=== PATIENT | female | born 1990 | race Caucasian/White ===

== ENCOUNTER 2020-07-02 23:05 | Emergency (ER) | payer MEDICAID, SELFPAY ==
[2020-07-02 23:07] VITALS: BP 123/78; PULSE 78; RESP 18; TEMP 36.3; O2SAT 98; BMI 23.8
--- NOTE | 2020-07-03 00:18 | ED_ITS ---
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 Patient states that she is not on any control , denies any smoking history. Related Data Allergies Allergy/AdvReac Type Severity Reaction Status Date / Time No Known Allergies Allergy Unverified 04/19/20 19:36 [No Known Allergies*] Review of Systems Review of Systems: pertinent positives and negatives as stated in HPI 10 point review of systems is otherwise negative. PMFSH Past Medical History Source: nursing notes reviewed Social History Social History Advance Directives: No Advance Directives Information Provided: No Physical Exam Vital Signs: Vital Signs: Last Vital Signs Temp 97.3 F 07/02/20 23:07 Pulse 78 07/02/20 23:07 Resp 18 07/02/20 23:07 BP 123/78 07/02/20 23:07 Pulse Ox 98 07/02/20 23:07 Body Mass Index 23.8 VITAL SIGNS: Reviewed. GENERAL: Well developed, well nourished, in no acute distress. HEAD: Normocephalic/atraumatic, EYES: PERRLA, EOMI intact without pain, no nystagmus/pallor/icterus noted EARS: Ext canals without abnormality, TMs non-bulging and non-erythematous NOSE: Nares patent bilateral OROPHARYNX: no oral lesions noted, posterior pharynx clear and non-erythematous without noted tonsillar enlargement/erythema/exudates NECK: Supple, no adenopathy LUNGS: Normal breath sounds. No adventitious sounds or accessory muscle use. SpO2<98> CARDIOVASCULAR: Regular rate and rhythm without noted murmurs, no JVD or lower extremity edema. ABDOMEN: Soft, non-tender, non-distended with bowel sounds. No rigidity. No guarding. No palpable masses or hernias noted MUSCULOSKELETAL: No tenderness, deformities, or effusions noted on gross inspection. EXTREMITIES: No cyanosis, clubbing or edema. SKIN: Inspection of the skin reveals no rashes, ulcerations, jaundice, pallor, or petechiae. NEUROLOGIC: Alert and oriented x 4. Strength and sensation to light touch were grossly intact x 4. Course Course Course Narrative: This is a 29-year-old female with history and clinical presentation most suggestive of possible mild dehydration versus headache versus sinus pressure but will rule out cardiac or pulmonary etiologies. On review of all investigations there is no evidence of infection, anemia, or electrolyte abnormalities. In addition urinalysis is negative for evidence infection and chest x-ray is without acute abnormalities and review of EKG does not show any evidence of arrhythmias. Patient was informed of all results and findings at the bedside and states that she is feeling much better after the IV fluids and Tylenol. She understands that it is recommended that she should follow up with the primary care provider at [facility]. MDM - Headache Lab Data Result diagrams: 07/03/20 00:58 07/03/20 00:58 Labs: Lab Results 07/03/20 07/03/20 07/03/20 Range/Units 00:57 00:57 00:58 WBC 7.4 (4.8-10.8) X10*3/uL RBC 4.84 (4.20-5.50) X10*6/uL Hgb 14.1 (12.0-16.0) g/dl Hct 41.0 (37-47) % MCV 84.7 (80-98) fL MCH 29.1 (27.0-33.0) pg MCHC 34.4 (31.0-35.0) g/dl RDW 12.0 (11.0-16.0) % Plt Count 294 (160-400) X10*3/uL MPV 8.8 L (9.4-12.3) fL Immature Gran % (Auto) 0.3 (0.0-0.4) % Neut % (Auto) 40.6 L (45-73) % Lymph % (Auto) 48.2 H (20-40) % Logan % (Auto) 7.7 (2-11) % Eos % (Auto) 2.7 (0-4) % Baso % (Auto) 0.5 (0-2) % Lymph # (Auto) 3.6 (1.2-4.9) X10*3/uL Logan # (Auto) 0.6 (0.1-1.2) X10*3/uL Eos # (Auto) 0.2 (0.0-0.4) X10*3/uL Baso # (Auto) 0.0 (0.0-0.2) X10*3/uL Abs Immat Gran (auto) 0.02 (0.00-0.03) X10*3/uL Absolute Neuts (auto) 3.0 (2.0-8.3) X10*3/uL Absolute Nucleated RBC 0.000 (0.0-0.012) X10*3/uL Nucleated RBC % (auto) 0.0 (0.0-0.2) /100WBC Sodium (135-145) mmol/L Potassium (3.3-5.1) mmol/l Chloride (96-108) mmol/L Carbon Dioxide (22-29) mmol/L Anion Gap (12-20) BUN (9-16) mg/dL Creatinine (0.5-1.4) mg/dL Estim Creat Clear Calc Estimated GFR Random Glucose (60-115) mg/dL Calcium (8.4-10.2) mg/dL Total Bilirubin (0.0-1.0) mg/dL AST (5-31) U/L ALT (0-31) U/L Alkaline Phosphatase (39-117) U/L Total Protein (6.5-8.0) g/dL Albumin (3.5-5.0) g/dL Urine Color YELLOW Urine Appearance CLEAR Urine pH 6.5 (5.0-8.0) Ur Specific [place] 1.025 (1.005-1.025) Urine Protein NEG (NEG-TRACE) MG/DL Urine Glucose (UA) NEG (NEG) MG/DL Urine Ketones NEG (NEG) MG/DL Urine Blood 1+ H (NEG) Urine Nitrite NEG (NEG) Ur Leukocyte Esterase NEG (NEG) Urine RBC 0-2 (0) /HPF Urine WBC 0-2 (0-4) /HPF Ur Squamous Epith Cells TRACE /LPF Urine Bacteria TRACE /LPF Urine Test NEGATIVE (NEGATIVE) Urine Opiates Screen Not Detected (Not Detect) Ur Barbiturates Screen Not Detected (Not Detect) Ur Phencyclidine Scrn Not Detected (Not Detect) Ur Amphetamines Screen Not Detected (Not Detect) U Benzodiazepines Scrn Not Detected (Not Detect) Urine Cocaine Screen Not Detected (Not Detect) U Marijuana (THC) Screen Not Detected (Not Detect) 07/03/20 Range/Units 00:58 WBC (4.8-10.8) X10*3/uL RBC (4.20-5.50) X10*6/uL Hgb (12.0-16.0) g/dl Hct (37-47) % MCV (80-98) fL MCH (27.0-33.0) pg MCHC (31.0-35.0) g/dl RDW (11.0-16.0) % Plt Count (160-400) X10*3/uL MPV (9.4-12.3) fL Immature Gran % (Auto) (0.0-0.4) % Neut % (Auto) (45-73) % Lymph % (Auto) (20-40) % Logan % (Auto) (2-11) % Eos % (Auto) (0-4) % Baso % (Auto) (0-2) % Lymph # (Auto) (1.2-4.9) X10*3/uL Logan # (Auto) (0.1-1.2) X10*3/uL Eos # (Auto) (0.0-0.4) X10*3/uL Baso # (Auto) (0.0-0.2) X10*3/uL Abs Immat Gran (auto) (0.00-0.03) X10*3/uL Absolute Neuts (auto) (2.0-8.3) X10*3/uL Absolute Nucleated RBC (0.0-0.012) X10*3/uL Nucleated RBC % (auto) (0.0-0.2) /100WBC Sodium 136 (135-145) mmol/L Potassium 4.3 (3.3-5.1) mmol/l Chloride 103 (96-108) mmol/L Carbon Dioxide 26 (22-29) mmol/L Anion Gap 11 L (12-20) BUN 15 (9-16) mg/dL Creatinine 0.67 (0.5-1.4) mg/dL Estim Creat Clear Calc 98.9 Estimated GFR > 60 Random Glucose 84 (60-115) mg/dL Calcium 8.6 (8.4-10.2) mg/dL Total Bilirubin 0.3 (0.0-1.0) mg/dL AST 19 (5-31) U/L ALT 13 (0-31) U/L Alkaline Phosphatase 58 (39-117) U/L Total Protein 7.2 (6.5-8.0) g/dL Albumin 4.1 (3.5-5.0) g/dL Urine Color Urine Appearance Urine pH (5.0-8.0) Ur Specific [place] (1.005-1.025) Urine Protein (NEG-TRACE) MG/DL Urine Glucose (UA) (NEG) MG/DL Urine Ketones (NEG) MG/DL Urine Blood (NEG) Urine Nitrite (NEG) Ur Leukocyte Esterase (NEG) Urine RBC (0) /HPF Urine WBC (0-4) /HPF Ur Squamous Epith Cells /LPF Urine Bacteria /LPF Urine Test (NEGATIVE) Urine Opiates Screen (Not Detect) Ur Barbiturates Screen (Not Detect) Ur Phencyclidine Scrn (Not Detect) Ur Amphetamines Screen (Not Detect) U Benzodiazepines Scrn (Not Detect) Urine Cocaine Screen (Not Detect) U Marijuana (THC) Screen (Not Detect) ECG Data Attestation: I personally reviewed and interpreted this ECG as follows: Prior ECG tracings: not available for review Interpretation: normal sinus rhythm, HR - 69, no evidence of acute ischemia, IN/QRS/ QTC are within normal limits. Discharge Plan Discharge Clinical Impression: Dehydration Patient Disposition: Home, Self-Care Instructions: Dehydration (ED) Additional Instructions: 1. Tylenol 1000 mg, orally, every 6 hours as needed for pain control. Do not exceed 4000 mg within 24 hours. 2. Please increase fluid hydration especially with water. The patient and/or family acknowledge understanding of results (as applicable), diagnosis, treatment plan, need for follow up, and symptoms that should prompt a return to the emergency room. Print Language: Indian
[2020-07-03 00:37] VITALS: PULSE 86; RESP 18; TEMP 37; O2SAT 100
--- NOTE | 2020-07-03 00:38 | XR_ITS ---
EXAMINATION: XR CHEST CLINICAL INFORMATION: Chest discomfort COMPARISON: None TECHNIQUE: Frontal view of the chest was obtained. FINDINGS: The lungs are clear with no focal consolidation. No evidence of pneumothorax, pulmonary edema, or pleural effusions. The cardiomediastinal silhouette is unremarkable. No acute osseous findings. XR/XR chest 1V IMPRESSION: No acute cardiopulmonary findings.
[2020-07-03] MEDS: Acetaminophen 325 MG TABLET 975 MG PO (00:51)
[2020-07-03 01:06] LABS: MANUAL DIFF FLAG NO
[2020-07-03 01:07] LABS: Basophils Percent Auto 0.5 % (0-2); Eosinophils Absolute Auto 0.2 X10*3/uL (0.0-0.4); Eosinophils Percent Auto 2.7 % (0-4); Hemoglobin 14.1 g/dl (12.0-16.0); Imm Gran Abs Auto 0.02 X10*3/uL (0.00-0.03); Imm Gran Pct Auto 0.3 % (0.0-0.4); Lymphocytes Absolute Auto 3.6 X10*3/uL (1.2-4.9); Lymphocytes Percent Auto 48.2 % (20-40); Mean Corpuscular HGB Conc 34.4 g/dl (31.0-35.0); Mean Corpuscular Hemoglobin 29.1 pg (27.0-33.0); Mean Corpuscular Volume 84.7 fL (80-98); Mean Platelet Volume 8.8 fL (9.4-12.3); Monocytes Absolute Auto 0.6 X10*3/uL (0.1-1.2); Monocytes Percent Auto 7.7 % (2-11); Neutrophils Percent Auto 40.6 % (45-73); Platelet Count 294 X10*3/uL (160-400); Red Blood Count 4.84 X10*6/uL (4.20-5.50); White Blood Count 7.4 X10*3/uL (4.8-10.8)
[2020-07-03 01:15] LABS: Glucose Urine UA NEG (NEG); Leukocyte Esterase Urine NEG (NEG); Nitrite Urine NEG (NEG); PH 6.5 (5.0-8.0); Specific Gravity - Urine 1.025 (1.005-1.025); Urine Blood 1+ (NEG); Urine Ketones NEG (NEG); Urine Protein NEG (NEG-TRACE)
[2020-07-03 01:18] LABS: Appearance Urine CLEAR; Color Urine YELLOW
--- NOTE | 2020-07-03 01:23 | ECG_ITS ---
Test Reason : HEADACHE Blood Pressure : / mmHG Vent. Rate : 069 BPM Atrial Rate : 069 BPM P-R Int : 172 ms QRS Dur : 072 ms QT Int : 384 ms P-R-T Axes : 063 059 041 degrees QTc Int : 411 ms Normal sinus rhythm Normal ECG When compared with ECG of 20-OCT-2018 12:13, No significant change was found Referred By: Safia Saleh Electronically Signed By:RICKEY DIAZ MD
[2020-07-03 01:29] LABS: Alanine Aminotransferase 13 U/L (0-31); Albumin Level 4.1 g/dL (3.5-5.0); Alkaline Phosphatase 58 U/L (39-117); Anion Gap 11 (12-20); Aspartate Amino Transferase 19 U/L (5-31); Bilirubin Total 0.3 mg/dL (0.0-1.0); Blood Urea Nitrogen 15 mg/dL (9-16); Calcium 8.6 mg/dL (8.4-10.2); Carbon Dioxide 26 mmol/L (22-29); Chloride 103 mmol/L (96-108); Creatinine Clr Calc Pharmacy 98.9; Estimated Glomerular Filt Rate > 60; Glucose Random 84 mg/dL (60-115); Potassium 4.3 mmol/l (3.3-5.1); Sodium 136 mmol/L (135-145); Total Protein 7.2 g/dL (6.5-8.0)
[2020-07-03 01:39] LABS: Amphetamine Screen Urine Not Detected (Not Detect); Barbiturates, Urine Not Detected (Not Detect); Benzodiazepines Screen Urine Not Detected (Not Detect); Cannabinoid Screen Urine Not Detected (Not Detect); Cocaine Screen Urine Not Detected (Not Detect); Opiate Screen Urine Not Detected (Not Detect); Phencyclidine Screen Urine Not Detected (Not Detect)
--- NOTE | 2020-07-03 02:08 | PC.NURSE ---
IV fluid hung at this time.
[2020-07-03 02:26] LABS: Bacteria Urine TRACE /LPF; RBC Urine 0-2 /HPF (0); Squamous Epithelial Cell Urine TRACE /LPF; UPreg QC Valid YES; Urine Pregnancy NEGATIVE (NEGATIVE); WBC Urine 0-2 /HPF (0-4)
== END 2020-07-03 03:24 | disposition home or self-care (01) ==
PROVIDERS: Emergency Provider Student in an Organized Health Care Education/Training Program; PCP Family Medicine
DX: E86.0 Dehydration (principal)
CPT/HCPCS: 36415; 71045; 80053; 80307; 81001; 81025; 85025; 93005; 99283; 99284

== ENCOUNTER 2020-07-17 15:05 | Outpatient (REF) | payer MEDICAID, SELFPAY | END 2020-07-17 15:06 | disposition home or self-care (01) | LOC: HO.LAB 15:05 | PROVIDERS: Visit Provider Internal Medicine | DX: Z20.828 Contact with and (suspected) exposure to other viral communicable diseases (principal) | CPT/HCPCS: C9803; U0003 ==

== ENCOUNTER 2020-07-31 15:37 | Outpatient (REF) | payer MEDICAID, SELFPAY | END 2020-07-31 15:38 | disposition home or self-care (01) | LOC: HO.LAB 15:37 | PROVIDERS: PCP Family Medicine; Visit Provider Internal Medicine | DX: Z20.828 Contact with and (suspected) exposure to other viral communicable diseases (principal) | CPT/HCPCS: C9803; U0003 ==

== ENCOUNTER 2020-08-28 16:34 | Emergency (ER) | payer MEDICAID, SELFPAY ==
--- NOTE | 2020-08-28 17:05 | ECG_ITS ---
Test Reason : CHEST PAIN Blood Pressure : / mmHG Vent. Rate : 070 BPM Atrial Rate : 070 BPM P-R Int : 162 ms QRS Dur : 076 ms QT Int : 384 ms P-R-T Axes : 058 049 023 degrees QTc Int : 414 ms Normal sinus rhythm Normal ECG When compared with ECG of 03-JUL-2020 01:40, No significant change was found Referred By: Generic ED Physician Electronically Signed By:Patrice Ernst
[2020-08-28 17:14] VITALS: BP 109/78; PULSE 74; RESP 16; TEMP 36.9; O2SAT 99; BMI 23.0
--- NOTE | 2020-08-28 17:30 | XR_ITS ---
EXAMINATION: XR CHEST CLINICAL INFORMATION: Left-sided chest pain COMPARISON: 07/03/2020 TECHNIQUE: Frontal view of the chest was obtained. FINDINGS: No significant abnormality is noted involving the heart, lungs, mediastinum, bony thorax or soft tissues. XR/XR chest 1V IMPRESSION: Unremarkable examination.
--- NOTE | 2020-08-28 17:35 | ED.CHESTPAIN ---
HPI - Chest Pain General Chief Complaint: Chest Pain Stated Complaint: cp Time Seen by Provider: 08/28/20 17:25 Source: patient Mode of arrival: ambulatory Limitations: no limitations History of Present Illness HPI narrative: Patient presents to ED for left-sided chest pain which began around 04:00 o'clock while at work. Patient also some left face and left arm tingling. Patient states she has had this before in the past. Patient denies any shortness of breath, swelling of lower extremities, coughing up blood, fever, or chills. Patient denies any swelling of lower extremities, calf pain, recent long travel, recent surgery, or any control pill use. complaint: chest pain Related Data Previous Rx's Medication Instructions Recorded naproxen 500 mg PO BID PRN #20 tab 08/28/20 Allergies Allergy/AdvReac Type Severity Reaction Status Date / Time No Known Allergies Allergy Verified 08/28/20 17:20 [No Known Allergies*] Review of Systems Review of Systems: Yes all other systems are reviewed and are negative Constitutional: Constitutional: Reports as per HPI and Reports no additional constitutional complaints Eyes: Eyes: Reports as per HPI and Reports no additional eye complaints ENT: Reports system reviewed and no additional complaints, except as documented and Reports as per HPI Cardiovascular: Cardiovascular: Reports as per HPI, Reports no additional cardiovascular complaints, Reports chest pain and Denies dyspnea Respiratory: Respiratory: Reports as per HPI, Reports no additional respiratory complaints, Denies change in phlegm color, Denies chest congestion, Denies cough, Denies pain on inspiration, Denies pain with cough and Denies dyspnea Gastrointestinal: Gastrointestinal: Reports as per HPI and Reports no additional gastrointestinal complaints Genitourinary: Genitourinary: Reports no additional female genitourinary complaints and Reports as per HPI Musculoskeletal: Musculoskeletal: Reports no additional musculoskeletal complaints and Reports as per HPI Neurologic: Reports system reviewed and no additional complaints, except as documented and Reports as per HPI Psychiatric: Psychiatric: Reports no additional psychiatric complaints and Reports as per HPI [facility] Past Medical History Medical History (Updated 08/28/20 @ 22:12 by MEGHA Rosa) No known health problems Social History Social History Smoking Status: Never smoker Use of substances other than those prescribed or required for medical reasons: No Advance Directives: No Advance Directives Information Provided: No Physical Exam Vital Signs: Vital Signs: Last Vital Signs Temp 99.1 F 08/28/20 21:57 Pulse 72 08/28/20 21:57 Resp 18 08/28/20 21:57 BP 113/69 08/28/20 21:57 Pulse Ox 99 08/28/20 21:57 Body Mass Index 23.0 Const: General: cooperative, healthy appearing, comfortable, no acute distress, well developed, alert, awake and Physically active Orientation/consciousness: patient oriented x3 HENMT: Head: Yes normal to inspection, Yes No palpable skull fracture present, Yes normocephalic, Yes atraumatic and No abrasion Eyes: General: appearance normal, both eyes and all related structures Neck: Neck: Yes normal visual inspection, Yes full ROM, Yes no lymphadenopathy, Yes no meningeal signs, Yes trachea midline, Yes supple and No tender Chest: Other: positive for left sided chest wall tendereness. Breast exam negative for any erythema, swelling, mass, or nipple discharge. Negative for any left axillary lymphadenopathy. Chest palpation & inspection: normal inspection of the chest Resp: Effort & Inspection: normal respiratory effort and able to speak in complete sentences Auscultation: clear to auscultation bilaterally Cardio: Jugular venous distension: no JVD Heart sounds: S1 normal heart sound present and S2 normal heart sound present GI: Inspection: Yes normal to inspection and No abdominal wall ecchymosis Palpation (GI): Soft to palpation, not firm, nontender, no guarding and not rigid : General: No CVA tenderness and Yes no CVA tenderness Back/Spine/Pelvis: Back: no CVA tenderness, No CVA tenderness and No back tenderness Skin: General skin exam: no rashes or lesions noted and elasticity normal Neuro: General: patient oriented x3, no meningeal signs and CN's II-XI intact bilaterally Cranial nerves: Yes CN's II-XII intact bilaterally Extrem: Other: Negative for any calf tenderness, lower extremity swelling pitting edema. General: Yes normal to inspection and Yes full ROM Psych: Appearance: grossly normal, well kempt and not disheveled Course Course Course Narrative: Patient likely has muscular chest wall pain. Patient will have cardiac evaluation including D-dimer makes within the risk of PE. Patient had COVID abscess of the foot does know COVID. Patient will have x-ray. Reevaluation(s) Reevaluation #1: Patient's COVID swab came back negative. Chest x-ray normal negative for any pneumonia. Patient's troponin and D-dimer negative. EKG normal. Will do repeat troponin due to patient having chest pain starting at 16:00. Patient is not in any distress Time: 20:06 Reevaluation #2: Patient's 2nd troponin came back negative. Patient's PERC score is 0. patient chest wall pain resolved after receiving Toradol. Patient is safe for discharge Time: 22:09 MDM - Chest Pain MDM Narrative Medical decision making narrative: Chest wall pain Lab Data Result diagrams: 08/28/20 18:06 08/28/20 18:06 Labs: Lab Results 08/28/20 08/28/20 08/28/20 Range/Units 18:06 18:06 18:06 WBC 7.0 (4.8-10.8) X10*3/uL RBC 5.25 (4.20-5.50) X10*6/uL Hgb 15.1 (12.0-16.0) g/dl Hct 44.7 (37-47) % MCV 85.1 (80-98) fL MCH 28.8 (27.0-33.0) pg MCHC 33.8 (31.0-35.0) g/dl RDW 11.9 (11.0-16.0) % Plt Count 304 (160-400) X10*3/uL MPV 8.8 L (9.4-12.3) fL Immature Gran % (Auto) 0.4 (0.0-0.4) % Neut % (Auto) 55.1 (45-73) % Lymph % (Auto) 37.6 (20-40) % [place] % (Auto) 4.9 (2-11) % Eos % (Auto) 1.6 (0-4) % Baso % (Auto) 0.4 (0-2) % Lymph # (Auto) 2.6 (1.2-4.9) X10*3/uL [place] # (Auto) 0.3 (0.1-1.2) X10*3/uL Eos # (Auto) 0.1 (0.0-0.4) X10*3/uL Baso # (Auto) 0.0 (0.0-0.2) X10*3/uL Abs Immat Gran (auto) 0.03 (0.00-0.03) X10*3/uL Absolute Neuts (auto) 3.8 (2.0-8.3) X10*3/uL Absolute Nucleated RBC 0.000 (0.0-0.012) X10*3/uL Nucleated RBC % (auto) 0.0 (0.0-0.2) /100WBC PT 12.2 (10.8-13.0) SEC INR 1.0 (0.9-1.1) APTT 37.4 (24.1-38.0) SEC D-Dimer < 200 NG/ML Sodium 138 (135-145) mmol/L Potassium 4.3 (3.3-5.1) mmol/l Chloride 102 (96-108) mmol/L Carbon Dioxide 28 (22-29) mmol/L Anion Gap 12 (12-20) BUN 10 (9-16) mg/dL Creatinine 0.64 (0.5-1.4) mg/dL Estim Creat Clear Calc 108.2 Estimated GFR > 60 Random Glucose 82 (60-115) mg/dL Calcium 9.3 D (8.4-10.2) mg/dL Ferritin 21 (10-122) ng/mL Total Bilirubin 0.3 (0.0-1.0) mg/dL AST 19 (5-31) U/L ALT 14 (0-31) U/L Alkaline Phosphatase 63 (39-117) U/L Lactate Dehydrogenase 153 (122-220) U/L Troponin I High Sens (<3.5-17.0) ng/L Total Protein 7.9 (6.5-8.0) g/dL Albumin 4.4 (3.5-5.0) g/dL Procalcitonin ng/mL Beta HCG, Quant mIU/mL COVID-19 (RICARDO) (Negative) COVID-19 Clin Com 08/28/20 08/28/20 08/28/20 Range/Units 18:06 18:06 18:06 WBC (4.8-10.8) X10*3/uL RBC (4.20-5.50) X10*6/uL Hgb (12.0-16.0) g/dl Hct (37-47) % MCV (80-98) fL MCH (27.0-33.0) pg MCHC (31.0-35.0) g/dl RDW (11.0-16.0) % Plt Count (160-400) X10*3/uL MPV (9.4-12.3) fL Immature Gran % (Auto) (0.0-0.4) % Neut % (Auto) (45-73) % Lymph % (Auto) (20-40) % [place] % (Auto) (2-11) % Eos % (Auto) (0-4) % Baso % (Auto) (0-2) % Lymph # (Auto) (1.2-4.9) X10*3/uL [place] # (Auto) (0.1-1.2) X10*3/uL Eos # (Auto) (0.0-0.4) X10*3/uL Baso # (Auto) (0.0-0.2) X10*3/uL Abs Immat Gran (auto) (0.00-0.03) X10*3/uL Absolute Neuts (auto) (2.0-8.3) X10*3/uL Absolute Nucleated RBC (0.0-0.012) X10*3/uL Nucleated RBC % (auto) (0.0-0.2) /100WBC PT (10.8-13.0) SEC INR (0.9-1.1) APTT (24.1-38.0) SEC D-Dimer NG/ML Sodium (135-145) mmol/L Potassium (3.3-5.1) mmol/l Chloride (96-108) mmol/L Carbon Dioxide (22-29) mmol/L Anion Gap (12-20) BUN (9-16) mg/dL Creatinine (0.5-1.4) mg/dL Estim Creat Clear Calc Estimated GFR Random Glucose (60-115) mg/dL Calcium (8.4-10.2) mg/dL Ferritin (10-122) ng/mL Total Bilirubin (0.0-1.0) mg/dL AST (5-31) U/L ALT (0-31) U/L Alkaline Phosphatase (39-117) U/L Lactate Dehydrogenase (122-220) U/L Troponin I High Sens < 3.5 (<3.5-17.0) ng/L Total Protein (6.5-8.0) g/dL Albumin (3.5-5.0) g/dL Procalcitonin < 0.02 ng/mL Beta HCG, Quant < 2 mIU/mL COVID-19 (RICARDO) (Negative) COVID-19 Clin Com 08/28/20 08/28/20 Range/Units 18:06 21:10 WBC (4.8-10.8) X10*3/uL RBC (4.20-5.50) X10*6/uL Hgb (12.0-16.0) g/dl Hct (37-47) % MCV (80-98) fL MCH (27.0-33.0) pg MCHC (31.0-35.0) g/dl RDW (11.0-16.0) % Plt Count (160-400) X10*3/uL MPV (9.4-12.3) fL Immature Gran % (Auto) (0.0-0.4) % Neut % (Auto) (45-73) % Lymph % (Auto) (20-40) % [place] % (Auto) (2-11) % Eos % (Auto) (0-4) % Baso % (Auto) (0-2) % Lymph # (Auto) (1.2-4.9) X10*3/uL [place] # (Auto) (0.1-1.2) X10*3/uL Eos # (Auto) (0.0-0.4) X10*3/uL Baso # (Auto) (0.0-0.2) X10*3/uL Abs Immat Gran (auto) (0.00-0.03) X10*3/uL Absolute Neuts (auto) (2.0-8.3) X10*3/uL Absolute Nucleated RBC (0.0-0.012) X10*3/uL Nucleated RBC % (auto) (0.0-0.2) /100WBC PT (10.8-13.0) SEC INR (0.9-1.1) APTT (24.1-38.0) SEC D-Dimer NG/ML Sodium (135-145) mmol/L Potassium (3.3-5.1) mmol/l Chloride (96-108) mmol/L Carbon Dioxide (22-29) mmol/L Anion Gap (12-20) BUN (9-16) mg/dL Creatinine (0.5-1.4) mg/dL Estim Creat Clear Calc Estimated GFR Random Glucose (60-115) mg/dL Calcium (8.4-10.2) mg/dL Ferritin (10-122) ng/mL Total Bilirubin (0.0-1.0) mg/dL AST (5-31) U/L ALT (0-31) U/L Alkaline Phosphatase (39-117) U/L Lactate Dehydrogenase (122-220) U/L Troponin I High Sens < 3.5 (<3.5-17.0) ng/L Total Protein (6.5-8.0) g/dL Albumin (3.5-5.0) g/dL Procalcitonin ng/mL Beta HCG, Quant mIU/mL COVID-19 (RICARDO) Negative (Negative) COVID-19 Clin Com See Note ECG Data ECG #1: Interpretation: Normal sinus rhythm. Ventricular rate 70. MA interval 162. QRS duration 76. QTC 414. Negative STEMI Discharge Plan Discharge Clinical Impression: Acute chest wall pain Patient Disposition: Home, Self-Care Instructions: Chest Wall Pain (ED) Additional Instructions: Return to the ED for worsening chest pain, shortness of breath, swelling of lower extremities, calf pain, coughing up blood, fever, chills, or any other concerning symptoms. Please follow-up with PCP. A chest x-ray came back negative for pneumonia. COVID swab came back negative. EKG was normal. D-dimer was negative. New troponins were negative. Prescriptions: New naproxen 500 mg tablet 500 mg PO BID PRN (Reason: pain) Qty: 20 RF: 0 Print Language: Wolof
[2020-08-28 18:13] LABS: MANUAL DIFF FLAG NO
[2020-08-28 18:14] LABS: Basophils Percent Auto 0.4 % (0-2); Eosinophils Absolute Auto 0.1 X10*3/uL (0.0-0.4); Eosinophils Percent Auto 1.6 % (0-4); Hematocrit 44.7 % (37-47); Hemoglobin 15.1 g/dl (12.0-16.0); Imm Gran Abs Auto 0.03 X10*3/uL (0.00-0.03); Imm Gran Pct Auto 0.4 % (0.0-0.4); Lymphocytes Absolute Auto 2.6 X10*3/uL (1.2-4.9); Lymphocytes Percent Auto 37.6 % (20-40); Mean Corpuscular HGB Conc 33.8 g/dl (31.0-35.0); Mean Corpuscular Hemoglobin 28.8 pg (27.0-33.0); Mean Corpuscular Volume 85.1 fL (80-98); Mean Platelet Volume 8.8 fL (9.4-12.3); Monocytes Absolute Auto 0.3 X10*3/uL (0.1-1.2); Monocytes Percent Auto 4.9 % (2-11); Neutrophils Absolute Auto 3.8 X10*3/uL (2.0-8.3); Neutrophils Percent Auto 55.1 % (45-73); Platelet Count 304 X10*3/uL (160-400); Red Blood Count 5.25 X10*6/uL (4.20-5.50); Red Cell Distribution Width 11.9 % (11.0-16.0)
[2020-08-28 18:20] LABS: Prothrombin Time 12.2 SEC (10.8-13.0)
[2020-08-28 18:23] LABS: Partial Thromboplastin Time 37.4 SEC (24.1-38.0)
[2020-08-28 18:24] LABS: D Dimer < 200 NG/ML
[2020-08-28] MEDS: 0.9 % Sodium Chloride 1,000 ML 999 ML IV (18:27)
[2020-08-28 18:30] LABS: COVID-19 Test Negative (Negative); IDNOW Serial# 9DD0AD1C
[2020-08-28 18:44] LABS: Alanine Aminotransferase 14 U/L (0-31); Albumin Level 4.4 g/dL (3.5-5.0); Alkaline Phosphatase 63 U/L (39-117); Anion Gap 12 (12-20); Aspartate Amino Transferase 19 U/L (5-31); Bilirubin Total 0.3 mg/dL (0.0-1.0); Blood Urea Nitrogen 10 mg/dL (9-16); Calcium 9.3 mg/dL (8.4-10.2); Carbon Dioxide 28 mmol/L (22-29); Chloride 102 mmol/L (96-108); Creatinine Clr Calc Pharmacy 108.2; Estimated Glomerular Filt Rate > 60; Glucose Random 82 mg/dL (60-115); Lactate Dehydrogenase 153 U/L (122-220); Potassium 4.3 mmol/l (3.3-5.1); Sodium 138 mmol/L (135-145); Total Protein 7.9 g/dL (6.5-8.0)
[2020-08-28 18:47] LABS: HCG Quantitative < 2 mIU/mL; Troponin-I High Sensitivity < 3.5 ng/L (<3.5-17.0)
[2020-08-28 19:03] LABS: Ferritin 21 ng/mL (10-122)
[2020-08-28 19:07] LABS: Procalcitonin < 0.02 ng/mL
[2020-08-28 19:46] VITALS: BP 127/84; RESP 73; O2SAT 100
[2020-08-28] MEDS: Ketorolac Tromethamine 15 MG/ML VIAL IVPUSH (21:33)
[2020-08-28 21:43] LABS: Troponin-I High Sensitivity < 3.5 ng/L (<3.5-17.0)
[2020-08-28 21:57] VITALS: BP 113/69; PULSE 72; RESP 18; TEMP 37.3; O2SAT 99
== END 2020-08-28 22:25 | disposition home or self-care (01) ==
PROVIDERS: Physician Assistant; Emergency Provider Emergency Medicine Emergency Medical Services; PCP Family Medicine
DX: R07.89 Other chest pain (principal); Z20.822 Contact with and (suspected) exposure to COVID-19
CPT/HCPCS: 36415; 71045; 80053; 82728; 83615; 84145; 84484; 84702; 85025; 85379; 85610; 85730; 87635; 93005; 96361; 96374; 99284; J1885

== ENCOUNTER 2021-02-27 14:58 | Outpatient (REF) | payer MEDICAID, SELFPAY | END 2021-02-27 14:59 | disposition home or self-care (01) | LOC: HO.LAB 14:58 | PROVIDERS: Visit Provider Internal Medicine | DX: Z20.822 Contact with and (suspected) exposure to COVID-19 (principal) | CPT/HCPCS: C9803; U0003; U0005 ==

== ENCOUNTER 2021-03-11 10:39 | Outpatient (REF) | payer MEDICAID, SELFPAY ==
--- NOTE | ~2021-03-11 | US_ITS ---
EXAMINATION: BILATERAL LOWER EXTREMITY VENOUS ULTRASOUND (Reflux Exam) CLINICAL INDICATION: This is a 30-year-old female with venous insufficiency and varicose veins. COMPARISON: None. TECHNIQUE: Color flow triplex imaging and compression Doppler was performed to evaluate both the deep and the superficial systems bilaterally. To evaluate the superficial system, the examination was performed in the upright position. Color-flow Doppler ultrasound and compression ultrasound were utilized. In addition, maneuvers were utilized to demonstrate reflux. FINDINGS: 1. DEEP VENOUS ULTRASOUND OF THE RIGHT LOWER EXTREMITY: Common Femoral Vein: Compressible, normal respiratory variation and augmented flow. Femoral vein: Compressible, normal color flow and augmentation. Popliteal Vein: Compressible, normal augmentation. Deep Reflux: There is no evidence of reflux in the deep system in either the common femoral vein or the popliteal vein. . There is no evidence of a Juarez's cyst. 2. SUPERFICIAL ULTRASOUND WITH DOPPLER OF RIGHT LOWER EXTREMITY GREAT SAPHENOUS VEIN: Saphenofemoral junction: 0.5 cm Mid thigh: 0 point cm Above knee: 0.3 cm Below knee: 0.2 cm Mid calf: 0.2 cm Ankle: 0.2 cm GSV REFLUX: No evidence of reflux. DUPLICATED GREAT SAPHENOUS VEIN: There is a 0.2 cm medial duplicated great saphenous vein without reflux. SMALL SAPHENOUS VEIN: Upper: 0.5 cm Lower: 0.3 cm SSV REFLUX: No evidence of reflux. VEIN OF GIACOMINI: None Imaged. PERFORATORS: None Imaged VARICOSITIES: There is a 0.2 varicose vein off the duplicated great saphenous extending toward the knee with greater than 3 seconds of reflux. 3. DEEP VENOUS ULTRASOUND OF THE LEFT LOWER EXTREMITY: Common Femoral Vein: Compressible, normal respiratory variation and augmented flow. Femoral vein: Compressible, normal color flow and augmentation. Popliteal Vein: Compressible, normal augmentation. Deep Reflux: There is no evidence of reflux in the deep system in either the common femoral vein or the popliteal vein. There is no evidence of a Juarez's cyst. 4. SUPERFICIAL ULTRASOUND WITH DOPPLER OF LEFT LOWER EXTREMITY GREAT SAPHENOUS VEIN: Saphenofemoral junction: 0.4 cm Mid thigh: 0.2 cm Above knee: 0.2 cm Below knee: 0.1 cm Mid calf: 0.1 cm Ankle: 0.1 cm GSV REFLUX: No evidence of reflux. DUPLICATED GREAT SAPHENOUS VEIN: There is a 0.3 cm duplicated medial great saphenous vein without reflux. SMALL SAPHENOUS VEIN: Upper: 0.3 cm Lower: 0.3 cm SSV REFLUX: No evidence of reflux. VEIN OF GIACOMINI: None Imaged. PERFORATORS: None Imaged VARICOSITIES: None Imaged US/US venous duplex LE BI IMPRESSION: 1. There are bilateral patent great saphenous veins and small saphenous veins, respectively, without evidence of reflux. 2. There is a varicose vein measuring 0.2 cm off the duplicated right great saphenous vein measuring 0.2 cm with greater than 3 seconds of reflux.
== END 2021-03-11 10:40 | disposition home or self-care (01) ==
LOC: HO.US 10:39
PROVIDERS: Visit Provider Surgery Vascular Surgery
DX: I83.893 Varicose veins of bilateral lower extremities with other complications (principal)
CPT/HCPCS: 93970

== ENCOUNTER → 2021-03-26 13:25 | Outpatient (BNVA) | payer MEDICAID, SELFPAY | PROVIDERS: Visit Provider Surgery Vascular Surgery | DX: I83.11 Varicose veins of right lower extremity with inflammation (principal) | CPT/HCPCS: 99212 ==

== ENCOUNTER → 2021-04-19 09:29 | Outpatient (BNVA) | payer MEDICAID, SELFPAY | PROVIDERS: Visit Provider Surgery Vascular Surgery | DX: I83.11 Varicose veins of right lower extremity with inflammation (principal) | CPT/HCPCS: 37765 ==

== ENCOUNTER 2022-04-18 19:35 | Emergency (ER) | payer MEDICAID, SELFPAY ==
--- NOTE | ~2022-04-18 | CT_ITS ---
EXAMINATION: CT ANGIOGRAM OF THE CHEST WITH AND WITHOUT CONTRAST (CT PULMONARY ANGIOGRAM FOR PE) CLINICAL INFORMATION: Chest pain COMPARISON: Radiograph 04/18/2022 TECHNIQUE: Prior to contrast administration, noncontrast localization images were obtained. Subsequently, multidetector volumetric imaging was performed from the thoracic inlet to below the diaphragms following the administration of 65 mL Omnipaque 350 intravenous contrast. No contrast reaction reported Sagittal, coronal, and MIP oblique sagittal reformatted images were obtained on the CT workstation, uploaded to PACS, and reviewed. This CT examination was performed using dose optimization techniques as appropriate, variously including the following: *Automated exposure control *Adjustment of mA and/or kV according to patient size (this includes techniques or standardized protocols for targeted exams where dose is matched to indication/reason for exam; i.e. extremities or head) *Use of iterative reconstruction technique Total exam dose-length product 202 mGy-cm FINDINGS: QUALITY OF STUDY/CONTRAST BOLUS: Satisfactory. PULMONARY ARTERIES: No central or segmental pulmonary emboli. THORACIC AORTA: No aneurysm or dissection. LUNG: No focal consolidation, nodules or masses. The central airways are patent. Subpleural triangular density of the right middle lobe, consistent with a lymph node. PLEURA: No pleural effusion or pneumothorax. MEDIASTINUM: Normal heart size. No pericardial effusion. No hilar or mediastinal lymphadenopathy. No evidence of septal bowing or right heart strain. CHEST WALL/AXILLA: No axillary or internal mammary lymphadenopathy. OSSEOUS STRUCTURES: No acute or suspicious osseous abnormality. UPPER ABDOMEN: Unremarkable. No reflux of contrast into the hepatic veins to suggest elevated right heart pressures. CT/CT angio chest PE protocol IMPRESSION: No pulmonary embolism or other acute intrathoracic abnormality. VTE: negative
--- NOTE | ~2022-04-18 | XR_ITS ---
EXAMINATION: XR CHEST CLINICAL INFORMATION: Chest tightness COMPARISON: Chest x-ray on 08/28/2020 TECHNIQUE: Frontal view of the chest was obtained. FINDINGS: No significant abnormality is noted involving the heart, lungs, mediastinum, bony thorax or soft tissues. XR/XR chest 1V IMPRESSION: Unremarkable examination.
--- NOTE | 2022-04-18 20:58 | ECG_ITS ---
Test Reason : chest pain Blood Pressure : / mmHG Vent. Rate : 086 BPM Atrial Rate : 086 BPM P-R Int : 158 ms QRS Dur : 066 ms QT Int : 358 ms P-R-T Axes : 064 046 024 degrees QTc Int : 428 ms Normal sinus rhythm Normal ECG When compared with ECG of 28-AUG-2020 17:19, No significant change was found Referred By: Generic ED Physician Electronically Signed By:ANAIS RUELAS
[2022-04-18 21:03] VITALS: BP 130/73; PULSE 87; RESP 20; TEMP 36.7; O2SAT 99; BMI 25.2
[2022-04-18 21:24] LABS: MANUAL DIFF FLAG NO
[2022-04-18 21:26] LABS: Basophils Absolute Auto 0.1 X10*3/uL (0.0-0.2); Basophils Percent Auto 0.6 % (0-2); Eosinophils Absolute Auto 0.2 X10*3/uL (0.0-0.4); Eosinophils Percent Auto 2.3 % (0-4); Hematocrit 42.3 % (37.0-47.0); Hemoglobin 14.6 g/dl (12.0-16.0); Imm Gran Abs Auto 0.02 X10*3/uL (0.00-0.03); Imm Gran Pct Auto 0.2 % (0.0-0.4); Lymphocytes Absolute Auto 3.5 X10*3/uL (1.2-4.9); Lymphocytes Percent Auto 36.8 % (20-40); Mean Corpuscular HGB Conc 34.5 g/dl (31.0-35.0); Mean Corpuscular Volume 84.1 fL (80.0-98.0); Mean Platelet Volume 8.8 fL (9.4-12.3); Monocytes Absolute Auto 0.6 X10*3/uL (0.1-1.2); Monocytes Percent Auto 6.6 % (2-11); Neutrophils Absolute Auto 5.1 x10*3/uL (2.0-8.3); Neutrophils Percent Auto 53.5 % (45-73); Platelet Count 310 X10*3/uL (160-400); Red Blood Count 5.03 X10*6/uL (4.20-5.50); White Blood Count 9.5 X10*3/uL (4.8-10.8)
[2022-04-18 21:40] LABS: Anion Gap 14 (12-20); Blood Urea Nitrogen 10 mg/dL (9-16); Calcium 9.5 mg/dL (8.4-10.2); Carbon Dioxide 25 mmol/L (22-29); Chloride 104 mmol/L (96-108); Creatinine Clr Calc Pharmacy 111.1; Estimated Glomerular Filt Rate > 60; Glucose Random 94 mg/dL (60-115); Sodium 139 mmol/L (135-145)
[2022-04-18 21:47] LABS: Troponin-I High Sensitivity < 3.5 ng/L (<3.5-17.0)
[2022-04-18 23:38] VITALS: BP 132/82; PULSE 71; RESP 16; O2SAT 100
--- NOTE | 2022-04-18 23:57 | ED.GENADULT ---
HPI - General Adult General Chief complaint: General Medical Stated complaint: chest heavy, dizzy Time Seen by Provider: 04/18/22 23:45 Source: patient Limitations: no limitations History of Present Illness HPI narrative: Patient states starting tonight she developed left-sided chest heaviness. Associated symptoms of dizziness and headache. No prior history of similar symptoms. She does not have a history of thromboembolic disease but did have vein stripping 1 year ago right leg. Family history of thromboembolic disease in her grandfather. No cardiac disease. Prior history of smoking, quit 1 year ago. No recent illnesses No other risk factors Related Data Previous Rx's Medication Instructions Recorded naproxen 500 mg tablet 500 mg PO BID PRN pain #20 tabs 08/28/20 Allergies Allergy/AdvReac Type Severity Reaction Status Date / Time No Known Allergies Allergy Verified 04/18/22 21:08 [No Known Allergies*] Review of Systems Constitutional: Comments: No fevers or chills Cardiovascular: Comments: Chest pain. No palpitations Respiratory: Comments: No shortness of breath Gastrointestinal: Comments: No nausea vomiting Musculoskeletal: Comments: No pedal edema Integumentary/Breasts: Comments: No rash Neurologic: Comments: No focal weakness PMFSH Past Medical History Medical History Dyspnea No known health problems Varicose veins of bilateral lower extremities with pain Social History Social History Patient Tobacco Use Status: Current everyday Tobacco user Tobacco use type: Cigarette Advance Directives: No Advance Directives Information Provided: No Physical Exam ED Vital Signs: Vital Signs - 24 hr 04/18/22 21:03 04/18/22 23:38 Temperature 98.0 F Pulse Rate 87 71 Respiratory Rate 20 16 Blood Pressure 130/73 132/82 Pulse Oximetry 99 100 Oxygen Delivery Method Room Air Room Air BMI result Body Mass Index 25.2 Const Other: Awake and alert in no acute distress Neck Other: No JVD Chest Other: Clear and equal bilaterally without wheezes rales or rhonchi Resp Other: Clear and equal bilaterally without wheezes rales or rhonchi Cardio Other: Regular rate and rhythm without murmurs rubs or gallops GI Other: Soft nontender nondistended Skin Other: Warm pink and dry without rash Neuro Other: Nonfocal neuro exam Psych Other: Anxious. Tearful during history Course Course Course Narrative: Chest pain Pulmonary embolism Myocardial ischemia less likely Musculoskeletal pain Given thromboembolic risk factors, will order CT angiography of the chest. Risks and benefits discussed with patient who agrees. Signed out at 02:[address] scan results CT scan reported as negative. Patient discharged home Medical Decision Making Lab Data Result diagrams: 04/18/22 21:15 04/18/22 21:15 Labs: Lab Results 04/18/22 04/18/22 04/18/22 Range/Units 21:15 21:15 21:15 WBC 9.5 (4.8-10.8) X10*3/uL RBC 5.03 (4.20-5.50) X10*6/uL Hgb 14.6 (12.0-16.0) g/dl Hct 42.3 (37.0-47.0) % MCV 84.1 (80.0-98.0) fL MCH 29.0 (27.0-33.0) pg MCHC 34.5 (31.0-35.0) g/dl RDW 12.0 (11.0-16.0) % Plt Count 310 (160-400) X10*3/uL MPV 8.8 L (9.4-12.3) fL Immature Gran % (Auto) 0.2 (0.0-0.4) % Neut % (Auto) 53.5 (45-73) % Lymph % (Auto) 36.8 (20-40) % George % (Auto) 6.6 (2-11) % Eos % (Auto) 2.3 (0-4) % Baso % (Auto) 0.6 (0-2) % Lymph # (Auto) 3.5 (1.2-4.9) X10*3/uL George # (Auto) 0.6 (0.1-1.2) X10*3/uL Eos # (Auto) 0.2 (0.0-0.4) X10*3/uL Baso # (Auto) 0.1 (0.0-0.2) X10*3/uL Abs Immat Gran (auto) 0.02 (0.00-0.03) X10*3/uL Absolute Neuts (auto) 5.1 (2.0-8.3) x10*3/uL Absolute Nucleated RBC 0.000 (0.0-0.012) X10*3/uL Nucleated RBC % (auto) 0.0 (0.0-0.2) /100WBC Sodium 139 (135-145) mmol/L Potassium 4.0 (3.3-5.1) mmol/L Chloride 104 (96-108) mmol/L Carbon Dioxide 25 (22-29) mmol/L Anion Gap 14 (12-20) BUN 10 (9-16) mg/dL Creatinine 0.67 (0.5-1.4) mg/dL Estim Creat Clear Calc 111.1 Estimated GFR > 60 Random Glucose 94 (60-115) mg/dL Calcium 9.5 (8.4-10.2) mg/dL Troponin I High Sens < 3.5 (<3.5-17.0) ng/L Urine Test (NEGATIVE) 04/19/22 Range/Units 01:25 WBC (4.8-10.8) X10*3/uL RBC (4.20-5.50) X10*6/uL Hgb (12.0-16.0) g/dl Hct (37.0-47.0) % MCV (80.0-98.0) fL MCH (27.0-33.0) pg MCHC (31.0-35.0) g/dl RDW (11.0-16.0) % Plt Count (160-400) X10*3/uL MPV (9.4-12.3) fL Immature Gran % (Auto) (0.0-0.4) % Neut % (Auto) (45-73) % Lymph % (Auto) (20-40) % George % (Auto) (2-11) % Eos % (Auto) (0-4) % Baso % (Auto) (0-2) % Lymph # (Auto) (1.2-4.9) X10*3/uL George # (Auto) (0.1-1.2) X10*3/uL Eos # (Auto) (0.0-0.4) X10*3/uL Baso # (Auto) (0.0-0.2) X10*3/uL Abs Immat Gran (auto) (0.00-0.03) X10*3/uL Absolute Neuts (auto) (2.0-8.3) x10*3/uL Absolute Nucleated RBC (0.0-0.012) X10*3/uL Nucleated RBC % (auto) (0.0-0.2) /100WBC Sodium (135-145) mmol/L Potassium (3.3-5.1) mmol/L Chloride (96-108) mmol/L Carbon Dioxide (22-29) mmol/L Anion Gap (12-20) BUN (9-16) mg/dL Creatinine (0.5-1.4) mg/dL Estim Creat Clear Calc Estimated GFR Random Glucose (60-115) mg/dL Calcium (8.4-10.2) mg/dL Troponin I High Sens (<3.5-17.0) ng/L Urine Test NEGATIVE (NEGATIVE) Discharge Plan Discharge Clinical Impression: Chest pain Patient Disposition: Home, Self-Care Instructions: Chest Pain (ED) Additional Instructions: return to ED for any worsening symptoms or concerns EXAMINATION: CT ANGIOGRAM OF THE CHEST WITH AND WITHOUT CONTRAST (CT PULMONARY ANGIOGRAM FOR PE) CLINICAL INFORMATION: Chest pain COMPARISON: Radiograph 04/18/2022? TECHNIQUE: Prior to contrast administration, noncontrast localization images were obtained. ? Subsequently, multidetector volumetric imaging was performed from the thoracic inlet to below the diaphragms following the administration of 65 mL Omnipaque 350 intravenous contrast. No contrast reaction reported Sagittal, coronal, and MIP oblique sagittal reformatted images were obtained on the CT workstation, uploaded to PACS, and reviewed. This CT examination was performed using dose optimization techniques as appropriate, variously including the following: *Automated exposure control *Adjustment of mA and/or kV according to patient size (this includes techniques or standardized protocols for targeted exams where dose is matched to indication/reason for exam; i.e. extremities or head) *Use of iterative reconstruction technique Total exam dose-length product 202 mGy-cm FINDINGS: QUALITY OF STUDY/CONTRAST BOLUS: Satisfactory. PULMONARY ARTERIES: No central or segmental pulmonary emboli.? THORACIC AORTA: No aneurysm or dissection. LUNG: No focal consolidation, nodules or masses. The central airways are patent. Subpleural triangular density of the right middle lobe, consistent with a lymph node. PLEURA: No pleural effusion or pneumothorax. MEDIASTINUM: Normal heart size.? No pericardial effusion.? No hilar or mediastinal lymphadenopathy.? No evidence of septal bowing or right heart strain. CHEST WALL/AXILLA: No axillary or internal mammary lymphadenopathy. OSSEOUS STRUCTURES: No acute or suspicious osseous abnormality.? UPPER ABDOMEN: Unremarkable.? No reflux of contrast into the hepatic veins to suggest elevated right heart pressures. CT/CT angio chest PE protocol IMPRESSION: No pulmonary embolism or other acute intrathoracic abnormality. ? VTE: negative Prescriptions: No Action naproxen 500 mg tablet 500 mg PO BID PRN (Reason: pain) Qty: 20 0RF Referrals: [place]On License Of [facility] [Primary Care Provider] - (if not better Thursday) Interventions: ED Discharge Assessment Last Done: 04/19/22 03:10 Discharge Date/Time: 04/19/22 03:11
[2022-04-19 01:36] LABS: UPreg QC Valid YES; Urine Pregnancy NEGATIVE (NEGATIVE)
--- NOTE | 2022-04-19 01:53 | PC.NURSE ---
pt a&ox3, vss, reports reduction in pain, 20G IV placed left AC, urine sample obtained. CT pending test.
[2022-04-19] MEDS: iohexoL 350 MG/ML 100 ML INFUS..BTL 65 ML IV (02:12)
== END 2022-04-19 03:11 | disposition home or self-care (01) ==
PROVIDERS: Emergency Provider Emergency Medicine
DX: R07.9 Chest pain, unspecified (principal); F17.210 Nicotine dependence, cigarettes, uncomplicated
CPT/HCPCS: 36415; 71045; 71275; 80048; 81025; 84484; 85025; 93005; 99284; Q9967

== ENCOUNTER → 2022-09-10 10:02 | Outpatient (BNVA) | payer MEDICAID, SELFPAY | PROVIDERS: PCP Nurse Practitioner Primary Care; Referring Provider Nurse Practitioner Primary Care; Visit Provider Internal Medicine Cardiovascular Disease | DX: R07.9 Chest pain, unspecified (principal); R00.2 Palpitations | CPT/HCPCS: 93005; 99202 ==

== ENCOUNTER → 2022-09-18 09:58 | Outpatient (REF) | payer MEDICAID, SELFPAY ==
--- NOTE | 2022-09-18 10:02 | CA_ITS ---
Transthoracic Echocardiogram Patient (Last, First, Middle): Neli Esteban M Gender: Female Date of : 1990 Age: 31 Procedure Date: 09/18/2022 Procedure Type: Transthoracic Echocardiogram Location: OP Height: 157.48 cm Weight: 63.5 kg BSA: 1.64 m2 Heart Rate: bpm BP: 104 / 78 mmHg Game Moderator: YENI Munoz MD: Patrice Ernst MD Sr. Merchandise Planner: Patrice Ernst MD Symptoms: R00.2 - Palpitations Study Quality: Adequate Conclusions: - Normal left ventricular size, thickness, systolic function, and wall motion. The visually estimated ejection fraction is between 55-60%. - Normal right ventricular cavity size and systolic function. Findings Left Ventricle Normal left ventricular size, thickness, systolic function, and wall motion. The visually estimated ejection fraction is between 55-60%. Diastolic function is normal for age. Borderline reduced global longitudinal strain at -17.5 %. Right Ventricle Normal right ventricular cavity size and systolic function. Atria The left atrium is normal in size. The right atrium is normal in size. Aortic Valve Normal aortic valve structure and function. There is no aortic valve stenosis. There is no aortic valve regurgitation. Mitral Valve Normal mitral valve structure and function. There is no mitral valve regurgitation. There is no mitral valve stenosis. Pulmonic Valve Normal pulmonic valve structure and function. Tricuspid Valve Normal tricuspid valve structure and function. There is no tricuspid valve regurgitation. Normal right atrial pressure. There is no evidence of pulmonary hypertension. Great Vessels All visible segments of the aorta are normal in size. The visualized portions of the pulmonary artery and branches are normal. Venous The inferior vena cava is normal in size and collapses greater than 50% with inspiration. Pericardium/Pleural There is no evidence of pericardial effusion. Prior Study Comparison No significant change compared to prior study dated: 10/27/2018. Measurements 2D Linear Measurements IVSd: 0.82 0.6-0.9/0.6-1.0 cm LVIDd: 4.64 3.9-5.3/4.2-5.9 cm LVIDd Index: 2.83 2.4-3.2/2.2-3.1 cm/m2 LVIDs: 3.18 2.0-3.6 cm LVPWd: 0.76 0.7-1.1 cm LA Diam: 2.90 2.7-3.8/3.0-4.0 cm LAIDs Index: 1.77 1.5-2.3 cm/m2 LV Mass: 146.98 67-162/88-224 g LV Mass Index: 89.62 43-95/49-115 g/m2 LVOT Diam: 2.10 3.0+(-)1.3 cm 2D Systolic Function EF 4C: 52.10 >55% EF 2C: 59.50 >55% EF BiP: 56.10 >55% Mitral Valve MV Pk E: 0.65 MV PK A: 0.38 MV Decel Time: 279.00 E/A: 1.70 E'Lateral: 13.50 E'Medial: 10.30 E/E' Med: 6.30 E/E' Lat: 4.80 PHT: 82.00 MVA PHT: 2.68 Decel [place]: 2.32 Aortic Valve AoV Pk Erick: 1.07 AoV Mn Erick: 0.75 AoV VTI: 0.24 AoV Pk Grad: 5.00 Aov Mn Grad: 2.00 DYANA Cont.VTI: 2.34 LVOT LVOT Pk Erick: 0.84 LVOT Mn Erick: 0.57 LVOT VTI: 0.16 LVOT Pk Grad: 3.00 LVOT Mn Grad: 2.00 LVOT Diam: 2.10 LVOT Area: 3.46 Diastolic Function MV Pk E: 0.65 MV Pk A: 0.38 E/A: 1.70 E'Medial: 10.30 E/E' Med: 6.30 E' Laterial: 13.50 E/E' Lat: 4.80 Right Ventricle TAPSE (mm): 21.60 TVS' Erick: 13.10 Tricuspid Valve TR Pk Erick: 1.55 TR Pk Grad: 10.00 RA Press: 3.00 RVSP: 13.00 Great Vessels Aorta Sinus of Valsalva: 2.99 2.0-3.[address] [place]: 2.39 1.7-3.4 cm Ao Asc: 2.70 2.1-3.4 cm Ao Arch: 2.40 Updated in Other Vendor System with Status of Final Patrice Ernst MD electronically signed on 09/19/2022 4:40:55 PM with status of Final
--- NOTE | 2022-09-18 10:27 | HM_ITS ---
CARDIAC EVENT MONITOR Indication: Palpitations Technique: Patient was hooked up to cardiac event monitor on 09/18/2022 for total period of 30 days. Compliance rate was noted at 83.5%. Other appears to have some baseline artifact on some of the strips. Findings: Baseline was normal sinus rhythm with lowest heart rate of 78 beats per minute and the fastest heart rate of 187 beats per minute appears to be in sinus tachycardia. This frequent episodes of sinus tachycardia with 34.7% of time heart rate about 100 beats per minute. There were no significant pauses noted. There were very rare ectopy noted. No significant tachyarrhythmias noted Patient activated the event monitor 15 times with only reported symptom 1 time with no mention of the symptom time but correlated with sinus tachycardia. Conclusion: 1. Baseline normal sinus rhythm with no pauses with frequent sinus tachycardia, 34.7% of the time 2. No significant arrhythmias or ectopy noted 3. Patient reported 1 symptom without actual reporting type of symptoms correlating with sinus tachycardia [facility]
== END ==
LOC: HO.CARD 09:58
PROVIDERS: PCP Nurse Practitioner Primary Care; Visit Provider Internal Medicine Cardiovascular Disease
DX: R00.2 Palpitations (principal)
CPT/HCPCS: 93270; 93306; 93356

== ENCOUNTER → 2022-12-24 09:37 | Outpatient (BNVA) | payer MEDICAID, SELFPAY | PROVIDERS: PCP Nurse Practitioner Primary Care; Referring Provider Nurse Practitioner Primary Care; Visit Provider Internal Medicine Cardiovascular Disease | DX: R07.9 Chest pain, unspecified (principal); R00.2 Palpitations | CPT/HCPCS: 99212 ==

== ENCOUNTER 2023-05-07 09:32 | Outpatient (AMB) | payer MEDICAID, SELFPAY ==
[2023-05-07 09:41] VITALS: BP 114/62; PULSE 72; BMI 23.9
--- NOTE | 2023-05-07 09:41 | MHC.OFFVIS ---
Intake Vital Signs 05/07/23 09:41 Height 5 ft 3 in Weight 134 lb 14.766 oz BMI 23.9 BP 114/62 Blood Pressure Location Lt brachial Position Sitting Pulse 72 Pulse Source Pulse Oximeter Intake Visit Reasons: 4 MON FUP Intake Note: 4 month patient still felling some palpitations. Fibre Cement Moulder Required: Yes Fibre Cement Moulder Language: Fruit Receiver Name: rossana jansen [id number] Allergies No Known Allergies [No Known Allergies*] Allergy (Verified 05/07/23 09:46) Medication List - Last Reconciled 05/07/23 by Sonia Becerril NP-C No Known Home Meds HPI 4 MON FUP HPI Details Neli is a 32-year-old female who is being evaluated for chest discomfort and heart palpitations and now presents for follow-up. Today she reports that she is still noticing that her heart beats fast causing her much concern. She continues to get a pressure in her mid chest which can occur randomly for with activity. She denies presyncope, syncope, falls. No shortness of breath, PND, orthopnea or edema. She has tried to reduce her caffeine intake. She does not take any routine medications. [facility] Medical History Dyspnea Varicose veins of bilateral lower extremities with pain No known health problems Surgical History No pertinent past surgical history Family History Mother Hypertension Epilepsy Social History Alcohol intake: never Patient Tobacco Use Status: Former Tobacco user Quit Date: 2019 Years Smoked: On/off 5 +/- Review of Systems Const All systems reviewed & are unremarkable except as noted in HPI and below ENT Denies dizziness Card Reports chest pain, Denies chest pain at rest, Denies chest pain with activity, Reports rapid heart rate, Denies pedal edema, Denies edema, Denies leg edema, Denies lightheadedness, Denies palpitations, Denies dyspnea, Denies dyspnea on exertion and Denies orthopnea Resp Denies cough, Denies dyspnea and Denies dyspnea on exertion GI Denies hematochezia and Denies change in stool character Musc Denies abnormal gait, Denies limited range of motion, Denies muscle cramps, Denies muscle weakness, Denies numbness, Denies radiating pain into limb, Denies stiffness and Denies tingling Neuro Denies abnormal gait, Denies dizziness, Denies numbness and Denies tingling Endo Denies palpitations Physical Exam Vital Signs: Last Vital Signs Pulse 72 05/07/23 09:41 BP 114/62 05/07/23 09:41 BMI result Body Mass Index 23.9 Const General: cooperative, healthy appearing, comfortable and no acute distress Orientation/consciousness: patient oriented x3 Neck Neck: Yes normal visual inspection Resp Effort & Inspection: normal respiratory effort Auscultation: clear to auscultation bilaterally, no crackles, no rales, no rhonchi and no wheezes Cardio Jugular venous distension: no JVD Rate: regular rate Rhythm: regular rhythm Heart sounds: S1 normal heart sound present, S2 normal heart sound present, no murmurs and no rubs Neuro General: patient oriented x3 Extrem General: Yes normal to inspection Psych Appearance: grossly normal Mental Status: mental status grossly normal Speech and movement: Normal speech and movement present Assessment & Plan Assessment & Plan (1) Palpitations: Code(s): R00.2 - Palpitations Plan: Report of heart palpitations, fast heartbeats causing much concern. No presyncope, syncope, falls. Prior Holter monitor done 09/18/2022 for 30 days showed sinus rhythm with heart rate range 78 to 187, 34.7% of the time heart rate greater than 100. An echocardiogram done 09/18/2022 showed EF 55-60%, RV normal. With her fast heartbeats she could have inappropriate sinus tachycardia. Will check CBC, TSH, BMP. Will check exercise stress test to evaluate heart rate response to exercise, symptoms and for ischemia. Recommended she continue with caffeine reduction, good hydration, physical activity as tolerated. Will avoid the start of medication at present. If her symptoms persist after testing she may consider use of medicine to slow her heart. Cardiology office visit in 6-8 weeks, sooner if needed (2) Chest pain: Code(s): R07.9 - Chest pain, unspecified Plan: Report of chest pressure with and without physical activity. No significant cardiac risk factors. Will to be checking exercise stress test as above. Orders: Orders TSH reflex Free T4 Today R00.2 - Palpitations, R07.9 - Chest pain, unspecified Complete Blood Count Auto Diff Today R00.2 - Palpitations, R07.9 - Chest pain, unspecified Basic Metabolic Panel Today R00.2 - Palpitations, R07.9 - Chest pain, unspecified CA stress test Today R00.2 - Palpitations, R07.9 - Chest pain, unspecified Coding Level of Care Code Est Pt Level 3 (52708) Diagnoses Palpitations R00.2 Chest pain R07.9 Time Spent (min) 22
== END 2023-05-07 10:20 | disposition home or self-care (01) ==
PROVIDERS: PCP Nurse Practitioner Primary Care; Visit Provider Nurse Practitioner Family
DX: R00.2 Palpitations (principal); R07.9 Chest pain, unspecified
CPT/HCPCS: 99213

== ENCOUNTER → 2023-05-07 09:32 | Outpatient (BNVA) | payer MEDICAID, SELFPAY | PROVIDERS: PCP Nurse Practitioner Primary Care; Visit Provider Nurse Practitioner Family | DX: R00.2 Palpitations (principal); R07.9 Chest pain, unspecified | CPT/HCPCS: 99212 ==

== ENCOUNTER 2023-05-08 17:27 | Outpatient (REF) | payer MEDICAID, SELFPAY | END 2023-05-08 17:28 | disposition home or self-care (01) | LOC: HO.HHCLNP 17:27 | PROVIDERS: Visit Provider Internal Medicine | DX: R30.0 Dysuria (principal); R10.2 Pelvic and perineal pain | CPT/HCPCS: 36415; 81513; 87086 ==

== ENCOUNTER → 2023-05-18 09:22 | Outpatient (REF) | payer MEDICAID, SELFPAY ==
--- NOTE | 2023-05-18 09:25 | CA_ITS ---
Acquisition Time: 2023-05-18 09:44:37 Total Exercise Time: 00:07:22 Test Indications: CP Medications: Protocol: JEROME Max HR: 164 BPM 86% of Pred: 189 BPM Max BP: 120/080 mmHG Max Work Load: 9.0 METS Exercise stress test exercise 7 min 22 sec of Jerome protocol achieiving 85% MPHR, without anginal symptoms, with isolated PVC, with resting normal BP 110/80 and drop to 98/58 without symptoms, without EKG changes. BP returned to baseline. Test reviewed with Dr. Castrejon. Referred By: Sonia Becerril Overread By: Bridgette Carrera
== END ==
LOC: HO.CARD 09:22
PROVIDERS: PCP Nurse Practitioner Primary Care; Visit Provider Nurse Practitioner Family
DX: R07.9 Chest pain, unspecified (principal); R00.2 Palpitations
CPT/HCPCS: 93017

== ENCOUNTER → 2023-05-18 09:25 | Outpatient (BNV) | payer MEDICAID, SELFPAY | PROVIDERS: PCP Nurse Practitioner Primary Care; Visit Provider Nurse Practitioner | DX: R07.9 Chest pain, unspecified (principal) | CPT/HCPCS: 93016; 93018 ==

== ENCOUNTER 2023-05-28 12:04 | Outpatient (REF) | payer MEDICAID, SELFPAY ==
[2023-05-28 18:11] LABS: CT PCR NOT DETECTED (Not Detect.); NG PCR NOT DETECTED (Not Detect.)
[2023-05-29 03:41] LABS: Syphilis Screen Nonreactive (Nonreactive)
[2023-05-29 03:53] LABS: HBS Num1 149.12 mIU/mL (0-7.99); HBc Num1 0.14 S/CO (0.00-0.79); HBsAGNum1 0.36 S/CO (0.00-0.99); HIV AB/AG Nonreactive (Nonreactive); HIV Num 1 0.04 S/CO (0.00-0.99); Hepatitis B Core Antibody Nonreactive (Nonreactive); Hepatitis B Surface Antigen Negative (Negative); ~HepC Num1 0.07 S/CO (0.00-0.79); ~Hepatitis B Surface Antibody REACTIVE (Nonreactive); ~Hepatitis C Antibody Nonreactive (Nonreactive)
[2023-05-29 14:10] LABS: BV Int Neg Control Negative (Negative); BV Int Pos Control Positive (Positive)
== END 2023-05-28 12:05 | disposition home or self-care (01) ==
LOC: HO.HHCL 12:04
PROVIDERS: Visit Provider Advanced Practice Midwife
DX: Z11.4 Encounter for screening for human immunodeficiency virus [HIV] (principal); Z11.3 Encounter for screening for infections with a predominantly sexual mode of transmission
CPT/HCPCS: 0353U; 36415; 86704; 86706; 86780; 86803; 87340; 87389; 87480; 87510; 87660

== ENCOUNTER 2023-06-18 09:35 | Outpatient (AMB) | payer MEDICAID, SELFPAY ==
[2023-06-18 09:49] VITALS: BP 114/64; PULSE 89; BMI 23.7
--- NOTE | 2023-06-18 09:49 | A.OFFVIS_ITS ---
Intake Vital Signs 06/18/23 09:49 Height 5 ft 3 in Weight 134 lb 0.657 oz BMI 23.7 BP 114/64 Blood Pressure Location Lt brachial Position Sitting Pulse 89 Pulse Source Pulse Oximeter Intake Visit Reasons: 6 week follow up after stress test Restaurant Area Manager Required: Yes Restaurant Area Manager Language: Biologics Specialist Name: rossana Villalta [phone] Allergies No Known Allergies [No Known Allergies*] Allergy (Verified 06/18/23 09:52) HPI 6 week follow up after stress test HPI Details Neli is a 32-year-old female who is being evaluated for chest discomfort and heart palpitations and now presents for follow-up. Today she reports that she still gets heart palpitations, daily which cause her concern. She feels with any activity that her heart is pounding hard. He will also speed up for a few beats an go back to normal. She has not had any dizziness, presyncope, syncope, falls. No shortness of breath, PND, orthopnea or edema. She still feels a random pressure in her chest at times. No exertional chest discomfort. She did cut out caffeinated beverages but tells me she does drink soda at times. Not on any daily medications. Reports good activity tolerance [facility] Medical History Dyspnea Varicose veins of bilateral lower extremities with pain No known health problems Surgical History No pertinent past surgical history Family History Mother Hypertension Epilepsy Social History Alcohol intake: never Patient Tobacco Use Status: Former Tobacco user Quit Date: 2019 Years Smoked: On/off 5 +/- Review of Systems Const All systems reviewed & are unremarkable except as noted in HPI and below ENT Denies dizziness Card Denies chest pain, Denies chest pain at rest, Denies chest pain with activity, Denies rapid heart rate, Denies pedal edema, Denies edema, Denies leg edema, Denies lightheadedness, Denies palpitations, Denies dyspnea, Denies dyspnea on exertion and Denies orthopnea Resp Denies cough, Denies dyspnea and Denies dyspnea on exertion GI Denies hematochezia and Denies change in stool character Musc Denies abnormal gait, Denies limited range of motion, Denies muscle cramps, Denies muscle weakness, Denies numbness, Denies radiating pain into limb, Denies stiffness and Denies tingling Neuro Denies abnormal gait, Denies dizziness, Denies numbness and Denies tingling Endo Denies palpitations Physical Exam Vital Signs: Last Vital Signs Pulse 89 06/18/23 09:49 BP 114/64 06/18/23 09:49 BMI result Body Mass Index 23.7 Const General: cooperative, healthy appearing, comfortable and no acute distress Orientation/consciousness: patient oriented x3 Neck Neck: Yes normal visual inspection Resp Effort & Inspection: normal respiratory effort Auscultation: clear to auscultation bilaterally, no crackles, no rales, no rhonchi and no wheezes Cardio Jugular venous distension: no JVD Rate: regular rate Rhythm: regular rhythm Heart sounds: S1 normal heart sound present, S2 normal heart sound present, no murmurs and no rubs Neuro General: patient oriented x3 Extrem General: Yes normal to inspection Psych Appearance: grossly normal Mental Status: mental status grossly normal Speech and movement: Normal speech and movement present Assessment & Plan Assessment & Plan (1) Palpitations: Code(s): R00.2 - Palpitations Plan: Report of heart palpitations, fast heartbeats causing much concern. No presyncope, syncope, falls. Prior Holter monitor done 09/18/2022 for 30 days showed sinus rhythm with heart rate range 78 to 187, 34.7% of the time heart rate greater than 100. An echocardiogram done 09/18/2022 showed EF 55-60%, RV normal. With her fast heartbeats she could have inappropriate sinus tachycardia. Labs ordered last visit however not completed: CBC, TSH, BMP. Exercise stress test done on 05/18/2023 showed exercise 7 minutes 22 seconds achieving 85% mphr, no anginal symptoms or EKG changes. Today she reports ongoing symptoms of fast heartbeat causing concern. She tells me that with any physical activity she feels her heart pounding. She feels this symptom is getting worse. Will recheck a 24 hour Holter monitor to assess for average heart rates and% greater than 100. Instructed to reduce her soda intake or change to decaf sodas. Maintain good hydration and physical activity as tolerated. Will avoid the start of medication at present. If her symptoms persist after testing she may consider use of medicine to slow her heart. Cardiology office visit in 2 months, sooner if needed (2) Chest pain: Code(s): R07.9 - Chest pain, unspecified Plan: Report of chest pressure with and without physical activity. No significant cardiac risk factors. Normal exercise stress test. Orders: Orders ECG holter monitor 24 hour Today R00.2 - Palpitations Coding Level of Care Code Est Pt Level 3 (92695) Diagnoses Palpitations R00.2 Chest pain R07.9 Time Spent (min) 22
== END 2023-06-18 10:27 | disposition home or self-care (01) ==
PROVIDERS: PCP Nurse Practitioner Primary Care; Visit Provider Nurse Practitioner Family
DX: R00.2 Palpitations (principal); R07.9 Chest pain, unspecified
CPT/HCPCS: 99213

== ENCOUNTER → 2023-06-18 09:35 | Outpatient (BNVA) | payer MEDICAID, SELFPAY | PROVIDERS: PCP Nurse Practitioner Primary Care; Visit Provider Nurse Practitioner Family | DX: R00.2 Palpitations (principal); R07.9 Chest pain, unspecified | CPT/HCPCS: 99212 ==

== ENCOUNTER → 2023-06-23 10:25 | Outpatient (REF) | payer MEDICAID, SELFPAY ==
--- NOTE | 2023-06-23 10:28 | HM_ITS ---
* Total monitoring time 1 day. * Underlying rhythm is sinus with an average rate of 89/Min. Range 67 to 154/Min. * Very rare ventricular ectopy. Minimal burden. * No significant pauses or heart blocks. * Palpitations in patient diary correlates with mild sinus tachycardia. MTDD
== END ==
LOC: HO.CARD 10:25
PROVIDERS: PCP Nurse Practitioner Primary Care; Visit Provider Nurse Practitioner Family
DX: R00.2 Palpitations (principal)
CPT/HCPCS: 93225

== ENCOUNTER → 2023-06-23 10:28 | Outpatient (BNV) | payer MEDICAID, SELFPAY | PROVIDERS: PCP Nurse Practitioner Primary Care; Visit Provider Internal Medicine | DX: R00.2 Palpitations (principal) | CPT/HCPCS: 93227 ==

== ENCOUNTER 2023-08-17 13:37 | Outpatient (AMB) | payer MEDICAID, SELFPAY ==
[2023-08-17 13:54] VITALS: BP 111/72; PULSE 87; BMI 22.6
--- NOTE | 2023-08-17 13:54 | A.OFFVIS_ITS ---
Intake Vital Signs 08/17/23 13:54 Height 5 ft 3 in Weight 127 lb 13.89 oz BMI 22.6 BP 111/72 Blood Pressure Location Lt brachial Position Sitting Pulse 87 Pulse Source Pulse Oximeter Intake Visit Reasons: 2 mth fu / Holter monitor Boiler Tenders Supervisor Required: No Veneer Taping Machine Operator: Veneer Taping Machine Operator Present Allergies No Known Allergies [No Known Allergies*] Allergy (Verified 08/17/23 13:56) HPI 2 mth fu / Holter monitor HPI Details Neli is a 32-year-old female who is being evaluated for chest discomfort and heart palpitations. She recently had a Holter monitor and now presents for follow-up. Today she reports that she continues to get heart palpitations which feel like her heart is beating hard. She has not had any dizziness, presyncope, syncope, falls. She will get a random pressure in her chest at times. No exertional chest discomfort. No shortness of breath, PND, orthopnea or edema. She reports good activity tolerance. She continues to cut out caffeinated beverages. She does not take any routine medications. [facility] Medical History Dyspnea Varicose veins of bilateral lower extremities with pain No known health problems Surgical History No pertinent past surgical history Family History Mother Hypertension Epilepsy Social History Alcohol intake: never Patient Tobacco Use Status: Former Tobacco user Quit Date: 2019 Smoked: On/off 5 +/- Review of Systems Const All systems reviewed & are unremarkable except as noted in HPI and below ENT Denies dizziness Card Details: occasional brief palpitations Denies chest pain, Denies chest pain at rest, Denies chest pain with activity, Denies rapid heart rate, Denies pedal edema, Denies edema, Denies leg edema, Denies lightheadedness, Denies palpitations, Denies dyspnea, Denies dyspnea on exertion and Denies orthopnea Resp Denies cough, Denies dyspnea and Denies dyspnea on exertion GI Denies hematochezia and Denies change in stool character Musc Denies abnormal gait, Denies limited range of motion, Denies muscle cramps, Denies muscle weakness, Denies numbness, Denies radiating pain into limb, Denies stiffness and Denies tingling Neuro Denies abnormal gait, Denies dizziness, Denies numbness and Denies tingling Endo Denies palpitations Physical Exam Vital Signs: Last Vital Signs Pulse 87 08/17/23 13:54 BP 111/72 08/17/23 13:54 BMI result Body Mass Index 22.6 Const General: cooperative, healthy appearing, comfortable and no acute distress Orientation/consciousness: patient oriented x3 Neck Neck: Yes normal visual inspection Resp Effort & Inspection: normal respiratory effort Auscultation: clear to auscultation bilaterally, no rales, no rhonchi and no wheezes Cardio Jugular venous distension: no JVD Rate: regular rate Rhythm: regular rhythm Heart sounds: S1 normal heart sound present, S2 normal heart sound present, no murmurs and no rubs Peripheral pulses: Peripheral pulses 2+ throughout Skin General skin exam: no rashes or lesions noted Neuro General: patient oriented x3 Extrem General: Yes normal to inspection, No no pedal edema and No calf tenderness Psych Appearance: grossly normal Mental Status: mental status grossly normal Speech and movement: Normal speech and movement present Assessment & Plan Assessment & Plan (1) Palpitations: Code(s): R00.2 - Palpitations Plan: On last visit Report of heart palpitations, fast heartbeats causing much concern. No presyncope, syncope, falls. Prior Holter monitor done 09/18/2022 for 30 days showed sinus rhythm with heart rate range 78 to 187, 34.7% of the time heart rate greater than 100. An echocardiogram done 09/18/2022 showed EF 55-60%, RV normal. With her fast heartbeats it was thought that she may have inappropriate sinus tachycardia. Labs ordered last visit however not completed: CBC, TSH, BMP. Exercise stress test done on 05/18/2023 showed exercise 7 minutes 22 seconds achieving 85% mphr, no anginal symptoms or EKG changes. Repeat Holter monitor done on 06/23/2023 showing sinus rhythm with average heart rate 89, heart rate range 67 to 154, rare ventricular ectopy. Pulse rate is normal range today. Today she states that she has been noticing less heart palpitations recently. It is not causing her as much concern as it previously did. Will have her continue to avoid caffeinated beverages, chocolate. Reviewed need for good hydration, get adequate rest, physical activity as tolerated. No indication for medical management at this time. She is currently pleased with how she is feeling. Cardiology follow-up as needed. (2) Chest pain: Code(s): R07.9 - Chest pain, unspecified Plan: Report of random chest pressure with and without physical activity. No significant cardiac risk factors. Normal exercise stress test. Plan Time spent on chart review, documentation, interview and assessment Coding Level of Care Code Est Pt Level 3 (43811) Diagnoses Palpitations R00.2 Chest pain R07.9 Time Spent (min) 24
== END 2023-08-17 15:03 | disposition home or self-care (01) ==
PROVIDERS: PCP Nurse Practitioner Primary Care; Visit Provider Nurse Practitioner Family
DX: R00.2 Palpitations (principal); R07.9 Chest pain, unspecified
CPT/HCPCS: 99213

== ENCOUNTER → 2023-08-17 13:37 | Outpatient (BNVA) | payer MEDICAID, SELFPAY | PROVIDERS: PCP Nurse Practitioner Primary Care; Visit Provider Nurse Practitioner Family | DX: R00.2 Palpitations (principal); R07.9 Chest pain, unspecified | CPT/HCPCS: 99212 ==

== ENCOUNTER 2023-11-18 12:32 | Outpatient (REF) | payer MEDICAID, SELFPAY ==
[2023-11-18 13:15] LABS: MANUAL DIFF FLAG NO
[2023-11-18 13:36] LABS: Basophils Absolute Auto 0.1 X10*3/uL (0.0-0.2); Basophils Percent Auto 0.5 % (0-2); Eosinophils Absolute Auto 0.3 X10*3/uL (0.0-0.4); Eosinophils Percent Auto 2.5 % (0-4); Hematocrit 43.1 % (37.0-47.0); Hemoglobin 14.8 g/dl (12.0-16.0); Imm Gran Abs Auto 0.04 X10*3/uL (0.00-0.03); Imm Gran Pct Auto 0.4 % (0.0-0.4); Lymphocytes Absolute Auto 2.2 X10*3/uL (1.2-4.9); Mean Corpuscular HGB Conc 34.3 g/dl (31.0-35.0); Mean Corpuscular Hemoglobin 29.4 pg (27.0-33.0); Mean Corpuscular Volume 85.7 fL (80.0-98.0); Mean Platelet Volume 9.3 fL (9.4-12.3); Monocytes Absolute Auto 0.5 X10*3/uL (0.1-1.2); Monocytes Percent Auto 4.7 % (2-11); Neutrophils Absolute Auto 7.1 x10*3/uL (2.0-8.3); Neutrophils Percent Auto 69.9 % (45-73); Platelet Count 332 X10*3/uL (160-400); Red Blood Count 5.03 X10*6/uL (4.20-5.50); Red Cell Distribution Width 12.5 % (11.0-16.0); White Blood Count 10.2 X10*3/uL (4.8-10.8)
[2023-11-18 14:22] LABS: Iron 86 mcg/dL (30-160); Percent Iron Saturation 33 % (15-50); Total Iron Binding Capacity 262 mcg/dL (228-428); Unsaturated Iron Binding 176 ug/dL
== END 2023-11-18 12:33 | disposition home or self-care (01) ==
LOC: HO.HHCL 12:32
PROVIDERS: Visit Provider Nurse Practitioner Family
DX: R53.83 Other fatigue (principal)
CPT/HCPCS: 36415; 83540; 85025

== ENCOUNTER 2023-12-23 16:14 | Outpatient (REF) | payer MEDICAID, SELFPAY ==
[2023-12-23 17:55] LABS: Bacterial Vaginosis PCR POSITIVE (Negative); Candida Group PCR NOT DETECTED (Not Detect); Candida glab krusei PCR NOT DETECTED (Not Detect); Trichomonas vaginalis PCR NOT DETECTED (Not Detect)
[2023-12-24 06:56] LABS: CT PCR NOT DETECTED (Not Detect.); NG PCR NOT DETECTED (Not Detect.)
== END 2023-12-23 16:15 | disposition home or self-care (01) ==
LOC: HO.LNP 16:14
PROVIDERS: Visit Provider Advanced Practice Midwife
DX: N76.0 Acute vaginitis (principal)
CPT/HCPCS: 0352U; 0353U

== ENCOUNTER 2024-02-22 18:19 | Outpatient (REF) | payer MEDICAID, SELFPAY ==
[2024-02-23 02:06] LABS: CT PCR NOT DETECTED (Not Detect.); NG PCR NOT DETECTED (Not Detect.)
== END 2024-02-22 18:20 | disposition home or self-care (01) ==
LOC: HO.HHCLNP 18:19
PROVIDERS: Visit Provider Advanced Practice Midwife
DX: N93.9 Abnormal uterine and vaginal bleeding, unspecified (principal)
CPT/HCPCS: 87491; 87591

== ENCOUNTER 2024-03-10 13:13 | Outpatient (REF) | payer MEDICAID, SELFPAY ==
[2024-03-11 09:33] LABS: Varicella IgG Antibody <135.00 index
[2024-03-11 12:33] LABS: Mumps Virus IgG Antibody >300.00 AU/mL; Rubella IgG Antibody 6.47 Index
[2024-03-12 22:04] LABS: TS Negative Control Passed; TS Panel A 0; TS Panel B 0; TS Positive Control Passed; TSpotTB Negative (Negative)
== END 2024-03-10 13:14 | disposition home or self-care (01) ==
LOC: HO.HHCL 13:13
PROVIDERS: Visit Provider Nurse Practitioner Primary Care
DX: Z01.84 Encounter for antibody response examination (principal); Z11.1 Encounter for screening for respiratory tuberculosis
CPT/HCPCS: 36415; 86481; 86735; 86762; 86765; 86787

== ENCOUNTER 2024-03-14 12:00 | Outpatient (REF) | payer MEDICAID, SELFPAY | END 2024-03-14 12:01 | disposition home or self-care (01) | LOC: HO.HHCL 12:00 | PROVIDERS: Visit Provider Nurse Practitioner Family | DX: Z13.89 Encounter for screening for other disorder (principal) ==

== ENCOUNTER 2024-03-30 11:04 | Outpatient (REF) | payer MEDICAID, SELFPAY ==
[2024-03-31 16:43] LABS: Bacterial Vaginosis PCR NEGATIVE (Negative); Candida Group PCR DETECTED (Not Detect); Candida glab krusei PCR NOT DETECTED (Not Detect); Trichomonas vaginalis PCR NOT DETECTED (Not Detect)
[2024-03-31 17:11] LABS: CT PCR NOT DETECTED (Not Detect.); NG PCR NOT DETECTED (Not Detect.)
== END 2024-03-30 11:05 | disposition home or self-care (01) ==
LOC: HO.HHCLNP 11:04
PROVIDERS: Visit Provider Emergency Medicine
DX: N89.8 Other specified noninflammatory disorders of vagina (principal)
CPT/HCPCS: 0352U; 87491; 87591

== ENCOUNTER 2024-07-19 14:23 | Outpatient (REF) | payer MEDICAID, SELFPAY ==
[2024-07-19 16:09] LABS: MANUAL DIFF FLAG NO
[2024-07-19 16:10] LABS: Appearance Urine Clear; Color Urine Yellow; Glucose Urine UA Negative (Negative); Leukocyte Esterase Urine Negative (Negative); Nitrite Urine Negative (Negative); PH 5.5 (5.0-9.0); Specific Gravity - Urine 1.025 (1.005-1.025); UMIC TRIGGER UACC YES; Urine Blood Trace (Negative); Urine Ketones Negative (Negative); Urine Protein Negative (Neg-Trace)
[2024-07-19 16:14] LABS: Bacteria Urine None Seen (None Seen); Hyaline Casts Urine 0-2 /LPF (0-2); RBC Urine 0-2 /HPF (0-2); WBC Urine 0-5 /HPF (0-5)
[2024-07-19 16:18] LABS: Basophils Absolute Auto 0.1 X10*3/uL (0.0-0.2); Basophils Percent Auto 0.7 % (0-2); Eosinophils Absolute Auto 0.2 X10*3/uL (0.0-0.4); Hematocrit 41.7 % (37.0-47.0); Hemoglobin 14.1 g/dl (12.0-16.0); Imm Gran Abs Auto 0.02 X10*3/uL (0.00-0.03); Imm Gran Pct Auto 0.3 % (0.0-0.4); Lymphocytes Absolute Auto 2.6 X10*3/uL (1.2-4.9); Lymphocytes Percent Auto 35.9 % (20-40); Mean Corpuscular HGB Conc 33.8 g/dl (31.0-35.0); Mean Corpuscular Hemoglobin 29.6 pg (27.0-33.0); Mean Corpuscular Volume 87.4 fL (80.0-98.0); Mean Platelet Volume 9.4 fL (9.4-12.3); Monocytes Absolute Auto 0.4 X10*3/uL (0.1-1.2); Monocytes Percent Auto 5.8 % (2-11); Neutrophils Percent Auto 54.3 % (45-73); Platelet Count 323 X10*3/uL (160-400); Red Blood Count 4.77 X10*6/uL (4.20-5.50); Red Cell Distribution Width 11.9 % (11.0-16.0); White Blood Count 7.3 X10*3/uL (4.8-10.8)
[2024-07-19 16:37] LABS: Alanine Aminotransferase 19 U/L (0-31); Albumin Level 3.9 g/dL (3.5-5.0); Alkaline Phosphatase 48 U/L (39-117); Anion Gap 10 (12-20); Aspartate Amino Transferase 33 U/L (5-31); Bilirubin Total 0.2 mg/dL (0.0-1.0); Blood Urea Nitrogen 14 mg/dL (9-16); C Reactive Protein 0.22 mg/dL (< or = 0.50); Calcium 8.8 mg/dL (8.4-10.2); Carbon Dioxide 28 mmol/L (22-29); Chloride 105 mmol/L (96-108); Estimated Glomerular Filt Rate > 60; Glucose Random 94 mg/dL (60-115); Sodium 139 mmol/L (135-145); Total Protein 7.4 g/dL (6.5-8.0)
[2024-07-19 17:15] LABS: Erythrocyte Sedimentation Rate 5 MM/HR (0-20)
== END 2024-07-19 14:24 | disposition home or self-care (01) ==
LOC: HO.HHCL 14:23
PROVIDERS: Visit Provider Family Medicine
DX: R51.9 Headache, unspecified (principal); G89.29 Other chronic pain; R10.2 Pelvic and perineal pain
CPT/HCPCS: 36415; 80053; 81001; 85025; 85652; 86140

== ENCOUNTER 2024-08-29 11:55 | Outpatient (REF) | payer MEDICAID, SELFPAY ==
[2024-08-29 13:20] LABS: Appearance Urine Clear; Color Urine Yellow; Glucose Urine UA Negative (Negative); Leukocyte Esterase Urine Negative (Negative); Nitrite Urine Negative (Negative); PH 7.5 (5.0-9.0); UMIC TRIGGER UACC YES; Urine Blood Small (1+) (Negative); Urine Ketones Negative (Negative); Urine Protein Negative (Neg-Trace)
[2024-08-29 13:27] LABS: MANUAL DIFF FLAG NO
[2024-08-29 13:35] LABS: Basophils Percent Auto 0.3 % (0-2); Eosinophils Absolute Auto 0.1 X10*3/uL (0.0-0.4); Eosinophils Percent Auto 1.1 % (0-4); Hematocrit 38.5 % (37.0-47.0); Hemoglobin 12.8 g/dl (12.0-16.0); Imm Gran Abs Auto 0.06 X10*3/uL (0.00-0.03); Imm Gran Pct Auto 0.5 % (0.0-0.4); Lymphocytes Absolute Auto 2.2 X10*3/uL (1.2-4.9); Lymphocytes Percent Auto 17.6 % (20-40); Mean Corpuscular HGB Conc 33.2 g/dl (31.0-35.0); Mean Corpuscular Hemoglobin 29.2 pg (27.0-33.0); Mean Corpuscular Volume 87.9 fL (80.0-98.0); Mean Platelet Volume 9.4 fL (9.4-12.3); Monocytes Absolute Auto 0.5 X10*3/uL (0.1-1.2); Monocytes Percent Auto 4.4 % (2-11); Neutrophils Absolute Auto 9.3 x10*3/uL (2.0-8.3); Neutrophils Percent Auto 76.1 % (45-73); Platelet Count 451 X10*3/uL (160-400); Red Blood Count 4.38 X10*6/uL (4.20-5.50); Red Cell Distribution Width 12.3 % (11.0-16.0); White Blood Count 12.3 X10*3/uL (4.8-10.8)
[2024-08-29 13:53] LABS: Anion Gap 11 (12-20); Bacteria Urine None Seen (None Seen); Blood Urea Nitrogen 10 mg/dL (9-16); Carbon Dioxide 24 mmol/L (22-29); Chloride 108 mmol/L (96-108); Estimated Glomerular Filt Rate > 60; Glucose Random 96 mg/dL (60-115); Hyaline Casts Urine 0-2 /LPF (0-2); Potassium 4.3 mmol/L (3.3-5.1); RBC Urine 0-2 /HPF (0-2); Sodium 139 mmol/L (135-145); Squamous Epithelial Cell Urine 0-2 /HPF (0-2); WBC Urine 0-5 /HPF (0-5)
--- OUTSIDE RECORDS SUMMARY | 2024-08-29 16:43 | XMS_ITS | Referral Summary ---
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 Social History Tobacco Use Types Packs/Day Years Used Date Smoking Tobacco: Former Cigarettes Smokeless Tobacco: Former Tobacco Cessation:Counseling Given: Not Answered Comments Unknown Sex and Gender Information Value Date Recorded Sex Assigned at Not on file Legal Sex Female 11:48 AM EST Gender Identity Not on file Sexual Orientation Not on file Last Filed Vital Signs Vital Sign Reading Time Taken Comments Blood Pressure 110/76 2022 10:07 AM EDT Pulse 80 2022 10:07 AM EDT Temperature - - Respiratory Rate 16 2022 10:07 AM EDT Oxygen Saturation 99% 2022 10:07 AM EDT Inhaled Oxygen Concentration - - Weight 63.5 kg (140 lb) 2022 10:07 AM EDT Height 157.5 cm (5' 2 ) 2022 10:07 AM EDT Body Mass Index 25.61 2022 10:07 AM EDT Plan of Treatment Not on file Insurance [employer] Care Teams Principal Product Manager Relationship Specialty Start Date End Date Rachelle Olson [address] [place] [address] [phone] PCP - General 06/10/22
--- OUTSIDE RECORDS SUMMARY | 2024-08-29 16:43 | XMS_ITS | Encounter Summary ---
Author Organization [employer] Address [address] [place] [address] Care Team Providers Care Horse Racing Analyst Name Role Phone Rachelle Olson JACK Primary Care Provider [phone] Encounter Details Date Type Department Care Team (Late st Contact Info) Description 07/23/2024 Orders Only [facility] [address] [place], [place] [phone] Haritha Selby MD [address] [place], [place] [phone] Hematuria, unspecified type (Primary Dx) Social History Tobacco Use Types Packs/Day Years Used Date Smoking Tobacco: Some Days Cigarettes Passive Smoke Exposure: Current Smokeless Tobacco: Never Alcohol Use Standard Drinks/Week Comments Never 0 (1 standard drink = 0.6 oz pur e alcohol) PHQ-2 Answer Date Recorded Patient Health Questionnaire-2 Score 0 07/04/2022 Housing Stability Answer Date Recorded What is your housing situation today? I have julisa patino 05/20/[address] you li ve. Do you have problems with any of the following? None of the above 05/20/2023 Food Insecurity Answer Date Recorded Within the past 12 months, y ou worried that your food would run out before you got money to buy more: Never True 05/20/2023 Within the past 12 months,th e food you bought just didn't last and you didn't have enough money to get more: Never True Transportation Answer Date Recorded In the past 12 months, has l ack of transportation kept you from medical appts, meetings, work or from getting things needed for daily living? No 05/20/2023 Utilities Answer Date Recorded In the past 12 months, has t he electric, gas, oil or water company threatened to shut off services in your home? No 05/20/2023 Depression Answer Date Recorded Patient Health Questionnaire-2 Score 0 07/04/2022 Comments No Sex and Gender Information Value Date Recorded Sex Assigned at Female 06/02/2022 10:37 AM EDT Legal Sex Female 10:37 AM EDT Gender Identity Female 06/02/2022 10:37 AM EDT Sexual Orientation Straight 06/02/2022 10 :37 AM EDT documented as of this encounter Plan of Treatment Upcoming Encounters Date Type Department Care Team (Late st Contact Info) Description 09/01/2024 2:00 PM EST Office Visit [facility] [address] [place], [place] [phone] Rachelle Olson, ANP [address] [place], [place] [phone] documented as of this encounter Procedures Procedure Name Priority Date/Time Associated Diagnosis Comments URINALYSIS, COMPLETE, WITH REFLEX TO CULTURE Routine 08/29/2024 11:58 AM EST Hematuria, unspecified type documented in this encounter Results * (ABNORMAL) Urinalysis, Complete, with Reflex to Culture (08/29/2024 11:58 AM EST) Color Urine Yellow [facility] Appearance Urine Clear [facility] PH 7.5 5.0 - 9.0 [facility] Glucose Urine UA Negative Negative mg/dL [facility] Urine Blood Small (1+)(A) Negative [facility] Specific [place] - Urine 1.020 1.005 - 1.025 [facility] Urine Protein Negative Neg-Trace mg/dL [facility] Urine Ketones Negative Negative mg/dL [facility] Nitrite Urine Negative Negative [facility] Leukocyte Esterase Urine Negative Negative [facility] RBC Urine 0-2 0 - 2 /HPF [facility] Urine WBC 0-5 0 - 5 /HPF [facility] Urine Squamous Epithelial Cell 0-2 0 - 2 /HPF [facility] Urine Bacteria None Seen None Seen [facility] Hyaline Casts, Urine 0-2 0 - 2 /LPF [facility] Urine 08/29/2024 11:5 8 AM EST 08/29/2024 1:11 PM EST Narrative [facility] - 08/29/2024 1:57 PM EST Urine, Clean Catch us Haritha Selby MD LAB URINE ORDERABLES Final Resul t Performing Organization Address City/State/[facility] Co de Phone Number [facility] [address] [place] [address] [phone] documented in this encounter Visit Diagnoses Diagnosis Hematuria, unspecified type- Primary documented in this encounter Care Teams Horse Racing Analyst Relationship Specialty Start Date End Date Rachelle Olson ANP [address] [place] [phone] PCP - General Family Medicine 07/17/20 documented as of this encounter
--- OUTSIDE RECORDS SUMMARY | 2024-08-29 16:43 | XMS_ITS | Clinical Summary ---
Author Organization [facility] Address [address] [place] [address] Care Team Providers Care Seed Potato Cutter Name Role Phone Rachelle Olson Primary Care Provider Medications No known medications Active Problems Problem [...] 2022 10:07 AM EDT Plan of Treatment Health Maintenance Due Date Last Done Comments Cervical Cancer Screening 1991 HIV Screening 1991 HPV and Pap Smear 1991 Pap Smear 1991 Varicella Vaccines (1 of 2 - 13+ 2-dose series) 12/21/2004 Hepatitis B Vaccines (1 of 3 - 19+ 3-dose series) 12/21/2010 COVID-19 Vaccine (3 - 2023-2 5 season) 2024 04/02/2021, 03/12/2021 Influenza Vaccine (#1) 2024 , 07/24/2020 Alcohol/Substance Use Screening 08/03/2024 DTaP,Tdap,and Td Vaccines (2 - Td or Tdap) 07/24/2030 07/24/2020 RSV Vaccine (60+ years old and patients) (1 - 1-dose 75+ series) 12/21/2066 Pneumococcal Vaccine: Pediatric (0-5 Years) and At-Risk Patients (6-64 Years) Aged Out No longer eligible based on patient's age to complete this topic Insurance [facility] Care Teams Seed Potato Cutter Relationship Specialty Start Date End Date Rachelle Olson [address] [place] [phone] PCP - General 06/10/22
--- OUTSIDE RECORDS SUMMARY | 2024-08-29 16:43 | XMS_ITS | Encounter Summary ---
Author Organization [employer] Address [address] [place] [address] Care Team Providers Care Vehicle Body Sander Name Role Phone Rachelle Olson JACK Primary Care Provider [phone] Reason for Visit * Reason Comments Headache Nasal Congestion Sore Throat Encounter Details Date Type Department Care Team (Late st Contact Info) Description 08/16/2024 2:00 PM EST Office Visit [facility] [address] [place] [address] Briana Shin MD [address] [place] [address] Pharyngitis, unspecified etiology (Primary Dx); Influenza A Social History Tobacco Use Types Packs/Day Years Used Date Smoking Tobacco: Some Days Cigarettes Passive Smoke Exposure: Current Smokeless Tobacco: Never Alcohol Use Standard Drinks/Week Comments Never 0 (1 standard drink = 0.6 oz pur e alcohol) PHQ-2 Answer Date Recorded Patient Health Questionnaire-2 Score 0 07/04/2022 Housing Stability Answer Date Recorded What is your housing situation today? I have ujlisa patino 05/20/[address] you [...] AM EDT documented as of this encounter Last Filed Vital Signs Vital Sign Reading Time Taken Comments Blood Pressure 108/75 08/16/2024 1:16 PM EST Pulse 125 08/16/2024 1:16 PM EST Temperature 36.9 ??C (98.4 ??F) 08/16/2024 1:16 PM ES T Respiratory Rate 17 08/16/2024 1:16 PM EST Oxygen Saturation 97% 08/16/2024 1:16 PM EST Inhaled Oxygen Concentration - - Weight 57.4 kg (126 lb 9.6 oz) 08/16/2024 1:16 P M EST Height - - Body Mass Index 22.43 07/19/2024 1:57 PM EST documented in this encounter Progress Notes * Briana Shin MD - 08/16/2024 2:00 PM EST Subjective Patient ID: Neli Galaviz is a 33 y.o. female who presents for Headache, Nasal Congestion, andSore Throat. Sore Throat This is a new problem. The current episode started yesterday. The problem has been gradually worsening. The maximum temperature recorded prior to her arrival was 100.4 - 100.9 F. The pain is at a severity of 6/10. The pain is moderate. Associated symptoms include congestion, coughing, headaches, a hoarse voice, swollen glands and trouble swallowing. She has tried nothing for the symptoms. Review of Systems HENT: Positive for congestion, hoarse voice, sore throat and trouble swallowing. Respiratory: Positive for cough. Neurological: Positive for headaches. Objective Physical Exam Constitutional: Appearance: She is ill-appearing. HENT: Mouth/Throat: Pharynx: Oropharyngeal exudate and postnasal drip present. Lymphadenopathy: Cervical: Cervical adenopathy present. Assessment/Plan Diagnoses and all orders for this visit: Pharyngitis, unspecified etiology Comments: Started on Amox BID for 5 days Advised warm water gargles Tylenol /Ibuprofen as needed Influenza A Comments: Advised steam inhaltion and warm water gargles.Supportive trt with Mucinex and warm tea Orders: - POCT Rapid COVID Ag - POCT rapid strep A manually resulted - Influenza A (ID NOW Rapid Molecular) - Influenza B (ID NOW Rapid Molecular) Other orders - amoxicillin (Amoxil) 500 MG capsule; Take 1 capsule (500 mg) by mouth 2 times daily for 5 days. documented in this encounter Plan of Treatment Upcoming Encounters Date Type Department Care Team (Late st Contact Info) Description 09/01/2024 2:00 PM EST Office Visit [facility] [address] [place], [place] [phone] Rachelle Olson ANP [address] [place] [address] documented as of this encounter Procedures Procedure Name Priority Date/Time Associated Diagnosis Comments POCT RAPID COVID ANTIGEN Routine 08/16/2024 1:23 PM EST Influenza A POCT INFLUENZA B (ID NOW RAPID MOLECULAR) Routine 08/16/2024 1:22 PM EST Influenza A POCT INFLUENZA A (ID NOW RAPID MOLECULAR) Routine 08/16/2024 1:22 PM EST Influenza A POCT RAPID STREP A Routine 08/16/2024 1: 22 PM EST Influenza A documented in this encounter Results * POCT Rapid COVID Ag (08/16/2024 1:23 PM EST) Rapid COVID Ag Negative Swab 08/16/2024 1:23 PM EST us Briana Shin MD POINT OF CARE TEST ENTER/EDIT OR DERABLES Final Result * Influenza B (ID NOW Rapid Molecular) (08/16/2024 1:22 PM EST) [facility] Influenza B Negative Negative, Indeterminate [facility] Swab 08/16/2024 1:22 PM EST Briana Shin MD POINT OF CARE TEST ENTER/EDIT OR DERABLES Final Result Performing Organization Address [facility] de Phone Number [facility] [address] [place] [phone] * (ABNORMAL) Influenza A (ID NOW Rapid Molecular) (08/16/2024 1:22 PM EST) [facility] Influenza A Positive( A) Negative, Indeterminate [facility] Swab 08/16/2024 1:22 PM EST Briana Shin MD POINT OF CARE TEST ENTER/EDIT OR DERABLES Final Result Performing Organization Address [facility] de Phone Number [facility] [address] [place] [phone] * POCT rapid strep A manually resulted (08/16/2024 1:22 PM EST) [facility] Rapid Strep A Screen Negative Negative, None Detected [facility] Swab 08/16/2024 1:22 PM EST Result [facility] Briana Shin MD POINT OF CARE TEST ENTER/EDIT OR DERABLES Final Result Performing Organization Address [facility] de Phone Number [facility] [address] [place] [phone] documented in this encounter Visit Diagnoses Diagnosis Pharyngitis, unspecified etiology- Primary Influenza A Influenza with other respiratory manifestations documented in this encounter Care Teams Vehicle Body Sander Relationship Specialty Start Date End Date Rachelle Olson ANP [address] [place] [phone] PCP - General Family Medicine 07/17/20 documented as of this encounter
--- OUTSIDE RECORDS SUMMARY | 2024-08-29 16:43 | XMS_ITS | Encounter Summary ---
Author Organization [employer] Address [address] [place] [address] Care Team Providers Care Renal Dietitian Name Role Phone Rachelle Olson Primary Care Provider [phone] Reason for Visit * Reason Onset Date Comments Lab Orders 08/29/2024 Encounter Details Date Type Department Care Team ([facility] st Contact Info) Description 08/29/2024 Telephone [facility] [address] [place], [place] [phone] Rachelle Olson ANP [address] [place], [place] [phone] Lab Orders Social History Tobacco Use Types Packs/Day Years Used Date Smoking Tobacco: Some Days Cigarettes Passive Smoke Exposure: Current Smokeless Tobacco: Never Alcohol Use Standard Drinks/Week Comments Never 0 (1 standard drink = 0.6 oz pur e alcohol) PHQ-2 Answer Date Recorded Patient Health Questionnaire-2 Score 0 07/04/2022 Housing Stability Answer Date Recorded What is your housing situation today? I have julisavan patino 05/20/[address] you [...] AM EDT documented as of this encounter Miscellaneous Notes * Telephone Encounter - Agustina Lee RN - 08/29/2024 11:34 AM EST Message left for PARs to let patient know to get labs done as they are ready to be done prior to appointment. PARs stating patient needed to talk to nurse Telephone call from patient. Was transferredfr call center--patient asking if labs could be done. Advised patient yes. Patient to get labs done prior to appointment. * Telephone Encounter - Agustina Lee RN - 08/29/2024 11:09 AM EST Telephone call placed to patient in regards to message below. No answer, left voicemail. Patient tocall as needed. Please advise patient, Please ask patient to have a repeat UA and follow up with PCP (scheduled in Aug). Labs are in chart. * Telephone Encounter - Dread Shah - 08/29/2024 9:33 AM EST Tc from pt calling in regards to lab work done on 08/16 during [facility] visit. Pt was advised to redo labs before appt on 09/01 but there are no lab orders for her to have them done. If any questions please contact pt at [phone]. documented in this encounter Plan of Treatment Upcoming Encounters Date Type Department Care Team (Late st Contact Info) Description 09/01/2024 2:00 PM EST Office Visit [facility] [address] [place] [address] Rachelle Olson ANP [address] [place] [address] documented as of this encounter Visit Diagnoses Not on filedocumented in this encounter Care Teams Renal Dietitian Relationship Specialty Start Date End Date Rachelle Olson ANP [address] [place] [address] PCP - General Family Medicine 07/17/20 documented as of this encounter
--- OUTSIDE RECORDS SUMMARY | 2024-08-29 16:43 | XMS_ITS | Encounter Summary ---
Author Organization [employer] [facility] Address [address] [place] [address] Care Team Providers Care Button Pusher Name Role Phone Rachelle Olson Primary Care Provider Reason for Visit * Reason Onset Date Comments Nurse Triage 04/16/2023 Encounter Details Date Type Department Care Team ([facility] st Contact Info) Description 04/16/2023 Telephone [facility] [address] [place] [address] Rachelle Olson ANP [address] [place] [address] Nurse Triage Social History Tobacco Use Types Packs/Day Years Used Date Smoking Tobacco: Former Cigarettes Q uit: 2019 Passive Smoke Exposure: Current Smokeless Tobacco: Never Alcohol Use Standard Drinks/Week Comments Never 0 (1 standard drink = 0.6 oz pur e alcohol) PHQ-2 Answer Date Recorded Patient Health Questionnaire-2 Score 0 07/04/2022 Depression Answer Date Recorded Patient Health Questionnaire-2 Score 0 07/04/2022 Comments Unknown Sex and Gender Information Value Date Recorded Sex Assigned at Female 06/02/2022 10:37 AM EDT Legal Sex Female 10:37 AM EDT Gender Identity Female 06/02/2022 10:37 AM EDT Sexual Orientation Straight 06/02/2022 10 :37 AM EDT documented as of this encounter Miscellaneous Notes * Telephone Encounter - Celsa Saravia RN - 04/16/2023 2:57 PM EDT Triage call Pt reports bilateral flank pain especially during the night. Pt reports more so on right side than left. Pt reports this has been happening for over a month now. No blood in the urine, fever or burning with urination. Pt does report frequency but, drinks adequate liquids. Pt reports feels some nausea during the day at times also. Pt doesn't know of any hx of kidney stones. Pt is offered to come to [facility] but, requests to see PCP. Apt with PCP 05/04/23 at 1100am. Pt is advised to seek evaluation at either [facility] or ED if symptoms become worse before apt date and Pt agreed. Insurance is verified as active prior to booking. Protocol Used: Flank Pain (Adult) Protocol-Based Disposition: See in Office or Video Visit within 3 Days Override (Final) Disposition: See in Office or Video Visit within 2 Weeks Override Reason: No appointments available Positive Triage Question: * Mild pain (i.e., scale 1-3; does not interfere with normal activities) and present > 3 days * All higher-acuity triage questions were negative Care Advice Discussed: * Reassurance and Education - Flank Pain * Use a Cold Pack for Pain * Use Heat After 48 Hours for Pain * Activity * Pain Medicines * Pain Medicines - Extra Notes and Warnings * Reasons To Call Back - Fever over 100.4 F (38.0 C) - Burning with urination or blood in urine - Pain lasts over 3 days - You become worse * Telephone Encounter - Tracy Guzman - 04/16/2023 2:42 PM EDT Symptom: Back Pain - lower Outcome: Schedule an appointment to be seen within 3 days Reason: Caller denied all higher acuity questions The caller accepted this outcome Patient speaks yoruba documented in this encounter Plan of Treatment Upcoming Encounters Date Type Department Care Team (Late st Contact Info) Description 09/01/2024 2:00 PM EST Office Visit [facility] [address] [place] [address] Rachelle Olson ANP [address] [place] [address] documented as of this encounter Visit Diagnoses Not on filedocumented in this encounter Care Teams Button Pusher Relationship Specialty Start Date End Date Rachelle Olson ANP [address] [place] [id number] PCP - General Family Medicine 07/17/20 documented as of this encounter
--- OUTSIDE RECORDS SUMMARY | 2024-08-29 16:43 | XMS_ITS | Encounter Summary ---
Author Organization [email or web address] Address [address] [place] [address] Care Team Providers Care Programs Director Name Role Phone Rachelle Olson JACK Primary Care Provider Reason for Visit * Reason Comments Med Refill Encounter Details Date Type Department Care Team (Late st Contact Info) Description 08/15/2024 Refill [facility] [address] [place], [place] [phone] Haritha Selby MD [address] [place], [place] [phone] Social History Tobacco Use Types Packs/Day Years [...] Description 09/01/2024 2:00 PM EST Office Visit [facility] [address] [place] [address] Rachelle Olson ANP [address] [place] [phone] documented as of this encounter Visit Diagnoses Not on filedocumented in this encounter Care Teams Programs Director Relationship Specialty Start Date End Date Rachelle Olson ANP [address] [place] [phone] PCP - General Family Medicine 07/17/20 documented as of this encounter
--- OUTSIDE RECORDS SUMMARY | 2024-08-29 16:43 | XMS_ITS | Clinical Summary ---
Author Organization [employer] [facility] it Address [address] [place] [address] Care Team Providers Care Filer Repairer Name Role Phone Unavailable Primary Care Provider Unavailabl e Social History Tobacco Use Types Packs/Day Years Used Date Smoking Tobacco: Never Assessed Sex and Gender Information Value Date Recorded Sex Assigned at Not on file Gender Identity Not on file Sexual Orientation Not on file Plan of Treatment Health Maintenance Due Date Last Done Comments DTaP,Tdap,and Td Vaccines (1 - Tdap) 12/21/2010 Hepatitis B Vaccines (1 of 3 - 19+ 3-dose series) 12/21/2010 Cervical Cancer Screening: P ap Smear 12/21/2012 COVID-19 Vaccine ( - 2023-2 5 season) 2024 Influenza Vaccine (#1) 2024 Depression Screening 05/12/2024 HIV Screening 05/12/2024 Hepatitis C Screening 05/12/2024 Social Influencers of Health Screening 05/12/2024 HIB Vaccines Aged Out No longer eligi ble based on patient's age to complete this topic HPV Vaccines Aged Out No longer eligi ble based on patient's age to complete this topic Hepatitis A Vaccines Aged Out No long er eligible based on patient's age to complete this topic IPV Vaccines Aged Out No longer eligi ble based on patient's age to complete this topic MMR Vaccines Aged Out No longer eligi ble based on patient's age to complete this topic Meningococcal ACWY Vaccine Aged Out N o longer eligible based on patient's age to complete this topic Pneumococcal Vaccine: Pediat rics (0 to 5 Years) and At-Risk Patients (6 to 64 Years) Aged Out No longer eligible b ased on patient's age to complete this topic RSV Immunization Patients Un marcial 20 months Aged Out No longer eligible b ased on patient's age to complete this topic Varicella Vaccines Aged Out No longer eligible based on patient's age to complete this topic
--- OUTSIDE RECORDS SUMMARY | 2024-08-29 16:43 | XMS_ITS | Clinical Summary ---
Author Organization [employer] Address [address] [facility] [address] [place] [address] Care Team Providers Care Vp Director Of Creative Strategy Name Role Phone Rachelle Olson Primary Care Provider [phone] Allergies No known active allergies Medications hydrocortisone (Anusol-HC) 2.5 % rectal cream Insert into the rectum 2 times daily. 28 g 12/23/19 24 Active Levonorgest-Et h Estrad 91-Day (LoSeasonique) 0.1-0.02 & 0.01 MG tablet Take 1 tablet by mouth Once per day. Start day after taking EC. 91 tablet 3 04/08/20 24 Active SUMAtriptan (Imitrex) 50 MG tablet TAKE 1 TABLET BY MOUTH 1 TIME IF NEEDED FOR MIGRAINE. MAY REPEAT DOSE ONCE IN 2 HOURS IF NO RELIEF, MAX 2 DOSES/24 HOURS. 9 tablet 08/15/19 25 Active pseudoephedrin e (Sudafed) 30 MG tablet Take 1 tablet (30 mg) by mouth every 4 (four) hours if needed for congestion for up to 10 days. 30 tablet 08/16/19 25 Active SUMAtriptan (Imitrex) 50 MG tablet Take 1 tablet (50 mg) by mouth 1 (one) time if needed for migraine. May repeat dose once in 2 hours if no relief. Do not exceed 2 doses in 24 hours. 9 tablet 07/19/20 24 025 Discontinued amoxicillin (Amoxil) 500 MG capsule Take 1 capsule (500 mg) by mouth 2 times daily for 5 days. 10 capsule 08/16/19 25 025 Active Problems Problem Noted Date Diagnosed Date Nonintractable episodic headache 07/19/2024 Assessment & Plan (07/23/2024 5:04 PM EST): - Left frontal and parietal headaches, will rule out temporal arteritis - I will prescribe SUMAtriptan (Imitrex) 50 MG tablet prn for acute migrainous headache attack - continue judicious use of APAP and/or NSAIDs prn for mild-moderate headache - ER precautions given - Follow-up with PCP Psoriasis 11/16/2023 Assessment & Plan (11/16/2023 11:33 AM EDT): Patch with silver scale, suspect psoriasis, topical steroid rx, update for response, will likely benefit from referral to derm and rheum Other fatigue 11/16/2023 Assessment & Plan (11/16/2023 11:33 AM EDT): Check labs for anemia with history of metallic taste Pelvic pain 05/08/2023 Assessment & Plan (07/19/2024 2:35 PM EST): Left lower abdominal pain that is likely constipation. 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 Encounters Date Type Department Care Team Description 08/29/2024 Telephone [facility] [address] [place] [phone] Rachelle Olson ANP Lab Orders 08/16/2024 2:00 PM EST Office Visit [facility] [address] [place] [phone] Briana Shin MD Pharyngitis, unspecified etiology (Primary Dx); Influenza A 08/15/2024 Refill [facility] [address] [place] [phone] Haritha Selby MD 07/25/2024 Telephone [facility] [address] [place] [phone] Yin Anguiano, RN Results 07/23/2024 Orders Only [facility] [address] [place] [phone] Haritha Selby MD Hematuria, unspecified type (Primary Dx) 07/19/2024 1:45 PM EST Office Visit [facility] [address] [place] [phone] Haritha Selby MD Chronic nonintractable headache, unspecified headache type (Primary Dx); Left temporal headache; Nonintractable episodic headache, unspecified headache type; Lower abdominal pain; Pelvic pain 07/19/2024 Travel from Last 3 Months Immunizations Name Administration Dates Next Due Influenza injectable quadrivalent preservative f ree 07/16/2021,07/24/2020 Pfizer Covid-19 Vaccine 12+ 04/02/2021, 1 Tdap 07/24/2020 Varicella 03/14/2024 Social History Tobacco Use Types Packs/Day Years Used Date Smoking Tobacco: Some Days Cigarettes Passive Smoke Exposure: Current Smokeless Tobacco: Never Tobacco Cessation:Ready to Q uit: Not Asked; Counseling Given: Not Answered Alcohol Use Standard Drinks/Week Comments Never 0 [...] Orientation Straight 06/02/2022 10 :37 AM EDT Last Filed Vital Signs Vital Sign Reading [...] oz) 08/16/2024 1:16 P M EST Height 160 cm (5' 3 ) 07/19/2024 1:57 PM EST Body Mass Index 22.43 07/19/2024 1:57 PM EST Plan of Treatment Upcoming Encounters Date Type Department Care Team (Late st Contact Info) Description 09/01/2024 2:00 PM EST Office Visit [facility] [address], [place] [phone] Rachelle Olson ANP [address] [place], [place] [phone] Health Maintenance Due Date Last Done Comments Lipid Panel 1991 Pneumococcal Vaccine: Pediatrics (0 to 5 Years) and At-Risk Patients (6 to 64 Years) (1 of 2 - PCV) 12/21/1997 Alcohol/Substance Use Screening 2003 Hepatitis B Vaccines (1 of 3 - 19+ 3-dose series) 12/21/2010 HPV/Cotest 12/21/2021 Depression Screening 07/04/2023 07/04/2022, 07/04/2022 SDOH Screening 07/04/2023 07/04/2022 COVID-19 Vaccine (3 - 2023-2 5 season) 2024 04/02/2021, 03/12/2021 Influenza Vaccine (#1) 2024 , 07/24/2020 Cervical Cancer Screening 06/26/2024 Pap Smear 06/26/2024 06/26/2021, 06/26/2021 Family Planning (PISQ) 02/21/2025 02/22/2024 Tobacco Screening 07/19/2025 07/19/2024 DTaP/Tdap/Td Vaccines (2 - T d or Tdap) 07/24/2030 07/24/2020 Zoster Vaccines (1 of 2) 12/21/2041 RSV Patients and Patients Aged 60 years or older (1 - 1-dose 75+ series) 12/21/2066 HIV Screening Completed 05/28/2023 Hepatitis C Screening Completed 05/28/2023 HIB Vaccines Aged Out No longer eligi [...] patient's age to complete this topic Meningococcal Vaccine Aged Out No jonathan artem eligible based on patient's age to complete this topic RSV under 20 months Aged Out No longe r eligible based on patient's age to complete this topic Rotavirus Vaccines Aged Out No longer eligible based on patient's age to complete this topic Procedures Procedure Name Priority Date/Time Associated Diagnosis Comments URINALYSIS, COMPLETE, WITH REFLEX TO CULTURE Routine 08/29/2024 11:58 AM EST Hematuria, unspecified type POCT RAPID COVID ANTIGEN Routine 08/16/2024 1:23 PM EST Influenza A POCT INFLUENZA B (ID NOW RAPID MOLECULAR) Routine 08/16/2024 1:22 PM EST Influenza A POCT INFLUENZA A (ID NOW RAPID MOLECULAR) Routine 08/16/2024 1:22 PM EST Influenza A POCT RAPID STREP A Routine 08/16/2024 1: 22 PM EST Influenza A URINALYSIS, COMPLETE, WITH REFLEX TO CULTURE Routine 07/19/2024 2:25 PM EST Pelvic pain SED RATE BY MODIFIED WESTERGREN Routine 07/19/2024 2:25 PM EST Chronic nonintractable headache, unspecified headache type Left temporal headache C-REACTIVE PROTEIN Routine 07/19/2024 2: 25 PM EST Chronic nonintractable headache, unspecified headache type Left temporal headache COMPREHENSIVE METABOLIC PANEL Routine 07/19/2024 2:25 PM EST Chronic nonintractable headache, unspecified headache type Left temporal headache CBC WITH AUTO DIFFERENTIAL Routine 07/19/2024 2:25 PM EST Chronic nonintractable headache, unspecified headache type Left temporal headache HEPATITIS C AB W/REFL TO HCV RNA, QN, PCR Routine 05/28/2023 12:09 PM EDT Encntr screen for infections w sexl mode of transmiss HIV ANTIBODY/ANTIGEN ([place] DPH) Routine 05/28/2023 12:09 PM EDT PAP SMEAR Routine 06/26/2021 12:00 AM EST from Last 3 Months or Most Recently Relevant to Health Maintenance Results * (ABNORMAL) Urinalysis, Complete, with Reflex to Culture (08/29/2024 11:58 AM EST) Only the most recent of2 resultswithin the time period is included. Color Urine Yellow [facility] Appearance Urine Clear [facility] PH 7.5 5.0 - 9.0 [facility] Glucose Urine UA Negative Negative mg/dL [facility] Urine Blood Small (1+)(A) Negative [facility] Specific [place] - Urine 1.020 1.005 - 1.025 [facility] Urine Protein Negative Neg-Trace mg/dL [facility] Urine Ketones Negative Negative mg/dL [facility] Nitrite Urine Negative Negative [facility] Leukocyte Esterase Urine Negative Negative [facility] RBC Urine 0-2 0 - 2 /HPF [facility] Urine WBC 0-5 0 - 5 /HPF [facility] Urine Squamous Epithelial Cell 0-2 0 - 2 /HPF [facility] Urine Bacteria None Seen None Seen [facility] Hyaline Casts, Urine 0-2 0 - 2 /LPF [facility] Urine 08/29/2024 11:5 8 AM EST 08/29/2024 1:11 PM EST Narrative [facility] - 08/29/2024 1:57 PM EST Urine, Clean Catch Haritha Selby MD LAB URINE ORDERABLES Final Resul t Performing Organization Address [facility] Co de Phone Number [facility] [address] [place] [phone] * POCT Rapid COVID Ag (08/16/2024 1:23 PM EST) Rapid COVID Ag Negative Swab 08/16/2024 1:23 PM EST Briana Shin MD POINT OF CARE TEST ENTER/EDIT OR DERABLES Final Result * Influenza B (ID NOW Rapid Molecular) (08/16/2024 1:22 PM EST) Influenza B Negative Negative, Indeterminate [facility] Swab 08/16/2024 1:22 PM EST Briana Shin MD POINT OF CARE TEST ENTER/EDIT OR DERABLES Final Result Performing Organization Address [facility] Co de Phone Number [facility] [address] [place] [address] [phone] * (ABNORMAL) Influenza A (ID NOW Rapid Molecular) (08/16/2024 1:22 PM EST) Influenza A Positive( A) Negative, Indeterminate [facility] Swab 08/16/2024 1:22 PM EST Briana Shin MD POINT OF CARE TEST ENTER/EDIT OR DERABLES Final Result Performing Organization Address [facility] Co de Phone Number [facility] [address] [place] [address] [phone] * POCT rapid strep A manually resulted (08/16/2024 1:22 PM EST) Rapid Strep A Screen Negative Negative, None Detected [facility] Swab 08/16/2024 1:22 PM EST Briana Shin MD POINT OF CARE TEST ENTER/EDIT OR DERABLES Final Result Performing Organization Address City/State/[facility] Co de Phone Number [facility] [address] [place] [address] [phone] * CBC auto differential (07/19/2024 2:25 PM EST) Pathologist [facility] White Blood Count 7.3 4.8 - 10.8 X10*3/uL [facility] Red Blood Count 4.77 4.20 - 5.50 X10*6/uL [facility] Hemoglobin 14.1 12.0 - 16.0 g/dl [facility] Hematocrit 41.7 37.0 - 47.0 % [facility] Mean Corpuscular Volume 87.4 80.0 - 98.0 fL [facility] Mean Corpuscular Hemoglobin 29.6 27.0 - 33.0 pg [facility] Mean Corpuscular HGB Conc 33.8 31.0 - 35.0 g/dl [facility] Red Cell Distribution Width 11.9 11.0 - 16.0 % [facility] Platelet Count 323 160 - 400 X10*3/uL [facility] Mean Platelet Volume 9.4 9.4 - 12.3 fL [facility] Neutrophils Percent Auto 54.3 45 - 73 % [facility] Imm Gran Pct Auto 0.3 0.0 - 0.4 % [facility] Lymphocytes Percent Auto 35.9 20 - 40 % [facility] Monocytes Percent Auto 5.8 2 - 11 % [facility] Eosinophils Percent Auto 3.0 0 - 4 % [facility] Basophils Percent Auto 0.7 0 - 2 % [facility] NRBC Pct Auto 0.0 0.0 - 0.2 /100WBC [facility] Neutrophils Absolute Auto 4.0 2.0 - 8.3 x10*3/uL [facility] Imm Gran Abs Auto 0.02 0.00 - 0.03 X10*3/uL [facility] Lymphocytes Absolute Auto 2.6 1.2 - 4.9 X10*3/uL [facility] Monocytes Absolute Auto 0.4 0.1 - 1.2 X10*3/uL [facility] Eosinophils Absolute Auto 0.2 0.0 - 0.4 X10*3/uL [facility] Basophils Absolute Auto 0.1 0.0 - 0.2 X10*3/uL [facility] NRBC Abs Auto 0.000 0.0 - 0.012 X10*3/uL [facility] Blood Venous blood specimen / Unknown 07/19/2024 2:25 PM EST 07/19/2024 4:05 PM EST Haritha Selby MD LAB BLOOD ORDERABLES Final Resul t Performing Organization Address [facility] Co de Phone Number [facility] [address] [place] [address] [phone] * Sed Rate by Modified Tavonren (07/19/2024 2:25 PM EST) Erythrocyte Sedimentation Rate 5 0 - 20 MM/HR [facility] Comment:Patients with polycy themia and many hemoglobin abnormalitiesmay have depressed sed rates whereas patients with anemiamay have elevated sed rates. Blood Venous blood specimen / Unknown 07/19/2024 2:25 PM EST 07/19/2024 4:05 PM EST Haritha Selby MD LAB BLOOD ORDERABLES Final Resul t Performing Organization Address City/[facility]/ZIP Co de Phone Number [facility] [address] [place] [address] [phone] * C-reactive Protein (07/19/2024 2:25 PM EST) C Reactive Protein 0.22 < or = 0.50 mg/dL [facility] Blood Venous blood specimen / Unknown 07/19/2024 2:25 PM EST 07/19/2024 4:05 PM EST us Haritha Selby MD LAB BLOOD ORDERABLES Final Resul t [facility] [address] [place] [phone] * (ABNORMAL) Comprehensive Metabolic Panel (07/19/2024 2:25 PM EST) Pathologist [facility] Sodium 139 135 - 145 mmol/L [facility] Potassium 4.0 3.3 - 5.1 mmol/L [facility] Chloride 105 96 - 108 mmol/L [facility] Carbon Dioxide 28 22 - 29 mmol/L [facility] Anion Gap 10(L) 12 - 20 [facility] Urea Nitrogen (BUN) 14 9 - 16 mg/dL [facility] Creatinine, Serum 0.71 0.5 - 1.4 mg/dL [facility] Estimated Glomerular Filt Rate >60 [facility] Comment:Chronic Kidney Disea se: Estimated GFR < 60 mL/min/1.79q1Vpoyec Kidney Disease: Estimated GFR < 15 mL/min/1.73m2 Glucose 94 60 - 115 mg/dL [facility] Calcium 8.8 8.4 - 10.2 mg/dL [facility] Bilirubin, Total 0.2 0.0 - 1.0 mg/dL [facility] Aspartate Amino Transferase 33(H) 5 - 31 U/L [facility] Alanine Aminotransferase 19 0 - 31 U/L [facility] Total Protein 7.4 6.5 - 8.0 g/dL [facility] Albumin Level 3.9 3.5 - 5.0 g/dL [facility] Alkaline Phosphatase 48 39 - 117 U/L [facility] Blood Venous blood specimen / Unknown 07/19/2024 2:25 PM EST 07/19/2024 4:05 PM EST us Haritha Selby MD LAB BLOOD ORDERABLES Final Resul t Performing Organization Address [facility]/ZIP Co de Phone Number [facility] [address] [place] [phone] * HIV Ab/Ag ([place] LILA) (05/28/2023 12:09 PM EDT) HIV AB/AG Nonreactive Nonreactive [facility] Comment:HIV-1 p24 Ag and/or HIV-1/HIV-2 Ab not detected.A test result that is nonreactive does not exclude thepossibility of exposure to or infection with HIV-1 and/orHIV-2. Nonreactive results in this assay for individualswith prior exposure to HIV-1 and/or HIV-2 may be due toantigen and antibody levels that are below the limit ofdetection of this assay.The [employer] HIV Ag/Ab Combo assay result andsupplemental assay results should be interpreted inconjunction with the patient's clinical presentation,history and other laboratory results. If the results areinconsistent with clinical evidence, additional testing issuggested to confirm the result. 05/28/2023 12:0 9 PM EDT 05/28/2023 12:57 PM EDT us Franny ROCHA LAB BLOOD ORDERABLES Jen l Result Performing Organization Address City/[facility]/ZIP Co de Phone Number [facility] [address] [place] [phone] * Hepatitis C Antibody with Reflex to HCV, RNA, Quantitative, Real-Time PCR (05/28/2023 12:09 PM EDT) Hepatitis C Antibody Nonreactive Nonreactive [facility] Comment:Antibodies to HCV no t detected; does not exclude early acuteHCV infection. Blood Venous blood specimen / Unknown 05/28/2023 12:09 PM EDT 05/28/2023 12:57 PM EDT Franny Galloway [facility] LAB BLOOD ORDERABLES Jen l Result [facility] [address] [place] [phone] * Pap Smear (06/26/2021 12:00 AM EST) Swab Franny Galloway [facility] LAB CYTOLOGY ORDERABLES F inal Result Performing Organization Address City/[facility]/ZIP Co de Phone Number [facility] [address] [place] [address], [place] [phone] from Last 3 Months or Most Recently Relevant to Health Maintenance Insurance [facility] C3 Care Teams Vp Director Of Creative Strategy Relationship Specialty Start Date End Date Rachelle Olson ANP [address] [facility] [place] [phone] PCP - General Family Medicine 07/17/20
== END 2024-08-29 11:56 | disposition home or self-care (01) ==
LOC: HO.HHCL 11:55
PROVIDERS: Family Medicine; Visit Provider Nurse Practitioner Family
DX: R07.9 Chest pain, unspecified (principal); R00.2 Palpitations; R31.9 Hematuria, unspecified
CPT/HCPCS: 36415; 80048; 81001; 84443; 85025

== ENCOUNTER 2025-01-25 10:18 | Outpatient (REF) | payer MEDICAID, SELFPAY ==
[2025-01-25 11:10] LABS: MANUAL DIFF FLAG NO
[2025-01-25 11:15] LABS: Appearance Urine Clear; Color Urine Dark Yellow; Glucose Urine UA Negative (Negative); Leukocyte Esterase Urine Moderate (2+) (Negative); Nitrite Urine Negative (Negative); Specific Gravity - Urine >= 1.030 (1.005-1.025); UMIC TRIGGER UACC YES; Urine Blood Negative (Negative); Urine Ketones Trace mg/dL (Negative); Urine Protein Trace mg/dL (Neg-Trace)
[2025-01-25 11:17] LABS: Basophils Absolute Auto 0.1 X10*3/uL (0.0-0.2); Basophils Percent Auto 0.7 % (0-2); Eosinophils Absolute Auto 0.2 X10*3/uL (0.0-0.4); Eosinophils Percent Auto 2.7 % (0-4); Hematocrit 43.3 % (37.0-47.0); Hemoglobin 14.5 g/dl (12.0-16.0); Imm Gran Abs Auto 0.03 X10*3/uL (0.00-0.03); Imm Gran Pct Auto 0.4 % (0.0-0.4); Lymphocytes Absolute Auto 2.4 X10*3/uL (1.2-4.9); Mean Corpuscular HGB Conc 33.5 g/dl (31.0-35.0); Mean Corpuscular Hemoglobin 28.9 pg (27.0-33.0); Mean Corpuscular Volume 86.3 fL (80.0-98.0); Monocytes Absolute Auto 0.4 X10*3/uL (0.1-1.2); Monocytes Percent Auto 6.3 % (2-11); Neutrophils Absolute Auto 3.9 x10*3/uL (2.0-8.3); Neutrophils Percent Auto 55.9 % (45-73); Platelet Count 342 X10*3/uL (160-400); Red Blood Count 5.02 X10*6/uL (4.20-5.50); Red Cell Distribution Width 12.2 % (11.0-16.0)
[2025-01-25 11:26] LABS: Bacteria Urine 2+ (None Seen); Hyaline Casts Urine 0-2 /LPF (0-2); RBC Urine 0-2 /HPF (0-2); UACC Culture Trigger YES; WBC Urine 0-5 /HPF (0-5)
[2025-01-25 11:27] LABS: Estimated Average Glucose 91 mg/dL; Hemoglobin A1c % 4.8 % (<6.0)
[2025-01-25 11:44] LABS: Alanine Aminotransferase 17 U/L (0-31); Alkaline Phosphatase 44 U/L (39-117); Anion Gap 11 (12-20); Aspartate Amino Transferase 28 U/L (5-31); Bilirubin Total 0.5 mg/dL (0.0-1.0); Blood Urea Nitrogen 10 mg/dL (9-16); Calcium 9.2 mg/dL (8.4-10.2); Carbon Dioxide 26 mmol/L (22-29); Chloride 106 mmol/L (96-108); Cholesterol 133 mg/dL (<200); Estimated Glomerular Filt Rate > 60; Glucose Random 83 mg/dL (60-115); HDL Cholesterol 47 mg/dL (>40); LDL Cholesterol Calculated 62 mg/dL (<100); Lipase 18 U/L (8-78); Potassium 4.5 mmol/L (3.3-5.1); Sodium 138 mmol/L (135-145); Total Protein 7.1 g/dL (6.5-8.0); Triglycerides 120 mg/dL (<150)
--- OUTSIDE RECORDS SUMMARY | 2025-01-25 12:03 | XMS_ITS | Clinical Summary ---
Author Organization [facility] [employer] [facility] it Address [address] [place] [address] Care Team Providers Care Form Maker Name Role Phone Unavailable Primary Care Provider Unavailabl e Social History Tobacco Use Types Packs/Day Years Used Date Smoking Tobacco: Never Assessed Comments Unknown Sex and Gender Information Value Date Recorded Sex Assigned at Not on file Legal Sex Female 3:44 PM EDT Gender Identity Not on file Sexual Orientation Not on file Plan of Treatment Health Maintenance Due Date Last Done Comments DTaP,Tdap,and Td Vaccines (1 - Tdap) 12/21/2010 Hepatitis B Vaccines (1 of 3 - 19+ 3-dose series) 12/21/2010 Cervical Cancer Screening: P ap Smear 12/21/2012 COVID-19 Vaccine ( - 2023-2 5 season) 2024 Depression Screening 05/12/2024 HIV Screening 05/12/2024 Hepatitis C Screening 05/12/2024 Social Influencers of Health Screening 05/12/2024 Influenza Vaccine (Season Ended) 2025 HIB Vaccines Aged Out No longer eligi [...] patient's age to complete this topic Meningococcal B Vaccine Aged Out No l onger eligible based on patient's age to complete [...]
[2025-01-25 12:49] LABS: Amylase 98 U/L (28-100)
[2025-01-26 08:05] LABS: HBS Num1 130.79 mIU/mL (0-7.99); HBc Num1 0.08 S/CO (0.00-0.79); HBsAGNum1 0.36 S/CO (0.00-0.99); Hepatitis B Core Antibody Nonreactive (Nonreactive); Hepatitis B Surface Antigen Negative (Negative); ~Hepatitis B Surface Antibody REACTIVE (Nonreactive)
== END 2025-01-25 10:19 | disposition home or self-care (01) ==
LOC: HO.HHCL 10:18
PROVIDERS: PCP Nurse Practitioner Primary Care; Visit Provider Nurse Practitioner Primary Care
DX: R31.9 Hematuria, unspecified (principal); R79.89 Other specified abnormal findings of blood chemistry; R35.0 Frequency of micturition; R10.32 Left lower quadrant pain; Z11.59 Encounter for screening for other viral diseases; Z00.00 Encounter for general adult medical examination without abnormal findings
CPT/HCPCS: 36415; 80053; 80061; 81001; 82150; 83036; 83690; 85025; 86704; 86706; 87086; 87340

== ENCOUNTER 2025-01-31 12:54 | Outpatient (REF) | payer MEDICAID, SELFPAY ==
--- OUTSIDE RECORDS SUMMARY | 2025-01-31 13:48 | XMS_ITS | Clinical Summary ---
Author Organization [facility] [employer] [facility] it Address [address] [place] [address] Care Team Providers Care Mobile Application Architect Name Role Phone Unavailable Primary Care Provider [...]
--- OUTSIDE RECORDS SUMMARY | 2025-01-31 13:48 | XMS_ITS | Clinical Summary ---
Author Organization [facility] Address [address] [place] [address] Care Team Providers Care Administrative Accountant Name Role Phone Rachelle Olson Primary Care Provider [phone] Medications No known medications Active Problems Problem [...] - 2023-2 5 season) 2024 04/02/2021, 03/12/2021 Alcohol/Substance Use Screening 08/03/2024 Influenza Vaccine (#1) 2025 , 07/24/2020 DTaP,Tdap,and Td Vaccines (2 - Td or Tdap) 07/24/2030 07/24/2020 RSV Vaccine (60+ years old and patients) (1 - 1-dose 75+ series) 12/21/2066 Pneumococcal Vaccine: Pediatric (0-5 Years) and At-Risk Patients (6-50 Years) Aged Out No longer eligible based on patient's age to complete this topic Insurance [facility] Care Teams Administrative Accountant Relationship Specialty Start Date End Date Rachelle Olson [address] [place] [phone] PCP - General 06/10/22
== END 2025-01-31 12:55 | disposition home or self-care (01) ==
LOC: HO.HHCLNP 12:54
PROVIDERS: Visit Provider Nurse Practitioner Primary Care
DX: K21.9 Gastro-esophageal reflux disease without esophagitis (principal)
CPT/HCPCS: 87338

== ENCOUNTER 2025-02-19 17:21 | Emergency (ER) | payer MEDICAID, SELFPAY ==
--- NOTE | ~2025-02-19 | XR_ITS ---
CLINICAL HISTORY: CP Two views of the chest. COMPARISON: XR chest dated 04/18/22 at 21:22 EDT FINDINGS: Normal heart and mediastinal contours. No consolidation. No pleural effusion or pneumothorax. No acute fracture. IMPRESSION: 1. No acute cardiopulmonary abnormality. This document has been electronically signed by: Lito Calloway MD on 02/19/2025 18:34:00
--- NOTE | 2025-02-19 17:23 | ECG_ITS ---
Test Reason : cp Blood Pressure : */* mmHG Vent. Rate : 79 BPM Atrial Rate : 79 BPM P-R Int : 136 ms QRS Dur : 72 ms QT Int : 364 ms P-R-T Axes : 68 51 36 degrees QTcB Int : 417 ms Normal sinus rhythm with sinus arrhythmia Normal ECG When compared with ECG of 18-Apr-2022 21:03, No significant change was found Referred By: Sulma Hickey Electronically Signed By: Patrice Ernst
[2025-02-19 17:44] VITALS: BP 125/91; PULSE 80; RESP 16; TEMP 36; O2SAT 99; BMI 24.7
--- NOTE | 2025-02-19 17:59 | ED_ITS ---
HPI - Chest Pain General Chief Complaint: Chest Pain Stated Complaint: chest pain + head hurts Time Seen by Provider: 02/19/25 19:14 Source: patient Mode of arrival: ambulatory Limitations: no limitations History of Present Illness ED Provider: Barbara Olmstead PA-C HPI narrative: Patient is a 34 year old female with past medical history of palpitations and varicose veins presenting to ER on 02/19 with chief complaint of left sided chest pain/tightness for 3 days. The chest pain is constant and she cannot name alleviating or exacerbating factors. It does not radiate. She has had associated chills and nausea for 3 days. She denies recent illness, change in activity, or injury. She denies having a similar occurrence before. She also complains of dizziness, headache, shortness of breath, and palpitations for about 5 minutes while taking a shower at 5 PM today, but these symptoms have since resolved. She has a known history of palpitations with outpatient cardiology workup and was told she has benign episodes of tachycardia that could be treated with propranolol, but she did not want to take medication for it. She is on oral contraceptive pills that she takes daily consistently. She denies sick contacts or recent travel. She denies associated fevers, vomiting, diarrhea, abdominal pain, or any other symptoms. Related Data Home Medications ?Medication ?Instructions ?Recorded ?Confirmed No Known Home Meds 09/10/22 05/07/23 Allergies Allergy/AdvReac Type Severity Reaction Status Date / Time No Known Allergies (No Known Allergy Verified 02/19/25 17:46 Allergies*) Review of Systems 2 Constitutional: Constitutional: Reports no additional constitutional complaints, Denies fever(s), Reports headache(s) and Denies night sweats Eyes: Eyes: Reports no additional eye complaints, Denies blurry vision, Denies change in vision, Denies diplopia, Denies eye discharge, Denies loss of vision and Denies eye pain ENT: Reports dizziness (now resolved) and Reports headache(s) Cardiovascular: Cardiovascular: Reports no additional cardiovascular complaints, Reports chest pain, Reports lightheadedness (now resolved), Denies Loss of Consciousness, Reports palpitations and Reports dyspnea Respiratory: Respiratory: Reports no additional respiratory complaints and Reports dyspnea Gastrointestinal: Gastrointestinal: Reports no additional gastrointestinal complaints, Denies abdominal pain, Denies melena, Denies hematochezia, Denies change in bowel habits, Denies change in stool character and Reports nausea Genitourinary: Genitourinary: Denies hematuria, Denies urinary frequency, Denies dysuria, Denies urinary incontinence, Denies urinary hesitancy and Denies urinary urgency Musculoskeletal: Musculoskeletal: Reports no additional musculoskeletal complaints, Denies numbness and Denies tingling Neurologic: Reports dizziness (now resolved), Reports headache(s), Denies loss of vision, Denies numbness and Denies tingling Psychiatric: Psychiatric: Reports no additional psychiatric complaints Endocrine: Endocrine: Reports no additional endocrine complaints and Reports palpitations Hematologic/Lymphatic: Hematologic/Lymphatic: Reports no additional hematologic/lymphatic complaints Allergic/Immunologic: Allergic/Immunologic: Reports no additional allergic/immunologic complaints PMFSH Past Medical History Attestation statement: The following information was validated with the patient. Source: old records reviewed and nursing notes reviewed Medical History Dyspnea Varicose veins of bilateral lower extremities with pain No known health problems Surgical History No pertinent past surgical history Family History Family History Mother Hypertension Epilepsy Social History Social History Alcohol intake: never Patient Tobacco Use Status: Former Tobacco user Years Smoked: On/off 5 +/- Smoked in Last 30 Days: No Use of substances other than those prescribed or required for medical reasons: No Advance Directives: No Advance Directives Information Provided: No Physical Exam 2 Vital Signs: Vital Signs: Last Vital Signs Temp 96.8 F 02/19/25 17:44 Pulse 81 02/19/25 18:11 Resp 14 02/19/25 18:11 BP 120/81 02/19/25 18:11 Pulse Ox 98 02/19/25 18:11 O2 Del Method Room Air 02/19/25 18:11 BMI result Body Mass Index 24.7 Const: General: cooperative, no acute distress, alert and awake Nutritional Appearance: well nourished Orientation/consciousness: patient oriented x3 HEENT: Head: Yes normal to inspection and Yes atraumatic Ears: hearing grossly normal bilaterally and external ears normal General nose exam: Normal external nose present, no nasal discharge noted and no epistaxis Face and sinus: Yes normal facial exam, No abrasion and No laceration Mouth: Normal oral and palatal mucosa present, no drooling and no muffled voice Eyes: General: appearance normal, both eyes and all related structures P eriorbital: periorbital findings normal Eyelids: Yes eyelids normal C onjunctivae: conjunctivae normal Pupils: Equal, round and reactive pupils present EOM: EOMs intact bilaterally Neck: Neck: Yes normal visual inspection, Yes full ROM and Yes no lymphadenopathy Resp: Effort & Inspection: normal respiratory effort and able to speak in complete sentences Neuro: General: patient oriented x3, moves all extremities and CN's II-XI intact bilaterally Cranial nerves: Yes Equal, round and reactive pupils present Cognition (Neuro): normal cognition Extrem: General: Yes normal to inspection, Yes full ROM and Yes capillary refill normal Psych: Appearance: grossly normal Mental Status: mental status grossly normal Affect: normal affect Attitude: cooperative Thought process: N ormal thought process present Thought content: Normal thought content present Insight: Good insight present (Psych) Course Course Course Narrative: Sulma Hickey RECEPTION CLERK 02/19 1800 This is a rapid medical exam. Defer additional HPI, ROS, PE to primary provider. 34-year-old female here with complaints of chest pain for 3 days, headache and dizziness today while taking a shower. Will obtain labs, EKG, chest x-ray Vitals stable Medical Decision Making Medical Decision Making MDM Narrative: Patient is a 34 year old assigned female at with a history of palpitations and varicose veins presenting to the emergency department today with chest pain, shortness of breath, headache, and dizziness. Patient's physical exam was unremarkable. Patient's blood work was unremarkable. Patient's EKG was unremarkable. Patient's chest x-ray showed no acute process. I explained my physical exam findings as well as all test results to the patient. I answered all questions asked by the patient. Patient's clinical presentation is most consistent with a viral illness vs. atypical chest pain. I stressed the importance of the patient taking her medication as directed (either prescribed or as the over the counter packaging recommends). I stressed the importance of the patient following up with her primary care provider. I stressed the importance of the patient returning to the emergency department immediately if her symptoms were to worsen or if she were to develop any dizziness, shortness of breath, difficulty breathing, chest pain, blurry vision, loss of vision, nausea, vomiting, abdominal pain, fever, chills, back pain, or any other complaints. Patient verbalized agreement and understanding with this treatment plan and discharge. Differential Diagnosis Differential Diagnoses: The differential diagnosis associated with the presentation includes Chest pain Shortness of breath Headache Anxiety Viral illness Admission/Observation Consideration of admission/observation: Escalation of care including admission/observation considered Patient would have been admitted to the hospital had her work up had any findings where hospital admission was appropriate and her clinical presentation warranted hospital admission. Lab Data [facility] Lab Attestation statement: I reviewed the patient's lab results. My interpretation of these results are in the [facility] Rationale portion of this note. 02/19/25 18:20 02/19/25 18:19 Labs: Lab Results 02/19/25 02/19/25 02/19/25 Range/Units 18:19 18:20 18:56 WBC 6.8 (4.8-10.8) X10*3/uL RBC 4.98 (4.20-5.50) X10*6/uL Hgb 14.8 (12.0-16.0) g/dl Hct 42.2 (37.0-47.0) % MCV 84.7 (80.0-98.0) fL MCH 29.7 (27.0-33.0) pg MCHC 35.1 H (31.0-35.0) g/dl RDW 12.1 (11.0-16.0) % Plt Count 307 (160-400) X10*3/uL MPV 8.6 L (9.4-12.3) fL Immature Gran % (Auto) 0.1 (0.0-0.4) % Neut % (Auto) 47.1 (45-73) % Lymph % (Auto) 43.2 H (20-40) % Archuleta % (Auto) 6.1 (2-11) % Eos % (Auto) 2.8 (0-4) % Baso % (Auto) 0.7 (0-2) % Lymph # (Auto) 2.9 (1.2-4.9) X10*3/uL Archuleta # (Auto) 0.4 (0.1-1.2) X10*3/uL Eos # (Auto) 0.2 (0.0-0.4) X10*3/uL Baso # (Auto) 0.1 (0.0-0.2) X10*3/uL Abs Immat Gran (auto) 0.01 (0.00-0.03) X10*3/uL Absolute Neuts (auto) 3.2 (2.0-8.3) x10*3/uL Absolute Nucleated RBC 0.000 (0.0-0.012) X10*3/uL Nucleated RBC % (auto) 0.0 (0.0-0.2) /100WBC D-Dimer High Sensitivty NG/ML Sodium 139 (135-145) mmol/L Potassium 4.3 (3.3-5.1) mmol/L Chloride 107 (96-108) mmol/L Carbon Dioxide 24 (22-29) mmol/L Anion Gap 12 (12-20) BUN 15 (9-16) mg/dL Creatinine 0.64 (0.5-1.4) mg/dL Estim Creat Clear Calc 107.6 Estimated GFR > 60 Random Glucose 86 (60-115) mg/dL Calcium 8.9 (8.4-10.2) mg/dL Total Bilirubin 0.1 (0.0-1.0) mg/dL Direct Bilirubin < 0.2 (0.0-0.5) mg/dL AST 27 (5-31) U/L ALT 22 (0-31) U/L Alkaline Phosphatase 44 (39-117) U/L Troponin I High Sens < 2.7 (<3.5-17.0) ng/L Total Protein 7.2 (6.5-8.0) g/dL Albumin 4.1 (3.5-5.0) g/dL Influenza Type A (PCR) NEGATIVE (Negative) Influenza Type B (PCR) NEGATIVE (Negative) RSV RNA Qual (PCR) NEGATIVE (Negative) SARS-CoV-2 RNA (RT-PCR) NEGATIVE (Negative) 02/19/25 Range/Units 19:53 WBC (4.8-10.8) X10*3/uL RBC (4.20-5.50) X10*6/uL Hgb (12.0-16.0) g/dl Hct (37.0-47.0) % MCV (80.0-98.0) fL MCH (27.0-33.0) pg MCHC (31.0-35.0) g/dl RDW (11.0-16.0) % Plt Count (160-400) X10*3/uL MPV (9.4-12.3) fL Immature Gran % (Auto) (0.0-0.4) % Neut % (Auto) (45-73) % Lymph % (Auto) (20-40) % Archuleta % (Auto) (2-11) % Eos % (Auto) (0-4) % Baso % (Auto) (0-2) % Lymph # (Auto) (1.2-4.9) X10*3/uL Archuleta # (Auto) (0.1-1.2) X10*3/uL Eos # (Auto) (0.0-0.4) X10*3/uL Baso # (Auto) (0.0-0.2) X10*3/uL Abs Immat Gran (auto) (0.00-0.03) X10*3/uL Absolute Neuts (auto) (2.0-8.3) x10*3/uL Absolute Nucleated RBC (0.0-0.012) X10*3/uL Nucleated RBC % (auto) (0.0-0.2) /100WBC D-Dimer High Sensitivty < 150 NG/ML Sodium (135-145) mmol/L Potassium (3.3-5.1) mmol/L Chloride (96-108) mmol/L Carbon Dioxide (22-29) mmol/L Anion Gap (12-20) BUN (9-16) mg/dL Creatinine (0.5-1.4) mg/dL Estim Creat Clear Calc Estimated GFR Random Glucose (60-115) mg/dL Calcium (8.4-10.2) mg/dL Total Bilirubin (0.0-1.0) mg/dL Direct Bilirubin (0.0-0.5) mg/dL AST (5-31) U/L ALT (0-31) U/L Alkaline Phosphatase (39-117) U/L Troponin I High Sens (<3.5-17.0) ng/L Total Protein (6.5-8.0) g/dL Albumin (3.5-5.0) g/dL Influenza Type A (PCR) (Negative) Influenza Type B (PCR) (Negative) RSV RNA Qual (PCR) (Negative) SARS-CoV-2 RNA (RT-PCR) (Negative) Independent Interpretation I performed an independent interpretation of an: EKG and Plain X-Ray Interpretation: My interpretation is in agreement with the radiologist's impression of this imaging study. L CLINICAL HISTORY: CP Two views of the chest. COMPARISON: XR chest dated 04/18/22 at 21:22 EDT FINDINGS: Normal heart and mediastinal contours. No consolidation. No pleural effusion or pneumothorax. No acute fracture. IMPRESSION: 1. No acute cardiopulmonary abnormality. This document has been electronically signed by: Lito Calloway MD on 02/19/2025 18:34:00 Dictated By: Lito Calloway MD Signed By: Electronically signed by Lito Calloway MD 02/19/25 1835 I independently interpreted this EKG and am in agreement with the below findings: Vent. Rate: 79 BPM Atrial Rate: 79 BPM P-R Int: 136 ms QRS Dur: 72 ms QT Int: 364 ms P-R-T Axes: 68 51 36 degrees QTcB Int: 417 ms Normal sinus rhythm with sinus arrhythmia Normal ECG When compared with ECG of 18-Apr-2022 21:03, No significant change was found DD/ 1727 Radiology Impression Discussion of test interpretation with radiology: I have reviewed the radiologist's reading. Discharge Plan Discharge Clinical Impression: Chest pain Qualifiers: Chest pain type: unspecified Qualified Code(s): R07.9 - Chest pain, unspecified Headache Qualifiers: Headache type: other headache syndrome Qualified Code(s): G44.89 - Other headache syndrome Patient Disposition: Home, Self-Care Instructions: Chest Pain (DC), Acute Headache (DC) Additional Instructions: Follow up with your primary care provider. Return to the emergency department immediately if your symptoms worsen or if you develop any dizziness, shortness of breath, difficulty breathing, chest pain, blurry vision, loss of vision, nausea, vomiting, abdominal pain, fever, chills, back pain, or any other complaints. Raphael?seguimiento?con nagel m?dico de atenci?n primaria. Acuda inmediatamente al servicio de urgencias si baljinder s?ntomas empeoran o si presenta falta de aliento, dificultad para respirar, dolor tor?cico, mareos, aturdimiento, dolor de espalda, dolor abdominal, fiebre, escalofr?os o cualquier otro s?ntoma. Please see the information below about our Patient Portal. If you are not yet enrolled in the [facility] Patient Portal, you will receive an enrollment email invitation following your visit to any [facility] setting. You may also self-enroll in the Patient Portal by visiting our website: [email or web address] The following information is required to access the Patient Portal: - Your [facility] Medical Record Number - Your personal home email address (must match what is in your electronic medical record, Registration staff can assist with this) - Name - Date of Capabilities of the Patient Portal: - Message some providers - View upcoming appointments - Access your health summary, medical history, and visit history - View current conditions and allergies - View procedure and lab results - View your medications, including guidelines, side effects, and precautions - Complete pre-appointment questionnaires requested by your provider - Ready summary reports of your office visits and procedures To access the Patient Portal Mobile Rashad, follow these directions: - Search Isonas in the Rashad Store or [email or web address] Store - Download the Rashad - Search for [facility] - Enter your login/password Portal del paciente Si usted no esta inscrito en el portal de pacientes de [facility], recibira miller invitacion de inscripcion despues de nagel visita al [facility] o al [facility] via correo electronico. Tambien puede inscribirse voluntariamente en el portal de pacientes visitando nuestra pagina web: [email or web address] La siguiente informacion sera requerida para acceder al portal: - Nagel royer de historia medica de [facility] - Nagel direccion de correo electronico personal - Nombre - Fecha de nacimiento Capacidades: Las siguientes capacidades estan disponibles en el portal de pacientes: - Enviar mensajes a algunos doctores - Verificar proximas citas - Acceso a nagel historial de lyn, registro medico e historial de visitas - Rosa las condiciones actuales y alergias rosa procedimientos y resultados del laboratorio - Rosa baljinder medicamentos, incluyendo las pautas - Efectos secundarios y precauciones - Completar o llenar formularios / cuestionarios de - Citas solicitadas por nagel doctor - Leer los resumenes de reportes medicos de baljinder visitas y procedimientos Costilla acceder a la aplicacion movil: - Busque [facility] en la Rashad Store o [email or web address] Store - Descargue la aplicacion - [facility] - Ingrese nagel nombre de usuario / Contrasena Prescriptions: No Action No Known Home Meds Referrals: Rachelle Olson NP [Primary Care Provider, Internal Medicine] Print Language: Gambian
[2025-02-19 18:11] VITALS: BP 120/81; PULSE 81; RESP 14; O2SAT 98
[2025-02-19 18:24] LABS: MANUAL DIFF FLAG NO
[2025-02-19 18:25] LABS: Hematocrit 42.2 % (37.0-47.0); Hemoglobin 14.8 g/dl (12.0-16.0); Imm Gran Abs Auto 0.01 X10*3/uL (0.00-0.03); Imm Gran Pct Auto 0.1 % (0.0-0.4); Lymphocytes Absolute Auto 2.9 X10*3/uL (1.2-4.9); Mean Corpuscular HGB Conc 35.1 g/dl (31.0-35.0); Mean Corpuscular Hemoglobin 29.7 pg (27.0-33.0); Mean Corpuscular Volume 84.7 fL (80.0-98.0); NRBC Abs Auto 0.000 X10*3/uL (0.0-0.012); NRBC Pct Auto 0.0 /100WBC (0.0-0.2); Platelet Count 307 X10*3/uL (160-400); Red Blood Count 4.98 X10*6/uL (4.20-5.50); White Blood Count 6.8 X10*3/uL (4.8-10.8)
[2025-02-19 18:40] LABS: Alanine Aminotransferase 22 U/L (0-31); Albumin Level 4.1 g/dL (3.5-5.0); Alkaline Phosphatase 44 U/L (39-117); Anion Gap 12 (12-20); Aspartate Amino Transferase 27 U/L (5-31); Blood Urea Nitrogen 15 mg/dL (9-16); Calcium 8.9 mg/dL (8.4-10.2); Carbon Dioxide 24 mmol/L (22-29); Chloride 107 mmol/L (96-108); Creatinine Clr Calc Pharmacy 107.6; Estimated Glomerular Filt Rate > 60; Potassium 4.3 mmol/L (3.3-5.1); Sodium 139 mmol/L (135-145); Total Protein 7.2 g/dL (6.5-8.0)
[2025-02-19 18:56] LABS: Troponin-I High Sensitivity < 2.7 ng/L (<3.5-17.0)
[2025-02-19 19:40] LABS: Resp Syncy Virus RNA Qual PCR NEGATIVE (Negative); SARS COV2 PCR INHOUSE NEGATIVE (Negative)
[2025-02-19 20:12] LABS: D Dimer High Sensitivity < 150 NG/ML
[2025-02-19 20:27] VITALS: BP 126/86; PULSE 76; RESP 16; TEMP 36.9; O2SAT 100
[2025-02-19 20:49] VITALS: BP 126/86; PULSE 76; RESP 16; TEMP 36.9; O2SAT 100
== END 2025-02-19 20:25 | disposition home or self-care (01) ==
PROVIDERS: Nurse Practitioner Family; Physician Assistant Medical; Emergency Provider Emergency Medicine; PCP Nurse Practitioner Primary Care
DX: R07.89 Other chest pain (principal); R51.9 Headache, unspecified; I49.8 Other specified cardiac arrhythmias; Z03.818 Encounter for observation for suspected exposure to other biological agents ruled out
CPT/HCPCS: 36415; 71046; 80048; 80076; 84484; 85025; 85379; 87637; 93005; 99283; 99285

== ENCOUNTER → 2025-02-19 17:23 | Outpatient (BNV) | payer MEDICAID, SELFPAY | PROVIDERS: Emergency Provider Emergency Medicine; PCP Nurse Practitioner Primary Care; Visit Provider Internal Medicine Cardiovascular Disease | DX: R07.89 Other chest pain (principal) | CPT/HCPCS: 93010 ==

== ENCOUNTER → 2025-02-19 17:59 | Outpatient (BNV) | payer MEDICAID, SELFPAY | PROVIDERS: PCP Nurse Practitioner Primary Care; Visit Provider Radiology Diagnostic Radiology | DX: R07.9 Chest pain, unspecified (principal) | CPT/HCPCS: 71046 ==

== ENCOUNTER 2025-02-28 16:40 | Outpatient (REF) | payer MEDICAID, SELFPAY ==
--- OUTSIDE RECORDS SUMMARY | 2025-02-28 16:49 | XMS_ITS | Clinical Summary ---
Author Organization [facility] Address [address] [place] [address] Care Team Providers Care Salvage Winder And Inspector Name Role Phone Rachelle Olson Primary Care Provider [phone] Medications No known medications Active Problems Problem [...] patient's age to complete this topic Insurance [facility] Care Teams Salvage Winder And Inspector Relationship Specialty Start Date End Date Rachelle Olson [address] [place] [phone] PCP - General 06/10/22
--- OUTSIDE RECORDS SUMMARY | 2025-02-28 16:49 | XMS_ITS | Clinical Summary ---
Author Organization [facility] it Address [address] [place] [address] Care Team Providers Care Care Team Coordinator Scheduler Name Role Phone Unavailable Primary Care Provider [...] Vaccine ( - 2023-2 5 season) 2024 HIV Screening 05/12/2024 Hepatitis C Screening 05/12/2024 Social Influencers of Health Screening 05/12/2024 Depression Screening 08/03/2024 Influenza Vaccine (#1) 2025 HIB Vaccines Aged Out No longer [...] 5 Years) and At-Risk Patients (6 to 49 Years) Aged Out No longer eligible b ased on patient's age to complete this topic RSV Immunization Patients Un marcial 20 months Aged Out No longer eligible b ased on patient's age to complete this topic Varicella Vaccines Aged Out No longer eligible based on patient's age to complete this topic
[2025-03-02 16:43] LABS: Trichomonas (NAAT) NOT DETECTED (NOT DETECTED)
[2025-03-02 19:34] LABS: C. trachomatis RNA TMA NOT DETECTED (NOT DETECTED); N. gonorrhoeae RNA TMA NOT DETECTED (NOT DETECTED)
== END 2025-02-28 16:41 | disposition home or self-care (01) ==
LOC: HO.LNP 16:40
PROVIDERS: Visit Provider Advanced Practice Midwife
DX: Z11.3 Encounter for screening for infections with a predominantly sexual mode of transmission (principal); Z11.51 Encounter for screening for human papillomavirus (HPV)
CPT/HCPCS: 87491; 87591; 87626; 87661; 88175

== ENCOUNTER 2025-03-02 14:28 | Outpatient (AMB) | payer MEDICAID, SELFPAY ==
--- NOTE | 2025-03-02 14:30 | MHC.OFFVIS ---
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 She had actually seen us back in 2020 where she underwent right leg microphlebectomy. Reports she did fairly well with that. Over time she has developed a new varicosity in the right anterior aspect of the thigh. It has been a source of pain and discomfort for her. It has been affecting there daily activities including walking and working out. It is noted more so in right leg. Patient underwent right leg microphlebectomy by me on 04/19/2021 Patient denies any history of DVT/ PE. Patient denies any history of phlebitis. Trial of compression includes - [id number] They now present for vascular evaluation regarding their varicose veins. [facility] Medical History Dyspnea Varicose veins of bilateral lower extremities with pain No known health problems Surgical History No pertinent past surgical history Family History Mother Hypertension Epilepsy Social History Alcohol intake: never Patient Tobacco Use Status: Former Tobacco user Years Smoked: On/off 5 +/- Review of Systems Const Reports as per HPI ENT Reports no additional complaints Card Denies chest pain, Denies chest pain at rest and Denies chest pain with activity Resp Denies chest congestion and Denies cough GI Reports no additional complaints Musc Details: pain over varicosities, aching of lower extremities, swelling, cramping, heaviness and tiredness, itching Denies abnormal gait Skin/Breast Reports pruritus and Denies wounds Neuro Reports no additional complaints and Denies abnormal gait Psych Denies no additional complaints Physical Exam Vital Signs: BMI result Body Mass Index 24.7 Const General: cooperative, healthy appearing and comfortable Orientation/consciousness: oriented to person, oriented to place and oriented to time Neck Carotids: no bruits Chest Chest palpation & inspection: normal inspection of the chest and normal palpation of entire chest wall Resp Effort & Inspection: normal respiratory effort and able to speak in complete sentences Cardio Rate: regular rate Heart sounds: S1 normal heart sound present and S2 normal heart sound present Peripheral pulses: Peripheral pulses 2+ throughout GI Inspection: Yes normal to inspection Skin Other: +2 edema, right thigh and calf CEAP Classification C4 - skin color changes Ep - Etiology Primary As - superficial veins P - reflux General skin exam: dry skin Neuro General: oriented to person, oriented to place and oriented to time Extrem Right lower extremity: full ROM, normal capillary refill and edema Left lower extremity: full ROM, normal capillary refill and edema Psych Mental Status: mental status grossly normal Assessment & Plan Assessment & Plan (1) Varicose veins of right lower extremity with inflammation: Comment: 04/19/2021 - right leg microphlebectomy Code(s): I83.11 - Varicose veins of right lower extremity with inflammation Category: Medical Plan: In short, the patient has recurrent venous disease. I have discussed the pathophysiology with the patient. In addition I have provided informational material regarding venous disease to the patient. We have discussed conservative measures including compression, elevation, and exercise. I have also provided a handout regarding appropriate use of compression stockings and where to purchase good compression stockings as well. I have taken the liberty of ordering venous insufficiency testing with the patient. They will follow up with me after testing. The patient had an opportunity to ask questions regarding the treatment plan. All questions were answered. Imaging studies, laboratory studies and physical exam results were discussed and reviewed in detail. No major barriers to understanding were identified. The patient expressed understanding and agreement with the above treatment plan. The patient is aware they should contact our office by phone for worsening of the current condition or the appearance of new symptoms. Thank you for allowing me to participate in the vascular care of this patient. If you have any questions or concerns regarding the treatment for the above condition please do not hesitate to contact me. The office telephone contact is [phone]. This note is constructed using voice recognition software. While every effort has been made to ensure accuracy, physician support coordinator errors may have been included. Thank you for allowing me to participate in the care of your patient. Yours sincerely, Jerome Douglas MD, FACS, R.P.V.I. Orders: Orders US venous duplex LE BI Today I83.11 - Varicose veins of right lower extremity with inflammation Coding Level of Care Code New Pt Level 4 (65430) Diagnoses Varicose veins of right lower extremity with inflammation I83.11
[2025-03-02 14:33] VITALS: BMI 24.7
--- OUTSIDE RECORDS SUMMARY | 2025-03-02 14:37 | XMS_ITS | Clinical Summary ---
Author Organization [employer] Address [address] [facility] [address] [place] [address] Care Team Providers Care Landscape Foreman Name Role Phone Lissett Bunn Primary Care Provider [phone] Allergies Active Allergy Reactions Criticality Noted Date Comments Avocado Vomiting 01/24/2025 Kiwi Extract Unknown 01/24/2025 Throat itching Medications hydrocortisone (Anusol-HC) 2.5 % rectal cream Insert into the rectum 2 times daily. 28 g 4 Active Levonorgest-Eth Estrad 91-Day (LoSeasonique) 0.1-0.02 & 0.01 MG tablet Take 1 tablet by mouth Once per day. Start day after taking EC. 91 tablet 3 4 Active cromolyn (NasalCrom) 5.2 MG/ACT nasal sprayIndication s:Acute URI Administer 1 spray into each nostril 3 times daily for 5 days. 26 mL 12 5 Active betamethasone valerate (Valisone) 0.1 % ointmentIndicat ions:Psoriasis Apply topically 2 times daily. 45 g 1 5 Active SUMAtriptan (Imitrex) 50 MG tablet TAKE 1 TABLET BY MOUTH 1 TIME IF NEEDED FOR MIGRAINE. MAY REPEAT DOSE ONCE IN 2 HOURS IF NO RELIEF, MAX 2 DOSES/24 HOURS. 9 tablet 5 Active lidocaine (Lidoderm) 5 % patchIndication s:Chronic midline low back pain without sciatica Apply 1 patch topically Once per day. Remove & discard patch within 12 hours or as directed by MD. 30 patch 2 5 Active omeprazole (PriLOSEC) [address] capsuleIndicati ons:Bacterial infection due to H. pylori Take 1 capsule (20 mg) by mouth before breakfast and before evening meal for 10 days. Do not crush or chew. 20 capsule 5 Active bismuth-metroNI DAZOLE-tetracyc line (Pylera) 140-125-125 MG capsuleIndicati ons:Bacterial infection due to H. pylori Take 3 capsules by mouth before breakfast, before lunch, before evening meal, and at bedtime for 10 days. Follow each dose with 8 oz of water. 120 capsule 5 Active Active Problems Problem Noted Date Diagnosed Date [...] UA and culture - Ordered additional labs Palpitations with regular cardiac rhythm 022 Glossodynia 07/03/2021 Resolved Problems Problem Noted Date Diagnosed Date Resolved Date IUD (intrauterine device) in place 07/04/2022 02/28/2025 Encounters Date Type Department Care Team Description 02/28/2025 9:30 AM EDT Procedure Visit [facility] [address] [place] [phone] Franny Galloway CNM Cervical cancer screening (Primary Dx); Screening examination for venereal disease; Abnormal uterine bleeding 02/28/2025 Travel 02/19/2025 Orders Only GENERIC EXTERNAL DATA DEPARTMENT Provider, Generic External Data 02/08/[address] [address] Lissett Bunn ANP April01/25/2025 Orders Only [address] [address] Lissett Bunn ANP 01/25/2025 Results Follow-Up [address] [address] Lissett Bunn ANP Hemoglobin A1c, Lipase, Lipid Panel, Standard, Additional followed-up results: 5 01/24/2025 1:30 PM EDT Office Visit [address] [address] Lissett Bunn ANP Diarrhea, unspecified type (Primary Dx); Gastroesophageal reflux disease, unspecified whether esophagitis present; LLQ pain; Urinary frequency; Chronic midline low back pain without sciatica; Varicose veins of right lower extremity with inflammation; Healthcare maintenance; Need for hepatitis B screening test 01/24/2025 Travel 01/23/[address] [address] Lissett Bunn ANP chartprep 01/16/2025 Patient Outreach [facility] [address] [place] [address] Lissett Bunn ANP Pre-visit Planning (SDOH negative, Tobacco screening negative. ) 12/14/[address] [address] Lissett Bunn ANP from Last 3 Months Immunizations Immunization Administration Dates Next Due Influenza injectable quadrivalent preservative f ree 07/16/2021,07/24/2020 Pfizer Covid-19 Vaccine 12+ 04/02/2021, Tdap 07/24/2020 Varicella 03/14/2024 Family History Medical History Relation Name Comments Breast cancer Neg Hx Colon cancer Neg Hx Ovarian cancer Neg Hx Social History Tobacco Use Types Packs/Day Years Used Date Smoking Tobacco: Former Cigarettes Passive Smoke Exposure: Current Smokeless Tobacco: Former Tobacco Cessation:Counseling Given: Not Answered Alcohol Use Standard Drinks/Week Comments Never 0 (1 standard drink = 0.6 oz pur e alcohol) Depression Answer Date Recorded Patient Health Questionnaire-9 Score 0 09/01/2024 Patient Health Questionnaire-9 Score 0 09/01/2024 Last PHQ-9: Questionnaire Data Not on file 0 09/01/2024 Housing Stability Answer Date Recorded What is your housing situation today? I have julisa patino 09/01/[address] you li ve. Do you have problems with any of the following? None of the above 09/01/2024 Food Insecurity Answer Date Recorded Within the past 12 months, y ou worried that your food would run out before you got money to buy more: Never True 09/01/2024 Within the past 12 months,th e food you bought just didn't last and you didn't have enough money to get more: Never True Transportation Answer Date Recorded In the past 12 months, has l ack of transportation kept you from medical appts, meetings, work or from getting things needed for daily living? No 09/01/2024 Utilities Answer Date Recorded In the past 12 months, has t he electric, gas, oil or water company threatened to shut off services in your home? No 09/01/2024 Depression Answer Date Recorded Patient Health Questionnaire-2 Score 0 09/01/2024 Internet Access Answer Date Recorded Internet Access Q1 Yes 09/01/2024 Internet Access Q2 Not on file 09/01/2024 Comments No Intention Date Recorded No desire to become (finding) 0 02/28/2025 Sex and Gender Information Value Date Recorded Sex Assigned at Female 06/02/2022 10:37 AM EDT Legal Sex Female 10:37 AM EDT Gender Identity Female 06/02/2022 10:37 AM EDT Sexual Orientation Straight 06/02/2022 10 :37 AM EDT Last Filed Vital Signs Vital Sign Reading Time Taken Comments Blood Pressure 130/70 02/28/2025 10:01 AM EDT Pulse 80 02/28/2025 10:01 AM EDT Temperature 36.5 C (97.7 F) 02/28/2025 10:01 AM EDT Respiratory Rate 14 02/28/2025 10:0 1 AM EDT Oxygen Saturation 99% 02/28/2025 10: 01 AM EDT Inhaled Oxygen Concentration - - Weight 57.5 kg (126 lb 12.8 oz) 025 10:01 AM EDT Height 160 cm (5' 3 ) 01/24/2025 1:46 PM EDT Body Mass Index 22.46 01/24/2025 1:46 PM EDT Plan of Treatment Upcoming Encounters Date Type Department Care Team (Late st Contact Info) Description 04/25/2025 9:30 AM EDT Office Visit [facility] [address] [place], [place] [phone] Lissett Bunn, ANP [address] [place] [address] Health Maintenance Due Date Last Done Comments Disability Screening 1990 HPV Vaccines (1 - 3-dose series) 12/21/2006 COVID-19 Vaccine ( - 2023-2 5 season) 2024 04/02/2021, 03/12/2021 Cervical Cancer Screening 06/26/2024 HPV/Cotest 06/26/2024 Pap Smear 06/26/2024 06/26/2021, 06/26/2021 Influenza Vaccine (#1) 2025 , 07/24/2020 Alcohol/Substance Use Screening 09/01/2025 09/01/2024 Depression Screening 09/01/2025 09/01/2024, 09/01/2024 SDOH Screening 01/16/2026 01/16/2025 Family Planning (PISQ) 02/28/2026 02/28/2025 Tobacco Screening 02/28/2026 02/28/2025 DTaP/Tdap/Td Vaccines (2 - T d or [...] patient's age to complete this topic Hepatitis B Vaccines Discontinued IPV Vaccines Aged Out No longer eligi ble based on patient's age to complete this topic Meningococcal B Vaccine Aged Out No l onger eligible based on patient's age to complete this topic Meningococcal Vaccine Aged Out No jonathan artem eligible based on patient's age to complete this topic Pneumococcal Vaccine: Pediatrics (0 to 5 Years) and At-Risk Patients (6 to 49) Years Aged Out No longer eligible based on patient's age to complete this topic RSV under 20 months Aged Out No longe r eligible based on patient's age to complete this topic Rotavirus Vaccines Aged Out No longer eligible based on patient's age to complete this topic Procedures Procedure Name Priority Date/Time Associated Diagnosis Comments D DIMER HIGH SENSITIVITY Routine 02/19/2025 7:53 PM EDT SARS COV2/INFLUENZA A/B AND RSV RNA QL NAAT Routine 02/19/2025 6:56 PM EDT XR CHEST 2 VIEWS Routine 02/19/2025 6:34 PM EDT CBC WITH AUTO DIFFERENTIAL Routine 02/19/2025 6:20 PM EDT HIGH SENSITIVITY TROPONIN I Routine 02/19/2025 6:19 PM EDT BASIC METABOLIC PANEL Routine 02/19/2025 6:19 PM EDT HEPATIC FUNCTION PANEL Routine 6:19 PM EDT HELICOBACTER PYLORI AG, EIA, STOOL Routine 01/31/2025 10:30 AM EDT Gastroesophageal reflux disease, unspecified whether esophagitis present HEPATITIS B SURFACE ANTIBODY, QUALITATIVE Routine 01/25/2025 10:25 AM EDT Need for hepatitis B screening test HEPATITIS B SURFACE ANTIGEN, EIA Routine 01/25/2025 10:25 AM EDT Need for hepatitis B screening test HEPATITIS B CORE AB TOTAL Routine 01/25/2025 10:25 AM EDT Need for hepatitis B screening test LIPID PANEL, STANDARD Routine 01/25/2025 10:25 AM EDT Healthcare maintenance AMYLASE Routine 01/25/2025 10:25 AM EDT LLQ pain LIPASE Routine 01/25/2025 10:25 AM EDT LLQ pain HEMOGLOBIN A1C Routine 01/25/2025 10:25 AM EDT Urinary frequency CBC WITH AUTO DIFFERENTIAL Routine 01/25/2025 10:25 AM EDT Elevated liver function tests COMPREHENSIVE METABOLIC PANEL Routine 01/25/2025 10:25 AM EDT Elevated liver function tests URINALYSIS, COMPLETE, WITH REFLEX TO CULTURE Routine 01/25/2025 10:25 AM EDT Hematuria, unspecified type CULTURE, URINE, ROUTINE Routine 01/25/2025 12:00 AM EDT HEPATITIS C AB W/REFL TO HCV RNA, QN, PCR Routine 05/28/2023 12:09 PM EDT Encntr screen for infections w sexl mode of transmiss HIV ANTIBODY/ANTIGEN ([place] [facility]) Routine 05/28/2023 12:09 PM EDT PAP SMEAR Routine 06/26/2021 12:00 AM EST from Last 3 Months or Most Recently Relevant to Health Maintenance Results * D Dimer High Sensitivity (02/19/2025 7:53 PM EDT) D Dimer High Sensitivity <150 NG/ML [facility] Comment:D-DIMER HS REFERENCE RANGENote: Our assay reports D-Dimer Units (D- DU).The cut-off value for venous thromboembolic (VTE) disease is230 ng/mL. This value has a very high negative predictivevalue when the patient has a low to moderate clinicalprobability of VTE.The upper limit of normal is 243 ng/mL. 02/19/2025 7:53 PM EDT 02/19/2025 7:57 PM EDT Generic External Data Provider LAB BLOOD ORDERAB LES Final Result Performing Organization Address [facility] Co de Phone Number [facility] [address] [place] [phone] * SARS-CoV-2 RNA, Influenza A/B, and RSV RNA, Ql NAAT (02/19/2025 6:56 PM EDT) Influenza A PCR NEGATIVE Negative [facility] Influenza B PCR NEGATIVE Negative [facility] Resp Syncy Virus RNA Qual PCR NEGATIVE Negative [facility] SARS COV2 PCR NEGATIVE Negative [facility] Comment:All test results mus t be correlated with clinical findings.Negative results do not preclude SARS-CoV2, influenza Avirus, influenza B virus and/or RSV infectionand should not be used as the sole basis for treatment orother patient management decisions. Negative results must becombined with clinical observations, patient history, andepidemiological information.This test has not been evaluated for monitoring treatment ofinfection.This test has been authorized by the FDA under an EmergencyUse Authorization (EUA) for use by authorized laboratories.Testing performed on the [employer] GeneXpert utilizingreal-time RT-PCR.All SARS CoV2 and positive influenza A/B results arereported to [facility]. 02/19/2025 6:56 PM EDT 02/19/2025 7:01 PM EDT Generic External Data Provider LAB MICROBIOLOGY - GENERAL ORDERABLES Final Result Performing Organization Address [facility]/ZIP Co de Phone Number [facility] [address] [place] [phone] * XR Chest 2 Views (02/19/2025 6:34 PM EDT) Anatomical Region Laterality Modality Chest Radiographic Symone ging 02/19/2025 6:34 PM EDT Narrative 02/19/2025 6:35 PM EDT [place] [address] XRay Report Signed Patient: Neli Esteban MR#: [id number] : 1990 Acct:[id number] Age/Sex: 34 / F ADM Date: 02/19/25 Loc: HO.ED Attending Dr: Ordering Physician: Sulma Hickey NP Date of Service: 02/19/25 Procedure(s): XR chest 2V Accession Number(s): [id number] cc: Sulma Hickey NP; LISSETT BUNN NP CLINICAL HISTORY: CP Two views of the chest. COMPARISON: XR chest dated 04/18/22 at 21:22 EDT FINDINGS: Normal heart and mediastinal contours. No consolidation. No pleural effusion or pneumothorax. No acute fracture. IMPRESSION: 1. No acute cardiopulmonary abnormality. This document has been electronically signed by: Lito Calloway MD on 02/19/2025 18:34:00 Dictated By: Lito Calloway MD Signed By: <Electronically signed by Lito Calloway MD in OV> 02/19/251834 DD/ 33 TD/TT: 02/19/251833 Glass Maker: Procedure Note Donotuseinterpreter, Image - 02/19/[address] [address] XRay Report Signed Patient: Neli Esteban MMR#: [id number] : 1990Acct:[id number] Age/Sex: 34 / FADM Date: 02/19/25 Loc: .ED Attending Dr: Ordering Physician: Sluma Hickey NP Date of Service: 02/19/25 Procedure(s): XR chest 2V Accession Number(s): [id number] cc: Sulma Hickey NP; LISSETT BUNN NP CLINICAL HISTORY: CP Two views of the chest. COMPARISON: XR chest dated 04/18/22 at 21:22 EDT FINDINGS: Normal heart and mediastinal contours. No consolidation. No pleural effusion or pneumothorax. No acute fracture. IMPRESSION: 1. No acute cardiopulmonary abnormality. This document has been electronically signed by: Lito Calloway MD on 02/19/2025 18:34:00 Dictated By: Lito Calloway MD Signed By: <Electronically signed by Lito Calloway MD in OV> 02/19/251834 DD/ 33 TD/TT: 02/19/251833 Glass Maker: [facility] External Provider IMG XR PROCEDURES Edited Result - Final * (ABNORMAL) CBC auto differential (02/19/2025 6:20 PM EDT) Only the most recent of2 resultswithin the time period is included. White Blood Count 6.8 4.8 - 10.8 X10*3/uL [facility] Red Blood Count 4.98 4.20 - 5.50 X10*6/uL [facility] Hemoglobin 14.8 12.0 - 16.0 g/dl [facility] Hematocrit 42.2 37.0 - 47.0 % [facility] Mean Corpuscular Volume 84.7 80.0 - 98.0 fL [facility] Mean Corpuscular Hemoglobin 29.7 27.0 - 33.0 pg [facility] Mean Corpuscular HGB Conc 35.1(H) 31.0 - 35.0 g/dl [facility] Red Cell Distribution Width 12.1 11.0 - 16.0 % [facility] Platelet Count 307 160 - 400 X10*3/uL [facility] Mean Platelet Volume 8.6(L) 9.4 - 12.3 fL [facility] Neutrophils Percent Auto 47.1 45 - 73 % [facility] Imm Gran Pct Auto 0.1 0.0 - 0.4 % [facility] Lymphocytes Percent Auto 43.2(H) 20 - 40 % [facility] Monocytes Percent Auto 6.1 2 - 11 % [facility] Eosinophils Percent Auto 2.8 0 - 4 % [facility] Basophils Percent Auto 0.7 0 - 2 % [facility] NRBC Pct Auto 0.0 0.0 - 0.2 /100WBC [facility] Neutrophils Absolute Auto 3.2 2.0 - 8.3 x10*3/uL [facility] Imm Gran Abs Auto 0.01 0.00 - 0.03 X10*3/uL [facility] Lymphocytes Absolute Auto 2.9 1.2 - 4.9 X10*3/uL [facility] Monocytes Absolute Auto 0.4 0.1 - 1.2 X10*3/uL [facility] Eosinophils Absolute Auto 0.2 0.0 - 0.4 X10*3/uL [facility] Basophils Absolute Auto 0.1 0.0 - 0.2 X10*3/uL [facility] NRBC Abs Auto 0.000 0.0 - 0.012 X10*3/uL [facility] 02/19/2025 6:20 PM EDT 02/19/2025 6:23 PM EDT Generic External Data Provider LAB BLOOD ORDERAB LES Final Result Performing Organization Address [facility]/ZIP Co de Phone Number [facility] [address] [place] [phone] * High Sensitivity Troponin I (02/19/2025 6:19 PM EDT) TROPONIN I HIGH SENSITIVITY <2.7 <3.5 - 17.0 ng/L [facility] Comment:The Kwan high sens itivity Troponin-I results should beused in conjunction with other diagnostic information suchas ECG, clinical observations and information, and patientsymptoms to aid in the diagnosis of RI. 02/19/2025 6:19 PM EDT 02/19/2025 6:23 PM EDT us Generic External Data Provider LAB BLOOD ORDERAB LES Final Result Performing Organization Address [facility]/ZIP Co de Phone Number [facility] [address] [place] [address] [phone] * Hepatic Function Panel (02/19/2025 6:19 PM EDT) Bilirubin, Total 0.1 0.0 - 1.0 mg/dL [facility] Bilirubin, Direct <0.2 0.0 - 0.5 mg/dL [facility] Aspartate Amino Transferase 27 5 - 31 U/L [facility] Alanine Aminotransferase 22 0 - 31 U/L [facility] Total Protein 7.2 6.5 - 8.0 g/dL [facility] Albumin Level 4.1 3.5 - 5.0 g/dL [facility] Alkaline Phosphatase 44 39 - 117 U/L [facility] 02/19/2025 6:19 PM EDT 02/19/2025 6:23 PM EDT us Generic External Data Provider LAB BLOOD ORDERAB LES Final Result [facility] [address] [place] [phone] * Basic Metabolic Panel (02/19/2025 6:19 PM EDT) Sodium 139 135 - 145 mmol/L [facility] Potassium 4.3 3.3 - 5.1 mmol/L [facility] Chloride 107 96 - 108 mmol/L [facility] Carbon Dioxide 24 22 - 29 mmol/L [facility] Anion Gap 12 12 - 20 [facility] Urea Nitrogen (BUN) 15 9 - 16 mg/dL [facility] Creatinine, Serum 0.64 0.5 - 1.4 mg/dL [facility] Creatinine Clr Calc Pharmacy 107.6 [facility] Comment:Provided height and weight: 157.48 cm,61.235 kg.eGFR (calculated from the MDRD study equation) and eCrCl(calculated from the Cockcroft-Gault equation) are based ondifferent parameters and may not yield comparable results.If eCrCl result is absurd, please check patient'sheight/weight. Estimated Glomerular Filt Rate >60 [facility] Comment:Chronic Kidney Disea se: Estimated GFR < 60 mL/min/1.36g1Veclhp Kidney Disease: Estimated GFR < 15 mL/min/1.73m2 Glucose 86 60 - 115 mg/dL [facility] Calcium 8.9 8.4 - 10.2 mg/dL [facility] 02/19/2025 6:19 PM EDT 02/19/2025 6:23 PM EDT Generic External Data Provider LAB BLOOD ORDERAB LES Final Result Performing Organization Address [facility] Co de Phone Number [facility] [address] [place] [phone] * (ABNORMAL) Helicobacter pylori??Antigen, EIA, Stool (01/31/2025 10:30 AM EDT) H pylori Ag Stool SEE NOTE(A) [facility] Comment:HELICOBACTER PYLORI AG, EIA, STOOL Micro Number: [id number] Test Status: Final Specimen Source: Stool Specimen Quality: Adequate H.pylori Ag: Detected Reference Range: Not DetectedTHIS TEST WAS PERFORMED AT:[employer] [place] [phone] GONZALES MD Stool Rectal contents / Unknown 01/31/2025 10:30 AM EDT 01/31/2025 12:55 PM EDT [facility] BODY FLUIDS AND STOOLS ORDER DEV Final Result Performing Organization Address [facility] Co de Phone Number [facility] [address] [place] [phone] * (ABNORMAL) Urinalysis, Complete, with Reflex to Culture (01/25/2025 10:25 AM EDT) Color Urine Dark Yellow [facility] Appearance Urine Clear [facility] PH 6.0 5.0 - 9.0 [facility] Glucose Urine UA Negative Negative mg/dL [facility] Urine Blood Negative Negative [facility] Specific [place] - Urine >=1.030(H) 1.005 - 1.025 [facility] Urine Protein Trace Neg-Trace mg/dL [facility] Urine Ketones Trace Negative mg/dL [facility] Nitrite Urine Negative Negative [facility] Leukocyte Esterase Urine Moderate (2+)(A) Negative [facility] RBC Urine 0-2 0 - 2 /HPF [facility] Urine WBC 0-5 0 - 5 /HPF [facility] Urine Squamous Epithelial Cell 6-10 0 - 2 /HPF [facility] Urine Bacteria 2+ None Seen [facility] Hyaline Casts, Urine 0-2 0 - 2 /LPF [facility] Urine 01/25/2025 10:2 5 AM EDT 01/25/2025 11:10 AM EDT Narrative [facility] - 01/25/2025 11:28 AM EDT Urine, Clean Catch Lissett Bunn ANP LAB URINE ORDERABLES Final Resul t Performing Organization Address City/[facility]/ZIP Co de Phone Number [facility] [address] [place] [phone] * Hepatitis B surface antigen, EIA (01/25/2025 10:25 AM EDT) Hepatitis B Surface Ag Negative Negative [facility] Blood Venous blood specimen / Unknown 01/25/2025 10:25 AM EDT 01/25/2025 11:01 AM EDT Lissett Bunn ANP LAB BLOOD ORDERABLES Final Resul t Performing Organization Address [facility] Co de Phone Number [facility] [address] [place] [phone] * Hepatitis B Core Antibody, Total (01/25/2025 10:25 AM EDT) Hepatitis B Core Antibody Nonreactive Nonreactive [facility] Blood Venous blood specimen / Unknown 01/25/2025 10:25 AM EDT 01/25/2025 11:01 AM EDT Lissett Bunn ANP LAB BLOOD ORDERABLES Final Resul t Performing Organization Address [facility] Co de Phone Number [facility] [address] [place] [phone] * Hepatitis B Surface Antibody, Qualitative (01/25/2025 10:25 AM EDT) ~Hepatitis B Surface Antibody REACTIVE Nonreactive [facility] Comment:REACTIVE: > 11.99 mI U/mL Blood Venous blood specimen / Unknown 01/25/2025 10:25 AM EDT 01/25/2025 11:01 AM EDT Lissett Bunn ANP LAB BLOOD ORDERABLES Final Resul t Performing Organization Address [facility] Co de Phone Number [facility] [address] [place] [phone] * Lipase (01/25/2025 10:25 AM EDT) Pathologist [facility] Lipase 18 8 - 78 U/L [facility] Blood Venous blood specimen / Unknown 01/25/2025 10:25 AM EDT 01/25/2025 11:01 AM EDT Lisestt Bunn ANP LAB BLOOD ORDERABLES Final Resul t Performing Organization Address [facility] Co de Phone Number [facility] [address] [place] [phone] * Hemoglobin A1c (01/25/2025 10:25 AM EDT) Hemoglobin A1c 4.8 <6.0 % [facility] Comment:Hemoglobin A1C Refer ence Range Adults: 4.8 - 6.0 % Non diabetic: < 6.0 % Goal: < 7.0 %Additional Action Suggested: > 8.0 %Note: Hemoglobin A1c results are invalid for patients with abnormal amounts of HbF. Blood transfusions may impact the HbA1c concentration in the patient sample. Estimated Average Glucose 91 mg/dL [facility] Comment:eAG = Estimated ave rage glucose which is %A1C expressed asaverage glucose, using the formula of the K0P-YsvpfbxFfttani Glucose study (ADAG), Diabetes Care, Vol.31,#8,Mar. 2007 Blood Venous blood specimen / Unknown 01/25/2025 10:25 AM EDT 01/25/2025 11:05 AM EDT [facility] ANP LAB BLOOD ORDERABLES Final Resul t Performing Organization Address [facility] de Phone Number [facility] [address] [place] [phone] * Amylase (01/25/2025 10:25 AM EDT) Amylase 98 28 - 100 U/L [facility] Blood Venous blood specimen / Unknown 01/25/2025 10:25 AM EDT 01/25/2025 11:01 AM EDT Lissett Bunn ANP LAB BLOOD ORDERABLES Final Resul t Performing Organization Address [facility] Phone Number [facility] [address] [place] [phone] * Lipid Panel, Standard (01/25/2025 10:25 AM EDT) Triglycerides 120 <150 mg/dL [facility] Comment:Desirable Triglyceri de: less than 150 mg/dLBorderline High Triglyceride 150-199 mg/dLHigh Triglyceride: 200-499 mg/dLVery High Triglyceride: greater than or equal to 5OO mg/dL Cholesterol 133 <200 mg/dL [facility] Comment:Desirable Cholestero l: less than 200 mg/dLBorderline High Cholesterol: 200-239 mg/dLHigh Cholesterol: greater than 239 mg/dL LDL Cholesterol Calculated 62 <100 mg/dL [facility] Comment:Desirable LDL: less than 100 mg/dLNear Optimal/Above Optimal LDL: 110- 129 mg/dLBorderline High LDL: 130-159 mg/dLHigh LDL: 160-189 mg/dLVery High LDL: greater than or equal to 190 mg/dL HDL Cholesterol 47 >40 mg/dL [facility] Comment:Desirable HDL: great er than 40 mg/dL Note: This HDL assay may give artificially low results in patients with liver disease. Blood Venous blood specimen / Unknown 01/25/2025 10:25 AM EDT 01/25/2025 11:01 AM EDT Lissett Bunn [facility] LAB BLOOD ORDERABLES Final Resul t [facility] [address], [place] [phone] * (ABNORMAL) Comprehensive Metabolic Panel (01/25/2025 10:25 AM EDT) Sodium 138 135 - 145 mmol/L [facility] Potassium 4.5 3.3 - 5.1 mmol/L [facility] Chloride 106 96 - 108 mmol/L [facility] Carbon Dioxide 26 22 - 29 mmol/L [facility] Anion Gap 11(L) 12 - 20 [facility] Urea Nitrogen (BUN) 10 9 - 16 mg/dL [facility] Creatinine, Serum 0.69 0.5 - 1.4 mg/dL [facility] Estimated Glomerular Filt Rate >60 [facility] Comment:Chronic Kidney Disea se: Estimated GFR < 60 mL/min/[id number] Kidney Disease: Estimated GFR < 15 mL/min/1.73m2 Glucose 83 60 - 115 mg/dL [facility] Calcium 9.2 8.4 - 10.2 mg/dL [facility] Bilirubin, Total 0.5 0.0 - 1.0 mg/dL [facility] Aspartate Amino Transferase 28 5 - 31 U/L [facility] Alanine Aminotransferase 17 0 - 31 U/L [facility] Total Protein 7.1 6.5 - 8.0 g/dL [facility] Albumin Level 4.0 3.5 - 5.0 g/dL [facility] Alkaline Phosphatase 44 39 - 117 U/L [facility] Blood Venous blood specimen / Unknown 01/25/2025 10:25 AM EDT 01/25/2025 11:01 AM EDT Lissett Bunn [facility] LAB BLOOD ORDERABLES Final Resul t Performing Organization Address City/[facility]/ZIP Co de Phone Number [facility] [address] [place] [phone] * Culture, Urine, Routine (01/25/2025 12:00 AM EDT) Urine Urine specimen obtained by clean catch procedure / Unknown 01/25/2025 01/25/2025 Comment:UACC Narrative [facility] - 01/26/2025 10:10 AM EDT Urine Culture No growth. Specimen Source: Urine clean catch Lissett Bunn [facility] MICROBIOLOGY - GENERAL ORDER DEV Final Result Performing Organization Address City/[facility] Co de Phone Number [facility] [address] [place] [address] [phone] * HIV Ab/Ag ([place] LILA) (05/28/2023 12:09 PM EDT) Pathologist [facility] HIV AB/AG Nonreactive Nonreactive [facility] Comment:HIV-1 p24 Ag and/or HIV-1/HIV-2 Ab not detected.A test result that is nonreactive does not exclude thepossibility of exposure to or infection with HIV-1 and/orHIV-2. Nonreactive results in this assay for individualswith prior exposure to HIV-1 and/or HIV-2 may be due toantigen and antibody levels that are below the limit ofdetection of this assay.The Equals6 HIV Ag/Ab Combo assay result andsupplemental assay results should be interpreted inconjunction with the patient's clinical presentation,history and other laboratory results. If the results areinconsistent with clinical evidence, additional testing issuggested to confirm the result. 05/28/2023 12:0 9 PM EDT 05/28/2023 12:57 PM EDT [facility] BLOOD ORDERABLES Jen l Result Performing Organization Address [facility] Co de Phone Number [facility] [address] [place] [phone] * Hepatitis C Antibody with Reflex to HCV, RNA, Quantitative, Real-Time PCR (05/28/2023 12:09 PM EDT) Hepatitis C Antibody Nonreactive Nonreactive [facility] Comment:Antibodies to HCV no t detected; does not exclude early acuteHCV infection. Blood Venous blood specimen / Unknown 05/28/2023 12:09 PM EDT 05/28/2023 12:57 PM EDT [facility] BLOOD ORDERABLES Jen l Result Performing Organization Address [facility] Co de Phone Number [facility] [address] [place] [phone] * Pap Smear (06/26/2021 12:00 AM EST) Swab [facility] CYTOLOGY ORDERABLES F inal Result Performing Organization Address City/[facility] Co de Phone Number [address], [facility] [place] [address] from Last 3 Months or Most Recently Relevant to Health Maintenance Insurance [facility] C3 Care Teams Landscape Foreman Relationship Specialty Start Date End Date Lissett Bunn ANP [address] [place] [phone] PCP - General Family Medicine 07/17/20
--- OUTSIDE RECORDS SUMMARY | 2025-03-02 14:37 | XMS_ITS | Clinical Summary ---
Author Organization [facility] it Address [address] [place] [address] Care Team Providers Care Lead Business Analyst Name Role Phone Unavailable Primary Care Provider [...]
--- OUTSIDE RECORDS SUMMARY | 2025-03-02 14:37 | XMS_ITS | Clinical Summary ---
Author Organization [facility] Address [address] [place] [address] Care Team Providers Care Sap Business Objects Developer Name Role Phone Rachelle Olson Primary Care Provider [phone] Medications No known medications Active Problems Problem [...] patient's age to complete this topic Insurance [facility] Care Teams Sap Business Objects Developer Relationship Specialty Start Date End Date Rachelle Olson [address] [place] [phone] PCP - General 06/10/22
== END 2025-03-02 15:04 | disposition home or self-care (01) ==
LOC: HO.HVS 14:29
PROVIDERS: PCP Nurse Practitioner Primary Care; Visit Provider Surgery Vascular Surgery
DX: I83.11 Varicose veins of right lower extremity with inflammation (principal)
CPT/HCPCS: 99204

== ENCOUNTER → 2025-03-02 14:28 | Outpatient (BNVA) | payer MEDICAID, SELFPAY | PROVIDERS: PCP Nurse Practitioner Primary Care; Visit Provider Surgery Vascular Surgery | DX: I83.11 Varicose veins of right lower extremity with inflammation (principal) | CPT/HCPCS: 99202 ==

== ENCOUNTER 2025-03-17 08:59 | Outpatient (REF) | payer MEDICAID, SELFPAY ==
--- NOTE | ~2025-03-17 | US_ITS ---
EXAMINATION: US PELVIS TRANSABDOMINAL AND TRANSVAGINAL HISTORY: AUB COMPARISON: There are no prior studies available for comparison. TECHNIQUE: Transabdominal and endovaginal real-time 2D gurrola-scale ultrasound was performed. FINDINGS: Uterus: The uterus is normal in size, measuring 7.4 x 3.1 x 5.1 cm. Myometrium has a normal echotexture. No fibroids are identified. Endometrium: The endometrial stripe measures 2 mm in thickness. There are nabothian cysts in the cervix. Right ovary: The right ovary measures 3.3 x 1.9 x 2.3 cm. The right ovary is normal in size and echotexture. Left ovary: The left ovary measures 2.6 x 1.5 x 2.2 cm. The left ovary is normal in size and echotexture. Pelvic fluid: none. US/US pelvic and transvaginal IMPRESSION: Unremarkable pelvic ultrasound. Electronically signed by: Jose Motta MD 03/17/2025 10:14 AM EDT
--- OUTSIDE RECORDS SUMMARY | 2025-03-17 09:17 | XMS_ITS | Clinical Summary ---
Author Organization Leila Ghostery [facility] it Address [address] [place] [address] Care Team Providers Care Proposal Writer Name Role Phone Unavailable Primary Care Provider [...]
--- OUTSIDE RECORDS SUMMARY | 2025-03-17 09:17 | XMS_ITS | Clinical Summary ---
Author Organization [facility] Address [address] [place] [address] Care Team Providers Care Personal Lines Appraiser Name Role Phone Rachelle Olson Primary Care Provider [phone] Medications No known medications Active Problems Problem [...] patient's age to complete this topic Insurance [facility] Care Teams Personal Lines Appraiser Relationship Specialty Start Date End Date Rachelle Olson [address] [place] [phone] PCP - General 06/10/22
--- OUTSIDE RECORDS SUMMARY | 2025-03-17 09:17 | XMS_ITS | Clinical Summary ---
Author Organization [email or web address] Address [address] [facility] [address] [place] [address] Care Team Providers Care Make Ready Mechanic Name Role Phone Lissett Bunn Primary Care Provider [phone] Allergies Active Allergy Reactions Criticality Noted Date [...] oz of water. 120 capsule 5 Active ibuprofen 600 MG tablet 1 tablet every 8 hours with food x 7 days 21 tablet 5 Active Active Problems Problem Noted Date [...] Encounters Date Type Department Care Team Description 03/17/2025 Telephone [facility] [address] [place] [phone] Lissett Bunn, ANP Ultrasound order 03/09/2025 Orders Only [facility] [facility] [place] [address] Priscila Reyes CNM Abnormal uterine bleeding (Primary Dx) 03/08/2025 Orders Only [facility] [place] [address] Priscila Reyes CNM 03/08/2025 Orders Only [facility] [place] [address] Priscila Reyes CNM Atypical squamous cells cannot exclude high grade squamous intraepithelial lesion on cytologic smear of cervix (ASC-H) (Primary Dx); Atypical glandular cells of undetermined significance (SULEMA) on cervical Pap smear; Cervical high risk HPV (human papillomavirus) test positive 03/08/2025 Telephone [facility] [place] [address] Lissett Bunn ANP Nurse Triage 03/06/2025 Results Follow-Up [address] [place] [address] Priscila Reyes CNM HPV DNA, Low/High Risk 02/28/2025 9:30 AM EDT Procedure Visit [facility] [place] [address] Priscila Reyes CNM Cervical cancer screening (Primary Dx); Screening examination for venereal disease; Abnormal uterine bleeding 02/28/2025 Orders Only [facility] [place] [address] Priscila Reyes CNM 02/28/2025 Travel 02/19/2025 Orders Only GENERIC EXTERNAL DATA DEPARTMENT Provider, Generic External Data 02/08/2025 Telephone [facility] [facility] [place] [address] Lissett Bunn ANP April01/25/2025 Orders Only [facility] [place] [address] Lissett Bunn ANP 01/25/2025 Results Follow-Up [address] [place] [address] Lissett Bunn, JACK Hemoglobin A1c, Lipase, Lipid Panel, Standard, Additional followed-up results: 5 01/24/2025 1:30 PM EDT Office Visit [facility] [address] [place] [address] Lissett Bunn ANP Diarrhea, unspecified type (Primary Dx); Gastroesophageal reflux disease, unspecified whether esophagitis present; LLQ pain; Urinary frequency; Chronic midline low back 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 ) from Last 3 Months Immunizations Immunization Administration [...] Description 04/25/2025 9:30 AM EDT Office Visit [facility] [address] [place] [address] Lissett Bunn ANP [address] [place] [address] Health Maintenance Due Date Last Done Comments Disability Screening 1990 HPV Vaccines (1 - 3-dose series) 12/21/2006 COVID-19 Vaccine (2023-2 5 season) 2024 04/02/2021, 03/12/2021 Colposcopy 03/01/2025 Influenza Vaccine (#1) 2025 , 07/24/2020 Alcohol/Substance Use Screening 09/01/2025 09/01/2024 Depression Screening 09/01/2025 09/01/2024, 09/01/2024 SDOH Screening 01/16/2026 01/16/2025 Family Planning (PISQ) 02/28/2026 02/28/2025 Tobacco Screening 02/28/2026 02/28/2025 Cervical Cancer Screening 02/29/2028 HPV/Cotest 02/29/2028 02/28/2025 Pap Smear 02/29/2028 02/28/2025, 06/26/2021, 06/26/2021 DTaP/Tdap/Td Vaccines (2 - T d or [...] Procedure Name Priority Date/Time Associated Diagnosis Comments CHLAMYDIA/N. GONORRHOEAE AND T. VAGINALIS RNA, QUAL,TMA Routine 02/28/2025 10:41 AM EDT Screening examination for venereal disease PAP SMEAR Routine 02/28/2025 10:41 AM EDT Screening examination for venereal disease HPV DNA, LOW/HIGH RISK Routine 10:41 AM EDT D DIMER HIGH SENSITIVITY Routine 02/19/2025 7:53 [...] ([place] DPH) Routine 05/28/2023 12:09 PM EDT from Last 3 Months or Most Recently Relevant to Health Maintenance Results * STI testing add on (NG, CT, Trich) (02/28/2025 10:41 AM EDT) Trichomonas (NAAT) NOT DETECTED NOT DETECTED [facility] Comment:The analytical perfo rmance characteristics of thisassay have been determined by [employer]. Themodifications have not been cleared or approved bythe FDA. This assay has been validated pursuant to theCLIA regulations and is used for clinical purposes.For additional information, please refer tohttp://education.[employer]/faq/Trichomonastma(This link is being provided for information/educational purposes only.)THIS TEST WAS PERFORMED AT:[facility] [place] [phone] GONZALES MD CTNG Ref Lab NOT DETECTED NOT DETECTED [facility] NG Ref Lab NOT DETECTED NOT DETECTED [facility] ThinPrep vial Cervix uteri structure / Unknown 02/28/2025 10:41 AM EDT 03/01/2025 7:35 AM EDT Narrative [facility] - 03/02/2025 7:34 PM EDT Collection Date: [id number] by: AUGUSTINA Avelar: Cervix Priscila Reyes [facility] CYTOLOGY ORDERABLES F inal Result Performing Organization Address [facility]/ZIP Co de Phone Number [facility] [address] [place] [phone] * (ABNORMAL) HPV DNA, Low/High Risk (02/28/2025 10:41 AM EDT) HPV High Risk Positive(A) Negative [facility] HPV Genotype 16 Negative Negative [facility] HPV Genotype 18 Negative Negative [facility] Comment:HPV testing performe d at [facility] (CLIA#[id number]), [address] [place] [address].Testing for HPV was performed using the Mame JAS 6800system. The presence of HPV in the female genital tract isassociated with a number of diseases, including cervicalcarcinoma. The HPV DNA high risk pool tests for HPV 31, 33,35, 39, 45, 51, 52, 56, 58, 59, 66 and 68. The testing forHPV 16 and 18 genotypes has also been performed. A positiveresult indicates detection of nucleic acid sequences fromone or more subtypes, whereas a negative result indicatessuch sequences were not detected. 02/28/2025 10:4 1 AM EDT 03/01/2025 7:35 AM EDT Priscila Reyes [facility] BLOOD ORDERABLES Jen l Result Performing Organization Address [facility]/ZIP Co de Phone Number [facility] [address] [place] [address] [phone] * Pap Smear (02/28/2025 10:41 AM EDT) Swab Cervix uteri structure / Unknown 02/28/2025 10:41 AM EDT 03/01/2025 7:35 AM EDT [facility] - 03/08/2025 1:52 PM EDT ----- ------- Name: Neli Esteban Age/Sex: 34/F : 1990 Unit#: [id number] Attend Dr: PRISCILA REYES CNM Re02/28/25 Status: DEP REF Location: [facility] Disch: ----- ------- SPEC : [id number] RECD: 03/01/25 STATUS: PATITO MASSEY NUM: [id number] AIDE: 02/28/25-10[address] [facility] DR: PRISCILA REYES CNM ENTERED: 03/01/25 SP TYPE: Pap Smr OTHR : ORDERED: Pap Smear, PAP path review Interpretation General Category: Epithelial cell abnormality. Adequacy: Endocervical component present. Interpretation: Atypical squamous cells of undetermined significance, cannot exclude high grade squamous intraepithelial lesion (ASC-H). Atypical glandular cells (AGC). Abundant blood present. HPV High Risk: Positive HPV Genotyping 16: Negative HPV Genotyping 18: Negative Clinical Information LMP: Unknown date Previous PAP test: 2020, NIL Other history: Oral contraceptive, screening examination for venereal disease Material Received ThinPrep-Cervical PAP Disclaimer As of May 25, 2024, the technical services to include automated prescreening performed by the ThinPrep Imaging System, PAP screening and HPV testing will be performed at [facility] (CLIA #[id number]), [address] [place] [address]. Testing for HPV was performed using the Mame JAS 6800 system. The presence of HPV in the female genital tract is associated with a number of diseases, including cervical carcinoma. The HPV DNA high risk pool tests for HPV 31, 33, 35, 39, 45, 51, 52, 56, 58, 59, 66 and 68. The testing for HPV 16 and 18 genotypes has also been performed. A positive result indicates detection of nucleic acid sequences from one or more subtypes, whereas a negative result indicates such sequences were not detected. All professional services are performed by [facility] ([address] [place] [address]; ; CLIA #[id number]). The PAP Test is a screening procedure with the inherent possibility of both false negative and false positive results. Results should be interpreted in the context of historic and current clinical findings. Reliability of the PAP Test is enhanced by performing the test on a regular repetitive basis. CONTINUED ON NEXT PAGE ----- ------- Name: Shital GalavizNeli Ronald Age/Sex: 34/F : 1990 Unit#: [id number] Attend Dr: PRISCILA REYES Ronald Re02/28/25 Status: DEP REF Location: [facility] Disch: ----- ------- SPEC : [id number] RECD: 03/01/25 STATUS: PATITO MASSEY NUM: [id number] AIDE: 02/28/25-[address] [facility] [address]: PRISCILA REYES CNM ENTERED: 03/01/25 SP TYPE: Pap Smr OT DR: ORDERED: Pap Smear, PAP path review ----- ------- Signed (signature on file) Desiree Josephine 03/08/25 1352 ----- ------- END OF REPORT us Priscila Reyes [facility] CYTOLOGY ORDERABLES F inal Result [facility] [address] [place] [phone] * D Dimer High Sensitivity (02/19/2025 7:53 PM EDT) D Dimer High Sensitivity <150 NG/ML [facility] Comment:D-DIMER HS REFERENCE RANGENote: Our assay [...] ORDERAB LES Final Result Performing Organization Address [facility] Co de Phone Number [facility] [address] [place] [phone] * SARS-CoV-2 RNA, Influenza A/B, and RSV RNA, Ql NAAT (02/19/2025 6:56 PM EDT) Influenza A PCR NEGATIVE Negative [facility] Influenza B PCR NEGATIVE Negative [facility] Resp Syncy Virus RNA Qual PCR NEGATIVE Negative [facility] SARS COV2 PCR NEGATIVE Negative [facility] Comment:All test results mus t [...] use by authorized laboratories.Testing performed on the [employer] GeneXpert utilizingreal-time RT-PCR.All SARS CoV2 and positive influenza A/B results arereported to [facility]. 02/19/2025 6:56 PM EDT 02/19/2025 7:01 PM EDT Generic External Data Provider LAB MICROBIOLOGY - GENERAL ORDERABLES Final Result Performing Organization Address [facility] Co de Phone Number [facility] [address] [place] [phone] * XR Chest 2 Views (02/19/2025 6:34 PM EDT) Anatomical Region Laterality Modality Chest Radiographic Symone ging 02/19/2025 6:34 PM EDT Narrative 02/19/2025 6:35 PM EDT [address] [address] XRay Report Signed Patient: Neli Esteban MR#: [id number] : 1990 Acct:[id number] Age/Sex: 34 / F ADM Date: 02/19/25 Loc: HO.ED Attending Dr: Ordering Physician: Sulma Hickey NP Date of Service: 02/19/25 Procedure(s): XR chest 2V Accession Number(s): [id number] cc: Sulma Hickey INSIGHT LEADER; LISSETT BUNN NP CLINICAL HISTORY: CP Two [...] in OV> 02/19/251834 DD/ 33 TD/TT: 02/19/251833 Preschool Head Teacher: Procedure Note Donotuseinterpreter, Image - 02/19/[address] [address] XRay Report Signed Patient: Neli Esteban MMR#: [id number] : 1990Acct:[id number] Age/Sex: 34 / FADM Date: 02/19/25 Loc: HO.ED Attending Dr: Ordering Physician: Sulma Hickey NP Date of Service: 02/19/25 Procedure(s): XR chest 2V Accession Number(s): [id number] cc: Sulma Hickey INSIGHT LEADER; LISSETT BUNN NP CLINICAL HISTORY: CP Two [...] in OV> 02/19/251834 DD/ 33 TD/TT: 02/19/251833 Preschool Head Teacher: [facility] External Provider IMG XR PROCEDURES Edited Result - Final * (ABNORMAL) CBC auto differential (02/19/2025 6:20 PM EDT) Only the most recent of2 resultswithin the time period is included. White Blood Count 6.8 4.8 - 10.8 X10*3/uL [facility] Red Blood Count 4.98 4.20 - 5.50 X10*6/uL [facility] Hemoglobin 14.8 12.0 - 16.0 g/dl [facility] Hematocrit 42.2 37.0 - 47.0 % [facility] Mean Corpuscular Volume 84.7 80.0 - 98.0 fL [facility] Mean Corpuscular Hemoglobin 29.7 27.0 - 33.0 pg [facility] Mean Corpuscular HGB Conc 35.1(H) 31.0 - 35.0 g/dl [facility] Red Cell Distribution Width 12.1 11.0 - 16.0 % [facility] Platelet Count 307 160 - 400 X10*3/uL [facility] Mean Platelet Volume 8.6(L) 9.4 - 12.3 fL [facility] Neutrophils Percent Auto 47.1 45 - 73 % [facility] Imm Gran Pct Auto 0.1 0.0 - 0.4 % [facility] Lymphocytes Percent Auto 43.2(H) 20 - 40 % [facility] Monocytes Percent Auto 6.1 2 - 11 % [facility] Eosinophils Percent Auto 2.8 0 - 4 % [facility] Basophils Percent Auto 0.7 0 - 2 % [facility] NRBC Pct Auto 0.0 0.0 - 0.2 /100WBC [facility] Neutrophils Absolute Auto 3.2 2.0 - 8.3 x10*3/uL [facility] Imm Gran Abs Auto 0.01 0.00 - 0.03 X10*3/uL [facility] Lymphocytes Absolute Auto 2.9 1.2 - 4.9 X10*3/uL [facility] Monocytes Absolute Auto 0.4 0.1 - 1.2 X10*3/uL [facility] Eosinophils Absolute Auto 0.2 0.0 - 0.4 X10*3/uL [facility] Basophils Absolute Auto 0.1 0.0 - 0.2 X10*3/uL [facility] NRBC Abs Auto 0.000 0.0 - 0.012 X10*3/uL [facility] 02/19/2025 6:20 PM EDT 02/19/2025 6:23 PM EDT us Generic External Data Provider LAB BLOOD ORDERAB LES Final Result [facility] [address] [place] [phone] * High Sensitivity Troponin I (02/19/2025 6:19 PM EDT) TROPONIN I HIGH SENSITIVITY <2.7 <3.5 - 17.0 ng/L [facility] Comment:The Kwan high sens itivity Troponin-I results should beused in conjunction with other diagnostic information suchas ECG, clinical observations and information, and patientsymptoms to aid in the diagnosis of NE. 02/19/2025 6:19 PM EDT 02/19/2025 6:23 PM EDT Generic External Data Provider LAB BLOOD ORDERAB LES Final Result Performing Organization Address [facility]/ZIP Co de Phone Number [facility] [address] [place] [phone] * Hepatic Function Panel (02/19/2025 6:19 PM EDT) Bilirubin, Total 0.1 0.0 - 1.0 mg/dL [facility] Bilirubin, Direct <0.2 0.0 - 0.5 mg/dL [facility] Aspartate Amino Transferase 27 5 - 31 U/L [facility] Alanine Aminotransferase 22 0 - 31 U/L [facility] Total Protein 7.2 6.5 - 8.0 g/dL [facility] Albumin Level 4.1 3.5 - 5.0 g/dL [facility] Alkaline Phosphatase 44 39 - 117 U/L [facility] 02/19/2025 6:19 PM EDT 02/19/2025 6:23 PM EDT [employer] External Data Provider LAB BLOOD ORDERAB LES Final Result Performing Organization Address [facility] Co de Phone Number [facility] [address] [place] [phone] * Basic Metabolic Panel (02/19/2025 6:19 PM EDT) Sodium 139 135 - 145 mmol/L [facility] Potassium 4.3 3.3 - 5.1 mmol/L [facility] Chloride 107 96 - 108 mmol/L [facility] Carbon Dioxide 24 22 - 29 mmol/L [facility] Anion Gap 12 12 - 20 [facility] Urea Nitrogen (BUN) 15 9 - 16 mg/dL [facility] Creatinine, Serum 0.64 0.5 - 1.4 mg/dL [facility] Creatinine Clr Calc Pharmacy 107.6 [facility] Comment:Provided height and weight: 157.48 cm,61.235 kg.eGFR (calculated from the MDRD study equation) and eCrCl(calculated from the Cockcroft-Gault equation) are based ondifferent parameters and may not yield comparable results.If eCrCl result is absurd, please check patient'sheight/weight. Estimated Glomerular Filt Rate >60 [facility] Comment:Chronic Kidney Disea se: Estimated GFR < 60 mL/min/1.14i2Hofjzr Kidney Disease: Estimated GFR < 15 mL/min/1.73m2 Glucose 86 60 - 115 mg/dL [facility] Calcium 8.9 8.4 - 10.2 mg/dL [facility] 02/19/2025 6:19 PM EDT 02/19/2025 6:23 PM EDT [facility] External Data Provider LAB BLOOD ORDERAB LES Final Result Performing Organization Address [facility] de Phone Number [facility] [address] [place] [phone] * (ABNORMAL) Helicobacter pylori??Antigen, EIA, Stool (01/31/2025 10:30 AM EDT) H pylori Ag Stool SEE NOTE(A) [facility] Comment:HELICOBACTER PYLORI AG, EIA, STOOL Micro Number: [id number] Test Status: Final Specimen Source: Stool Specimen Quality: Adequate H.pylori Ag: Detected Reference Range: Not DetectedTHIS TEST WAS PERFORMED AT:[facility] [address] [id number] GONZALES MD Stool Rectal contents / Unknown 01/31/2025 10:30 AM EDT 01/31/2025 12:55 PM EDT us [facility] BODY FLUIDS AND STOOLS ORDER DEV Final Result Performing Organization Address [facility] Co de Phone Number [facility] [address] [place] [phone] * (ABNORMAL) Urinalysis, Complete, with Reflex to Culture (01/25/2025 10:25 AM EDT) Color Urine Dark Yellow [facility] Appearance Urine Clear [facility] PH 6.0 5.0 - 9.0 [facility] Glucose Urine UA Negative Negative mg/dL [facility] Urine Blood Negative Negative [facility] Specific [place] - Urine >=1.030(H) 1.005 - 1.025 [facility] Urine Protein Trace Neg-Trace mg/dL [facility] Urine Ketones Trace Negative mg/dL [facility] Nitrite Urine Negative Negative [facility] Leukocyte Esterase Urine Moderate (2+)(A) Negative [facility] RBC Urine 0-2 0 - 2 /HPF [facility] Urine WBC 0-5 0 - 5 /HPF [facility] Urine Squamous Epithelial Cell 6-10 0 - 2 /HPF [facility] Urine Bacteria 2+ None Seen [facility] Hyaline Casts, Urine 0-2 0 - 2 /LPF [facility] Urine 01/25/2025 10:2 5 AM EDT 01/25/2025 11:10 AM EDT Narrative [facility] - 01/25/2025 11:28 AM EDT Urine, Clean Catch Lissett Bunn ANP LAB URINE ORDERABLES Final Resul t Performing Organization Address [facility] Co de Phone Number [facility] [address] [place] [phone] * Hepatitis B surface antigen, EIA (01/25/2025 10:25 AM EDT) Hepatitis B Surface Ag Negative Negative [facility] Blood Venous blood specimen / Unknown 01/25/2025 10:25 AM EDT 01/25/2025 11:01 AM EDT Lissett Bunn ANP LAB BLOOD ORDERABLES Final Resul t Performing Organization Address [facility] Co de Phone Number [facility] [address] [place] [phone] * Hepatitis B Core Antibody, Total (01/25/2025 10:25 AM EDT) Pathologist [facility] Hepatitis B Core Antibody Nonreactive Nonreactive [facility] Blood Venous blood specimen / Unknown 01/25/2025 10:25 AM EDT 01/25/2025 11:01 AM EDT Lissett Bunn [facility] BLOOD ORDERABLES Final Resul t Performing Organization Address [facility] Co de Phone Number [facility] [address] [place] [phone] * Hepatitis B Surface Antibody, Qualitative (01/25/2025 10:25 AM EDT) Pathologist [facility] ~Hepatitis B Surface Antibody REACTIVE Nonreactive [facility] Comment:REACTIVE: > 11.99 mI U/mL Blood Venous blood specimen / Unknown 01/25/2025 10:25 AM EDT 01/25/2025 11:01 AM EDT Lissett Bunn [facility] BLOOD ORDERABLES Final Resul t Performing Organization Address [facility] de Phone Number [facility] [address] [place] [phone] * Lipase (01/25/2025 10:25 AM EDT) Pathologist [facility] Lipase 18 8 - 78 U/L [facility] Blood Venous blood specimen / Unknown 01/25/2025 10:25 AM EDT 01/25/2025 11:01 AM EDT Lissett Bunn [facility] BLOOD ORDERABLES Final Resul t Performing Organization Address [facility] de Phone Number [facility] [address] [place] [phone] * Hemoglobin A1c (01/25/2025 10:25 AM EDT) Pathologist [facility] Hemoglobin A1c 4.8 <6.0 % [facility] Comment:Hemoglobin A1C Refer ence Range Adults: 4.8 - 6.0 % Non diabetic: < 6.0 % Goal: < 7.0 %Additional Action Suggested: > 8.0 %Note: Hemoglobin A1c results are invalid for patients with abnormal amounts of HbF. Blood transfusions may impact the HbA1c concentration in the patient sample. Estimated Average Glucose 91 mg/dL [facility] Comment:eAG = Estimated ave rage glucose which is %A1C expressed asaverage glucose, using the formula of the B0J-RvenhriYmnebju Glucose study (ADAG), Diabetes Care, Vol.31,#8,2007 Blood Venous blood specimen / Unknown 01/25/2025 10:25 AM EDT 01/25/2025 11:05 AM EDT us Lissett Bunn ANP LAB BLOOD ORDERABLES Final Resul t Performing Organization Address [facility] Co de Phone Number [facility] [address] [place] [phone] * Amylase (01/25/2025 10:25 AM EDT) Amylase 98 28 - 100 U/L [facility] Blood Venous blood specimen / Unknown 01/25/2025 10:25 AM EDT 01/25/2025 11:01 AM EDT Lissett Bunn ANP LAB BLOOD ORDERABLES Final Resul t Performing Organization Address [facility] Co de Phone Number [facility] [address] [place] [address] [phone] * Lipid Panel, Standard (01/25/2025 10:25 AM EDT) Triglycerides 120 <150 mg/dL [facility] Comment:Desirable Triglyceri de: less than 150 mg/dLBorderline High Triglyceride 150-199 mg/dLHigh Triglyceride: 200-499 mg/dLVery High Triglyceride: greater than or equal to 5OO mg/dL Cholesterol 133 <200 mg/dL [facility] Comment:Desirable Cholestero l: less than 200 mg/dLBorderline High Cholesterol: 200-239 mg/dLHigh Cholesterol: greater than 239 mg/dL LDL Cholesterol Calculated 62 <100 mg/dL [facility] Comment:Desirable LDL: less than 100 mg/dLNear Optimal/Above Optimal LDL: 110- 129 mg/dLBorderline High LDL: 130-159 mg/dLHigh LDL: 160-189 mg/dLVery High LDL: greater than or equal to 190 mg/dL HDL Cholesterol 47 >40 mg/dL [facility] Comment:Desirable HDL: great er than 40 mg/dL Note: This HDL assay may give artificially low results in patients with liver disease. Blood Venous blood specimen / Unknown 01/25/2025 10:25 AM EDT 01/25/2025 11:01 AM EDT [facility] Bunn [facility] BLOOD ORDERABLES Final Resul t [facility] [address] [place] [address] [phone] * (ABNORMAL) Comprehensive Metabolic Panel (01/25/2025 10:25 AM EDT) Sodium 138 135 - 145 mmol/L [facility] Potassium 4.5 3.3 - 5.1 mmol/L [facility] Chloride 106 96 - 108 mmol/L [facility] Carbon Dioxide 26 22 - 29 mmol/L [facility] Anion Gap 11(L) 12 - 20 [facility] Urea Nitrogen (BUN) 10 9 - 16 mg/dL [facility] Creatinine, Serum 0.69 0.5 - 1.4 mg/dL [facility] Estimated Glomerular Filt Rate >60 [facility] Comment:Chronic Kidney Disea se: Estimated GFR < 60 mL/min/1.62x8Nviuti Kidney Disease: Estimated GFR < 15 mL/min/1.73m2 Glucose 83 60 - 115 mg/dL [facility] Calcium 9.2 8.4 - 10.2 mg/dL [facility] Bilirubin, Total 0.5 0.0 - 1.0 mg/dL [facility] Aspartate Amino Transferase 28 5 - 31 U/L [facility] Alanine Aminotransferase 17 0 - 31 U/L [facility] Total Protein 7.1 6.5 - 8.0 g/dL [facility] Albumin Level 4.0 3.5 - 5.0 g/dL [facility] Alkaline Phosphatase 44 39 - 117 U/L [facility] Blood Venous blood specimen / Unknown 01/25/2025 10:25 AM EDT 01/25/2025 11:01 AM EDT [facility] BLOOD ORDERABLES Final Resul t Performing Organization Address City/[facility]/ZIP Co de Phone Number [facility] [address] [place] [address] [phone] * Culture, Urine, Routine (01/25/2025 12:00 AM EDT) Urine Urine specimen obtained by clean catch procedure / Unknown 01/25/2025 01/25/2025 Comment:UACC Narrative [facility] - 01/26/2025 10:10 AM EDT Urine Culture No growth. Specimen Source: Urine clean catch Lissett Bunn [facility] MICROBIOLOGY - GENERAL ORDER DEV Final Result Performing Organization Address City/[facility]/ZIP Co de Phone Number [facility] [address] [place] [address] [phone] * HIV Ab/Ag (ASHLEIGH WALKER) (05/28/2023 12:09 PM EDT) HIV AB/AG Nonreactive Nonreactive [facility] Comment:HIV-1 p24 Ag and/or HIV-1/HIV-2 Ab not detected.A test result that is nonreactive does not exclude thepossibility of exposure to or infection with HIV-1 and/orHIV-2. Nonreactive results in this assay for individualswith prior exposure to HIV-1 and/or HIV-2 may be due toantigen and antibody levels that are below the limit ofdetection of this assay.The Ku6 HIV Ag/Ab Combo assay result andsupplemental assay results should be interpreted inconjunction with the patient's clinical presentation,history and other laboratory results. If the results areinconsistent with clinical evidence, additional testing issuggested to confirm the result. 05/28/2023 12:0 9 PM EDT 05/28/2023 12:57 PM EDT Priscilaromina Reyes [facility] BLOOD ORDERABLES Jen l Result [facility] [address] [place] [address] [phone] * Hepatitis C Antibody with Reflex to HCV, RNA, Quantitative, Real-Time PCR (05/28/2023 12:09 PM EDT) Hepatitis C Antibody Nonreactive Nonreactive [facility] Comment:Antibodies to HCV no t detected; does not exclude early acuteHCV infection. Blood Venous blood specimen / Unknown 05/28/2023 12:09 PM EDT 05/28/2023 12:57 PM EDT Priscilaromina Reyes [facility] BLOOD ORDERABLES Jen l Result Performing Organization Address [facility]/ZIP Co de Phone Number [facility] [address] [place] [address] [phone] from Last 3 Months or Most Recently Relevant to Health Maintenance Insurance [facility] C3 Care Teams Make Ready Mechanic Relationship Specialty Start Date End Date Lissett Bunn ANP [address] [place] [address] [phone] PCP - General Family Medicine 07/17/20
== END 2025-03-17 09:00 | disposition home or self-care (01) ==
LOC: HO.US 08:59
PROVIDERS: PCP Nurse Practitioner Primary Care; Visit Provider Nurse Practitioner Primary Care
DX: N93.9 Abnormal uterine and vaginal bleeding, unspecified (principal)
CPT/HCPCS: 76830; 76856

== ENCOUNTER → 2025-03-17 09:22 | Outpatient (BNV) | payer MEDICAID, SELFPAY | PROVIDERS: PCP Nurse Practitioner Primary Care; Visit Provider Radiology Diagnostic Radiology | DX: N88.8 Other specified noninflammatory disorders of cervix uteri (principal) | CPT/HCPCS: 76830; 76856 ==

== ENCOUNTER 2025-04-20 13:21 | Outpatient (REF) | payer MEDICAID, SELFPAY ==
--- NOTE | ~2025-04-20 | US_ITS ---
EXAMINATION: US LOWER EXTREMITY VENOUS (REFLUX EXAM), BILATERAL CLINICAL INFORMATION: Varicose veins of the lower extremity with inflammation COMPARISON: None. TECHNIQUE: Color flow triplex imaging and compression Doppler was performed to evaluate both the deep and the superficial systems bilaterally. To evaluate the superficial system, the examination was performed in the upright position. Color-flow Doppler ultrasound and compression ultrasound were utilized. In addition, maneuvers were utilized to demonstrate reflux. FINDINGS: 1. DEEP VENOUS ULTRASOUND OF THE RIGHT LOWER EXTREMITY: Common Femoral Vein: Compressible, normal respiratory variation and augmented flow. Femoral Vein: Compressible, normal color flow and augmentation. Popliteal Vein: Compressible, normal augmentation. Deep Reflux: There is no evidence of reflux in the deep system in either the common femoral vein, superficial femoral or the popliteal vein. 2. SUPERFICIAL ULTRASOUND WITH DOPPLER OF RIGHT LOWER EXTREMITY: GREAT SAPHENOUS VEIN: Saphenofemoral Junction: 0.4 cm; Reflux: 0 ms Proximal Thigh: 0.3 cm; Reflux: 0 ms Mid Thigh: 0.3 cm; Reflux: 0 ms Distal Thigh: 0.3 cm; Reflux: 0 ms At Knee: 0.3 cm; Reflux: 0 ms Below Knee/Proximal Calf: 0.2 cm; Reflux: 0 ms Mid Calf: 0.1 cm; Reflux: 0 ms Ankle/Distal Calf: 0.2 cm; Reflux: 0 ms Lateral accessory GREAT SAPHENOUS VEIN: Saphenofemoral Junction: 0.4 cm; Reflux: 0 ms Mid Thigh vs varicosity off ASV: 0.3 cm; Reflux: >2700 ms SMALL SAPHENOUS VEIN: Drainage: Popliteal vein Saphenopopliteal Junction: 0.5 cm; Reflux: 0 ms Mid calf: 0.3 cm; Reflux: 0 ms Distal: 0.2 cm; Reflux: 0 ms VEIN OF GIACOMINI: Size: NA cm Reflux: NA ms PERFORATORS: None imaged Reflux: 0 ms VARICOSITIES > 3mm: Location: Proximal calf communicating with ASV Size: 0.3 cm Reflux: >3000 ms 3. DEEP VENOUS ULTRASOUND OF THE LEFT LOWER EXTREMITY: Common Femoral Vein: Compressible, normal respiratory variation and augmented flow. Femoral Vein: Compressible, normal color flow and augmentation. Popliteal Vein: Compressible, normal augmentation. Deep Reflux: There is no evidence of reflux in the deep system in either the common femoral vein, superficial femoral or the popliteal vein. 4. SUPERFICIAL ULTRASOUND WITH DOPPLER OF LEFT LOWER EXTREMITY: GREAT SAPHENOUS VEIN: Saphenofemoral Junction: 0.5 cm; Reflux: 0 ms Proximal Thigh: 0.4 cm; Reflux: 0 ms Mid Thigh: 0.4 cm; Reflux: 0 ms Distal Thigh: 0.3 cm; Reflux: 0 ms At Knee: 0.2 cm; Reflux: 0 ms Below Knee/Proximl calf: 0.08 cm; Reflux: 0 ms Mid Calf: 0.11 cm; Reflux: 0 ms Distal Calf/Ankle: 0.2 cm; Reflux: 0 ms Lateral accessory GREAT SAPHENOUS VEIN: Saphenofemoral Junction: 0.3 cm; Reflux: 0 ms Mid Thigh: 0.3 cm; Reflux: 0 ms SMALL SAPHENOUS VEIN: Drainage: Popliteal vein Saphenopopliteal Junction: 0.3 cm; Reflux: 0 ms Mid calf: 0.2 cm; Reflux: 0 ms Distal calf: 0.2 cm; Reflux: 0 ms VEIN OF GIACOMINI: Size: 0.2 Reflux: 0 PERFORATORS: None imaged VARICOSITIES > 3mm: Location: None Imaged US/US venous duplex LE BI IMPRESSION: Right: Venous incompetence is demonstrated in a varicosity communicating with ASV. Reflux was also noted in the lateral accessory saphenous vein versus varicosity off ASV. Left: No venous reflux is demonstrated. Electronically signed by: Elijah Melendrez MD 04/20/2025 05:24 PM EDT
--- OUTSIDE RECORDS SUMMARY | 2025-04-20 15:23 | XMS_ITS | Clinical Summary ---
Author Organization [facility] it Address [address] [place] [address] Care Team Providers Care Mathematical Sciences Professor Name Role Phone Unavailable Primary Care Provider [...] Cervical Cancer Screening: P ap Smear 12/21/2012 HIV Screening 05/12/2024 Hepatitis C Screening 05/12/2024 Social Influencers of Health Screening 05/12/2024 Depression Screening 08/03/2024 COVID-19 Vaccine ( - 2023-2 5 season) 2025 Influenza Vaccine (#1) 2025 HIB Vaccines Aged [...]
--- OUTSIDE RECORDS SUMMARY | 2025-04-20 15:23 | XMS_ITS | Clinical Summary ---
Author Organization [facility] Address [address] [place] [address] Care Team Providers Care Bead Worker Sewing Name Role Phone Rachelle Olson Primary Care Provider [phone] Medications No known medications Active Problems Problem [...] Health Maintenance Due Date Last Done Comments HIV Screening 1991 Varicella Vaccines (1 of 2 - 13+ 2-dose series) 12/21/2004 Hepatitis B Vaccines (1 of 3 - 19+ 3-dose series) 12/21/2010 Alcohol/Substance Use Screening 08/03/2024 COVID-19 Vaccine (3 - 2024-2 6 season) 2025 04/02/2021, 03/12/2021 Influenza Vaccine (#1) 2025 , 07/24/2020 DTaP,Tdap,and Td Vaccines (2 - Td or Tdap) 07/24/2030 07/24/2020 RSV Vaccine (60+ years old and patients) (1 - 1-dose 75+ series) 12/21/2066 Pneumococcal Vaccine: Pediatric (0-5 Years) and At-Risk Patients (6-50 Years) Aged Out No longer eligible based on patient's age to complete this topic Insurance [employer] Care Teams Bead Worker Sewing Relationship Specialty Start Date End Date Rachelle Olson [address] [place] [phone] PCP - General 06/10/22
== END 2025-04-20 13:22 | disposition home or self-care (01) ==
LOC: HO.US 13:21
PROVIDERS: PCP Nurse Practitioner Primary Care; Visit Provider Surgery Vascular Surgery
DX: I83.11 Varicose veins of right lower extremity with inflammation (principal)
CPT/HCPCS: 93970

== ENCOUNTER → 2025-04-20 13:23 | Outpatient (BNV) | payer MEDICAID, SELFPAY | PROVIDERS: PCP Nurse Practitioner Primary Care; Visit Provider Radiology Diagnostic Radiology | DX: I83.891 Varicose veins of right lower extremity with other complications (principal) | CPT/HCPCS: 93970 ==

== ENCOUNTER 2025-04-21 21:34 | Emergency (ER) | payer MEDICAID, SELFPAY ==
--- NOTE | ~2025-04-21 | XR_ITS ---
CLINICAL HISTORY: left sided flank pain, please do upright 1 view abdomen Comparison: None provided Findings: Nonobstructive bowel gas pattern. No pneumoperitoneum. Multiple air-fluid levels suggestive of ileus. No abnormal calcifications. No acute fractures. Lung bases are clear. IMPRESSION: 1. Multiple air-fluid levels may represent ileus. 2. Nonobstructive bowel gas pattern with no pneumoperitoneum. This document has been electronically signed by: Jessica Minaya MD on 04/21/2025 23:38:43
--- NOTE | 2025-04-21 21:50 | ED_ITS ---
HPI - Back Pain/Injury General Chief Complaint: Abdominal Pain Stated Complaint: abd pain on left side for 3 days Related Data Home Medications ?Medication ?Instructions ?Recorded ?Confirmed No Known Home Meds 09/10/22 05/07/23 Allergies Allergy/AdvReac Type Severity Reaction Status Date / Time No Known Allergies (No Known Allergy Verified 04/21/25 21:55 Allergies*) [facility] Past Medical History Medical History Dyspnea Varicose veins of bilateral lower extremities with pain No known health problems Surgical History No pertinent past surgical history Family History Family History Mother Hypertension Epilepsy Social History Social History Alcohol intake: never Patient Tobacco Use Status: Former Tobacco user Years Smoked: On/off 5 +/- Physical Exam 2 Vital Signs: Vital Signs: Last Vital Signs Temp 98.5 F 04/21/25 21:52 Pulse 77 04/21/25 21:52 Resp 18 04/21/25 21:52 BP 112/82 04/21/25 21:52 Pulse Ox 97 04/21/25 21:52 O2 Del Method Room Air 04/21/25 21:52 BMI result Body Mass Index 23.9 Course Course Course Narrative: This is a RME preformed in triage by Cathy Montiel PA-C. Date: 04/21/2025, time 04/21/25. Patient presents with left sided abdominal back pain with nausea. Hx of chronic constipation. Last BM today and painful, no blood. No hx of abdominal surgeries. No vomiting or diarrhea. No fevers or respiratory sxs. Denies worse with movement. 8/10 pain, took 600 mg of ibuprofen no changes. Occurs monthly left side, flank, no radiation, no pleuritic pain, was told it was gas pain in past from PCP. She reports not looking for pain med, she wants to make sure 'she is good and won't explode' Work UP: abd labs, abd xrays Will defer full ROS and PE to treating provider. Patient will continued to be monitored in the interim. Medical Decision Making Lab Data 04/21/25 22:02 04/21/25 22:02 Labs: Lab Results 04/21/25 04/21/25 Range/Units 22:02 22:08 WBC 9.4 (4.8-10.8) X10*3/uL RBC 4.62 (4.20-5.50) X10*6/uL Hgb 13.7 (12.0-16.0) g/dl Hct 37.7 (37.0-47.0) % MCV 81.6 (80.0-98.0) fL MCH 29.7 (27.0-33.0) pg MCHC 36.3 H (31.0-35.0) g/dl RDW 11.9 (11.0-16.0) % Plt Count 331 (160-400) X10*3/uL MPV 8.8 L (9.4-12.3) fL Immature Gran % (Auto) 0.5 H (0.0-0.4) % Neut % (Auto) 47.3 (45-73) % Lymph % (Auto) 44.5 H (20-40) % [place] % (Auto) 5.1 (2-11) % Eos % (Auto) 2.1 (0-4) % Baso % (Auto) 0.5 (0-2) % Lymph # (Auto) 4.2 (1.2-4.9) X10*3/uL [place] # (Auto) 0.5 (0.1-1.2) X10*3/uL Eos # (Auto) 0.2 (0.0-0.4) X10*3/uL Baso # (Auto) 0.1 (0.0-0.2) X10*3/uL Abs Immat Gran (auto) 0.05 H (0.00-0.03) X10*3/uL Absolute Neuts (auto) 4.4 (2.0-8.3) x10*3/uL Absolute Nucleated RBC 0.000 (0.0-0.012) X10*3/uL Nucleated RBC % (auto) 0.0 (0.0-0.2) /100WBC Sodium 137 (135-145) mmol/L Potassium 3.9 (3.3-5.1) mmol/L Chloride 105 (96-108) mmol/L Carbon Dioxide 27 (22-29) mmol/L Anion Gap 9 L (12-20) BUN 14 (9-16) mg/dL Creatinine 0.70 (0.5-1.4) mg/dL Estim Creat Clear Calc 90.4 Estimated GFR > 60 Random Glucose 91 (60-115) mg/dL Calcium 8.9 (8.4-10.2) mg/dL Total Bilirubin 0.2 (0.0-1.0) mg/dL AST 26 (5-31) U/L ALT 20 (0-31) U/L Alkaline Phosphatase 42 (39-117) U/L Total Protein 7.0 (6.5-8.0) g/dL Albumin 4.0 (3.5-5.0) g/dL Lipase 23 (8-78) U/L Urine Color Yellow Urine Appearance Clear Urine pH 6.5 (5.0-9.0) Ur Specific Boaz >= 1.030 H (1.005-1.025) Urine Protein Negative (Neg-Trace) mg/dL Urine Glucose (UA) Negative (Negative) mg/dL Urine Ketones Negative (Negative) mg/dL Urine Blood Negative (Negative) Urine Nitrite Negative (Negative) Ur Leukocyte Esterase Negative (Negative) Urine Test NEGATIVE (NEGATIVE) Discharge Plan Discharge Clinical Impression: Abdominal pain Patient Disposition: Left W/O Completing Treatment Prescriptions: No Action No Known Home Meds Discharge Date/Time: 04/22/25 02:52
[2025-04-21 21:52] VITALS: BP 112/82; PULSE 77; RESP 18; TEMP 36.9; O2SAT 97; BMI 23.9
[2025-04-21 22:15] LABS: MANUAL DIFF FLAG NO
[2025-04-21 22:17] LABS: Hematocrit 37.7 % (37.0-47.0); Hemoglobin 13.7 g/dl (12.0-16.0); Imm Gran Abs Auto 0.05 X10*3/uL (0.00-0.03); Imm Gran Pct Auto 0.5 % (0.0-0.4); Lymphocytes Absolute Auto 4.2 X10*3/uL (1.2-4.9); Mean Corpuscular HGB Conc 36.3 g/dl (31.0-35.0); Mean Corpuscular Hemoglobin 29.7 pg (27.0-33.0); Mean Corpuscular Volume 81.6 fL (80.0-98.0); NRBC Abs Auto 0.000 X10*3/uL (0.0-0.012); NRBC Pct Auto 0.0 /100WBC (0.0-0.2); Platelet Count 331 X10*3/uL (160-400); Red Blood Count 4.62 X10*6/uL (4.20-5.50); White Blood Count 9.4 X10*3/uL (4.8-10.8)
--- OUTSIDE RECORDS SUMMARY | 2025-04-21 22:18 | XMS_ITS | Encounter Summary ---
Author Organization [employer] Address [address] [place] [address] Care Team Providers Care Systems Engineer Name Role Phone Rachelle Olson Primary Care Provider [phone] Encounter Details Date Type Department Care Team (Late st Contact Info) Description 03/06/2025 Results Follow-Up [facility] [address] [place], [place] [phone] Franny Galloway CNM [address] [place], [place] [phone] HPV DNA, Low/High Risk Social History Tobacco Use Types Packs/Day Years Used Date Smoking Tobacco: Former Cigarettes Passive Smoke Exposure: Current Smokeless Tobacco: Former Alcohol Use Standard Drinks/Week Comments Never 0 [...] Q2 Not on file 09/01/2024 Comments No Sex and Gender Information Value [...] Description 04/25/2025 9:30 AM EDT Office Visit [facility] [address] [place] [phone] Rachelle Olson ANP [address] [place] [phone] documented as of this encounter Visit Diagnoses Not on filedocumented in this encounter Additional Health Concerns Assessment Noted Time PHQ-9 Depression Total Score: 0 09/01/19 25 2:43 PM EST documented as of this encounter Care Teams Systems Engineer Relationship Specialty Start Date End Date Rachelle Olson ANP [address] [place] [phone] PCP - General Family Medicine 07/17/20 documented as of this encounter
--- OUTSIDE RECORDS SUMMARY | 2025-04-21 22:18 | XMS_ITS | Clinical Summary ---
Author Organization [facility]ila [employer] [facility] it Address [address] [place] [address] Care Team Providers Care Flight Control Manager Name Role Phone Unavailable Primary Care Provider [...]
--- OUTSIDE RECORDS SUMMARY | 2025-04-21 22:18 | XMS_ITS | Encounter Summary ---
Author Organization [employer] Address [address] [place] [address] Care Team Providers Care Cryogenics Engineer Name Role Phone Rachelle Olson Primary Care Provider Encounter Details Date Type Department Care Team (Late st Contact Info) Description 07/23/2024 Orders Only [facility] [address] [place], [place] [phone] Haritha Selby MD [address] [place], [place] [phone] Hematuria, unspecified type (Primary Dx) Social History [...] Description 04/25/2025 9:30 AM EDT Office Visit [facility] [address] [place], [place] [phone] Rachelle Olson, ANP [address] [place], [place] [phone] documented as of this encounter Procedures Procedure Name Priority Date/Time Associated Diagnosis Comments URINALYSIS, COMPLETE, WITH REFLEX TO CULTURE Routine 08/29/2024 11:58 AM EST Hematuria, unspecified type documented in this encounter Results * (ABNORMAL) Urinalysis, Complete, with Reflex to Culture (08/29/2024 11:58 AM EST) Color Urine Yellow [facility] Appearance Urine Clear [facility] PH 7.5 5.0 - 9.0 [facility] Glucose Urine UA Negative Negative mg/dL [facility] Urine Blood Small (1+)(A) Negative [facility] Specific Leonardo - Urine 1.020 1.005 - 1.025 [facility] Urine Protein Negative Neg-Trace mg/dL [facility] Urine Ketones Negative Negative mg/dL [facility] Nitrite Urine Negative Negative [facility] Leukocyte Esterase Urine Negative Negative [facility] RBC Urine 0-2 0 - 2 /HPF [facility] Urine WBC 0-5 0 - 5 /HPF [facility] Urine Squamous Epithelial Cell 0-2 0 - 2 /HPF [facility] Urine Bacteria None Seen None Seen [facility] Hyaline Casts, Urine 0-2 0 - 2 /LPF [facility] Urine 08/29/2024 11:5 8 AM EST 08/29/2024 1:11 PM EST Narrative [facility] - 08/29/2024 1:57 PM EST Urine, Clean Catch us Haritha Selby MD LAB URINE ORDERABLES Final Resul t Performing Organization Address City/State/[facility] Co de Phone Number [facility] [address] [place] [phone] documented in this encounter Visit Diagnoses Diagnosis Hematuria, unspecified type- Primary documented in this encounter Care Teams Cryogenics Engineer Relationship Specialty Start Date End Date Rachelle Olson ANP [address] [place] [phone] PCP - General Family Medicine 07/17/20 documented as of this encounter
--- OUTSIDE RECORDS SUMMARY | 2025-04-21 22:18 | XMS_ITS | Clinical Summary ---
Author Organization [employer] Address [address] [facility] [address] [place] [address] Care Team Providers Care Senior Android Developer Name Role Phone Lissett Bunn Primary Care Provider [phone] Allergies Active Allergy Reactions Criticality Noted Date Comments Avocado Vomiting 01/24/2025 Kiwi Extract Unknown 01/24/2025 Throat itching Medications hydrocortisone (Anusol-HC) 2.5 % rectal cream Insert into the rectum 2 times daily. 28 g 12/23/19 24 Active cromolyn (NasalCrom) 5.2 MG/ACT nasal sprayIndicatio ns:Acute URI Administer 1 spray into each nostril 3 times daily for 5 days. 26 mL 12 08/30/19 25 Active betamethasone valerate (Valisone) 0.1 % ointmentIndica tions:Psoriasi s Apply topically 2 times daily. 45 g 1 09/01/19 25 Active SUMAtriptan (Imitrex) 50 MG tablet TAKE 1 TABLET BY MOUTH 1 TIME IF NEEDED FOR MIGRAINE. MAY REPEAT DOSE ONCE IN 2 HOURS IF NO RELIEF, MAX 2 DOSES/24 HOURS. 9 tablet 12/16/19 25 Active lidocaine (Lidoderm) 5 % patchIndicatio ns:Chronic midline low back pain without sciatica Apply 1 patch topically Once per day. Remove & discard patch within 12 hours or as directed by MD. 30 patch 2 01/25/20 25 Active omeprazole (PriLOSEC) [address] capsuleIndicat ions:Bacterial infection due to H. pylori Take 1 capsule (20 mg) by mouth before breakfast and before evening meal for 10 days. Do not crush or chew. 20 capsule 02/05/20 25 Active bismuth-metroN IDAZOLE-tetrac ycline (Pylera) 140-125-125 MG capsuleIndicat ions:Bacterial infection due to H. pylori Take 3 capsules by mouth before breakfast, before lunch, before evening meal, and at bedtime for 10 days. Follow each dose with 8 oz of water. 120 capsule 02/05/20 25 Active ibuprofen 600 MG tablet 1 tablet every 8 hours with food x 7 days 21 tablet 03/08/20 25 Active Levonorgest-Et h Estrad 91-Day (LoSeasonique) 0.1-0.02 & 0.01 MG tablet TAKE 1 TABLET BY MOUTH EVERY DAY. START DAY AFTER TAKING EC. 91 tablet 3 04/11/20 25 Active Levonorgest-Et h Estrad 91-Day (LoSeasonique) 0.1-0.02 & 0.01 MG tablet Take 1 tablet by mouth Once per day. Start day after taking EC. 91 tablet 3 04/08/20 24 025 Discontinued(Re order (will not trigger notification to Pharmacy)) Active Problems Problem Noted Date Diagnosed Date [...] Encounters Date Type Department Care Team Description 04/20/2025 Orders Only [facility] External Provider, [facility] 04/18/2025 Patient Outreach [facility] [address] [place] [address] Lissett Bunn ANP Pre-visit Planning (SDOH was already completed) 04/11/[address] [address] Lissett Bunn ANP 03/20/2025 Results Follow-Up [address] [address] Priscila Reyes CNM US Pelvis Transvaginal 03/17/[address] [address] Lissett Bunn ANP Ultrasound order 03/09/2025 Orders Only [address] [address] Priscila Reyes CNM Abnormal uterine bleeding (Primary Dx) 03/08/2025 Orders Only [address] [address] Priscila Reyes CNM 03/08/2025 Orders Only [address] [address] Priscila Reyes CNM Atypical squamous cells cannot exclude high grade squamous intraepithelial lesion on cytologic smear of cervix (ASC-H) (Primary Dx); Atypical glandular cells of undetermined significance (SULEMA) on cervical Pap smear; Cervical high risk HPV (human papillomavirus) test positive 03/08/[address] [address] Lissett Bunn ANP Nurse Triage 03/06/2025 Results Follow-Up [address] [address] Priscila Reyes CNM HPV DNA, Low/High Risk 02/28/2025 9:30 AM EDT Procedure Visit [address] [address] Priscila Reyes CNM Cervical cancer screening (Primary Dx); Screening examination for venereal disease; Abnormal uterine bleeding 02/28/2025 Orders Only [facility] [place] [address] Priscila Reyes CNM 02/28/2025 Travel 02/19/2025 Orders Only GENERIC EXTERNAL DATA DEPARTMENT Provider, Generic External Data 02/08/2025 Telephone [facility] [place] [address] Lissett Bunn ANP April01/25/2025 Orders Only [facility] [place] [place] [address] Lissett Bunn ANP 01/25/2025 Results [address]-Up [address] [place] [address] Lissett Bunn ANP Hemoglobin A1c, Lipase, Lipid Panel, Standard, Additional followed-up results: 5 01/24/2025 1:30 PM EDT [address] [place] [address] Lissett Bunn ANP Diarrhea, unspecified type (Primary Dx); Gastroesophageal reflux disease, unspecified whether esophagitis present; LLQ pain; Urinary frequency; Chronic midline low back pain without sciatica; Varicose veins of right lower extremity with inflammation; Healthcare maintenance; Need for hepatitis B screening test 01/24/2025 Travel 01/23/2025 Telephone [facility] [place] [place] [address] Lissett Bunn ANP chartprep from Last 3 Months Immunizations Immunization Administration [...] Description 04/25/2025 9:30 AM EDT Office Visit [facility] [address], [place] [phone] Lissett Bunn ANP [address] [place], [place] [phone] Health Maintenance Due Date Last Done Comments Disability Screening 1990 HPV Vaccines (1 - 3-dose series) 12/21/2006 Colposcopy 03/01/2025 COVID-19 Vaccine (3 - 2024-2 6 season) 2025 04/02/2021, 03/12/2021 Influenza Vaccine (#1) 2025 , 07/24/2020 Alcohol/Substance [...] Procedure Name Priority Date/Time Associated Diagnosis Comments VASC US LOWER EXTREMITY VENOUS DUPLEX BILATERAL Routine 04/20/2025 1:34 PM EDT US PELVIS TRANSVAGINAL Urgent 9:30 AM EDT Abnormal uterine bleeding CHLAMYDIA/N. GONORRHOEAE AND T. VAGINALIS RNA, QUAL,TMA [...] Recently Relevant to Health Maintenance Results * [facility] US Lower Extremity Venous Duplex Bilateral (04/20/2025 1:34 PM EDT) 04/20/2025 1:34 PM EDT Narrative [facility] - 04/20/2025 5:27 PM EDT [address] [address] Ultrasound Report Signed Patient: Neli Esteban MR#: [id number] : 1990 Acct:[id number] Age/Sex: 34 / F ADM Date: 04/20/25 Loc: HO.US Attending Dr: Jerome Douglas MD Ordering Physician: Jerome Douglas MD Date of Service: 04/20/25 Procedure(s): US venous duplex [facility] Accession Number(s): [id number] cc: Jerome Douglas MD; LISSETT BUNN NP Reason for Exam: I83.11 - Varicose veins of right lower extremity with inflammation EXAMINATION: US LOWER EXTREMITY VENOUS (REFLUX EXAM), BILATERAL CLINICAL INFORMATION: Varicose veins of the lower extremity with inflammation COMPARISON: None. TECHNIQUE: Color flow triplex imaging and compression Doppler was performed to evaluate both the deep and the superficial systems bilaterally. To evaluate the superficial system, the examination was performed in the upright position. Color-flow Doppler ultrasound and compression ultrasound were utilized. In addition, maneuvers were utilized to demonstrate reflux. FINDINGS: 1. DEEP VENOUS ULTRASOUND OF THE RIGHT LOWER EXTREMITY: Common Femoral Vein: Compressible, normal respiratory variation and augmented flow. Femoral Vein: Compressible, normal color flow and augmentation. Popliteal Vein: Compressible, normal augmentation. Deep Reflux: There is no evidence of reflux in the deep system in either the common femoral vein, superficial femoral or the popliteal vein. 2. SUPERFICIAL ULTRASOUND WITH DOPPLER OF RIGHT LOWER EXTREMITY: GREAT SAPHENOUS VEIN: Saphenofemoral Junction: 0.4 cm; Reflux: 0 ms Proximal Thigh: 0.3 cm; Reflux: 0 ms Mid Thigh: 0.3 cm; Reflux: 0 ms Distal Thigh: 0.3 cm; Reflux: 0 ms At Knee: 0.3 cm; Reflux: 0 ms Below Knee/Proximal Calf: 0.2 cm; Reflux: 0 ms Mid Calf: 0.1 cm; Reflux: 0 ms Ankle/Distal Calf: 0.2 cm; Reflux: 0 ms Lateral accessory GREAT SAPHENOUS VEIN: Saphenofemoral Junction: 0.4 cm; Reflux: 0 ms Mid Thigh vs varicosity off ASV: 0.3 cm; Reflux: >2700 ms SMALL SAPHENOUS VEIN: Drainage: Popliteal vein Saphenopopliteal Junction: 0.5 cm; Reflux: 0 ms Mid calf: 0.3 cm; Reflux: 0 ms Distal: 0.2 cm; Reflux: 0 ms VEIN OF GIACOMINI: Size: NA cm Reflux: NA ms PERFORATORS: None imaged Reflux: 0 ms VARICOSITIES > 3mm: Location: Proximal calf communicating with ASV Size: 0.3 cm Reflux: >3000 ms 3. DEEP VENOUS ULTRASOUND OF THE LEFT LOWER EXTREMITY: Common Femoral Vein: Compressible, normal respiratory variation and augmented flow. Femoral Vein: Compressible, normal color flow and augmentation. Popliteal Vein: Compressible, normal augmentation. Deep Reflux: There is no evidence of reflux in the deep system in either the common femoral vein, superficial femoral or the popliteal vein. 4. SUPERFICIAL ULTRASOUND WITH DOPPLER OF LEFT LOWER EXTREMITY: GREAT SAPHENOUS VEIN: Saphenofemoral Junction: 0.5 cm; Reflux: 0 ms Proximal Thigh: 0.4 cm; Reflux: 0 ms Mid Thigh: 0.4 cm; Reflux: 0 ms Distal Thigh: 0.3 cm; Reflux: 0 ms At Knee: 0.2 cm; Reflux: 0 ms Below Knee/Proximl calf: 0.08 cm; Reflux: 0 ms Mid Calf: 0.11 cm; Reflux: 0 ms Distal Calf/Ankle: 0.2 cm; Reflux: 0 ms Lateral accessory GREAT SAPHENOUS VEIN: Saphenofemoral Junction: 0.3 cm; Reflux: 0 ms Mid Thigh: 0.3 cm; Reflux: 0 ms SMALL SAPHENOUS VEIN: Drainage: Popliteal vein Saphenopopliteal Junction: 0.3 cm; Reflux: 0 ms Mid calf: 0.2 cm; Reflux: 0 ms Distal calf: 0.2 cm; Reflux: 0 ms VEIN OF GIACOMINI: Size: 0.2 Reflux: 0 PERFORATORS: None imaged VARICOSITIES > 3mm: Location: None Imaged US/US venous duplex LE BI IMPRESSION: Right: Venous incompetence is demonstrated in a varicosity communicating with ASV. Reflux was also noted in the lateral accessory saphenous vein versus varicosity off ASV. Left: No venous reflux is demonstrated. Electronically signed by: Elijah Melendrez MD 04/20/2025 05:24 PM EDT RP Dictated By: Elijah Melendrez MD Signed By: <Electronically signed by Elijah Melendrez MD in OV> 04/20/25 1724 DD/ 1334 TD/TT: 04/20/25 1409 Electronic Gluer: Procedure Note Donotuseinterpreter, Image - 04/20/2025 [place] [address] Ultrasound Report Signed Patient: Neli Esteban [facility]#: [id number] : 1990Acct:[id number] Age/Sex: 34 / FADM Date: 04/20/25 Loc: .US Attending Dr: Jerome Douglas MD Ordering Physician: Jerome Douglas MD Date of Service: 04/20/25 Procedure(s): US venous duplex LE BI Accession Number(s): [id number] cc: Jerome Douglas MD; LISSETT BUNN NP Reason for Exam: I83.11 - Varicose veins of right lower extremity withinflammation EXAMINATION: US LOWER EXTREMITY VENOUS (REFLUX EXAM), BILATERAL CLINICAL INFORMATION: Varicose veins of the lower extremity with inflammation COMPARISON: None. TECHNIQUE: Color flow triplex imaging and compression Doppler was performed to evaluate both the deep and the superficial systems bilaterally. To evaluate the superficial system, the examination was performed in the upright position. Color-flow Doppler ultrasound and compression ultrasound were utilized. In addition, maneuvers were utilized to demonstrate reflux. FINDINGS: 1. DEEP VENOUS ULTRASOUND OF THE RIGHT LOWER EXTREMITY: Common Femoral Vein: Compressible, normal respiratory variation and augmented flow. Femoral Vein: Compressible, normal color flow and augmentation. Popliteal Vein: Compressible, normal augmentation. Deep Reflux: There is no evidence of reflux in the deep system in either the common femoral vein, superficial femoral or the popliteal vein. 2. SUPERFICIAL ULTRASOUND WITH DOPPLER OF RIGHT LOWER EXTREMITY: GREAT SAPHENOUS VEIN: Saphenofemoral Junction: 0.4 cm; Reflux: 0 ms Proximal Thigh: 0.3 cm; Reflux: 0 ms Mid Thigh: 0.3 cm; Reflux: 0 ms Distal Thigh: 0.3 cm; Reflux: 0 ms At Knee: 0.3 cm; Reflux: 0 ms Below Knee/Proximal Calf: 0.2 cm; Reflux: 0 ms Mid Calf: 0.1 cm; Reflux: 0 ms Ankle/Distal Calf: 0.2 cm; Reflux: 0 ms Lateral accessory GREAT SAPHENOUS VEIN: Saphenofemoral Junction: 0.4 cm; Reflux: 0 ms Mid Thigh vs varicosity off ASV: 0.3 cm; Reflux: >2700 ms SMALL SAPHENOUS VEIN: Drainage: Popliteal vein Saphenopopliteal Junction: 0.5 cm; Reflux: 0 ms Mid calf: 0.3 cm; Reflux: 0 ms Distal: 0.2 cm; Reflux: 0 ms VEIN OF GIACOMINI: Size: NA cm Reflux: NA ms PERFORATORS: None imaged Reflux: 0 ms VARICOSITIES > 3mm: Location: Proximal calf communicating with ASV Size: 0.3 cm Reflux: >3000 ms 3. DEEP VENOUS ULTRASOUND OF THE LEFT LOWER EXTREMITY: Common Femoral Vein: Compressible, normal respiratory variation and augmented flow. Femoral Vein: Compressible, normal color flow and augmentation. Popliteal Vein: Compressible, normal augmentation. Deep Reflux: There is no evidence of reflux in the deep system in either the common femoral vein, superficial femoral or the popliteal vein. 4. SUPERFICIAL ULTRASOUND WITH DOPPLER OF LEFT LOWER EXTREMITY: GREAT SAPHENOUS VEIN: Saphenofemoral Junction: 0.5 cm; Reflux: 0 ms Proximal Thigh: 0.4 cm; Reflux: 0 ms Mid Thigh: 0.4 cm; Reflux: 0 ms Distal Thigh: 0.3 cm; Reflux: 0 ms At Knee: 0.2 cm; Reflux: 0 ms Below Knee/Proximl calf: 0.08 cm; Reflux: 0 ms Mid Calf: 0.11 cm; Reflux: 0 ms Distal Calf/Ankle: 0.2 cm; Reflux: 0 ms Lateral accessory GREAT SAPHENOUS VEIN: Saphenofemoral Junction: 0.3 cm; Reflux: 0 ms Mid Thigh: 0.3 cm; Reflux: 0 ms SMALL SAPHENOUS VEIN: Drainage: Popliteal vein Saphenopopliteal Junction: 0.3 cm; Reflux: 0 ms Mid calf: 0.2 cm; Reflux: 0 ms Distal calf: 0.2 cm; Reflux: 0 ms VEIN OF GIACOMINI: Size: 0.2 Reflux: 0 PERFORATORS: None imaged VARICOSITIES > 3mm: Location: None Imaged US/US venous duplex LE BI IMPRESSION: Right: Venous incompetence is demonstrated in a varicosity communicating with ASV. Reflux was also noted in the lateral accessory saphenous vein versus varicosity off ASV. Left: No venous reflux is demonstrated. Electronically signed by: Elijah Melendrez MD 04/20/2025 05:24 PM EDT Dictated By: Elijah Melendrez MD Signed By: <Electronically signed by Elijah Melendrez MD in OV> 04/20/25 1724 DD/ 1334 TD/TT: 04/20/25 1409 Electronic Gluer: us [facility] External Provider CV VASC ULAR PROCEDURES Final Result [facility] [address] [place] [phone] * US Pelvis Transvaginal (03/17/2025 9:30 AM EDT) Anatomical Region Laterality Modality Pelvis Ultrasound 03/17/2025 9:30 AM EDT Narrative 03/17/2025 10:17 AM EDT [address] [address] Ultrasound Report Signed Patient: Neli Esteban MR#: [id number] : 1990 Acct:[id number] Age/Sex: 34 / F ADM Date: 03/17/25 Loc: HO.US Attending Dr: Lissett Bunn NP Ordering Physician: PRISCILA REYES CNM Date of Service: 03/17/25 Procedure(s): US pelvic and transvaginal Accession Number(s): [id number] cc: PRISCILA REYES CNM; LISSETT BUNN NP EXAMINATION: US PELVIS TRANSABDOMINAL AND TRANSVAGINAL HISTORY: AUB COMPARISON: There are no prior studies available for comparison. TECHNIQUE: Transabdominal and endovaginal real-time 2D gurrola-scale ultrasound was performed. FINDINGS: Uterus: The uterus is normal in size, measuring 7.4 x 3.1 x 5.1 cm. Myometrium has a normal echotexture. No fibroids are identified. Endometrium: The endometrial stripe measures 2 mm in thickness. There are nabothian cysts in the cervix. Right ovary: The right ovary measures 3.3 x 1.9 x 2.3 cm. The right ovary is normal in size and echotexture. Left ovary: The left ovary measures 2.6 x 1.5 x 2.2 cm. The left ovary is normal in size and echotexture. Pelvic fluid: none. US/US pelvic and transvaginal IMPRESSION: Unremarkable pelvic ultrasound. Electronically signed by: Jose Motta MD 03/17/2025 10:14 AM EDT RP Dictated By: Jose Motta MD Signed By: <Electronically signed by Jose Motta MD in OV> 03/17/25 1014 DD/ 0930 TD/TT: 03/17/25 0944 Electronic Gluer: Procedure Note Donotuseinterpreter, Image - 03/17/[address] [address] Ultrasound Report Signed Patient: Neli Esteban [facility]#: [id number] : 1990Acct:[id number] Age/Sex: 34 / FADM Date: 03/17/25 Loc: HO.US Attending Dr: Lissett Bunn NP Ordering Physician: PRISCILA REYES CNM Date of Service: 03/17/25 Procedure(s): US pelvic and transvaginal Accession Number(s): [id number] cc: PRISCILA REYES CNM; LISSETT BUNN NP EXAMINATION: US PELVIS TRANSABDOMINAL AND TRANSVAGINAL HISTORY: AUB COMPARISON: There are no prior studies available for comparison. TECHNIQUE: Transabdominal and endovaginal real-time 2D gurrola-scale ultrasound was performed. FINDINGS: Uterus: The uterus is normal in size, measuring 7.4 x 3.1 x 5.1 cm. Myometrium has a normal echotexture. No fibroids are identified. Endometrium: The endometrial stripe measures 2 mm in thickness. There are nabothian cysts in the cervix. Right ovary: The right ovary measures 3.3 x 1.9 x 2.3 cm. The right ovary is normal in size and echotexture. Left ovary: The left ovary measures 2.6 x 1.5 x 2.2 cm. The left ovary is normal in size and echotexture. Pelvic fluid: none. US/US pelvic and transvaginal IMPRESSION: Unremarkable pelvic ultrasound. Electronically signed by: Jose Motta MD 03/17/2025 10:14 AM EDT Dictated By: Jose Motta MD Signed By: <Electronically signed by Jose Motta MD in OV> 03/17/25 1014 DD/ 0930 TD/TT: 03/17/25 0944 Electronic Gluer: us Priscila Reyes CNM IM US PROCEDURES Final R esult * STI testing add on (NG, CT, Trich) (02/28/2025 10:41 AM EDT) Trichomonas (NAAT) NOT DETECTED NOT DETECTED [facility] Comment:The analytical perfo rmance characteristics of thisassay have been determined by [employer]. Themodifications have not been cleared or approved bythe FDA. This assay has been validated pursuant to theCLIA regulations and is used for clinical purposes.For additional information, please refer tohttp://education.[employer]/faq/Trichomonastma(This link is being provided for information/educational purposes only.)THIS TEST WAS PERFORMED AT:[employer] [place] [id number] GONZALES MD CTNG Ref Lab NOT DETECTED NOT DETECTED [facility] NG Ref Lab NOT DETECTED NOT DETECTED [facility] ThinPrep vial Cervix uteri structure / Unknown 02/28/2025 10:41 AM EDT 03/01/2025 7:35 AM EDT Narrative [facility] - 03/02/2025 7:34 PM EDT Collection Date: [id number] by: AUGUSTINA Avelar: Cervix Priscila Reyes [facility] CYTOLOGY ORDERABLES F inal Result [facility] [address] [place] [address] [phone] * (ABNORMAL) HPV DNA, Low/High Risk (02/28/2025 10:41 AM EDT) HPV High Risk Positive(A) Negative [facility] HPV Genotype 16 Negative Negative [facility] HPV Genotype 18 Negative Negative [facility] Comment:HPV testing performe d at [facility] (CLIA#[id number]), [address] [place] [address].Testing for HPV was performed using the Mame [...] EDT 03/01/2025 7:35 AM EDT Priscila Reyes CNM LAB BLOOD ORDERABLES Jen terry Result [facility] [address] [place] [phone] * Pap Smear (02/28/2025 10:41 AM EDT) Swab Cervix uteri structure / Unknown 02/28/2025 10:41 AM EDT 03/01/2025 7:35 AM EDT Narrative [facility] - 03/08/2025 1:52 PM EDT ----- ------- Name: Neli Esteban Age/Sex: 34/F : 1990 Unit#: [id number] Attend Dr: PRISCILA REYES CNM Re02/28/25 Status: JOHANNA REF Location: [facility] Disch: ----- ------- SPEC : [id number] RECD: 03/01/25 STATUS: PATITO MASSEY NUM: [id number] AIDE: 02/28/25-[address]: PRISCILA REYES CNM ENTERED: 03/01/25 SP TYPE: Pap Smr OTHR DR: ORDERED: Pap Smear, PAP path review Interpretation [...] and HPV testing will be performed at [facility] (CLIA #[id number]), [address] [place] [address]. Testing for HPV was performed using the [...] detected. All professional services are performed by [facility] ([address] [place] [address]; ; CLIA #[id number]). The PAP Test is a screening procedure with the inherent possibility of both false negative and false positive results. Results should be interpreted in the context of historic and current clinical findings. Reliability of the PAP Test is enhanced by performing the test on a regular repetitive basis. CONTINUED ON NEXT PAGE ----- ------- Name: Neli Esteban Age/Sex: 34/F : 1990 Unit#: [id number] Attend Dr: PRISCILA REYES CNM Re02/28/25 Status: DEP REF [facility]: [facility] Disch: ----- ------- SPEC : [id number] RECD: 03/01/25 STATUS: PATITO MASSEY NUM: [id number] AIDE: 02/28/25-[address] [facility] [address]: PRISCILA REYES CNM ENTERED: 03/01/25 SP TYPE: Pap Smr OTHR DR: ORDERED: Pap Smear, PAP path review ----- ------- Signed (signature on file) Desiree Garrison 03/08/25 1352 ----- ------- END OF REPORT Priscila Reyes CNM LAB CYTOLOGY ORDERABLES F inal Result [facility] [address] [place] [phone] * D Dimer High Sensitivity (02/19/2025 7:53 PM EDT) D Dimer High Sensitivity <150 NG/ML [facility] Comment:D-DIMER HS REFERENCE RANGENote: Our assay reports D-Dimer Units (D- DU).The cut-off value for venous thromboembolic (VTE) disease is230 ng/mL. This value has a very high negative predictivevalue when the patient has a low to moderate clinicalprobability of VTE.The upper limit of normal is 243 ng/mL. 02/19/2025 7:53 PM EDT 02/19/2025 7:57 PM EDT us Generic External Data Provider LAB BLOOD ORDERAB LES Final Result [facility] [address] [place] [phone] [phone] * SARS-CoV-2 RNA, Influenza A/B, and RSV RNA, Ql NAAT (02/19/2025 6:56 PM EDT) Pathologist [facility] Influenza A PCR NEGATIVE Negative [facility] Influenza B PCR NEGATIVE Negative [facility] Resp Syncy Virus RNA Qual PCR NEGATIVE Negative [facility] SARS COV2 PCR NEGATIVE Negative [facility] Comment:All test results mus t [...] use by authorized laboratories.Testing performed on the [employer] GeneXpert utilizingreal-time RT-PCR.All SARS CoV2 and positive influenza A/B results arereported to [facility]. 02/19/2025 6:56 PM EDT 02/19/2025 7:01 PM EDT Generic External Data Provider LAB MICROBIOLOGY - GENERAL ORDERABLES Final Result [facility] [address] [place] [phone] * XR Chest 2 Views (02/19/2025 6:34 PM EDT) Anatomical Region Laterality Modality Chest Radiographic Symone ging 02/19/2025 6:34 PM EDT Narrative 02/19/2025 6:35 PM EDT [address] [address] XRay Report Signed Patient: Neli Esteban MR#: [id number] : 1990 Acct:[id number] Age/Sex: 34 / F ADM Date: 02/19/25 Loc: HO.ED Attending Dr: Ordering Physician: Sulma Hickey NP Date of Service: 02/19/25 Procedure(s): XR chest 2V Accession Number(s): [id number] cc: Sulma Hickey [employer] RECONDITIONER; LISSETT BUNN NP CLINICAL HISTORY: CP Two [...] in OV> 02/19/251834 DD/ 33 TD/TT: 02/19/251833 Electronic Gluer: Procedure Note Donotuseinterpreter, Image - 02/19/[address] [address] XRay Report Signed Patient: Neli Esteban MMR#: [id number] : 1990Acct:[id number] Age/Sex: 34 / FADM Date: 02/19/25 Loc: HO.ED Attending Dr: Ordering Physician: Sulma Hickey NP Date of Service: 02/19/25 Procedure(s): XR chest 2V Accession Number(s): [id number] cc: Sulma Hickey NP; LISSETT BUNN NP [...] in OV> 02/19/251834 DD/ 33 TD/TT: 02/19/251833 Electronic Gluer: [facility] External Provider IMG XR PROCEDURES Edited Result - Final * (ABNORMAL) CBC auto differential (02/19/2025 6:20 PM EDT) Only the most recent of2 resultswithin the time period is included. White Blood Count 6.8 4.8 - 10.8 X10*3/uL [facility] Red Blood Count 4.98 4.20 - 5.50 X10*6/uL [facility] Hemoglobin 14.8 12.0 - 16.0 g/dl [facility] Hematocrit 42.2 37.0 - 47.0 % [facility] Mean Corpuscular Volume 84.7 80.0 - 98.0 fL [facility] Mean Corpuscular Hemoglobin 29.7 27.0 - 33.0 pg [facility] Mean Corpuscular HGB Conc 35.1(H) 31.0 - 35.0 g/dl [facility] Red Cell Distribution Width 12.1 11.0 - 16.0 % [facility] Platelet Count 307 160 - 400 X10*3/uL [facility] Mean Platelet Volume 8.6(L) 9.4 - 12.3 fL [facility] Neutrophils Percent Auto 47.1 45 - 73 % [facility] Imm Gran Pct Auto 0.1 0.0 - 0.4 % [facility] Lymphocytes Percent Auto 43.2(H) 20 - 40 % [facility] Monocytes Percent Auto 6.1 2 - 11 % [facility] Eosinophils Percent Auto 2.8 0 - 4 % [facility] Basophils Percent Auto 0.7 0 - 2 % [facility] NRBC Pct Auto 0.0 0.0 - 0.2 /100WBC [facility] Neutrophils Absolute Auto 3.2 2.0 - 8.3 x10*3/uL [facility] Imm Gran Abs Auto 0.01 0.00 - 0.03 X10*3/uL [facility] Lymphocytes Absolute Auto 2.9 1.2 - 4.9 X10*3/uL [facility] Monocytes Absolute Auto 0.4 0.1 - 1.2 X10*3/uL [facility] Eosinophils Absolute Auto 0.2 0.0 - 0.4 X10*3/uL [facility] Basophils Absolute Auto 0.1 0.0 - 0.2 X10*3/uL [facility] NRBC Abs Auto 0.000 0.0 - 0.012 X10*3/uL [facility] 02/19/2025 6:20 PM EDT 02/19/2025 6:23 PM EDT us Generic External Data Provider LAB BLOOD ORDERAB LES Final Result [facility] [address], [place] [phone] * High Sensitivity Troponin I (02/19/2025 6:19 PM EDT) TROPONIN I HIGH SENSITIVITY <2.7 <3.5 - 17.0 ng/L [facility] Comment:The Kwan high sens itivity Troponin-I results should beused in conjunction with other diagnostic information suchas ECG, clinical observations and information, and patientsymptoms to aid in the diagnosis of NH. 02/19/2025 6:19 PM EDT 02/19/2025 6:23 PM EDT Generic External Data Provider LAB BLOOD ORDERAB LES Final Result Performing Organization Address [facility] de Phone Number [facility] [address] [place] [phone] * Hepatic Function Panel (02/19/2025 6:19 PM EDT) Bilirubin, Total 0.1 0.0 - 1.0 mg/dL [facility] Bilirubin, Direct <0.2 0.0 - 0.5 mg/dL [facility] Aspartate Amino Transferase 27 5 - 31 U/L [facility] Alanine Aminotransferase 22 0 - 31 U/L [facility] Total Protein 7.2 6.5 - 8.0 g/dL [facility] Albumin Level 4.1 3.5 - 5.0 g/dL [facility] Alkaline Phosphatase 44 39 - 117 U/L [facility] 02/19/2025 6:19 PM EDT 02/19/2025 6:23 PM EDT [employer] External Data Provider LAB BLOOD ORDERAB LES Final Result Performing Organization Address [facility] Phone Number [facility] [address] [place] [phone] * Basic Metabolic Panel (02/19/2025 6:19 PM EDT) Sodium 139 135 - 145 mmol/L [facility] Potassium 4.3 3.3 - 5.1 mmol/L [facility] Chloride 107 96 - 108 mmol/L [facility] Carbon Dioxide 24 22 - 29 mmol/L [facility] Anion Gap 12 12 - 20 [facility] Urea Nitrogen (BUN) 15 9 - 16 mg/dL [facility] Creatinine, Serum 0.64 0.5 - 1.4 mg/dL [facility] Creatinine Clr Calc Pharmacy 107.6 [facility] Comment:Provided height and weight: 157.48 cm,61.235 kg.eGFR (calculated from the MDRD study equation) and eCrCl(calculated from the Cockcroft-Gault equation) are based ondifferent parameters and may not yield comparable results.If eCrCl result is absurd, please check patient'sheight/weight. Estimated Glomerular Filt Rate >60 [facility] Comment:Chronic Kidney Disea se: Estimated GFR < 60 mL/min/1.02a4Iclsuf Kidney Disease: Estimated GFR < 15 mL/min/1.73m2 Glucose 86 60 - 115 mg/dL [facility] Calcium 8.9 8.4 - 10.2 mg/dL [facility] 02/19/2025 6:19 PM EDT 02/19/2025 6:23 PM EDT [facility] External Data Provider LAB BLOOD ORDERAB LES Final Result [facility] [address] [place] [phone] * (ABNORMAL) Helicobacter pylori??Antigen, EIA, Stool (01/31/2025 10:30 AM EDT) H pylori Ag Stool SEE NOTE(A) [facility] Comment:HELICOBACTER PYLORI AG, EIA, STOOL Micro Number: [id number] Test Status: Final Specimen Source: Stool Specimen Quality: Adequate H.pylori Ag: Detected Reference Range: Not DetectedTHIS TEST WAS PERFORMED AT:[facility] [address] [id number] GONZALES MD Stool Rectal contents / Unknown 01/31/2025 10:30 AM EDT 01/31/2025 12:55 PM EDT [facility] BODY FLUIDS AND STOOLS ORDER DEV Final Result [facility] [address] [place] [phone] * (ABNORMAL) Urinalysis, Complete, with Reflex to Culture (01/25/2025 10:25 AM EDT) Color Urine Dark Yellow [facility] Appearance Urine Clear [facility] PH 6.0 5.0 - 9.0 [facility] Glucose Urine UA Negative Negative mg/dL [facility] Urine Blood Negative Negative [facility] Specific Commerce - Urine >=1.030(H) 1.005 - 1.025 [facility] Urine Protein Trace Neg-Trace mg/dL [facility] Urine Ketones Trace Negative mg/dL [facility] Nitrite Urine Negative Negative [facility] Leukocyte Esterase Urine Moderate (2+)(A) Negative [facility] RBC Urine 0-2 0 - 2 /HPF [facility] Urine WBC 0-5 0 - 5 /HPF [facility] Urine Squamous Epithelial Cell 6-10 0 - 2 /HPF [facility] Urine Bacteria 2+ None Seen [facility] Hyaline Casts, Urine 0-2 0 - 2 /LPF [facility] Urine 01/25/2025 10:2 5 AM EDT 01/25/2025 11:10 AM EDT Narrative [facility] - 01/25/2025 11:28 AM EDT Urine, Clean Catch [facility] URINE ORDERABLES Final Resul t [facility] [address] [place] [phone] * Hepatitis B surface antigen, EIA (01/25/2025 10:25 AM EDT) Hepatitis B Surface Ag Negative Negative [facility] Blood Venous blood specimen / Unknown 01/25/2025 10:25 AM EDT 01/25/2025 11:01 AM EDT us Lissett Bunn ANP LAB BLOOD ORDERABLES Final Resul t Performing Organization Address [facility] Co de Phone Number [facility] [address] [place] [phone] * Hepatitis B Core Antibody, Total (01/25/2025 10:25 AM EDT) Hepatitis B Core Antibody Nonreactive Nonreactive [facility] Blood Venous blood specimen / Unknown 01/25/2025 10:25 AM EDT 01/25/2025 11:01 AM EDT us Lissett Bunn ANP LAB BLOOD ORDERABLES Final Resul t Performing Organization Address [facility] Number [facility] [address] [place] [phone] * Hepatitis B Surface Antibody, Qualitative (01/25/2025 10:25 AM EDT) ~Hepatitis B Surface Antibody REACTIVE Nonreactive [facility] Comment:REACTIVE: > 11.99 mI U/mL Blood Venous blood specimen / Unknown 01/25/2025 10:25 AM EDT 01/25/2025 11:01 AM EDT us Lissett Bunn ANP LAB BLOOD ORDERABLES Final Resul t Performing Organization Address [facility] de Phone Number [facility] [address] [place] [phone] * Lipase (01/25/2025 10:25 AM EDT) Lipase 18 8 - 78 U/L [facility] Blood Venous blood specimen / Unknown 01/25/2025 10:25 AM EDT 01/25/2025 11:01 AM EDT us Lissett Bunn ANP LAB BLOOD ORDERABLES Final Resul t Performing Organization Address [facility] Co de Phone Number [facility] [address] [place] [phone] * Hemoglobin A1c (01/25/2025 10:25 AM EDT) Hemoglobin A1c 4.8 <6.0 % [facility] Comment:Hemoglobin A1C Refer ence Range Adults: 4.8 - 6.0 % Non diabetic: < 6.0 % Goal: < 7.0 %Additional Action Suggested: > 8.0 %Note: Hemoglobin A1c results are invalid for patients with abnormal amounts of HbF. Blood transfusions may impact the HbA1c concentration in the patient sample. Estimated Average Glucose 91 mg/dL [facility] Comment:eAG = Estimated ave rage glucose which is %A1C expressed asaverage glucose, using the formula of the K8F-QfgllwvYuzhgnc Glucose study (ADAG), Diabetes Care, Vol.31,#8,Mar. 2007 Blood Venous blood specimen / Unknown 01/25/2025 10:25 AM EDT 01/25/2025 11:05 AM EDT Lissett Bunn ANP LAB BLOOD ORDERABLES Final Resul t Performing Organization Address [facility]/ZIP Co de Phone Number [facility] [address] [place] [phone] * Amylase (01/25/2025 10:25 AM EDT) Amylase 98 28 - 100 U/L [facility] Blood Venous blood specimen / Unknown 01/25/2025 10:25 AM EDT 01/25/2025 11:01 AM EDT Lissett Bunn ANP LAB BLOOD ORDERABLES Final Resul t Performing Organization Address [facility]/ZIP Co de Phone Number [facility] [address] [place] [phone] * Lipid Panel, Standard (01/25/2025 10:25 AM EDT) Triglycerides 120 <150 mg/dL [facility] Comment:Desirable Triglyceri de: less than 150 mg/dLBorderline High Triglyceride 150-199 mg/dLHigh Triglyceride: 200-499 mg/dLVery High Triglyceride: greater than or equal to 5OO mg/dL Cholesterol 133 <200 mg/dL [facility] Comment:Desirable Cholestero l: less than 200 mg/dLBorderline High Cholesterol: 200-239 mg/dLHigh Cholesterol: greater than 239 mg/dL LDL Cholesterol Calculated 62 <100 mg/dL [facility] Comment:Desirable LDL: less than 100 mg/dLNear Optimal/Above Optimal LDL: 110- 129 mg/dLBorderline High LDL: 130-159 mg/dLHigh LDL: 160-189 mg/dLVery High LDL: greater than or equal to 190 mg/dL HDL Cholesterol 47 >40 mg/dL [facility] Comment:Desirable HDL: great er than 40 mg/dL Note: This HDL assay may give artificially low results in patients with liver disease. Blood Venous blood specimen / Unknown 01/25/2025 10:25 AM EDT 01/25/2025 11:01 AM EDT us Lissett Bunn [facility] LAB BLOOD ORDERABLES Final Resul t [facility] [address] [place] [phone] * (ABNORMAL) Comprehensive Metabolic Panel (01/25/2025 10:25 AM EDT) Sodium 138 135 - 145 mmol/L [facility] Potassium 4.5 3.3 - 5.1 mmol/L [facility] Chloride 106 96 - 108 mmol/L [facility] Carbon Dioxide 26 22 - 29 mmol/L [facility] Anion Gap 11(L) 12 - 20 [facility] Urea Nitrogen (BUN) 10 9 - 16 mg/dL [facility] Creatinine, Serum 0.69 0.5 - 1.4 mg/dL [facility] Estimated Glomerular Filt Rate >60 [facility] Comment:Chronic Kidney Disea se: Estimated GFR < 60 mL/min/1.61v5Wslpnb Kidney Disease: Estimated GFR < 15 mL/min/1.73m2 Glucose 83 60 - 115 mg/dL [facility] Calcium 9.2 8.4 - 10.2 mg/dL [facility] Bilirubin, Total 0.5 0.0 - 1.0 mg/dL [facility] Aspartate Amino Transferase 28 5 - 31 U/L [facility] Alanine Aminotransferase 17 0 - 31 U/L [facility] Total Protein 7.1 6.5 - 8.0 g/dL [facility] Albumin Level 4.0 3.5 - 5.0 g/dL [facility] Alkaline Phosphatase 44 39 - 117 U/L [facility] Blood Venous blood specimen / Unknown 01/25/2025 10:25 AM EDT 01/25/2025 11:01 AM EDT Lissett SANTIAGO LAB BLOOD ORDERABLES Final Resul t Performing Organization Address City/[facility]/ZIP Co de Phone Number [facility] [address] [place] [phone] * Culture, Urine, Routine (01/25/2025 12:00 AM EDT) Urine Urine specimen obtained by clean catch procedure / Unknown 01/25/2025 01/25/2025 Comment:UACC Narrative [facility] - 01/26/2025 10:10 AM EDT Urine Culture No growth. Specimen Source: Urine clean catch Lissett SANTIAGO LAB MICROBIOLOGY - GENERAL ORDER DEV Final Result [facility] [address] [place] [phone] * HIV Ab/Ag (ASHLEIGH WALKER) (05/28/2023 12:09 PM EDT) HIV AB/AG Nonreactive Nonreactive [facility] Comment:HIV-1 p24 Ag and/or HIV-1/HIV-2 Ab not detected.A test result that is nonreactive does not exclude thepossibility of exposure to or infection with HIV-1 and/orHIV-2. Nonreactive results in this assay for individualswith prior exposure to HIV-1 and/or HIV-2 may be due toantigen and antibody levels that are below the limit ofdetection of this assay.The Conjecturnity HIV Ag/Ab Combo assay result andsupplemental assay results should be interpreted inconjunction with the patient's clinical presentation,history and other laboratory results. If the results areinconsistent with clinical evidence, additional testing issuggested to confirm the result. 05/28/2023 12:0 9 PM EDT 05/28/2023 12:57 PM EDT Priscila Reyes [facility] BLOOD ORDERABLES Jen l Result Performing Organization Address [facility] Co de Phone Number [facility] [address] [place] [phone] * Hepatitis C Antibody with Reflex to HCV, RNA, Quantitative, Real-Time PCR (05/28/2023 12:09 PM EDT) Hepatitis C Antibody Nonreactive Nonreactive [facility] Comment:Antibodies to HCV no t detected; does not exclude early acuteHCV infection. Blood Venous blood specimen / Unknown 05/28/2023 12:09 PM EDT 05/28/2023 12:57 PM EDT [facility] BLOOD ORDERABLES Jen l Result Performing Organization Address [facility]/ZIP Co de Phone Number [facility] [address] [place] [phone] from Last 3 Months or Most Recently Relevant to Health Maintenance Insurance [facility] C3 Care Teams Senior Android Developer Relationship Specialty Start Date End Date Lissett Bunn ANP [address] [place] [phone] PCP - General Family Medicine 07/17/20
--- OUTSIDE RECORDS SUMMARY | 2025-04-21 22:18 | XMS_ITS | Encounter Summary ---
Author Organization [employer] Address [address] [place] [address] Care Team Providers Care Cost Accountant Name Role Phone Rachelle Olson Primary Care Provider [phone] Encounter Details Date Type Department Care Team (Latest Contact Info) Description 03/20/2025 Results Follow-Up [facility] [address] [place], [place] [phone] Franny Galloway CNM [address], [place] [phone] US Pelvis Transvaginal Social History Tobacco Use Types Packs/Day Years [...] Description 04/25/2025 9:30 AM EDT Office Visit [facility] [address] [place] [phone] Rachelle Olson ANP [address] [place] [address] documented as of this encounter Visit Diagnoses Not on filedocumented in this encounter Additional Health Concerns Assessment Noted Time PHQ-9 Depression Total Score: 0 09/01/19 25 2:43 PM EST documented as of this encounter Care Teams Cost Accountant Relationship Specialty Start Date End Date Rachelle Olson ANP [address] [place] [phone] PCP - General Family Medicine 07/17/20 documented as of this encounter
--- OUTSIDE RECORDS SUMMARY | 2025-04-21 22:18 | XMS_ITS | Clinical Summary ---
Author Organization [facility] Address [address] [place] [address] Care Team Providers Care Survey Crew Chief Name Role Phone Rachelle Olson Primary Care Provider [phone] Medications No known medications Active Problems Problem [...] patient's age to complete this topic Insurance brettapproved Care Teams Survey Crew Chief Relationship Specialty Start Date End Date Rachelle Olson [address] [place] [phone] PCP - General 06/10/22
--- OUTSIDE RECORDS SUMMARY | 2025-04-21 22:18 | XMS_ITS | Encounter Summary ---
Author Organization [employer] Address [address] [place] [address] Care Team Providers Care Assembler Garment Form Name Role Phone Rachelle Olson Primary Care Provider [phone] Reason for Visit * Reason Comments Pre-visit Planning SDOH was already com pleted Encounter Details Date Type Department Care Team ([facility] st Contact Info) Description 04/18/2025 Patient Outreach [facility] [address] [place], [place] [phone] Rachelle Olson ANP [address] [place] [address] Pre-visit Planning (SDOH was already completed) Social History Tobacco Use Types Packs/Day Years [...] AM EDT documented as of this encounter Progress Notes * Grace Mitchell - 04/18/2025 11:32 AM EDT CC Grace Groves placed successful outbound call to patient for pre-visit planning. Patient name and confirmed. Patient confirms appt date and time, and has transportation arrangements. Biggest concern for appointment at this time is abdominal pain on left side. Appropriate screenings completed inanticipation of appointment. documented in this encounter Plan of Treatment Upcoming Encounters Date Type Department Care Team (Late st Contact Info) Description 04/25/2025 9:30 AM EDT Office Visit [facility] [address] [place] [address] Rachelle Olson ANP [address] [place] [address] documented as of this encounter Visit Diagnoses Not on filedocumented in this encounter Additional Health Concerns Assessment Noted Time PHQ-9 Depression Total Score: 0 09/01/19 25 2:43 PM EST documented as of this encounter Care Teams Assembler Garment Form Relationship Specialty Start Date End Date Rachelle Olson ANP [address] [place] [address] PCP - General Family Medicine 07/17/20 documented as of this encounter
--- OUTSIDE RECORDS SUMMARY | 2025-04-21 22:18 | XMS_ITS | Encounter Summary ---
Author Organization [employer] Address [address] [place] [address] Care Team Providers Care Costume Rental Clerk Name Role Phone Lissett Bunn Primary Care Provider [phone] Encounter Details Date Type Department Care Team (Late st Contact Info) Description 04/20/2025 Orders Only [facility] External Provider, [facility] Social History Tobacco Use Types Packs/Day Years [...] Description 04/25/2025 9:30 AM EDT Office Visit [facility] [address] [place], [place] [phone] Lissett Bunn ANP [address] [place], [place] [phone] documented as of this encounter Procedures Procedure Name Priority Date/Time Associated Diagnosis Comments [facility] US LOWER EXTREMITY VENOUS DUPLEX BILATERAL Routine 04/20/2025 1:34 PM EDT documented in this encounter Results * [facility] US Lower Extremity Venous Duplex Bilateral (04/20/2025 1:34 PM EDT) 04/20/2025 1:34 PM EDT Narrative [facility] - 04/20/2025 5:27 PM EDT [facility] [address] [place] [phone] Ultrasound Report Signed Patient: Neli Esteban MR#: [id number] : 1990 Acct:[id number] Age/Sex: 34 / F ADM Date: 04/20/25 Loc: HO.US Attending Dr: Jerome Douglas MD Ordering Physician: Jerome Douglas MD Date of Service: 04/20/25 Procedure(s): US venous duplex LE BI Accession Number(s): [id number] cc: Jerome Douglas MD; LISSETT BUNN NP [...] 04/20/25 1724 DD/ 1334 TD/TT: 04/20/25 1409 E Commerce Marketing Analyst: Procedure Note Donotuseinterpreter, Image - 04/20/[address] [address] Ultrasound Report Signed Patient: Neli Esteban [facility]#: [id number] : 1990Acct:[id number] Age/Sex: 34 / FADM Date: 04/20/25 Loc: HO.US Attending Dr: Jerome Douglas MD Ordering Physician: Jerome Douglas MD Date of Service: 04/20/25 Procedure(s): US venous duplex LE Accession Number(s): [id number] cc: Jerome Douglas MD; LISSETT BUNN NP [...] 04/20/25 1724 DD/ 1334 TD/TT: 04/20/25 1409 E Commerce Marketing Analyst: us [facility] External Provider CV VASC ULAR PROCEDURES Final Result [facility] [address] [place] [phone] documented in this encounter Visit Diagnoses Not on filedocumented in this encounter Additional Health Concerns Assessment Noted Time PHQ-9 Depression Total Score: 0 09/01/19 25 2:43 PM EST documented as of this encounter Care Teams Costume Rental Clerk Relationship Specialty Start Date End Date Lissett Bunn ANP [address] [place] [address] PCP - General Family Medicine 07/17/20 documented as of this encounter
--- OUTSIDE RECORDS SUMMARY | 2025-04-21 22:18 | XMS_ITS | Encounter Summary ---
Author Organization [employer] Address [address] [facility] [address] [place] [address] Care Team Providers Care Mining Engineering Technologist Name Role Phone Rachelle Olson Primary Care Provider [phone] Reason for Visit * Reason Onset Date Comments Nurse Triage 04/16/2023 Encounter Details Date Type Department Care Team ([facility] st Contact Info) Description 04/16/2023 Telephone [facility] [address] [place] [address] Rachelle Olson ANP [address] [place] [address] Nurse Triage Social History Tobacco Use Types [...] stones. Pt is offered to come to [facility] but, requests to see PCP. Apt with PCP 05/04/23 at 1100am. Pt is advised to seek evaluation at either [facility] or ED if symptoms become worse [...] The caller accepted this outcome Patient speaks kittitian documented in this encounter Plan of Treatment Upcoming Encounters Date Type Department Care Team (Late st Contact Info) Description 04/25/2025 9:30 AM EDT Office Visit [facility] [address] [place] [address] Rachelle Olson ANP [address] [place] [address] documented as of this encounter Visit Diagnoses Not on filedocumented in this encounter Care Teams Mining Engineering Technologist Relationship Specialty Start Date End Date Rachelle Olson ANP [address] [place] [address] PCP - General Family Medicine 07/17/20 documented as of this encounter
[2025-04-21 22:20] LABS: Appearance Urine Clear; Glucose Urine UA Negative (Negative); PH 6.5 (5.0-9.0); Specific Gravity - Urine >= 1.030 (1.005-1.025); UPreg QC Valid YES
[2025-04-21 22:32] LABS: Alanine Aminotransferase 20 U/L (0-31); Albumin Level 4.0 g/dL (3.5-5.0); Alkaline Phosphatase 42 U/L (39-117); Anion Gap 9 (12-20); Aspartate Amino Transferase 26 U/L (5-31); Blood Urea Nitrogen 14 mg/dL (9-16); Calcium 8.9 mg/dL (8.4-10.2); Carbon Dioxide 27 mmol/L (22-29); Chloride 105 mmol/L (96-108); Creatinine Clr Calc Pharmacy 90.4; Estimated Glomerular Filt Rate > 60; Lipase 23 U/L (8-78); Potassium 3.9 mmol/L (3.3-5.1); Sodium 137 mmol/L (135-145); Total Protein 7.0 g/dL (6.5-8.0)
== END 2025-04-22 02:52 | disposition left against medical advice (07) ==
PROVIDERS: Physician Assistant Medical; Emergency Provider Emergency Medicine; PCP Nurse Practitioner Primary Care
DX: R10.9 Unspecified abdominal pain (principal); Z79.899 Other long term (current) drug therapy; Z87.891 Personal history of nicotine dependence
CPT/HCPCS: 36415; 74019; 80053; 81003; 81025; 83690; 85025; 99282; 99283

== ENCOUNTER → 2025-04-21 21:55 | Outpatient (BNV) | payer MEDICAID, SELFPAY | PROVIDERS: PCP Nurse Practitioner Primary Care; Visit Provider Specialist | DX: R14.0 Abdominal distension (gaseous) (principal) | CPT/HCPCS: 74019 ==

== ENCOUNTER 2025-05-04 12:27 | Outpatient (REF) | payer MEDICAID, SELFPAY ==
--- OUTSIDE RECORDS SUMMARY | 2025-05-04 13:58 | XMS_ITS | Encounter Summary ---
Author Organization [employer] Address [address] [place] [address] Care Team Providers Care Manager Metal Name Role Phone Rachelle Olson Primary Care Provider [phone] Encounter Details Date Type Department Care Team (Late st Contact Info) Description 07/23/2024 Orders Only [facility] [address] [place], [place] [phone] Haritha Selby MD [address] [place], [place] [phone] Hematuria, unspecified type (Primary Dx) Social History [...] as of this encounter Plan of Treatment Not on file documented as of this encounter Procedures Procedure Name Priority Date/Time Associated Diagnosis Comments URINALYSIS, COMPLETE, WITH REFLEX TO CULTURE Routine 08/29/2024 11:58 AM EST Hematuria, unspecified type documented in this encounter Results * (ABNORMAL) Urinalysis, Complete, with Reflex to Culture (08/29/2024 11:58 AM EST) Color Urine Yellow [facility] Appearance Urine Clear [facility] PH 7.5 5.0 - 9.0 [facility] Glucose Urine UA Negative Negative mg/dL [facility] Urine Blood Small (1+)(A) Negative [facility] Specific [place] - Urine 1.020 1.005 - 1.025 [facility] Urine Protein Negative Neg-Trace mg/dL [facility] Urine Ketones Negative Negative mg/dL [facility] Nitrite Urine Negative Negative [facility] Leukocyte Esterase Urine Negative Negative [facility] RBC Urine 0-2 0 - 2 /HPF [facility] Urine WBC 0-5 0 - 5 /HPF [facility] Urine Squamous Epithelial Cell 0-2 0 - 2 /HPF [facility] Urine Bacteria None Seen None Seen [facility] Hyaline Casts, Urine 0-2 0 - 2 /LPF [facility] Urine 08/29/2024 11:5 8 AM EST 08/29/2024 1:11 PM EST Narrative [facility] - 08/29/2024 1:57 PM EST Urine, Clean Catch us Haritha Selby MD LAB URINE ORDERABLES Final Resul t [facility] [address] [place] [address] [phone] documented in this encounter Visit Diagnoses Diagnosis Hematuria, unspecified type- Primary documented in this encounter Care Teams Manager Metal Relationship Specialty Start Date End Date Rachelle Olson ANP [address] [place] [id number] PCP - General Family Medicine 07/17/20 documented as of this encounter
--- OUTSIDE RECORDS SUMMARY | 2025-05-04 13:58 | XMS_ITS | Clinical Summary ---
Author Organization [employer] Address [address] [facility] [address] [place] [address] Care Team Providers Care Housing Relocation Name Role Phone Lissett Bunn Primary Care Provider [phone] Allergies Active Allergy Reactions Criticality Noted Date Comments Avocado Vomiting 01/24/2025 Kiwi Extract Unknown 01/24/2025 Throat itching Medications betamethasone valerate (Valisone) 0.1 % ointmentIndica tions:Psoriasi s Apply topically 2 times daily. 45 g 1 09/01/19 25 Active lidocaine (Lidoderm) 5 % patchIndicatio ns:Chronic midline low back pain without sciatica Apply 1 patch topically Once per day. Remove & discard patch within 12 hours or as directed by MD. 30 patch 2 01/25/20 25 Active ibuprofen 600 MG tablet 1 tablet every 8 hours with food x 7 days 21 tablet 03/08/20 25 Active Levonorgest-Et h Estrad 91-Day (LoSeasonique) 0.1-0.02 & 0.01 MG tablet TAKE 1 TABLET BY MOUTH EVERY DAY. START DAY AFTER TAKING EC. 91 tablet 3 04/11/20 25 Active hydrocortisone (Anusol-HC) 2.5 % rectal cream Insert into the rectum 2 times daily. 28 g 12/23/19 24 025 Discontinued(Th erapy completed) Levonorgest-Et h Estrad 91-Day (LoSeasonique) 0.1-0.02 & 0.01 MG tablet Take 1 tablet by mouth Once per day. Start day after taking EC. 91 tablet 3 04/08/20 24 025 Discontinued(Re order (will not trigger notification to Pharmacy)) cromolyn (NasalCrom) 5.2 MG/ACT nasal sprayIndicatio ns:Acute URI Administer 1 spray into each nostril 3 times daily for 5 days. 26 mL 12 08/30/19 025 Discontinued( erapy completed) SUMAtriptan (Imitrex) 50 MG tablet TAKE 1 TABLET BY MOUTH 1 TIME IF NEEDED FOR MIGRAINE. MAY REPEAT DOSE ONCE IN 2 HOURS IF NO RELIEF, MAX 2 DOSES/24 HOURS. 9 tablet 12/16/19 025 Discontinued( erapy completed) omeprazole (PriLOSEC) [address] capsuleIndicat ions:Bacterial infection due to H. pylori Take 1 capsule (20 mg) by mouth before breakfast and before evening meal for 10 days. Do not crush or chew. 20 capsule 02/05/20 025 Discontinued( erapy completed) bismuth-metroN IDAZOLE-tetrac ycline (Pylera) 140-125-125 MG capsuleIndicat ions:Bacterial infection due to H. pylori Take 3 capsules by mouth before breakfast, before lunch, before evening meal, and at bedtime for 10 days. Follow each dose with 8 oz of water. 120 capsule 02/05/20 025 Discontinued( erapy completed) Active Problems Problem Noted Date Diagnosed Date [...] Encounters Date Type Department Care Team Description 04/28/2025 Orders Only [address] [address] Lissett Bunn ANP 04/27/2025 Orders Only [address] [address] Lissett Bunn ANP LLQ pain (Primary Dx); Abnormal x-ray of abdomen 04/26/2025 Telephone [facility] [address] [place] [address] ABD ORDER 04/26/[address] [address] Lissett Bunn ANP 04/25/2025 9:30 AM EDT Office Visit [address] [address] Lissett Bunn ANP LLQ pain (Primary Dx); Abnormal x-ray of abdomen; Varicose veins of right lower extremity with inflammation; Healthcare maintenance; History of Helicobacter pylori infection 04/25/2025 Travel 04/24/[address] [address] Lissett Bunn ANP chart prep 04/21/2025 Orders Only GENERIC EXTERNAL DATA DEPARTMENT Provider, Generic External Data 04/20/2025 Orders Only [facility] External Provider, [facility] 04/18/2025 Patient Outreach [facility] [address] [place], [place] [phone] Lissett Bunn ANP Pre-visit Planning (SDID was already completed) 04/11/[address] [address] Lissett Bunn ANP 03/20/2025 Results Follow-Up [address] [address] Priscila Reyes CNM US Pelvis Transvaginal 03/17/[address] [address] Lissett Bunn ANP Ultrasound order 03/09/2025 Orders Only [address] [address] Priscila Reyes CNM Abnormal uterine bleeding (Primary Dx) 03/08/2025 Orders Only [address] [address] Priscila Reyes CNM 03/08/2025 Orders Only [address] [address] Priscila Reyes CNM Atypical squamous cells cannot exclude high grade squamous intraepithelial lesion on cytologic smear of cervix (ASC-H) (Primary Dx); Atypical glandular cells of undetermined significance (SULEMA) on cervical Pap smear; Cervical high risk HPV (human papillomavirus) test positive 03/08/[address] [address] Lissett Bunn ANP Nurse Triage 03/06/2025 Results Follow-Up [address] [address] Priscila Reyes CNM HPV DNA, Low/High Risk 02/28/2025 9:30 AM EDT Procedure Visit [address] [address] Priscila Reyes CNM Cervical cancer screening (Primary Dx); Screening examination for venereal disease; Abnormal uterine bleeding 02/28/2025 Orders Only [address] [address] Priscila Reyes CNM 02/28/2025 Travel 02/19/2025 Orders Only GENERIC EXTERNAL DATA DEPARTMENT Provider, Generic External Data 02/08/[address] [address] Lissett Bunn ANP April recall from Last 3 Months Immunizations Immunization Administration [...] Sign Reading Time Taken Comments Blood Pressure 104/80 04/25/2025 9:35 AM EDT Pulse 96 04/25/2025 9:35 AM EDT Temperature 36.9 C (98.4 F) 04/25/2025 9:35 AM EDT Respiratory Rate 20 04/25/2025 9:35 AM EDT Oxygen Saturation 99% 02/28/2025 10:01 AM EDT Inhaled Oxygen Concentration - - Weight 59.4 kg (131 lb) 04/25/2025 9:35 AM EDT Height 160 cm (5' 3 ) 04/25/2025 9:35 AM EDT Body Mass Index 23.21 04/25/2025 9:35 AM EDT Plan of Treatment Health Maintenance Due Date Last Done Comments HPV Vaccines (1 - 3-dose series) 12/21/2006 Colposcopy 03/01/2025 COVID-19 Vaccine (3 - 2024-2 6 season) 2025 04/02/2021, 03/12/2021 Influenza Vaccine (#1) 2025 , 07/24/2020 Alcohol/Substance Use Screening 09/01/2025 09/01/2024 Depression Screening 09/01/2025 09/01/2024, 09/01/2024 SDOH Screening 01/16/2026 01/16/2025 Family Planning (PISQ) 02/28/2026 02/28/2025 Disability Screening 04/25/2026 04/25/2025 Tobacco Screening 04/25/2026 04/25/2025 Cervical Cancer Screening 02/29/2028 HPV/Cotest 02/29/2028 02/28/2025 [...] Procedure Name Priority Date/Time Associated Diagnosis Comments XR ABDOMEN 2V+ Routine 04/21/2025 11:38 PM EDT URINALYSIS WITH REFLEX MICROSCOPIC Routine 04/21/2025 10:08 PM EDT HCG, QL, URINE Routine 04/21/2025 10:08 PM EDT LIPASE Routine 04/21/2025 10:02 PM EDT COMPREHENSIVE METABOLIC PANEL Routine 04/21/2025 10:02 PM EDT CBC WITH AUTO DIFFERENTIAL Routine 04/21/2025 10:02 PM EDT VASC US LOWER EXTREMITY VENOUS DUPLEX BILATERAL [...] HEPATIC FUNCTION PANEL Routine 6:19 PM EDT HEPATITIS C AB W/REFL TO HCV RNA, QN, PCR Routine 05/28/2023 12:09 PM EDT Encntr screen for infections w sexl mode of transmiss HIV ANTIBODY/ANTIGEN ([place] DPH) Routine 05/28/2023 12:09 PM EDT from Last 3 Months or Most Recently Relevant to Health Maintenance Results * XR Abdomen 2 View minimum (04/21/2025 11:38 PM EDT) Anatomical Region Laterality Modality Abdomen Radiographic Symone ging 04/21/2025 11:3 8 PM EDT Narrative 04/21/2025 11:41 PM EDT [address] [address] XRay Report Signed Patient: Neli Esteban MR#: [id number] : 1990 Acct:[id number] Age/Sex: 34 / F ADM Date: 04/21/25 Loc: HO.ED Attending Dr: Ordering Physician: Cathy Montiel PA-C Date of Service: 04/21/25 Procedure(s): XR abdomen min 2V Accession Number(s): [id number] cc: Cathy Montiel PA-C; LISSETT BUNN NP Reason for Exam: left sided flank pain, please do upright CLINICAL HISTORY: left sided flank pain, please do upright 1 view abdomen Comparison: None provided Findings: Nonobstructive bowel gas pattern. No pneumoperitoneum. Multiple air-fluid levels suggestive of ileus. No abnormal calcifications. No acute fractures. Lung bases are clear. IMPRESSION: 1. Multiple air-fluid levels may represent ileus. 2. Nonobstructive bowel gas pattern with no pneumoperitoneum. This document has been electronically signed by: Jessica Minaya MD on 04/21/2025 23:38:43 Dictated By: Jessica Minaya MD Signed By: <Electronically signed by Jessica Minaya MD in OV> 04/21/25 2340 DD/ 37 TD/TT: 04/21/252337 Power Plant Mechanic: Procedure Note Donotuseinterpreter, Image - 04/21/[address] [address] XRay Report Signed Patient: Neli Esteban [facility]#: [id number] : 1990Acct:[id number] Age/Sex: 34 / FADM Date: 04/21/25 Loc: .ED Attending Dr: Ordering Physician: Cathy Montiel PA-C Date of Service: 04/21/25 Procedure(s): XR abdomen min 2V Accession Number(s): [id number] cc: Cathy Montiel PA-C; LISSETT BUNN NP Reason for Exam: left sided flank pain, please do upright CLINICAL HISTORY: left sided flank pain, please do upright 1 view abdomen Comparison: None provided Findings: Nonobstructive bowel gas pattern. No pneumoperitoneum. Multiple air-fluid levels suggestive of ileus. No abnormal calcifications. No acute fractures. Lung bases are clear. IMPRESSION: 1. Multiple air-fluid levels may represent ileus. 2. Nonobstructive bowel gas pattern with no pneumoperitoneum. This document has been electronically signed by: Jessica Minaya MD on 04/21/2025 23:38:43 Dictated By: Jessica Minaya MD Signed By: <Electronically signed by Jessica Minaya MD in OV> 04/21/25 2340 DD/ 37 TD/TT: 04/21/252337 Power Plant Mechanic: [facility] External Provider IMG XR PROCEDURES Edited Result - Final * HCG, Qualitative, Urine (04/21/2025 10:08 PM EDT) Urine NEGATIVE NEGATIVE [facility] Comment:This test was develo ped to detect early . Falsenegative results may occur after the 5th - 7th week ofpregnancy when using this test method. If clinicallyindicated, consider a serum hCG. 04/21/2025 10:0 8 PM EDT 04/21/2025 10:14 PM EDT Generic External Data Provider LAB URINE ORDERAB LES Final Result [facility] [address] [place] [phone] * (ABNORMAL) Urinalysis w/reflex microscopic (04/21/2025 10:08 PM EDT) Color Urine Yellow [facility] Appearance Urine Clear [facility] PH 6.5 5.0 - 9.0 [facility] Glucose Urine UA Negative Negative mg/dL [facility] Urine Blood Negative Negative [facility] Specific [place] - Urine >=1.030(H) 1.005 - 1.025 [facility] Urine Protein Negative Neg-Trace mg/dL [facility] Urine Ketones Negative Negative mg/dL [facility] Nitrite Urine Negative Negative [facility] Leukocyte Esterase Urine Negative Negative [facility] 04/21/2025 10:0 8 PM EDT 04/21/2025 10:14 PM EDT Narrative [facility] - 04/21/2025 10:21 PM EDT [id number], Clean Catch us Generic External Data Provider LAB URINE ORDERAB LES Final Result [facility] [address] [place] [address] [phone] * (ABNORMAL) CBC auto differential (04/21/2025 10:02 PM EDT) Only the most recent of2 resultswithin the time period is included. White Blood Count 9.4 4.8 - 10.8 X10*3/uL [facility] Red Blood Count 4.62 4.20 - 5.50 X10*6/uL [facility] Hemoglobin 13.7 12.0 - 16.0 g/dl [facility] Hematocrit 37.7 37.0 - 47.0 % [facility] Mean Corpuscular Volume 81.6 80.0 - 98.0 fL [facility] Mean Corpuscular Hemoglobin 29.7 27.0 - 33.0 pg [facility] Mean Corpuscular HGB Conc 36.3(H) 31.0 - 35.0 g/dl [facility] Red Cell Distribution Width 11.9 11.0 - 16.0 % [facility] Platelet Count 331 160 - 400 X10*3/uL [facility] Mean Platelet Volume 8.8(L) 9.4 - 12.3 fL [facility] Neutrophils Percent Auto 47.3 45 - 73 % [facility] Imm Gran Pct Auto 0.5(H) 0.0 - 0.4 % [facility] Lymphocytes Percent Auto 44.5(H) 20 - 40 % [facility] Monocytes Percent Auto 5.1 2 - 11 % [facility] Eosinophils Percent Auto 2.1 0 - 4 % [facility] Basophils Percent Auto 0.5 0 - 2 % [facility] NRBC Pct Auto 0.0 0.0 - 0.2 /100WBC [facility] Neutrophils Absolute Auto 4.4 2.0 - 8.3 x10*3/uL [facility] Imm Gran Abs Auto 0.05(H) 0.00 - 0.03 X10*3/uL [facility] Lymphocytes Absolute Auto 4.2 1.2 - 4.9 X10*3/uL [facility] Monocytes Absolute Auto 0.5 0.1 - 1.2 X10*3/uL [facility] Eosinophils Absolute Auto 0.2 0.0 - 0.4 X10*3/uL [facility] Basophils Absolute Auto 0.1 0.0 - 0.2 X10*3/uL [facility] NRBC Abs Auto 0.000 0.0 - 0.012 X10*3/uL [facility] 04/21/2025 10:0 2 PM EDT 04/21/2025 10:14 PM EDT Generic External Data Provider LAB BLOOD ORDERAB LES Final Result Performing Organization Address City/[facility]/ZIP Co de Phone Number [facility] [address] [place] [address] [phone] * Lipase (04/21/2025 10:02 PM EDT) [facility] Lipase 23 8 - 78 U/L [facility] 04/21/2025 10:0 2 PM EDT 04/21/2025 10:14 PM EDT Generic External Data Provider LAB BLOOD ORDERAB LES Final Result Performing Organization Address [facility] Co de Phone Number [facility] [address] [place] [phone] [phone] * (ABNORMAL) Comprehensive Metabolic Panel (04/21/2025 10:02 PM EDT) [facility] Sodium 137 135 - 145 mmol/L [facility] Potassium 3.9 3.3 - 5.1 mmol/L [facility] Chloride 105 96 - 108 mmol/L [facility] Carbon Dioxide 27 22 - 29 mmol/L [facility] Anion Gap 9(L) 12 - 20 [facility] Urea Nitrogen (BUN) 14 9 - 16 mg/dL [facility] Creatinine, Serum 0.70 0.5 - 1.4 mg/dL [facility] Creatinine Clr Calc Pharmacy 90.4 [facility] Comment:Provided height and weight: 157.48 cm,59.4 kg.eGFR (calculated from the MDRD study equation) and eCrCl(calculated from the Cockcroft-Gault equation) are based ondifferent parameters and may not yield comparable results.If eCrCl result is absurd, please check patient'sheight/weight. Estimated Glomerular Filt Rate >60 [facility] Comment:Chronic Kidney Disea se: Estimated GFR < 60 mL/min/1.38w4Trxmow Kidney Disease: Estimated GFR < 15 mL/min/1.73m2 Glucose 91 60 - 115 mg/dL [facility] Calcium 8.9 8.4 - 10.2 mg/dL [facility] Bilirubin, Total 0.2 0.0 - 1.0 mg/dL [facility] Aspartate Amino Transferase 26 5 - 31 U/L [facility] Alanine Aminotransferase 20 0 - 31 U/L [facility] Total Protein 7.0 6.5 - 8.0 g/dL [facility] Albumin Level 4.0 3.5 - 5.0 g/dL [facility] Alkaline Phosphatase 42 39 - 117 U/L [facility] 04/21/2025 10:0 2 PM EDT 04/21/2025 10:14 PM EDT us Generic External Data Provider LAB BLOOD ORDERAB LES Final Result [facility] [address] [place] [phone] * VASC US Lower Extremity Venous Duplex Bilateral (04/20/2025 1:34 PM EDT) 04/20/2025 1:34 PM EDT Narrative [facility] - 04/20/2025 5:27 PM EDT [address] [address] Ultrasound Report Signed Patient: Neli Esteban MR#: [id number] : 1990 Acct:[id number] Age/Sex: 34 / F ADM Date: 04/20/25 Loc: HO.US Attending Dr: Jerome Douglas MD Ordering Physician: Jerome Douglas MD Date of Service: 04/20/25 Procedure(s): US venous duplex LE BI Accession Number(s): [id number] cc: Jerome Douglas MD; LISSETT BUNN NP [...] 04/20/25 1724 DD/ 1334 TD/TT: 04/20/25 1409 Power Plant Mechanic: Procedure Note Donotuseinterpreter, Image - 04/20/[address] [address] Ultrasound Report Signed Patient: Neli Esteban [facility]#: [id number] : 1990Acct:[id number] Age/Sex: 34 / FADM Date: 04/20/25 Loc: . Attending Dr: Jerome Douglas MD Ordering Physician: Jerome Douglas MD Date of Service: 04/20/25 Procedure(s): US venous duplex LE BI Accession Number(s): [id number] cc: Jerome Douglas MD; LISSETT BUNN NP [...] OV> 04/20/25 1724 DD/ 1334 TD/TT: 04/20/25 1401 Power Plant Mechanic: us [facility] External Provider CV VASC ULAR PROCEDURES Final Result Performing Organization Address City/State/[facility] Co de Phone Number [facility] [address] [place] [address] * US Pelvis Transvaginal (03/17/2025 9:30 AM EDT) Anatomical Region Laterality Modality Pelvis Ultrasound 03/17/2025 9:30 AM EDT Narrative 03/17/2025 10:17 AM EDT [address] [address] Ultrasound Report Signed Patient: Neli Esteban MR#: [id number] : 1990 Acct:[id number] Age/Sex: 34 / F ADM Date: 03/17/25 Loc: HO.US Attending Dr: Lissett Bunn NP Ordering Physician: PRISCILA REYES CNM Date of Service: 03/17/25 Procedure(s): US pelvic and transvaginal Accession Number(s): [id number] cc: PRISCILA REYES CNM; LISSETT BUNN NP [...] 03/17/25 1014 DD/ 0930 TD/TT: 03/17/25 0944 Power Plant Mechanic: Procedure Note Donotuseinterpreter, Image - 03/17/2025 [place] [address] Ultrasound Report Signed Patient: Neli Esteban [facility]#: [id number] : 1990Acct:[id number] Age/Sex: 34 / FADM Date: 03/17/25 Loc: HO.US Attending Dr: Lissett Bunn NP Ordering Physician: PRISCILA REYES CNM Date of Service: 03/17/25 Procedure(s): US pelvic and transvaginal Accession Number(s): [id number] cc: PRISCILA REYES CNM; LISSETT BUNN NP [...] 03/17/25 1014 DD/ 0930 TD/TT: 03/17/25 0944 Power Plant Mechanic: us Priscila Reyes CNM IMG US PROCEDURES Final R esult * STI testing add on (NG, CT, Trich) (02/28/2025 10:41 AM EDT) [facility] Signature Trichomonas (NAAT) NOT DETECTED NOT DETECTED [facility] Comment:The analytical perfo rmance characteristics of thisassay have been determined by [employer]. Themodifications have not been cleared or approved bythe FDA. This assay has been validated pursuant to theIA regulations and is used for clinical purposes.For additional information, please refer tohttp://education.[employer]/faq/Trichomonastma(This link is being provided for information/educational purposes only.)THIS TEST WAS PERFORMED AT:[employer] [address] [id number] GONZALES MD CTNG Ref Lab NOT DETECTED NOT DETECTED [facility] NG Ref Lab NOT DETECTED NOT DETECTED [facility] ThinPrep vial Cervix uteri structure / Unknown 02/28/2025 10:41 AM EDT 03/01/2025 7:35 AM EDT Narrative [facility] - 03/02/2025 7:34 PM EDT Collection Date: [id number] by: AUGUSTINA Avelar: Cervix Priscila Reyes [facility] CYTOLOGY ORDERABLES F inal Result Performing Organization Address City/[facility]/ZIP Co de Phone Number [facility] [address] [place] [phone] * (ABNORMAL) HPV DNA, Low/High Risk (02/28/2025 10:41 AM EDT) HPV High Risk Positive(A) Negative [facility] HPV Genotype 16 Negative Negative [facility] HPV Genotype 18 Negative Negative [facility] Comment:HPV testing performe d at [facility] (CLIA#[id number]), [address] [place] [address].Testing for HPV was performed using the Mame [...] EDT 03/01/2025 7:35 AM EDT Priscila Reyes [facility] BLOOD ORDERABLES Jen l Result Performing Organization Address [facility]/ZIP Co de Phone Number [facility] [address] [place] [phone] * Pap Smear (02/28/2025 10:41 AM EDT) Swab Cervix uteri structure / Unknown 02/28/2025 10:41 AM EDT 03/01/2025 7:35 AM EDT [facility] - 03/08/2025 1:52 PM EDT ----- ------- Name: Shital GuillaumeNeli Ronald Age/Sex: 34/F : 1990 Unit#: [id number] Attend Dr: PRISCILA REYES CNM Re02/28/25 Status: [facility] REF Location: [facility] Disch: ----- ------- SPEC : [id number] RECD: 03/01/25 STATUS: PATITO MASSEY NUM: [id number] AIDE: 02/28/25-[address] [facility] [address]: PRISCILA REYES CNM ENTERED: 03/01/25 SP [...] and HPV testing will be performed at [facility] (CLIA #[id number]), [address] [place] [address]. Testing for HPV was performed using the [...] detected. All professional services are performed by [facility] ([address] [place], [place] [id number]; ; CLIA #[id number]). The PAP Test is a screening procedure with the inherent possibility of both false negative and false positive results. Results should be interpreted in the context of historic and current clinical findings. Reliability of the PAP Test is enhanced by performing the test on a regular repetitive basis. CONTINUED ON NEXT PAGE ----- ------- Name: Shital DiazNeli Age/Sex: 34/F : 1990 Unit#: [id number] Attend Dr: PRISCILA REYES CNM Re02/28/25 Status: DEP REF Location: HO.LNP Disch: ----- ------- SPEC : [id number] RECD: 03/01/25 STATUS: PATITO MASSEY NUM: [id number] AIDE: 02/28/25-[address] [facility] [address]: PRISCILA REYES CNM ENTERED: 03/01/25 SP TYPE: Pap Smr OTHR DR: ORDERED: Pap Smear, PAP path review ----- ------- Signed (signature on file) Desiree Monument 03/08/25 1352 ----- ------- END OF REPORT Priscila Reyes [facility] CYTOLOGY ORDERABLES F inal Result [facility] [address] [place] [phone] * D Dimer High Sensitivity (02/19/2025 7:53 PM EDT) D Dimer High Sensitivity <150 NG/ML [facility] Comment:D-DIMER HS REFERENCE RANGENote: Our [...] ORDERAB LES Final Result Performing Organization Address [facility]/ZIP Co de Phone Number [facility] [address] [place] [phone] * SARS-CoV-2 RNA, Influenza A/B, and RSV RNA, Ql NAAT (02/19/2025 6:56 PM EDT) Influenza A PCR NEGATIVE Negative [facility] Influenza B PCR NEGATIVE Negative [facility] Resp Syncy Virus RNA Qual PCR NEGATIVE Negative [facility] SARS COV2 PCR NEGATIVE Negative [facility] Comment:All test results mus t [...] use by authorized laboratories.Testing performed on the [employer] GeneXpert utilizingreal-time RT-PCR.All SARS CoV2 and positive influenza A/B results arereported to [facility]. 02/19/2025 6:56 PM EDT 02/19/2025 7:01 PM EDT us Generic External Data Provider LAB MICROBIOLOGY - GENERAL ORDERABLES Final Result Performing Organization Address [facility]/ZIP Co de Phone Number [facility] [address] [place] [phone] * XR Chest 2 Views (02/19/2025 6:34 PM EDT) Anatomical Region Laterality Modality Chest Radiographic Symone ging 02/19/2025 6:34 PM EDT Narrative 02/19/2025 6:35 PM EDT [address] [address] XRay Report Signed Patient: Neli Esteban MR#: [id number] : 1990 Acct:[id number] Age/Sex: 34 / F ADM Date: 02/19/25 Loc: HO.ED Attending Dr: Ordering Physician: Sulma Hickey NP Date of Service: 02/19/25 Procedure(s): XR chest 2V Accession Number(s): [id number] cc: Sulma Hickey NP; LISSETT BUNN NP [...] in OV> 02/19/251834 DD/ 33 TD/TT: 02/19/251833 Power Plant Mechanic: Procedure Note Donotuseinterpreter, Image - 02/19/[address] [address] XRay Report Signed Patient: Neli Esteban MMR#: [id number] : 1990Acct:[id number] Age/Sex: 34 / FADM Date: 02/19/25 Loc: .ED Attending Dr: Ordering Physician: Sulma Hikcey NP Date of Service: 02/19/25 Procedure(s): XR chest 2V Accession Number(s): [id number] cc: Sulma Hickey NP; LISSETT BUNN NP [...] in OV> 02/19/251834 DD/ 33 TD/TT: 02/19/251833 Power Plant Mechanic: [facility] External Provider IMG XR PROCEDURES Edited Result - Final * High Sensitivity Troponin I (02/19/2025 6:19 PM EDT) Pathologist [facility] TROPONIN I HIGH SENSITIVITY <2.7 <3.5 - 17.0 ng/L [facility] Comment:The Kwan high sens itivity Troponin-I results should beused in conjunction with other diagnostic information suchas ECG, clinical observations and information, and patientsymptoms to aid in the diagnosis of SD. 02/19/2025 6:19 PM EDT 02/19/2025 6:23 PM EDT Generic External Data Provider LAB BLOOD ORDERAB LES Final Result [facility] [address] [place] [phone] * Hepatic Function Panel (02/19/2025 6:19 PM EDT) Bilirubin, Total 0.1 0.0 - 1.0 mg/dL [facility] Bilirubin, Direct <0.2 0.0 - 0.5 mg/dL [facility] Aspartate Amino Transferase 27 5 - 31 U/L [facility] Alanine Aminotransferase 22 0 - 31 U/L [facility] Total Protein 7.2 6.5 - 8.0 g/dL [facility] Albumin Level 4.1 3.5 - 5.0 g/dL [facility] Alkaline Phosphatase 44 39 - 117 U/L [facility] 02/19/2025 6:19 PM EDT 02/19/2025 6:23 PM EDT us Generic External Data Provider LAB BLOOD ORDERAB LES Final Result Performing Organization Address City/[facility]/ZIP Co de Phone Number [facility] [address] [place] [address] [phone] * Basic Metabolic Panel (02/19/2025 6:19 PM EDT) Sodium 139 135 - 145 mmol/L [facility] Potassium 4.3 3.3 - 5.1 mmol/L [facility] Chloride 107 96 - 108 mmol/L [facility] Carbon Dioxide 24 22 - 29 mmol/L [facility] Anion Gap 12 12 - 20 [facility] Urea Nitrogen (BUN) 15 9 - 16 mg/dL [facility] Creatinine, Serum 0.64 0.5 - 1.4 mg/dL [facility] Creatinine Clr Calc Pharmacy 107.6 [facility] Comment:Provided height and weight: 157.48 cm,61.235 kg.eGFR (calculated from the MDRD study equation) and eCrCl(calculated from the Cockcroft-Gault equation) are based ondifferent parameters and may not yield comparable results.If eCrCl result is absurd, please check patient'sheight/weight. Estimated Glomerular Filt Rate >60 [facility] Comment:Chronic Kidney Disea se: Estimated GFR < 60 mL/min/1.01f1Bpqnsy Kidney Disease: Estimated GFR < 15 mL/min/1.73m2 Glucose 86 60 - 115 mg/dL [facility] Calcium 8.9 8.4 - 10.2 mg/dL [facility] 02/19/2025 6:19 PM EDT 02/19/2025 6:23 PM EDT us Generic External Data Provider LAB BLOOD ORDERAB LES Final Result Performing Organization Address City/[facility]/ZIP Co de Phone Number [facility] [address] [place] [address] [phone] * HIV Ab/Ag (ASHLEIGH WALKER) (05/28/2023 12:09 PM EDT) HIV AB/AG Nonreactive Nonreactive [facility] Comment:HIV-1 p24 Ag and/or HIV-1/HIV-2 Ab not detected.A test result that is nonreactive does not exclude thepossibility of exposure to or infection with HIV-1 and/orHIV-2. Nonreactive results in this assay for individualswith prior exposure to HIV-1 and/or HIV-2 may be due toantigen and antibody levels that are below the limit ofdetection of this assay.The [employer] HIV Ag/Ab Combo assay result andsupplemental assay results should be interpreted inconjunction with the patient's clinical presentation,history and other laboratory results. If the results areinconsistent with clinical evidence, additional testing issuggested to confirm the result. 05/28/2023 12:0 9 PM EDT 05/28/2023 12:57 PM EDT Priscila Reyes [facility] LAB BLOOD ORDERABLES Jen l Result Performing Organization Address [facility] Co de Phone Number [facility] [address] [place] [address] [phone] * Hepatitis C Antibody with Reflex to HCV, RNA, Quantitative, Real-Time PCR (05/28/2023 12:09 PM EDT) Hepatitis C Antibody Nonreactive Nonreactive [facility] Comment:Antibodies to HCV no t detected; does not exclude early acuteHCV infection. Blood Venous blood specimen / Unknown 05/28/2023 12:09 PM EDT 05/28/2023 12:57 PM EDT Priscila Reyes [facility] LAB BLOOD ORDERABLES Jen l Result [facility] [address] [place] [address] [phone] from Last 3 Months or Most Recently Relevant to Health Maintenance [place] [address] [place] [address] C3 Care Teams Housing Relocation Relationship Specialty Start Date End Date Lissett Bunn ANP [address] [place] [phone] PCP - General Family Medicine 07/17/20
--- OUTSIDE RECORDS SUMMARY | 2025-05-04 13:58 | XMS_ITS | Encounter Summary ---
Author Organization [employer] Address [address] [place] [address] Care Team Providers Care Hospital Food Service Worker Name Role Phone Rachelle Olson Primary Care Provider [phone] Encounter Details Date Type Department Care Team (Latest Contact Info) Description 03/20/2025 Results Follow-Up [facility] [address] [place], [place] [phone] Franny Galloway CNM [address] [place], [place] [phone] [place] Pelvis Transvaginal Social History Tobacco Use [...] on file documented as of this encounter Visit Diagnoses Not on filedocumented in this encounter Additional Health Concerns Assessment Noted Time PHQ-9 Depression Total Score: 0 09/01/19 25 2:43 PM EST documented as of this encounter Care Teams Hospital Food Service Worker Relationship Specialty Start Date End Date Rachelle Olson ANP [address] [place] [phone] PCP - General Family Medicine 07/17/20 documented as of this encounter
--- OUTSIDE RECORDS SUMMARY | 2025-05-04 13:58 | XMS_ITS | Clinical Summary ---
Author Organization [facility] Address [address] [place] [address] Care Team Providers Care Sound Installation Worker Name Role Phone Rachelle Olson Primary Care Provider [phone] Medications No known medications Active Problems Problem [...] patient's age to complete this topic Insurance [employer] Care Teams Sound Installation Worker Relationship Specialty Start Date End Date Rachelle Olson [address] [place] [phone] PCP - General 06/10/22
--- OUTSIDE RECORDS SUMMARY | 2025-05-04 13:58 | XMS_ITS | Clinical Summary ---
Author Organization [employer] [facility] ity Address [address] [place] [address] Care Team Providers Care Product Safety Engineer Name Role Phone Unavailable Primary Care Provider [...] 5 season) 2025 Influenza Vaccine (#1) 2025 RSV Immunization Adult Patie nts (1 - 1-dose 75+ series) 12/21/2066 HIB Vaccines Aged Out No longer eligi [...]
--- OUTSIDE RECORDS SUMMARY | 2025-05-04 13:58 | XMS_ITS | Encounter Summary ---
Author Organization [employer] Address [address] [facility] 7t [place] [address] Care Team Providers Care Funeral Attendant Name Role Phone Rachelle Olson Primary Care Provider [phone] Reason for Visit * Reason Onset Date Comments Nurse Triage 04/16/2023 Encounter Details Date Type Department Care Team ([facility] st Contact Info) Description 04/16/2023 Telephone [facility]INE [address] [place] [address] Rachelle Olson ANP [address] [place] [address] Nurse Triage Social History Tobacco Use Types [...] stones. Pt is offered to come to [facility] but, requests to see PCP. Apt with PCP 05/04/23 at 1100am. Pt is advised to seek evaluation at either [facility] or ED if symptoms become worse [...] The caller accepted this outcome Patient speaks nepali documented in this encounter Plan of Treatment Not on file documented as of this encounter Visit Diagnoses Not on filedocumented in this encounter Care Teams Funeral Attendant Relationship Specialty Start Date End Date Rachelle Olson ANP [address] [place] [phone] PCP - General Family Medicine 07/17/20 documented as of this encounter
--- OUTSIDE RECORDS SUMMARY | 2025-05-04 13:58 | XMS_ITS | Encounter Summary ---
Author Organization [employer] Address [address] 7[address] [place] [address] Care Team Providers Care Ground Operations Crew Member Name Role Phone Rachelle Olson Primary Care Provider [phone] Encounter Details Date Type Department Care Team (Late st Contact Info) Description 03/06/2025 Results Follow-Up [facility] [address] [place], [place] [phone] Franny Galloway CNM [address] [place] [address] HPV DNA, Low/High Risk Social History Tobacco [...] documented as of this encounter Care Teams Ground Operations Crew Member Relationship Specialty Start Date End Date Rachelle Olson ANP [address] [place] [phone] PCP - General Family Medicine 07/17/20 documented as of this encounter
== END 2025-05-04 12:28 | disposition home or self-care (01) ==
LOC: HO.HHCLNP 12:27
PROVIDERS: Visit Provider Nurse Practitioner Primary Care
DX: Z11.2 Encounter for screening for other bacterial diseases (principal); Z86.19 Personal history of other infectious and parasitic diseases
CPT/HCPCS: 87338

== ENCOUNTER 2025-05-09 12:28 | Outpatient (REF) | payer MEDICAID, SELFPAY | END 2025-05-09 12:29 | disposition home or self-care (01) | LOC: HO.LNP 12:28 | PROVIDERS: PCP Nurse Practitioner Primary Care; Visit Provider Obstetrics & Gynecology | DX: R87.610 Atypical squamous cells of undetermined significance on cytologic smear of cervix (ASC-US) (principal); Z32.02 Encounter for pregnancy test, result negative; Z79.899 Other long term (current) drug therapy | CPT/HCPCS: 57454; 81025; 88305; 88341; 88342 ==

== ENCOUNTER 2025-05-09 12:28 | Outpatient (AMB) | payer MEDICAID, SELFPAY ==
--- NOTE | 2025-05-09 12:37 | A.OFFVIS_ITS ---
Vital Signs 05/09/25 12:40 Height 5 ft 2 in Weight 130 lb BMI 23.8 BP 108/68 Blood Pressure Location Lt brachial Position Sitting Intake Visit Reasons: New patient annual Intake Note: Patient here for annual. was a patient here 6 years ago . has had abnormal bleeding for 2 months. on ocp Refrigeration Insulator Required: No Information Interpreted: non-clinical & clinical Medical Records Auditor: Medical Records Auditor Present (deni) Accompanied by: Self / Same As Patient Allergies No Known Allergies (No Known Allergies*) Allergy (Verified 05/09/25 12:43) Medication List - Last Reconciled 05/09/25 by Shayla Smith LPN levonorgestrel-ethinyl estrad 0.1-20 mg-mcg (Aviane) 1 tab PO DAILY Is last menstrual period known: Yes Last menstrual period: 04/09/25 Do you need a note to return to daycare/school/sports/work: No HPI Comments Details: Presenting referred from [facility] regarding abnormal Pap smear on 03/01/2025 showing ASC_H, AGC/HPV positive, HPV 16/18 negative PFSH Medical History Dyspnea Varicose veins of bilateral lower extremities with pain No known health problems Surgical History No pertinent past surgical history Family History Mother Hypertension Epilepsy Social History Alcohol intake: never Patient Tobacco Use Status: Former Tobacco user Years Smoked: On/off 5 +/- Female Reproductive History Menstrual Age of Menarche: 12 Date of last menstrual period: 04/09/25 control method: pills Date of last pap smear: 03/01/25 (ASCUS-H , + HPV) History of abnormal pap smear: Yes Review of Systems Const All systems reviewed & are unremarkable except as noted in HPI and below Physical Exam Vital Signs: Last Vital Signs BP 108/68 05/09/25 12:40 BMI result Body Mass Index 23.8 General: Yes no CVA tenderness External Female Exam: normal external appearance and normal appearance of the urethra Speculum Exam - Vagina: normal appearance of the vagina, normal palpation, no lesions and no masses Speculum Exam - Cervix: normal appearance of the cervix, normal palpation, no lesions, no masses and nontender Bimanual exam- vagina & uterus: normal bimanual exam, normal palpation, uterine size normal, normal palpation, uterine shape normal, No Cervical tenderness present and non-tender Bimanual Exam- Adnexa, other: normal adnexae Back/Spine/Pelvis Back: no CVA tenderness Office Procedures Colposcopy Colposcopy: Pre-Procedure Counseling: Before beginning the procedure, I conducted comprehensive counseling with the patient. We thoroughly discussed the procedure itself, including its details, alternatives, and all associated risks. This included but not limited to the following complications such as bleeding, infection, and injury to the vagina, bladder, and vessels, as well as the potential need for transfusion with all its associated risks. Subsequently, the patient sign the consent. Pap smear result: Ascus-H, AGC, HPV positive, HPV 16/18 negative Urine test in office = Negative Procedure: During the procedure, the following steps were performed: A speculum was inserted, and acetic acid was applied. Colposcopy was conducted, allowing visualization of the transformation zone. Acetowhite lesions were identified at the 5+ 6+ 7+ 11+ 12+ 1 o'clock position. Cervical biopsies were obtained from the 5+ 6+ 7+ 11+ 12+ 1 o'clock position, followed by an endocervical curettage (ECC). Vaginoscopy of the upper vagina revealed no evidence of aceto-white lesions. Hemostasis was achieved using Monsel solution, and the patient tolerated the procedure well. Post-Procedure Instructions: The patient was advised to promptly contact the office or the after hours answering service or go to the emergency room if experiencing a temperature exceeding 100.4?F, abdominal pain, nausea/vomiting, or bleeding. Additionally, the patient was instructed to abstain from vaginal intercourse and bathtub use. The patient confirmed understanding of these instructions. Discharge Instructions: The patient was instructed to schedule a follow-up appointment in 2 weeks for further evaluation and management. Please note that this note was generated using a voice recognition program, and errors may have occurred during machine tank operator. [id number] of cervix including upper vagina with biopsy and ECC Procedure code (CPT) selection complete Results AMB Test Urine AMB Test Urine Negative Last Edit by Shayla Smith LPN on 12:55 Results Reviewed Results Reviewed: Laboratory Last Values Tst Clinic Negative 05/09/25 12:55 Assessment & Plan Assessment & Plan (1) Pap smear cannot exclude high grade squamous intraepithelial lesion (ASC-H): Comment: AGC Code(s): R87.610 - Atypical squamous cells of undetermined significance on cytologic smear of cervix (ASC-US) Category: Medical Plan: Discussed with the patient the result of her abnormal pap, its significance, risk of progression, persistence, and regression. the false positive/negative rate of a Pap smear as a screening test in detecting cervical cancer and the ind ication for a diagnostic test -colposcopy, biopsy, endocervical curettage with endometrial biopsy ( AGC). The patient verbalized understanding and agreed with the plan, all questions answered. Colposcopy, biopsy /ECC , EMB done, see procedure note Orders: Orders AMB HCG Urine Test Today Z32.02 - Encounter for test, result negative AMB Colposcopy Today R87.610 - Atypical squamous cells of undetermined significance on cytologic smear of cervix (ASC-US) Coding Level of Care Code Procedure Only Diagnoses Pap smear cannot exclude high grade squamous intraepithelial lesion (ASC-H) R87.610 CPT Codes Colposcopy - CPT: 73595-Ggvznheoz of cervix including upper vagina with biopsy and ECC ([id number])
[2025-05-09 12:40] VITALS: BP 108/68; BMI 23.8
--- OUTSIDE RECORDS SUMMARY | 2025-05-09 15:21 | XMS_ITS | Clinical Summary ---
Author Organization [employer] [facility] ity Address [address] [place] [address] Care Team Providers Care Choir Member Name Role Phone Unavailable Primary Care Provider [...] Cervical Cancer Screening: P ap Smear 12/21/2012 HPV Vaccines (1 - 3-dose SCD M series) 12/21/2018 HIV Screening 05/12/2024 Hepatitis C Screening 05/12/2024 Social Influencers of Health Screening 05/12/2024 Depression Screening 08/03/2024 COVID-19 Vaccine (1 - 2023-2 5 season) 2025 Influenza Vaccine [...]
--- OUTSIDE RECORDS SUMMARY | 2025-05-09 15:21 | XMS_ITS | Encounter Summary ---
Author Organization [employer] Address [address] 7t [place] [address] Care Team Providers Care Concrete Block Maker Name Role Phone Rachelle Olson Primary Care Provider Encounter Details Date Type Department Care Team (Latest Contact Info) Description 03/20/2025 Results Follow-Up [facility]INE [address] [place], [place] [phone] Franny Galloway CNM [address] [place], [place] [phone] [place] Pelvis Transvaginal Social History Tobacco Use [...] documented as of this encounter Care Teams Concrete Block Maker Relationship Specialty Start Date End Date Rachelle Olson ANP [address] [place] [address] PCP - General Family Medicine 07/17/20 documented as of this encounter
--- OUTSIDE RECORDS SUMMARY | 2025-05-09 15:21 | XMS_ITS | Encounter Summary ---
Author Organization [employer] Address [address] [place] [address] Care Team Providers Care Dean Of Admissions Name Role Phone Rachelle lOson Primary Care Provider [phone] Encounter Details Date Type Department Care Team (Late st Contact Info) Description 03/06/2025 Results Follow-Up [facility] MEDICINE [address] [place], [place] [phone] Franny Galloway CNM [address] [place], [place] [phone] HPV DNA, Low/High Risk Social History Tobacco [...] documented as of this encounter Care Teams Dean Of Admissions Relationship Specialty Start Date End Date Rachelle Olson ANP [address] [place] [phone] PCP - General Family Medicine 07/17/20 documented as of this encounter
--- OUTSIDE RECORDS SUMMARY | 2025-05-09 15:21 | XMS_ITS | Clinical Summary ---
Author Organization [facility] Address [address] [place] [address] Care Team Providers Care Grain Unloader Name Role Phone Rachelle Olson Primary Care Provider [phone] Medications No known medications Active Problems Problem [...] patient's age to complete this topic Insurance [employer] Care Teams Grain Unloader Relationship Specialty Start Date End Date Rachelle Olson [address] [place] [address] PCP - General 06/10/22
--- OUTSIDE RECORDS SUMMARY | 2025-05-09 15:21 | XMS_ITS | Encounter Summary ---
Author Organization [employer] Address [address] [place] [address] Care Team Providers Care Planetarium Sky Show Technician Name Role Phone Rachelle Olson Primary Care Provider [phone] Encounter Details Date Type Department Care Team (Latest Contact Info) Description 05/05/2025 Results Follow-Up [facility] [address] [place], [place] [phone] Rachelle Olson ANP [address] [place] [address] Helicobacter pylori Antigen, EIA, Stool Social History Tobacco Use Types Packs/Day Years [...] documented as of this encounter Care Teams Planetarium Sky Show Technician Relationship Specialty Start Date End Date Rachelle Olson ANP [address] [place] [phone] PCP - General Family Medicine 07/17/20 documented as of this encounter
--- OUTSIDE RECORDS SUMMARY | 2025-05-09 15:21 | XMS_ITS | Encounter Summary ---
Author Organization [employer] Address [address] [facility] 7t [place] [address] Care Team Providers Care Cable Weaver Name Role Phone Rachelle Olson Primary Care Provider [phone] Reason for Visit * Reason Onset Date Comments Nurse Triage 04/16/2023 Encounter Details Date Type Department Care Team ([facility] st Contact Info) Description 04/16/2023 Telephone [facility] MEDICINE [address] [place] [address] Rachelle Olson ANP [address] [place] [address] Nurse Triage Social History Tobacco Use Types [...] stones. Pt is offered to come to [facility] but, requests to see PCP. Apt with PCP 05/04/23 at 1100am. Pt is advised to seek evaluation at either [facility] or ED if symptoms become worse before [...] The caller accepted this outcome Patient speaks tamazight documented in this encounter Plan of Treatment Not on file documented as of this encounter Visit Diagnoses Not on filedocumented in this encounter Care Teams Cable Weaver Relationship Specialty Start Date End Date Rachelle Olson ANP [address] [place] [address] PCP - General Family Medicine 07/17/20 documented as of this encounter
--- OUTSIDE RECORDS SUMMARY | 2025-05-09 15:21 | XMS_ITS | Encounter Summary ---
Author Organization [employer] Address [address] [place] [address] Care Team Providers Care Operating Room Assistant Name Role Phone Rachelle Olson Primary Care Provider Encounter Details Date Type Department Care Team (Late st Contact Info) Description 07/23/2024 Orders Only [facility] MEDICINE [address] [place], [place] [phone] Haritha Selby MD [address] [place], [place] [phone] Hematuria, unspecified type (Primary Dx) Social History [...] (08/29/2024 11:58 AM EST) Color Urine Yellow [facility] Appearance Urine Clear [facility] PH 7.5 5.0 - 9.0 [facility] Glucose Urine UA Negative Negative mg/dL [facility] Urine Blood Small (1+)(A) Negative [facility] Specific [place] - Urine 1.020 1.005 - 1.025 [facility] Urine Protein Negative Neg-Trace mg/dL [facility] Urine Ketones Negative Negative mg/dL [facility] Nitrite Urine Negative Negative [facility] Leukocyte Esterase Urine Negative Negative [facility] RBC Urine 0-2 0 - 2 /HPF [facility] Urine WBC 0-5 0 - 5 /HPF [facility] Urine Squamous Epithelial Cell 0-2 0 - 2 /HPF [facility] Urine Bacteria None Seen None Seen [facility] Hyaline Casts, Urine 0-2 0 - 2 /LPF [facility] Urine 08/29/2024 11:5 8 AM EST 08/29/2024 1:11 PM EST Narrative [facility] - 08/29/2024 1:57 PM EST Urine, Clean Catch us Haritha Selby MD LAB URINE ORDERABLES Final Resul t [facility] [address] [place] [address] [phone] documented in this encounter Visit Diagnoses Diagnosis Hematuria, unspecified type- Primary documented in this encounter Care Teams Operating Room Assistant Relationship Specialty Start Date End Date Rachelle Olson ANP [address] [place] [phone] PCP - General Family Medicine 07/17/20 documented as of this encounter
--- OUTSIDE RECORDS SUMMARY | 2025-05-09 15:21 | XMS_ITS | Clinical Summary ---
Author Organization [email or web address] Address [address] [facility] 7[address] [place] [address] Care Team Providers Care Agricultural Extension Specialist Name Role Phone Lissett Bunn Primary Care Provider [phone] Allergies Active Allergy Reactions Criticality Noted Date [...] Encounters Date Type Department Care Team Description 05/05/2025 Results Follow-Up [facility] [address] [place] [address] Lissett Bunn ANP Helicobacter pylori Antigen, EIA, Stool 04/28/2025 Orders Only [address] [address] Lissett Bunn ANP 04/27/2025 Orders Only [address] [address] Lissett Bunn ANP LLQ pain (Primary Dx); Abnormal x-ray of abdomen 04/26/2025 Telephone [facility] [address] [place] [address] ABD ORDER 04/26/[address] [address] Lissett Bunn ANP 04/25/2025 9:30 AM EDT Office Visit [address] [address] Lissett Bunn ANP LLQ pain (Primary Dx); Abnormal x-ray of abdomen; Varicose veins of right lower extremity with inflammation; Healthcare maintenance; History of Helicobacter pylori infection 04/25/2025 Travel 04/24/[address] [address] Lissett Bunn ANP chart prep 04/21/2025 Orders Only GENERIC EXTERNAL DATA DEPARTMENT Provider, Generic External Data 04/20/2025 Orders Only [facility] External Provider, [facility] 04/18/2025 Patient Outreach [facility] [address] [place], [place] [phone] Lissett Bunn ANP Pre-visit Planning (SDOH was already completed) 04/11/[address] [place] [address] Lissett Bunn ANP 03/20/2025 Results Follow-Up [address] [place] [address] Priscila Reyes CNM US Pelvis Transvaginal 03/17/[address] [address] Lissett Bunn ANP Ultrasound order 03/09/2025 Orders Only [address] [place] [address] Priscila Reyes CNM Abnormal uterine bleeding (Primary Dx) 03/08/2025 Orders Only [address] [address] Priscila Reyes CNM 03/08/2025 Orders Only [address] [address] Priscila Reyes CNM Atypical squamous cells cannot exclude high grade squamous intraepithelial lesion on cytologic smear of cervix (ASC-H) (Primary Dx); Atypical glandular cells of undetermined significance (SULEMA) on cervical Pap smear; Cervical high risk HPV (human papillomavirus) test positive 03/08/[address] [address] Lissett Bunn ANP Nurse Triage 03/06/2025 Results Follow-Up [address] [address] Priscila Reyes CNM HPV DNA, Low/High Risk 02/28/2025 9:30 AM EDT Procedure Visit [address] [address] Priscila Reyes CNM Cervical cancer screening (Primary Dx); Screening examination for venereal disease; Abnormal uterine bleeding 02/28/2025 Orders Only [address] [place] [address] Priscila Reyes CNM 02/28/2025 Travel 02/19/2025 Orders Only GENERIC EXTERNAL DATA DEPARTMENT Provider, Generic External Data 02/08/[address] [address] Lissett Bunn ANP April recall from Last [...] Procedure Name Priority Date/Time Associated Diagnosis Comments HELICOBACTER PYLORI AG, EIA, STOOL Routine 05/04/2025 7:08 AM EDT History of Helicobacter pylori infection XR ABDOMEN 2V+ Routine 04/21/2025 11:38 PM [...] 1:34 PM EDT US PELVIS TRANSVAGINAL Urgent 03/17/2025 9:30 AM EDT Abnormal uterine bleeding CHLAMYDIA/N. GONORRHOEAE AND T. VAGINALIS RNA, QUAL,TMA Routine 02/28/2025 10:41 AM EDT Screening examination for venereal disease PAP SMEAR Routine 02/28/2025 10:41 AM EDT Screening examination for venereal disease HPV DNA, LOW/HIGH RISK Routine 02/28/2025 10:41 AM EDT D DIMER HIGH SENSITIVITY [...] 6:19 PM EDT HEPATIC FUNCTION PANEL Routine 02/19/2025 6:19 PM EDT HEPATITIS C AB W/REFL TO HCV RNA, QN, PCR Routine 05/28/2023 12:09 PM EDT Encntr screen for infections w sexl mode of transmiss HIV ANTIBODY/ANTIGEN ([place] DPH) Routine 05/28/2023 12:09 PM EDT from Last 3 Months or Most Recently Relevant to Health Maintenance Results * Helicobacter pylori??Antigen, EIA, Stool (05/04/2025 7:08 AM EDT) H pylori Ag Stool SEE NOTE [facility] Comment:HELICOBACTER PYLORI AG, EIA, STOOL Micro Number: [id number] Test Status: Final Specimen Source: Stool Specimen Quality: Adequate H.pylori Ag: Not Detected Antimicrobials, proton pump inhibitors, and bismuth preparations inhibit H. pylori and ingestion up to two weeks prior to testing may cause false negative results. If clinically indicated the test should be repeated on a new specimen obtained two weeks after discontinuing treatment. Reference Range: Not DetectedTHIS TEST WAS PERFORMED AT:[facility] [place] [phone] GONZALES MD Stool Rectal contents / Unknown 05/04/2025 7:08 AM EDT 05/04/2025 12:29 PM EDT us Lissett Bunn ANP LAB BODY FLUIDS AND STOOLS ORDER DEV Final Result [facility] [address] [place] [phone] * XR Abdomen 2 View minimum (04/21/2025 11:38 PM EDT) Anatomical Region Laterality Modality Abdomen Radiographic Symone ging 04/21/2025 11:3 8 PM EDT Narrative 04/21/2025 11:41 PM EDT [address] [address] XRay Report Signed Patient: Neli Esteban MR#: [id number] : 1990 Acct:[id number] Age/Sex: 34 / F ADM Date: 04/21/25 Loc: .ED Attending Dr: Ordering Physician: Cathy Montiel PA-C Date of Service: 04/21/25 Procedure(s): XR abdomen min 2V Accession Number(s): [id number] cc: Cathy Montiel PA-C; LISSETT BUNN NP [...] signed by Jessica Minaya MD in OV> 04/21/252339 DD/ 37 TD/TT: 04/21/252337 Drying Machine Back Tender: Procedure Note Donotuseinterpreter, Image - 04/21/[address] [address] XRay Report Signed Patient: Neli Esteban MMR#: [id number] : 1990Acct:[id number] Age/Sex: 34 / FADM Date: 04/21/25 Loc: .ED Attending Dr: Ordering Physician: Cathy Montiel PA-C Date of Service: 04/21/25 Procedure(s): XR abdomen min 2V Accession Number(s): [id number] cc: Cathy Montiel PA-C; LISSETT BUNN NP [...] signed by Jessica Minaya MD in OV> 04/21/252339 DD/ 37 TD/TT: 04/21/252337 Drying Machine Back Tender: [facility] External Provider IMG XR PROCEDURES Edited Result - Final * HCG, Qualitative, Urine (04/21/2025 10:08 PM EDT) Urine NEGATIVE NEGATIVE [facility] Comment:This test was develo ped to detect early . Falsenegative results may occur after the 5th - 7th week ofpregnancy when using this test method. If clinicallyindicated, consider a serum hCG. 04/21/2025 10:0 8 PM EDT 04/21/2025 10:14 PM EDT Generic External Data Provider LAB URINE ORDERAB LES Final Result Performing Organization Address [facility] Co de Phone Number [facility] [address] [place] [phone] * (ABNORMAL) Urinalysis w/reflex microscopic (04/21/2025 10:08 PM EDT) Color Urine Yellow [facility] Appearance Urine Clear [facility] PH 6.5 5.0 - 9.0 [facility] Glucose Urine UA Negative Negative mg/dL [facility] Urine Blood Negative Negative [facility] Specific [place] - Urine >=1.030(H) 1.005 - 1.025 [facility] Urine Protein Negative Neg-Trace mg/dL [facility] Urine Ketones Negative Negative mg/dL [facility] Nitrite Urine Negative Negative [facility] Leukocyte Esterase Urine Negative Negative [facility] 04/21/2025 10:0 8 PM EDT 04/21/2025 10:14 PM EDT Narrative [facility] - 04/21/2025 10:21 PM EDT [id number], Clean Catch Generic External Data Provider LAB URINE ORDERAB LES Final Result Performing Organization Address [facility] de Phone Number [facility] [address] [place] [phone] * (ABNORMAL) CBC auto differential (04/21/2025 10:02 PM EDT) Only the most recent of2 resultswithin the time period is included. White Blood Count 9.4 4.8 - 10.8 X10*3/uL [facility] Red Blood Count 4.62 4.20 - 5.50 X10*6/uL [facility] Hemoglobin 13.7 12.0 - 16.0 g/dl [facility] Hematocrit 37.7 37.0 - 47.0 % [facility] Mean Corpuscular Volume 81.6 80.0 - 98.0 fL [facility] Mean Corpuscular Hemoglobin 29.7 27.0 - 33.0 pg [facility] Mean Corpuscular HGB Conc 36.3(H) 31.0 - 35.0 g/dl [facility] Red Cell Distribution Width 11.9 11.0 - 16.0 % [facility] Platelet Count 331 160 - 400 X10*3/uL [facility] Mean Platelet Volume 8.8(L) 9.4 - 12.3 fL [facility] Neutrophils Percent Auto 47.3 45 - 73 % [facility] Imm Gran Pct Auto 0.5(H) 0.0 - 0.4 % [facility] Lymphocytes Percent Auto 44.5(H) 20 - 40 % [facility] Monocytes Percent Auto 5.1 2 - 11 % [facility] Eosinophils Percent Auto 2.1 0 - 4 % [facility] Basophils Percent Auto 0.5 0 - 2 % [facility] NRBC Pct Auto 0.0 0.0 - 0.2 /100WBC [facility] Neutrophils Absolute Auto 4.4 2.0 - 8.3 x10*3/uL [facility] Imm Gran Abs Auto 0.05(H) 0.00 - 0.03 X10*3/uL [facility] Lymphocytes Absolute Auto 4.2 1.2 - 4.9 X10*3/uL [facility] Monocytes Absolute Auto 0.5 0.1 - 1.2 X10*3/uL [facility] Eosinophils Absolute Auto 0.2 0.0 - 0.4 X10*3/uL [facility] Basophils Absolute Auto 0.1 0.0 - 0.2 X10*3/uL [facility] NRBC Abs Auto 0.000 0.0 - 0.012 X10*3/uL [facility] 04/21/2025 10:0 2 PM EDT 04/21/2025 10:14 PM EDT Generic External Data Provider LAB BLOOD ORDERAB LES Final Result Performing Organization Address [facility]/ZIP Co de Phone Number [facility] [address] [place] [phone] * Lipase (04/21/2025 10:02 PM EDT) Pathologist [facility] Lipase 23 8 - 78 U/L [facility] 04/21/2025 10:0 2 PM EDT 04/21/2025 10:14 PM EDT Generic External Data Provider LAB BLOOD ORDERAB LES Final Result Performing Organization Address [facility] Co de Phone Number [facility] [address] [place] [phone] * (ABNORMAL) Comprehensive Metabolic Panel (04/21/2025 10:02 PM EDT) Pathologist [facility] Sodium 137 135 - 145 mmol/L [facility] Potassium 3.9 3.3 - 5.1 mmol/L [facility] Chloride 105 96 - 108 mmol/L [facility] Carbon Dioxide 27 22 - 29 mmol/L [facility] Anion Gap 9(L) 12 - 20 [facility] Urea Nitrogen (BUN) 14 9 - 16 mg/dL [facility] Creatinine, Serum 0.70 0.5 - 1.4 mg/dL [facility] Creatinine Clr Calc Pharmacy 90.4 [facility] Comment:Provided height and weight: 157.48 cm,59.4 kg.eGFR (calculated from the MDRD study equation) and eCrCl(calculated from the Cockcroft-Gault equation) are based ondifferent parameters and may not yield comparable results.If eCrCl result is absurd, please check patient'sheight/weight. Estimated Glomerular Filt Rate >60 [facility] Comment:Chronic Kidney Disea se: Estimated GFR < 60 mL/min/1.85j1Uqsjyi Kidney Disease: Estimated GFR < 15 mL/min/1.73m2 Glucose 91 60 - 115 mg/dL [facility] Calcium 8.9 8.4 - 10.2 mg/dL [facility] Bilirubin, Total 0.2 0.0 - 1.0 mg/dL [facility] Aspartate Amino Transferase 26 5 - 31 U/L [facility] Alanine Aminotransferase 20 0 - 31 U/L [facility] Total Protein 7.0 6.5 - 8.0 g/dL [facility] Albumin Level 4.0 3.5 - 5.0 g/dL [facility] Alkaline Phosphatase 42 39 - 117 U/L [facility] 04/21/2025 10:0 2 PM EDT 04/21/2025 10:14 PM EDT us Generic External Data Provider LAB BLOOD ORDERAB LES Final Result Performing Organization Address City/State/[facility] Co de Phone Number [facility] [address] [place] [phone] * VASC US Lower Extremity Venous Duplex Bilateral (04/20/2025 1:34 PM EDT) 04/20/2025 1:34 PM EDT Narrative [facility] - 04/20/2025 5:27 PM EDT [address] [address] Ultrasound Report Signed Patient: Neli Esteban MR#: [id number] : 1990 Acct:[id number] Age/Sex: 34 / F ADM Date: 04/20/25 Loc: HO.US Attending Dr: Jerome Douglas MD Ordering Physician: Jerome Douglas MD Date of Service: 04/20/25 Procedure(s): US venous duplex LE BI Accession Number(s): [id number] cc: Jerome Douglas MD; LISSETT BUNN NP [...] 04/20/25 1724 DD/ 1334 TD/TT: 04/20/25 1409 Drying Machine Back Tender: Procedure Note Donotuseinterpreter, Image - 04/20/[address] [address] Ultrasound Report Signed Patient: Neli Esteban [facility]#: [id number] : 1990Acct:[id number] Age/Sex: 34 / FADM Date: 04/20/25 Loc: . Attending Dr: Jerome Douglas MD Ordering Physician: Jerome Douglas MD Date of Service: 04/20/25 Procedure(s): US venous duplex LE BI Accession Number(s): [id number] cc: Jerome Douglas MD; LISSETT BUNN NP [...] 04/20/25 1724 DD/ 1334 TD/TT: 04/20/25 1409 Drying Machine Back Tender: us [facility] External Provider CV VASC ULAR PROCEDURES Final Result [facility] [address] [place] [phone] * US Pelvis Transvaginal (03/17/2025 9:30 AM EDT) Anatomical Region Laterality Modality Pelvis Ultrasound 03/17/2025 9:30 AM EDT Narrative 03/17/2025 10:17 AM EDT [address] [address] Ultrasound Report Signed Patient: Neli Esteban MR#: [id number] : 1990 Acct:[id number] Age/Sex: 34 / F ADM Date: 03/17/25 Loc: HO.US Attending Dr: Lissett Bunn NP Ordering Physician: PRISCILA REYES CNM Date of Service: 03/17/25 Procedure(s): US pelvic and transvaginal Accession Number(s): [id number] cc: PRISCILA REYES CNM; LISSETT BUNN NP [...] 03/17/25 1014 DD/ 0930 TD/TT: 03/17/25 0944 Drying Machine Back Tender: Procedure Note Donotuseinterpreter, Image - 03/17/2025 [place] [address] Ultrasound Report Signed Patient: Neli Esteban [facility]#: [id number] : 1990Acct:[id number] Age/Sex: 34 / FADM Date: 03/17/25 Loc: HO.US Attending Dr: Lissett Bunn NP Ordering Physician: PRISCILA REYES CNM Date of Service: 03/17/25 Procedure(s): US pelvic and transvaginal Accession Number(s): [id number] cc: PRISCILA REYES CNM; LISSETT BUNN NP [...] 03/17/25 1014 DD/ 0930 TD/TT: 03/17/25 0944 Drying Machine Back Tender: Priscila Reyes CNM IMG US PROCEDURES Final R esult * STI testing add on (NG, CT, Trich) (02/28/2025 10:41 AM EDT) Trichomonas (NAAT) NOT DETECTED NOT DETECTED [facility] Comment:The analytical perfo rmance characteristics of thisassay have been determined by [employer]. Themodifications have not been cleared or approved bythe FDA. This assay has been validated pursuant to theIA regulations and is used for clinical purposes.For additional information, please refer tohttp://education.[employer]/faq/Trichomonastma(This link is being provided for information/educational purposes only.)THIS TEST WAS PERFORMED AT:[facility] [place] [phone] GONZALES MD CTNG Ref Lab NOT DETECTED NOT DETECTED [facility] NG Ref Lab NOT DETECTED NOT DETECTED [facility] ThinPrep vial Cervix uteri structure / Unknown 02/28/2025 10:41 AM EDT 03/01/2025 7:35 AM EDT Narrative [facility] - 03/02/2025 7:34 PM EDT Collection Date: [id number] by: AUGUSTINA Avelar: Cervix Priscila Reyes CNM LAB CYTOLOGY ORDERABLES F inal Result [facility] [address] [place] [phone] * (ABNORMAL) HPV DNA, Low/High Risk (02/28/2025 10:41 AM EDT) HPV High Risk Positive(A) Negative [facility] HPV Genotype 16 Negative Negative [facility] HPV Genotype 18 Negative Negative [facility] Comment:HPV testing performe d at [facility] (CLIA#[id number]), [address] [place] [address].Testing for HPV was performed using the [employer] JAS 6800system. The presence of HPV in [...] 1 AM EDT 03/01/2025 7:35 AM EDT us Priscila Reyes [facility] LAB BLOOD ORDERABLES Jen terry Result Performing Organization Address City/State/[facility] Co de Phone Number [facility] [address] [place] [phone] * Pap Smear (02/28/2025 10:41 AM EDT) Swab Cervix uteri structure / Unknown 02/28/2025 10:41 AM EDT 03/01/2025 7:35 AM EDT [facility] - 03/08/2025 1:52 PM EDT ----- ------- Name: Neli Esteban Age/Sex: 34/F : 1990 Unit#: [id number] Attend Dr: PRISCILA REYES CNM Re02/28/25 Status: DEP REF Location: [facility] Disch: ----- ------- SPEC : [id number] RECD: 03/01/25 STATUS: PATITO MASSEY NUM: [id number] AIDE: 02/28/25-[address]: PRISCILA REYES CNM [...] and HPV testing will be performed at [facility] (CLIA #[id number]), [address] [place] [address]. Testing for HPV was performed using the [employer] 6800 system. The presence of HPV in [...] detected. All professional services are performed by [facility] ([address] [place], [place] [id number]; ; CLIA #[id number]). The PAP Test is a screening procedure with the inherent possibility of both false negative and false positive results. Results should be interpreted in the context of historic and current clinical findings. Reliability of the PAP Test is enhanced by performing the test on a regular repetitive basis. CONTINUED ON NEXT PAGE ----- ------- Name: Neli Etseban Age/Sex: 34/F : 1990 Unit#: [id number] Attend Dr: PRISCILA REYES CNM Re02/28/25 Status: [facility] REF Location: [facility] Disch: ----- ------- SPEC : [id number] RECD: 03/01/25 STATUS: PATITO MASSEY NUM: [id number] AIDE: 02/28/25-[address] [facility] [address]: PRISCILA REYES CNM ENTERED: 03/01/25 SP TYPE: Pap Nicola LIMA DR: ORDERED: Pap Smear, PAP path review ----- ------- Signed (signature on file) Desiree Meli 03/08/25 1352 ----- ------- END OF REPORT Priscila Reyes [facility] LAB CYTOLOGY ORDERABLES F inal Result Performing Organization Address [facility] de Phone Number [facility] [address] [place] [address] [phone] * D Dimer High Sensitivity (02/19/2025 7:53 PM EDT) [facility] D Dimer High Sensitivity <150 NG/ML [facility] Comment:D-DIMER HS REFERENCE RANGENote: Our [...] ORDERAB LES Final Result Performing Organization Address [facility] de Phone Number [facility] [address] [place] [address] [phone] * SARS-CoV-2 RNA, Influenza A/B, and RSV RNA, Ql NAAT (02/19/2025 6:56 PM EDT) Influenza A PCR NEGATIVE Negative [facility] Influenza B PCR NEGATIVE Negative [facility] Resp Syncy Virus RNA Qual PCR NEGATIVE Negative [facility] SARS COV2 PCR NEGATIVE Negative [facility] Comment:All test results mus t [...] use by authorized laboratories.Testing performed on the [employer] GeneXpert utilizingreal-time RT-PCR.All SARS CoV2 and positive influenza A/B results arereported to [facility]. 02/19/2025 6:56 PM EDT 02/19/2025 7:01 PM EDT us Generic External Data Provider LAB MICROBIOLOGY - GENERAL ORDERABLES Final Result [facility] [address] [place] [phone] * XR Chest 2 Views (02/19/2025 6:34 PM EDT) Anatomical Region Laterality Modality Chest Radiographic Symone ging 02/19/2025 6:34 PM EDT Narrative 02/19/2025 6:35 PM EDT [address] [address] XRay Report Signed Patient: Neli Esteban MR#: [id number] : 1990 Acct:[id number] Age/Sex: 34 / F ADM Date: 02/19/25 Loc: .ED Attending Dr: Ordering Physician: Sulma Hickey NP Date of Service: 02/19/25 Procedure(s): XR chest 2V Accession Number(s): [id number] cc: Sulma Hickey NP; LISSETT BUNN NP [...] in OV> 02/19/251834 DD/ 33 TD/TT: 02/19/251833 Drying Machine Back Tender: Procedure Note Donotaniyahter, Image - 02/19/2025 [place] [address] XRay Report Signed Patient: Neli Esteban MMR#: [id number] : 1990Acct:[id number] Age/Sex: 34 / FADM Date: 02/19/25 Loc: .ED Attending Dr: Ordering Physician: Sulma Hickey NP Date of Service: 02/19/25 Procedure(s): XR chest 2V Accession Number(s): [id number] cc: Sulma Hickey NP; LISSETT BUNN NP [...] in OV> 02/19/251834 DD/ 33 TD/TT: 02/19/251833 Drying Machine Back Tender: us [facility] External Provider IMG XR PROCEDURES Edited Result - Final * High Sensitivity Troponin I (02/19/2025 6:19 PM EDT) [facility] TROPONIN I HIGH SENSITIVITY <2.7 <3.5 - 17.0 ng/L [facility] Comment:The Kwan high sens itivity Troponin-I results should beused in conjunction with other diagnostic information suchas ECG, clinical observations and information, and patientsymptoms to aid in the diagnosis of PR. 02/19/2025 6:19 PM EDT 02/19/2025 6:23 PM EDT Generic External Data Provider LAB BLOOD ORDERAB LES Final Result Performing Organization Address [facility] de Phone Number [facility] [address] [place] [phone] * Hepatic Function Panel (02/19/2025 6:19 PM EDT) [facility] Bilirubin, Total 0.1 0.0 - 1.0 mg/dL [facility] Bilirubin, Direct <0.2 0.0 - 0.5 mg/dL [facility] Aspartate Amino Transferase 27 5 - 31 U/L [facility] Alanine Aminotransferase 22 0 - 31 U/L [facility] Total Protein 7.2 6.5 - 8.0 g/dL [facility] Albumin Level 4.1 3.5 - 5.0 g/dL [facility] Alkaline Phosphatase 44 39 - 117 U/L [facility] 02/19/2025 6:19 PM EDT 02/19/2025 6:23 PM EDT Generic External Data Provider LAB BLOOD ORDERAB LES Final Result Performing Organization Address [facility] de Phone Number [facility] [address] [place] [phone] * Basic Metabolic Panel (02/19/2025 6:19 PM EDT) Sodium 139 135 - 145 mmol/L [facility] Potassium 4.3 3.3 - 5.1 mmol/L [facility] Chloride 107 96 - 108 mmol/L [facility] Carbon Dioxide 24 22 - 29 mmol/L [facility] Anion Gap 12 12 - 20 [facility] Urea Nitrogen (BUN) 15 9 - 16 mg/dL [facility] Creatinine, Serum 0.64 0.5 - 1.4 mg/dL [facility] Creatinine Clr Calc Pharmacy 107.6 [facility] Comment:Provided height and weight: 157.48 cm,61.235 kg.eGFR (calculated from the MDRD study equation) and eCrCl(calculated from the Cockcroft-Gault equation) are based ondifferent parameters and may not yield comparable results.If eCrCl result is absurd, please check patient'sheight/weight. Estimated Glomerular Filt Rate >60 [facility] Comment:Chronic Kidney Disea se: Estimated GFR < 60 mL/min/1.97v2Eqyygu Kidney Disease: Estimated GFR < 15 mL/min/1.73m2 Glucose 86 60 - 115 mg/dL [facility] Calcium 8.9 8.4 - 10.2 mg/dL [facility] [facility] 02/19/2025 6:19 PM EDT 02/19/2025 6:23 PM EDT us Generic External Data Provider LAB BLOOD ORDERAB LES Final Result [facility] [address] [place] [address] [phone] * HIV Ab/Ag ([facility]) (05/28/2023 12:09 PM EDT) HIV AB/AG Nonreactive Nonreactive [facility] Comment:HIV-1 p24 Ag and/or HIV-1/HIV-2 Ab not detected.A test result that is nonreactive does not exclude thepossibility of exposure to or infection with HIV-1 and/orHIV-2. Nonreactive results in this assay for individualswith prior exposure to HIV-1 and/or HIV-2 may be due toantigen and antibody levels that are below the limit ofdetection of this assay.The rumr: turn off the lightsniHighGround HIV Ag/Ab Combo assay result andsupplemental assay results should be interpreted inconjunction with the patient's clinical presentation,history and other laboratory results. If the results areinconsistent with clinical evidence, additional testing issuggested to confirm the result. 05/28/2023 12:0 9 PM EDT 05/28/2023 12:57 PM EDT Priscila Reyes [facility] BLOOD ORDERABLES Jen l Result Performing Organization Address [facility]/ZIP Co de Phone Number [facility] [address] [place] [address] [phone] * Hepatitis C Antibody with Reflex to HCV, RNA, Quantitative, Real-Time PCR (05/28/2023 12:09 PM EDT) Hepatitis C Antibody Nonreactive Nonreactive [facility] Comment:Antibodies to HCV no t detected; does not exclude early acuteHCV infection. Blood Venous blood specimen / Unknown 05/28/2023 12:09 PM EDT 05/28/2023 12:57 PM EDT Priscila Reyes [facility] LAB BLOOD ORDERABLES Jen l Result Performing Organization Address City/[facility] Co de Phone Number [facility] [address] [place] [address] [phone] from Last 3 Months or Most Recently Relevant to Health Maintenance Insurance C3 Care Teams Agricultural Extension Specialist Relationship Specialty Start Date End Date Lissett Bunn ANP [address] [place] [phone] PCP - General Family Medicine 07/17/20
== END 2025-05-09 13:37 | disposition home or self-care (01) ==
PROVIDERS: PCP Nurse Practitioner Primary Care; Visit Provider Obstetrics & Gynecology
DX: R87.610 Atypical squamous cells of undetermined significance on cytologic smear of cervix (ASC-US) (principal); Z32.02 Encounter for pregnancy test, result negative
CPT/HCPCS: 57454

== ENCOUNTER 2025-05-23 08:01 | Outpatient (REF) | payer MEDICAID, SELFPAY ==
--- NOTE | ~2025-05-23 | CT_ITS ---
EXAMINATION: CT ABDOMEN AND PELVIS WITH CONTRAST CLINICAL INFORMATION: Abdominal x-ray suggestive of ileus COMPARISON: Abdominal x-ray 04/21/2025. TECHNIQUE: Multidetector volumetric images were obtained from the superior aspect of the liver through the pubic symphysis following administration 85 mL of Omnipaque 350 intravenous contrast. Sagittal and coronal reformatted images were obtained on the technologist's workstation. Oral contrast: Yes This CT examination was performed using dose optimization techniques as appropriate, variously including the following: *Automated exposure control *Adjustment of mA and/or kV according to patient size (this includes techniques or standardized protocols for targeted exams where dose is matched to indication/reason for exam; i.e. extremities or head) *Use of iterative reconstruction technique FINDINGS: LUNG BASES: The visualized lung bases are unremarkable. LIVER, GALLBLADDER, AND BILIARY TREE: The liver is normal in size, shape, and attenuation. No focal hepatic lesion or biliary ductal dilatation is present. The gallbladder is unremarkable with no evidence of radiopaque gallstones, gallbladder wall thickening, or obvious pericholecystic inflammatory changes. PANCREAS: Unremarkable. SPLEEN: Unremarkable. ADRENAL GLANDS: Unremarkable. KIDNEYS AND URETERS: The kidneys are in expiratory phase. They are normal in size, shape, and attenuation. No hydronephrosis, hydroureter, or calculi seen. No perinephric stranding. BLADDER: Normal in appearance. GASTROINTESTINAL TRACT: The stomach, duodenum, and small bowel are normal in appearance. No wall thickening or inflammation evident. A normal appendix is visualized. The colon is normal in caliber, course, and appearance without wall thickening or inflammation. The majority is opacified with oral contrast. There is no rectal abnormality. ABDOMINAL WALL: No significant hernia is appreciated. LYMPH NODES: Normal. VASCULAR: Unremarkable. PELVIC VISCERA: The uterus and adnexa are unremarkable. OSSEOUS STRUCTURES: No suspicious lytic or blastic bone lesion. Normal appearance. CT/CT abdomen pelvis w IV con IMPRESSION: 1. No acute findings in the abdomen or pelvis. Normal examination. Electronically signed by: Lamont Carrera MD 05/23/2025 10:46 AM EDT
--- OUTSIDE RECORDS SUMMARY | 2025-05-23 08:04 | XMS_ITS | Encounter Summary ---
Author Organization [employer] Address [address] [facility] [address] [place] [address] Care Team Providers Care Christian Science Healer Name Role Phone Rachelle lOson Primary Care Provider Reason for Visit * Reason Onset Date Comments Nurse Triage 04/16/2023 Encounter Details Date Type Department Care Team ([facility] st Contact Info) Description 04/16/2023 Telephone [facility] [address] [place] [phone] Rachelle Olson ANP [address] [place] [address] Nurse Triage Social History Tobacco Use Types [...] stones. Pt is offered to come to [facility] but, requests to see PCP. Apt with PCP 05/04/23 at 1100am. Pt is advised to seek evaluation at either [facility] or ED if symptoms become worse before [...] The caller accepted this outcome Patient speaks hungarian documented in this encounter Plan of Treatment Not on file documented as of this encounter Visit Diagnoses Not on filedocumented in this encounter Care Teams Christian Science Healer Relationship Specialty Start Date End Date Rachelle Olson ANP [address] [place] [phone] PCP - General Family Medicine 07/17/20 documented as of this encounter
--- OUTSIDE RECORDS SUMMARY | 2025-05-23 08:04 | XMS_ITS | Encounter Summary ---
Author Organization [employer] Address [address] [place] [address] Care Team Providers Care Software Program Manager Name Role Phone Rachelle Olson Primary Care Provider [phone] Encounter Details Date Type Department Care Team (Latest Contact Info) Description 05/05/2025 Results Follow-Up [facility] [address] [place], [place] [phone] Rachelle Olson ANP [address] [place] [address] Helicobacter pylori Antigen, EIA, Stool Social History [...] documented as of this encounter Care Teams Software Program Manager Relationship Specialty Start Date End Date Rachelle Olson ANP [address] [place] [phone] PCP - General Family Medicine 07/17/20 documented as of this encounter
--- OUTSIDE RECORDS SUMMARY | 2025-05-23 08:04 | XMS_ITS | Encounter Summary ---
Author Organization [employer] Address [address] [facility] [address] [place] [address] Care Team Providers Care Pier Master Assistant Name Role Phone Rachelle Olson Primary Care Provider [phone] Encounter Details Date Type Department Care Team (Latest Contact Info) Description 03/20/2025 Results Follow-Up [facility] [address] [place], [place] [phone] Franny Galloway CNM [address] [place], [place] [phone] [place] Pelvis Transvaginal Social History Tobacco Use [...] documented as of this encounter Care Teams Pier Master Assistant Relationship Specialty Start Date End Date Rachelle Olson ANP [address] [place] [phone] PCP - General Family Medicine 07/17/20 documented as of this encounter
--- OUTSIDE RECORDS SUMMARY | 2025-05-23 08:04 | XMS_ITS | Clinical Summary ---
Author Organization [facility] Address [address] [place] [address] Care Team Providers Care Mat Inspector Name Role Phone Rachelle Olson Primary Care Provider [phone] Medications No known medications Active Problems Problem [...] patient's age to complete this topic Insurance [employer] Care Teams Mat Inspector Relationship Specialty Start Date End Date Rachelle Olson [address] [place] [phone] PCP - General 06/10/22
--- OUTSIDE RECORDS SUMMARY | 2025-05-23 08:04 | XMS_ITS | Clinical Summary ---
Author Organization [employer] Address [address] [place] [address] Care Team Providers Care Electric Blanket Wirer Name Role Phone Lissett Bunn Primary Care Provider [phone] Allergies Active Allergy Reactions Criticality Noted Date Comments Avocado Vomiting 01/24/2025 Kiwi Extract Unknown 01/24/2025 Throat itching Medications betamethasone valerate (Valisone) 0.1 % ointmentIndica tions:Psoriasi s Apply topically 2 times daily. 45 g 1 5 Active lidocaine (Lidoderm) 5 % patchIndicatio ns:Chronic midline low back pain without sciatica Apply 1 patch topically Once per day. Remove & discard patch within 12 hours or as directed by MD. 30 patch 2 5 Active ibuprofen 600 MG tablet 1 tablet every 8 hours with food x 7 days 21 tablet 5 Active Levonorgest-Et h Estrad 91-Day (LoSeasonique) 0.1-0.02 & 0.01 MG tablet TAKE 1 TABLET BY MOUTH EVERY DAY. START DAY AFTER TAKING EC. 91 tablet 3 5 Active hydrocortisone (Anusol-HC) 2.5 % rectal cream Insert into the rectum 2 times daily. 28 g 4 04/25/20 25 Discontinu ed(Therapy completed) cromolyn (NasalCrom) 5.2 MG/ACT nasal sprayIndicatio ns:Acute URI Administer 1 spray into each nostril 3 times daily for 5 days. 26 mL 12 5 04/25/20 25 Discontinu ed(Therapy completed) SUMAtriptan (Imitrex) 50 MG tablet TAKE 1 TABLET BY MOUTH 1 TIME IF NEEDED FOR MIGRAINE. MAY REPEAT DOSE ONCE IN 2 HOURS IF NO RELIEF, MAX 2 DOSES/24 HOURS. 9 tablet 5 04/25/20 25 Discontinu ed(Therapy completed) omeprazole (PriLOSEC) [address] capsuleIndicat ions:Bacterial infection due to H. pylori Take 1 capsule (20 mg) by mouth before breakfast and before evening meal for 10 days. Do not crush or chew. 20 capsule 5 04/25/20 25 Discontinu ed(Therapy completed) bismuth-metroN IDAZOLE-tetrac ycline (Pylera) 140-125-125 MG capsuleIndicat ions:Bacterial infection due to H. pylori Take 3 capsules by mouth before breakfast, before lunch, before evening meal, and at bedtime for 10 days. Follow each dose with 8 oz of water. 120 capsule 5 04/25/20 25 Discontinu ed(Therapy completed) Active Problems Problem Noted Date Diagnosed [...] Encounters Date Type Department Care Team Description 05/12/2025 Results Follow-Up [address] [address] Priscila Reyes CNM Colposcopy 05/12/2025 Orders Only [facility] [address] [place] [address] Anthony Rodriguez MD 05/09/2025 Orders Only GENERIC EXTERNAL DATA DEPARTMENT Provider, Generic External Data 05/05/2025 Results Follow-Up [facility] [address] [place] [address] Lissett Bunn ANP Helicobacter pylori Antigen, EIA, Stool 04/28/2025 Orders Only [address] [address] Lissett Bunn ANP 04/27/2025 Orders Only [address] [address] Lissett Bunn ANP LLQ pain (Primary Dx); Abnormal x-ray of abdomen 04/26/2025 Telephone [facility] [address] [place] [address] ABD ORDER 04/26/[address] [address] Lissett Bunn ANP 04/25/2025 9:30 AM EDT Office Visit [address] [address] Lissett Bunn ANP LLQ pain (Primary Dx); Abnormal x-ray of abdomen; Varicose veins of right lower extremity with inflammation; Healthcare maintenance; History of Helicobacter pylori infection 04/25/2025 Travel 04/24/[address] [address] Lissett Bunn ANP chart prep 04/21/2025 Orders Only GENERIC EXTERNAL DATA DEPARTMENT Provider, Generic External Data 04/20/2025 Orders Only [facility] External Provider, [facility] 04/18/2025 Patient Outreach [facility] [address] [place], [place] [phone] Lissett Bunn ANP Pre-visit Planning (SDOH was already completed) 04/11/[address] [place] [address] Lissett Bunn ANP 03/20/2025 Results Follow-Up [address] [place] [address] Priscila Reyes CNM US Pelvis Transvaginal 03/17/[address] [address] Lissett Bunn ANP Ultrasound order 03/09/2025 Orders Only [address] [address] Priscila Reyes CNM Abnormal uterine bleeding (Primary Dx) 03/08/2025 Orders Only [address] [address] Priscila Reyes CNM 03/08/2025 Orders Only [address] [address] Priscila Reyes CNM Atypical squamous cells cannot exclude high grade squamous intraepithelial lesion on cytologic smear of cervix (ASC-H) (Primary Dx); Atypical glandular cells of undetermined significance (SULEMA) on cervical Pap smear; Cervical high risk HPV (human papillomavirus) test positive 03/08/[address] [address] Lissett Bunn ANP Nurse Triage 03/06/2025 Results Follow-Up [address] [address] Priscila Reyes CNM HPV DNA, Low/High Risk 02/28/2025 9:30 AM EDT Procedure Visit [address] [address] Priscila Reyes CNM Cervical cancer screening (Primary Dx); Screening examination for venereal disease; Abnormal uterine bleeding 02/28/2025 Orders Only [address] [address] Priscila Reyes CNM 02/28/2025 Travel from Last 3 Months Immunizations Immunization Administration [...] (1 - 3-dose series) 12/21/2006 COVID-19 Vaccine (2024-2 6 season) 2025 04/02/2021, 03/12/2021 Influenza Vaccine [...] Completed 05/28/2023 Hepatitis C Screening Completed 05/28/2023 Colposcopy Discontinued 05/09/2025 HIB Vaccines Aged Out No longer eligi [...] Procedure Name Priority Date/Time Associated Diagnosis Comments HEMATOXYLIN AND EOSIN STAIN Routine 05/09/2025 1:30 PM EDT COLPOSCOPY Routine 05/09/2025 9:59 AM EDT HELICOBACTER PYLORI AG, EIA, STOOL Routine 05/04/2025 [...] LOW/HIGH RISK Routine 02/28/2025 10:41 AM EDT HEPATITIS C AB W/REFL TO HCV RNA, QN, PCR Routine 05/28/2023 12:09 PM EDT Encntr screen for infections w sexl mode of transmiss HIV ANTIBODY/ANTIGEN ([place] DPH) Routine 05/28/2023 12:09 PM EDT from Last 3 Months or Most Recently Relevant to Health Maintenance Results * Hematoxylin and Eosin Stain (05/09/2025 1:30 PM EDT) 05/09/2025 1:30 PM EDT 05/09/2025 3:15 PM EDT [facility] - 05/11/2025 4:53 PM EDT ----- ------- Name: Neli Esteban Age/Sex: 34/F : 1990 Unit#: [id number] Attend Dr: Juancarlos Joiner MD Re05/09/25 Status: DEP REF Location: [facility] Disch: ----- ------- SPEC : [id number] RECD: 05/09/25 STATUS: PATITO MASSEY NUM: [id number] AIDE: 05/09/25 [facility] DR: Juancarlos Joiner MD ENTERED: 05/09/256239 SP TYPE: Surgical OTHR DR: LISSETT BUNN NP ORDERED: HE Stain/, Gross Micro L4/8, IHC/3, Add. immunos/3, Ki-67/3, p16/3 Diagnosis A. Endocervix, curettage: Abundant mucus with scant benign endocervical glandular epithelium and rare endometrial epithelium; negative for dysplasia. B. Endometrium, biopsy: Benign endometrium with atrophic and weakly secretory glands and decidual stromal change with focal stromal collapse, consistent with progestin effect, and abundant mucus with scant endocervical glandular epithelium; no atypia or carcinoma. C. Cervix, 1:00, biopsy: Scant attenuated and atypical squamous metaplastic epithelium, suspicious for high grade squamous intraepithelial lesion, involving inflamed endocervical glandular epithelium. D. Cervix, 5:00, biopsy: Endocervical glandular mucosa; negative for dysplasia. E. Cervix, 6:00, biopsy: High grade squamous intraepithelial lesion (moderate dysplasia, JEREMY II), involving endocervical glands. F. Cervix, 7:00, biopsy: Squamous mucosa and detached endocervical glandular epithelium; negative for dysplasia. G. Cervix, 11:00, biopsy: Scant attenuated and atypical squamous metaplastic epithelium, suspicious for high grade squamous intraepithelial lesion, involving inflamed endocervical glandular epithelium. H. Cervix, 12:00, biopsy: Endocervical glandular mucosa with inflammation; negative for dysplasia; no squamous epithelium present. Comment: The atypical squamous cells in the patient's previous Pap test ([id number]) are similar to the high grade squamous intraepithelial lesion seen in the biopsy. The atypical glandular cells seen in the Pap likely represent high grade dysplasia involving endocervical glands. Clinical History ASC-H Microscopic Description Microscopic sections reviewed. The atypical and dysplastic epithelium in C, E and G show diffuse strong positive staining on p16 immunostain and increased Ki-67 staining. Controls stain appropriately. CONTINUED ON NEXT PAGE ----- ------- Name: Neli Esteban Age/Sex: 34/F : 1990 Unit#: [id number] Attend Dr: Juancarlos Joiner MD Re05/09/25 Status: [facility] REF Location: [facility] Disch: ----- ------- SPEC : [id number] RECD: 05/09/25 STATUS: PATITO MASSEY NUM: [id number] AIDE: 05/09/25-1330 [facility] DR: Juancarlos Joiner MD ENTERED: 05/09/251957 SP TYPE: Surgical OTHR DR: LISSETT BUNN NP ORDERED: HE Stain/22, Gross Micro L4/8, IHC/3, Add. immunos/3, Ki-67/3, p16/3 Material Received A. ECC B. EMB C. CX Bx 1 D. CX Bx 5 E. CX Bx 6 F. CX Bx 7 G. CX Bx 11 H. CX Bx 12 Gross Description Received in 8 parts. A. Received in formalin labeled ECC are fragments of pink-white soft tissue and mucus forming an aggregate measuring 1.0 x 0.9 x 0.2 cm which is wrapped in lens paper and entirely submitted for microscopic examination, multiple pieces in cassette A. B. Received in formalin labeled EMB are fragments of red-pink and pink ramírez soft tissue mixed with mucus and clotted blood forming in aggregate measuring 2.4 x 2.2 x 0.3 cm which is wrapped in lens paper and entirely submitted for microscopic examination, multiple pieces in cassette B. C. Received in formalin labeled CX Bx 1 are 2 fragments of rubbery, pink white tissue measuring 0.3 and 0.4 cm in greatest dimension which are wrapped in lens paper and entirely submitted for microscopic examination, 2 pieces in cassette C. D. Received in formalin labeled CX Bx 5 is a fragment of rubbery pink white tissue measuring 0.7 cm in greatest dimension which is wrapped in lens paper and entirely submitted for microscopic examination, 1 piece in cassette D. E. Received in formalin labeled CX Bx 6 are 2 fragments of rubbery, white tissue measuring 0.4 and 0.7 cm in greatest dimension along with a an aggregate of clear mucus measuring 0.6 cm in diameter which is wrapped in lens paper and entirely submitted for microscopic examination, multiple pieces in cassette E. F. Received in formalin labeled CX Bx 7 is a fragment of rubbery pink white tissue measuring 0.7 cm in greatest dimension along with a an aggregate of clear mucus measuring 0.4 cm in diameter which is wrapped in lens paper and entirely submitted for microscopic examination, multiple pieces in cassette F. G. Received in formalin labeled CX Bx 11 are minute fragments of pink-white tissue and mucus forming in aggregate measuring 0.6 x 0.5 x 0.1 cm which is wrapped in lens paper and entirely submitted for microscopic examination, multiple pieces in cassette G. CONTINUED ON NEXT PAGE ----- ------- Name: Shital GalavizNeli Age/Sex: 34/F : 1990 Unit#: [id number] Attend Dr: Juancarlos Joiner MD Re05/09/25 Status: DEP REF Location: [facility] Disch: ----- ------- SPEC : [id number] RECD: 05/09/25 STATUS: PATITO MASSEY NUM: [id number] AIDE: 05/09/25 [facility] DR: Juancarlos Joiner MD ENTERED: 05/09/25 SP TYPE: Surgical OTHR DR: LISSETT BUNN NP ORDERED: HE Stain/22, Gross Micro L4/8, IHC/3, Add. immunos/3, Ki-67/3, p16/3 Gross Description (Continued) H. Received in formalin labeled CX Bx 12 is a fragment of rubbery, pink white tissue measuring 0.8 cm in greatest dimension which is wrapped in lens paper and entirely submitted for microscopic examination, 1 piece in cassette H. (SMC) Special studies ordered and performed: Immunostains for p16 and Ki-67 on C1, E1 and G1. IHC S/NG Disclaimer NOTE: Unless otherwise stated, all tissue is formalin-fixed and paraffin-embedded. Some or all of the immunohistochemical tests reported herein may have been developed and their performance characteristics determined by [facility]. They have not been cleared or approved by the U.S. Food and Drug Administration (FDA). However, the FDA has determined that such clearance or approval is not necessary. This laboratory is certified under the Clinical Laboratory Improvement Amendments of 1988 (CLIA) as qualified to perform high complexity clinical laboratory testing. Copies To: LISSETT BUNN NP [address] [address] Juancarlos Joiner MD [facility] [address] [place] [address] ----- ------- Signed (signature on file) Desiree Garrison 05/11/25 1653 ----- ------- END OF REPORT Generic External Data Provider LAB BLOOD ORDERAB LES Final Result [facility] [address] [place] [phone] * Colposcopy (05/09/2025 9:59 AM EDT) [facility] Provider MD IN CLINIC/BEDSIDE ORDERAB LES Final Result * Helicobacter pylori??Antigen, EIA, Stool (05/04/2025 7:08 AM EDT) H pylori Ag Stool SEE NOTE [facility] Comment:HELICOBACTER PYLORI AG, EIA, STOOL Micro Number: [id number] Test Status: Final Specimen Source: Stool Specimen Quality: Adequate H.pylori Ag: Not Detected Antimicrobials, proton pump inhibitors, and bismuth preparations inhibit H. pylori and ingestion up to two weeks prior to testing may cause false negative results. If clinically indicated the test should be repeated on a new specimen obtained two weeks after discontinuing treatment. Reference Range: Not DetectedTHIS TEST WAS PERFORMED AT:[facility] [place] [phone] GONZALES MD Stool Rectal contents / Unknown 05/04/2025 7:08 AM EDT 05/04/2025 12:29 PM EDT us Lissett Bunn ANP LAB BODY FLUIDS AND STOOLS ORDER DEV Final Result [facility] [address] [place] [phone] * XR Abdomen 2 View minimum (04/21/2025 11:38 PM EDT) Anatomical Region Laterality Modality Abdomen Radiographic Symone ging 04/21/2025 11:3 8 PM EDT Narrative 04/21/2025 11:41 PM EDT [address] [address] XRay Report Signed Patient: Neli Esteban MR#: [id number] : 1990 Acct:[id number] Age/Sex: 34 / F ADM Date: 04/21/25 Loc: HO.ED Attending Dr: Ordering Physician: Cathy Montiel PA-C Date of Service: 04/21/25 Procedure(s): XR abdomen min 2V Accession Number(s): [id number] cc: Cathy Montiel PA-C; LISSETT BUNN NP [...] OV> 04/21/25 2340 DD/ 37 TD/TT: 04/21/252337 Key Sander: Procedure Note Donotuseinterpreter, Image - 04/21/[address] [address] XRay Report Signed Patient: Neli Esteban MMR#: [id number] : 1990Acct:[id number] Age/Sex: 34 / FADM Date: 04/21/25 Loc: HO.ED Attending Dr: Ordering Physician: Cathy Montiel PA-C Date of Service: 04/21/25 Procedure(s): XR abdomen min 2V Accession Number(s): [id number] cc: Cathy Montiel PA-C; LISSETT BUNN NP [...] Minaya MD in OV> 04/21/25 2340 DD/ 2338 TD/TT: 04/21/25 2338 Key Sander: [facility] External Provider IMG XR PROCEDURES Edited Result - Final * HCG, Qualitative, Urine (04/21/2025 10:08 PM EDT) Urine NEGATIVE NEGATIVE [facility] Comment:This test was develo ped to detect early . Falsenegative results may occur after the 5th - 7th week ofpregnancy when using this test method. If clinicallyindicated, consider a serum hCG. 04/21/2025 10:0 8 PM EDT 04/21/2025 10:14 PM EDT Generic External Data Provider LAB URINE ORDERAB LES Final Result [facility] [address] [place] [phone] * (ABNORMAL) Urinalysis w/reflex microscopic (04/21/2025 10:08 PM EDT) Color Urine Yellow [facility] Appearance Urine Clear [facility] PH 6.5 5.0 - 9.0 [facility] Glucose Urine UA Negative Negative mg/dL [facility] Urine Blood Negative Negative [facility] Specific [place] - Urine >=1.030(H) 1.005 - 1.025 [facility] Urine Protein Negative Neg-Trace mg/dL [facility] Urine Ketones Negative Negative mg/dL [facility] Nitrite Urine Negative Negative [facility] Leukocyte Esterase Urine Negative Negative [facility] 04/21/2025 10:0 8 PM EDT 04/21/2025 10:14 PM EDT Narrative [facility] - 04/21/2025 10:21 PM EDT [id number], Clean Catch us Generic External Data Provider LAB URINE ORDERAB LES Final Result [facility] [address] [place] [phone] * (ABNORMAL) CBC auto differential (04/21/2025 10:02 PM EDT) White Blood Count 9.4 4.8 - 10.8 X10*3/uL [facility] Red Blood Count 4.62 4.20 - 5.50 X10*6/uL [facility] Hemoglobin 13.7 12.0 - 16.0 g/dl [facility] Hematocrit 37.7 37.0 - 47.0 % [facility] Mean Corpuscular Volume 81.6 80.0 - 98.0 fL [facility] Mean Corpuscular Hemoglobin 29.7 27.0 - 33.0 pg [facility] Mean Corpuscular HGB Conc 36.3(H) 31.0 - 35.0 g/dl [facility] Red Cell Distribution Width 11.9 11.0 - 16.0 % [facility] Platelet Count 331 160 - 400 X10*3/uL [facility] Mean Platelet Volume 8.8(L) 9.4 - 12.3 fL [facility] Neutrophils Percent Auto 47.3 45 - 73 % [facility] Imm Gran Pct Auto 0.5(H) 0.0 - 0.4 % [facility] Lymphocytes Percent Auto 44.5(H) 20 - 40 % [facility] Monocytes Percent Auto 5.1 2 - 11 % [facility] Eosinophils Percent Auto 2.1 0 - 4 % [facility] Basophils Percent Auto 0.5 0 - 2 % [facility] NRBC Pct Auto 0.0 0.0 - 0.2 /100WBC [facility] Neutrophils Absolute Auto 4.4 2.0 - 8.3 x10*3/uL [facility] Imm Gran Abs Auto 0.05(H) 0.00 - 0.03 X10*3/uL [facility] Lymphocytes Absolute Auto 4.2 1.2 - 4.9 X10*3/uL [facility] Monocytes Absolute Auto 0.5 0.1 - 1.2 X10*3/uL [facility] Eosinophils Absolute Auto 0.2 0.0 - 0.4 X10*3/uL [facility] Basophils Absolute Auto 0.1 0.0 - 0.2 X10*3/uL [facility] NRBC Abs Auto 0.000 0.0 - 0.012 X10*3/uL [facility] 04/21/2025 10:0 2 PM EDT 04/21/2025 10:14 PM EDT us Generic External Data Provider LAB BLOOD ORDERAB LES Final Result [facility] [address] [place] [phone] * Lipase (04/21/2025 10:02 PM EDT) Lipase 23 8 - 78 U/L [facility] 04/21/2025 10:0 2 PM EDT 04/21/2025 10:14 PM EDT us Generic External Data Provider LAB BLOOD ORDERAB LES Final Result [facility] [address] [place] [address] [phone] * (ABNORMAL) Comprehensive Metabolic Panel (04/21/2025 10:02 PM EDT) Sodium 137 135 - 145 mmol/L [facility] Potassium 3.9 3.3 - 5.1 mmol/L [facility] Chloride 105 96 - 108 mmol/L [facility] Carbon Dioxide 27 22 - 29 mmol/L [facility] Anion Gap 9(L) 12 - 20 [facility] Urea Nitrogen (BUN) 14 9 - 16 mg/dL [facility] Creatinine, Serum 0.70 0.5 - 1.4 mg/dL [facility] Creatinine Clr Calc Pharmacy 90.4 [facility] Comment:Provided height and weight: 157.48 cm,59.4 kg.eGFR (calculated from the MDRD study equation) and eCrCl(calculated from the Cockcroft-Gault equation) are based ondifferent parameters and may not yield comparable results.If eCrCl result is absurd, please check patient'sheight/weight. Estimated Glomerular Filt Rate >60 [facility] Comment:Chronic Kidney Disea se: Estimated GFR < 60 mL/min/1.16m3Opkgsh Kidney Disease: Estimated GFR < 15 mL/min/1.73m2 Glucose 91 60 - 115 mg/dL [facility] Calcium 8.9 8.4 - 10.2 mg/dL [facility] Bilirubin, Total 0.2 0.0 - 1.0 mg/dL [facility] Aspartate Amino Transferase 26 5 - 31 U/L [facility] Alanine Aminotransferase 20 0 - 31 U/L [facility] Total Protein 7.0 6.5 - 8.0 g/dL [facility] Albumin Level 4.0 3.5 - 5.0 g/dL [facility] Alkaline Phosphatase 42 39 - 117 U/L [facility] 04/21/2025 10:0 2 PM EDT 04/21/2025 10:14 PM EDT us Generic External Data Provider LAB BLOOD ORDERAB LES Final Result Performing Organization Address City/State/[facility] Co de Phone Number [facility] [address] [place] [phone] * VASC US Lower Extremity Venous Duplex Bilateral (04/20/2025 1:34 PM EDT) 04/20/2025 1:34 PM EDT Narrative [facility] - 04/20/2025 5:27 PM EDT [address] [address] Ultrasound Report Signed Patient: Neli Esteban MR#: [id number] : 1990 Acct:[id number] Age/Sex: 34 / F ADM Date: 04/20/25 Loc: . Attending Dr: Jerome Douglas MD Ordering Physician: Jerome Douglas MD Date of Service: 04/20/25 Procedure(s): US venous duplex LE BI Accession Number(s): [id number] cc: Jerome Douglas MD; LSISETT BUNN NP Reason for Exam: I83.11 - [...] 04/20/25 1724 DD/ 1334 TD/TT: 04/20/25 1409 Key Sander: Procedure Note Donotuseinterpreter, Image - 04/20/2025 [place] [address] Ultrasound Report Signed Patient: Neli Esteban [facility]#: [id number] : 1990Acct:[id number] Age/Sex: 34 / FADM Date: 04/20/25 Loc: HO.US Attending Dr: Jerome Douglas MD Ordering Physician: Jerome Douglas MD Date of Service: 04/20/25 Procedure(s): US venous duplex LE BI Accession Number(s): [id number] cc: Jerome Douglas MD; LISSETT BUNN NP [...] 04/20/25 1724 DD/ 1334 TD/TT: 04/20/25 1409 Key Sander: us [facility] External Provider CV VASC ULAR PROCEDURES Final Result [facility] [address] [place] [phone] * US Pelvis Transvaginal (03/17/2025 9:30 AM EDT) Anatomical Region Laterality Modality Pelvis Ultrasound 03/17/2025 9:30 AM EDT Narrative 03/17/2025 10:17 AM EDT [address] [address] Ultrasound Report Signed Patient: Neli Esteban MR#: [id number] : 1990 Acct:[id number] Age/Sex: 34 / F ADM Date: 03/17/25 Loc: HO.US Attending Dr: Lissett Bunn NP Ordering Physician: PRISCILA REYES CNM Date of Service: 03/17/25 Procedure(s): US pelvic and transvaginal Accession Number(s): [id number] cc: PRISCILA REYES CNM; LISSETT BUNN NP [...] Motta MD in OV> 03/17/25 1014 DD/ TD/TT: 03/17/2544 Key Sander: Procedure Note Donotuseinterpreter, Image - 03/17/[address] [address] Ultrasound Report Signed Patient: Neli Esteban [facility]#: [id number] : 1990Acct:[id number] Age/Sex: 34 / FADM Date: 03/17/25 Loc: HO.US Attending Dr: Lissett Bunn NP Ordering Physician: PRISCILA REYES CNM Date of Service: 03/17/25 Procedure(s): US pelvic and transvaginal Accession Number(s): [id number] cc: PRISCILA REYES CNM; LISSETT BUNN APPLIANCE ADJUSTER EXAMINATION: US PELVIS TRANSABDOMINAL AND TRANSVAGINAL HISTORY: [...] 03/17/25 1014 DD/ 0930 TD/TT: 03/17/25 0944 Key Sander: Priscila Reyes CNM IMG US PROCEDURES Final R esult * STI testing add on (NG, CT, Trich) (02/28/2025 10:41 AM EDT) Trichomonas (NAAT) NOT DETECTED NOT DETECTED [facility] Comment:The analytical perfo rmance characteristics of thisassay have been determined by [employer]. Themodifications have not been cleared or approved bythe FDA. This assay has been validated pursuant to theIA regulations and is used for clinical purposes.For additional information, please refer tohttp://education.[employer]/faq/Trichomonastma(This link is being provided for information/educational purposes only.)THIS TEST WAS PERFORMED AT:[facility] [place] [phone] GONZALES MD CTNG Ref Lab NOT DETECTED NOT DETECTED [facility] NG Ref Lab NOT DETECTED NOT DETECTED [facility] ThinPrep vial Cervix uteri structure / Unknown 02/28/2025 10:41 AM EDT 03/01/2025 7:35 AM EDT Narrative [facility] - 03/02/2025 7:34 PM EDT Collection Date: [id number] by: AUGUSTINA Avelar: Cervix us Priscila Reyes [facility] CYTOLOGY ORDERABLES F inal Result [facility] [address] [place] [phone] * (ABNORMAL) HPV DNA, Low/High Risk (02/28/2025 10:41 AM EDT) Pathologist [facility] HPV High Risk Positive(A) Negative [facility] HPV Genotype 16 Negative Negative [facility] HPV Genotype 18 Negative Negative [facility] [facility] Comment:HPV testing performe d at [facility] (CLIA#[id number]), [address] [place] [address].Testing for HPV was performed using the Mame [...] 03/01/2025 7:35 AM EDT us Priscila Reyes CNM LAB BLOOD ORDERABLES Jen harrison Result [facility] [address] [place] [phone] * Pap Smear (02/28/2025 10:41 AM EDT) Swab Cervix uteri structure / Unknown 02/28/2025 10:41 AM EDT 03/01/2025 7:35 AM EDT Narrative [facility] - 03/08/2025 1:52 PM EDT ----- ------- Name: Neli Esteban Age/Sex: 34/F : 1990 Unit#: [id number] Attend Dr: PRISCILA REYES CNM Re02/28/25 Status: DEP REF Location: [facility] Disch: ----- ------- SPEC : [id number] RECD: 03/01/25 STATUS: PATITO MASSEY NUM: [id number] AIDE: 02/28/25 [facility] DR: PRISCILA REYES CNM ENTERED: 03/01/25 SP TYPE: Pap Smr [facility] DR: ORDERED: Pap Smear, PAP path review [...] and HPV testing will be performed at [facility] (CLIA #[id number]), [address] [place] [address]. Testing for HPV was performed using the [...] detected. All professional services are performed by [facility] ([address] [place] [id number]; ; CLIA #[id number]). The PAP Test is a screening procedure with the inherent possibility of both false negative and false positive results. Results should be interpreted in the context of historic and current clinical findings. Reliability of the PAP Test is enhanced by performing the test on a regular repetitive basis. CONTINUED ON NEXT PAGE ----- ------- Name: Neli Esteban Age/Sex: 34/F : 1990 Unit#: [id number] Attend Dr: PRISCILA REYES [facility] Re02/28/25 Status: DEP REF Location: HO.LNP Disch: ----- ------- SPEC : [id number] RECD: 03/01/25 STATUS: PATITO MASSEY NUM: [id number] AIDE: 02/28/25-1041 [facility] DR: PRISCILA REYES [facility] ENTERED: 03/01/25 SP TYPE: Pap [facility] DR: ORDERED: Pap Smear, PAP path review ----- ------- Signed (signature on file) Desiree Garrison 03/08/25 1352 ----- ------- END OF REPORT [facility] CYTOLOGY ORDERABLES F inal Result Performing Organization Address [facility] Co de Phone Number [facility] [address] [place] [address] [phone] * HIV Ab/Ag (ASHLEIGH WALKER) (05/28/2023 12:09 PM EDT) HIV AB/AG Nonreactive Nonreactive [facility] Comment:HIV-1 p24 Ag and/or HIV-1/HIV-2 Ab not detected.A test result that is nonreactive does not exclude thepossibility of exposure to or infection with HIV-1 and/orHIV-2. Nonreactive results in this assay for individualswith prior exposure to HIV-1 and/or HIV-2 may be due toantigen and antibody levels that are below the limit ofdetection of this assay.The [employer] HIV Ag/Ab Combo assay result andsupplemental assay results should be interpreted inconjunction with the patient's clinical presentation,history and other laboratory results. If the results areinconsistent with clinical evidence, additional testing issuggested to confirm the result. 05/28/2023 12:0 9 PM EDT 05/28/2023 12:57 PM EDT [facility] LAB BLOOD ORDERABLES Jen l Result Performing Organization Address [facility]/ZIP Co de Phone Number [facility] [address] [place] [address] [phone] * Hepatitis C Antibody with Reflex to HCV, RNA, Quantitative, Real-Time PCR (05/28/2023 12:09 PM EDT) Hepatitis C Antibody Nonreactive Nonreactive [facility] Comment:Antibodies to HCV no t detected; does not exclude early acuteHCV infection. Blood Venous blood specimen / Unknown 05/28/2023 12:09 PM EDT 05/28/2023 12:57 PM EDT us Priscila Laverne [facility] LAB BLOOD ORDERABLES Jen harrison Result [facility] [address] [place] [phone] [phone] from Last 3 Months or Most Recently Relevant to Health Maintenance Insurance [address] [place], [place] [address] Care Teams Electric Blanket Wirer Relationship Specialty Start Date End Date Lissett Bunn ANP [address] [place] [address] PCP - General Family Medicine 07/17/20
--- OUTSIDE RECORDS SUMMARY | 2025-05-23 08:04 | XMS_ITS | Encounter Summary ---
Author Organization [employer] Address [address] [place] [address] Care Team Providers Care Mineral Technologist Name Role Phone Rachelle Olson Primary Care Provider [phone] Encounter Details Date Type Department Care Team (Late st Contact Info) Description 05/12/2025 Results Follow-Up [facility] [address] [place], [place] [phone] Franny Galloway CNM [address] [place] [address] Colposcopy Social History Tobacco Use Types Packs/Day Years [...] as of this encounter Miscellaneous Notes * Result Encounter Note - Franny Galloway CNM - 05/12/2025 11:53 AM EDT Colpo with JEREMY 2, involving endocervical glands. Likely will need cone or LEEP. Please keep an eye out for visit [place] [facility] Thanks! documented in this encounter Plan of Treatment Not on file documented as of this encounter Visit Diagnoses Not on filedocumented in this encounter Additional Health Concerns Assessment Noted Time PHQ-9 Depression Total Score: 0 09/01/19 25 2:43 PM EST documented as of this encounter Care Teams Mineral Technologist Relationship Specialty Start Date End Date Rachelle Olson ANP [address] [place] [phone] PCP - General Family Medicine 07/17/20 documented as of this encounter
--- OUTSIDE RECORDS SUMMARY | 2025-05-23 08:04 | XMS_ITS | Encounter Summary ---
Author Organization [employer] Address [address] [place] [address] Care Team Providers Care Block Breaker Operator Name Role Phone Rachelle Olson Primary Care Provider [phone] Encounter Details Date Type Department Care Team (Late st Contact Info) Description 07/23/2024 Orders Only [facility] MEDICINE [address] [place], [place] [phone] Haritha Selby MD [address] [place], [place] [phone] Hematuria, unspecified type (Primary Dx) Social History [...] (08/29/2024 11:58 AM EST) Color Urine Yellow [facility] Appearance Urine Clear [facility] PH 7.5 5.0 - 9.0 [facility] Glucose Urine UA Negative Negative mg/dL [facility] Urine Blood Small (1+)(A) Negative [facility] Specific [place] - Urine 1.020 1.005 - 1.025 [facility] Urine Protein Negative Neg-Trace mg/dL [facility] Urine Ketones Negative Negative mg/dL [facility] Nitrite Urine Negative Negative [facility] Leukocyte Esterase Urine Negative Negative [facility] RBC Urine 0-2 0 - 2 /HPF [facility] Urine WBC 0-5 0 - 5 /HPF [facility] Urine Squamous Epithelial Cell 0-2 0 - 2 /HPF [facility] Urine Bacteria None Seen None Seen [facility] Hyaline Casts, Urine 0-2 0 - 2 /LPF [facility] Urine 08/29/2024 11:5 8 AM EST 08/29/2024 1:11 PM EST Narrative [facility] - 08/29/2024 1:57 PM EST Urine, Clean Catch us Haritha Selby MD LAB URINE ORDERABLES Final Resul t [facility] [address] [place] [phone] [phone] documented in this encounter Visit Diagnoses Diagnosis Hematuria, unspecified type- Primary documented in this encounter Care Teams Block Breaker Operator Relationship Specialty Start Date End Date Rachelle Olson ANP [address] [place] [phone] PCP - General Family Medicine 07/17/20 documented as of this encounter
--- OUTSIDE RECORDS SUMMARY | 2025-05-23 08:04 | XMS_ITS | Encounter Summary ---
Author Organization [employer] Address [address] [place] [address] Care Team Providers Care Manager Retail Name Role Phone Rachelle Olson Primary Care Provider [phone] Encounter Details Date Type Department Care Team (Late st Contact Info) Description 05/12/2025 Orders Only [facility] [address] [place], [place] [phone] Provider, MD Anthony Social History Tobacco Use Types Packs/Day Years [...] Procedure Name Priority Date/Time Associated Diagnosis Comments COLPOSCOPY Routine 05/09/2025 9:59 AM EDT documented in this encounter Results * Colposcopy (05/09/2025 9:59 AM EDT) us Historical Provider MD IN CLINIC/BEDSIDE ORDERAB LES Final Result documented in this encounter Visit Diagnoses Not on filedocumented in this encounter Additional Health Concerns Assessment Noted Time PHQ-9 Depression Total Score: 0 09/01/19 25 2:43 PM EST documented as of this encounter Care Teams Manager Retail Relationship Specialty Start Date End Date Rachelle Olson ANP [address] [place] [address] PCP - General Family Medicine 07/17/20 documented as of this encounter
[2025-05-23] MEDS: iohexoL 350 MG/ML 100 ML INFUS..BTL IV (10:33)
[2025-05-23] MEDS: Barium Sulfate Oral (Vanilla) 450 ML ORAL.SUSP 900 ML PO (10:33)
== END 2025-05-23 08:02 | disposition home or self-care (01) ==
LOC: HO.CT 08:01
PROVIDERS: PCP Nurse Practitioner Primary Care; Visit Provider Nurse Practitioner Primary Care
DX: R10.32 Left lower quadrant pain (principal); R93.5 Abnormal findings on diagnostic imaging of other abdominal regions, including retroperitoneum
CPT/HCPCS: 74177; Q9967

== ENCOUNTER → 2025-05-23 08:03 | Outpatient (BNV) | payer MEDICAID, SELFPAY | PROVIDERS: PCP Nurse Practitioner Primary Care; Visit Provider Radiology Diagnostic Radiology | DX: R10.32 Left lower quadrant pain (principal); R93.5 Abnormal findings on diagnostic imaging of other abdominal regions, including retroperitoneum | CPT/HCPCS: 74177 ==

== ENCOUNTER 2025-05-25 13:58 | Outpatient (AMB) | payer MEDICAID, SELFPAY ==
--- NOTE | 2025-05-25 14:04 | MHC.OFFVIS ---
Intake Visit Reasons: follow up [facility] 04/20/25 Intake Note: Patient presents for follow up 04/20/25 . No complaints. Accompanied by: Son Allergies No Known Allergies (No Known Allergies*) Allergy (Verified 05/25/25 14:05) [facility] follow up [facility] 04/20/25: Details: Very pleasant 34-year-old female presents for follow-up regarding venous insufficiency. She did have some new varicosities develop in the right lower extremity which was concerning for her. Of note she has had prior right leg microphlebectomy dating back to 2020. In general appears to be doing relatively okay otherwise. Now for follow-up with venous insufficiency testing. [facility] Medical History Dyspnea Varicose veins of bilateral lower extremities with pain No known health problems Surgical History No pertinent past surgical history Family History Mother Hypertension Epilepsy Social History Alcohol intake: never Patient Tobacco Use Status: Former Tobacco user Years Smoked: On/off 5 +/- Female Reproductive History Menstrual Age of Menarche: 12 Review of Systems Const Reports as per HPI ENT Reports no additional complaints Card Denies chest pain, Denies chest pain at rest and Denies chest pain with activity Resp Denies chest congestion and Denies cough GI Reports no additional complaints Musc Details: pain over varicosities, aching of lower extremities, swelling, cramping, heaviness and tiredness, itching Denies abnormal gait Skin/Breast Reports pruritus and Denies wounds Neuro Reports no additional complaints and Denies abnormal gait Psych Denies no additional complaints Physical Exam Const General: cooperative, healthy appearing and comfortable Orientation/consciousness: oriented to person, oriented to place and oriented to time Neck Carotids: no bruits Chest Chest palpation & inspection: normal inspection of the chest and normal palpation of entire chest wall Resp Effort & Inspection: normal respiratory effort and able to speak in complete sentences Cardio Rate: regular rate Heart sounds: S1 normal heart sound present and S2 normal heart sound present Peripheral pulses: Peripheral pulses 2+ throughout GI Inspection: Yes normal to inspection Skin Other: +2 edema, large rope-like varicosities greater than 4 mm right thigh and calf CEAP Classification C4 - skin color changes Ep - Etiology Primary As - superficial veins P - reflux General skin exam: dry skin Neuro General: oriented to person, oriented to place and oriented to time Extrem Right lower extremity: full ROM, normal capillary refill and edema Left lower extremity: full ROM, normal capillary refill and edema Psych Mental Status: mental status grossly normal Results Reviewed Results Reviewed: Brief summary of venous insufficiency testing is as follows: right great saphenous vein: negative right small saphenous vein: negative right accessory vein: none present left great saphenous vein: negative left small saphenous vein: negative left accessory vein: none present Please note there is no evidence of any venous aneurysms or significant tortuosity Assessment & Plan Assessment & Plan (1) Varicose veins of right lower extremity with inflammation: Comment: 04/19/2021 - right leg microphlebectomy Code(s): I83.11 - Varicose veins of right lower extremity with inflammation Category: Medical Plan: In short patient is negative for any significant venous insufficiency. She does have some superficial varicosities which she is able to tolerate at the current time. We did discuss routine conservative measures including compression elevation and exercise. Should they become a problem in the future or increase in size she was requested to reach back out to us. She will follow up with us on an as-needed basis. Thank you for allowing us to assist in her care. Coding Level of Care Code Est Pt Level 3 (96992) Diagnoses Varicose veins of right lower extremity with inflammation I83.11
--- OUTSIDE RECORDS SUMMARY | 2025-05-25 17:51 | XMS_ITS | Encounter Summary ---
Author Organization [employer] Address [address]t [place] [address] Care Team Providers Care Air Conditioning Unit Tester Name Role Phone Rachelle Olson Primary Care Provider [phone] Reason for Visit * Reason Onset Date Comments Nurse Triage 04/16/2023 Encounter Details Date Type Department Care Team ([facility] st Contact Info) Description 04/16/2023 Telephone [facility] MEDICINE [address] [place] [address] Rachelle Olson ANP [address] [place] [address] Nurse Triage Social History Tobacco Use Types [...] stones. Pt is offered to come to [facility] but, requests to see PCP. Apt with PCP 05/04/23 at 1100am. Pt is advised to seek evaluation at either [facility] or ED if symptoms become worse before [...] The caller accepted this outcome Patient speaks telugu documented in this encounter Plan of Treatment Not on file documented as of this encounter Visit Diagnoses Not on filedocumented in this encounter Care Teams Air Conditioning Unit Tester Relationship Specialty Start Date End Date Rachelle Olson ANP [address] [place] [phone] PCP - General Family Medicine 07/17/20 documented as of this encounter
--- OUTSIDE RECORDS SUMMARY | 2025-05-25 17:51 | XMS_ITS | Encounter Summary ---
Author Organization [employer] Address [address] [place] [address] Care Team Providers Care Block Breaker Operator Name Role Phone Rachelle Olson Primary Care Provider [phone] Reason for Visit * Reason Onset Date Comments NTTS 05/25/2025 Encounter Details Date Type Department Care Team ([facility] st Contact Info) Description 05/25/2025 Telephone [facility] MEDICINE [address] [place] [address] Sera Alexis RN [address] [place] [address] NTTS Social History Tobacco Use Types Packs/Day Years [...] encounter Miscellaneous Notes * Telephone Encounter - Sera Alexis RN - 05/25/2025 1:22 PM EDT Arianne from [employer] called NTTS yesterday 05/24/2025 with critical result: possible early appendicitis. PCP Wesley called and spoke with Radiologist who reported exam looks normal and it is probably nothing. Provider called pt who is feeling well. No further action needed at this time. documented in this encounter Plan of Treatment Not on file documented as of this encounter Visit Diagnoses Not on filedocumented in this encounter Additional Health Concerns Assessment Noted Time PHQ-9 Depression Total Score: 0 09/01/19 25 2:43 PM EST documented as of this encounter Care Teams Block Breaker Operator Relationship Specialty Start Date End Date Rachelle Olson ANP [address] [place] [phone] PCP - General Family Medicine 07/17/20 documented as of this encounter
--- OUTSIDE RECORDS SUMMARY | 2025-05-25 17:51 | XMS_ITS | Encounter Summary ---
Author Organization [employer] Address [address] [place] [address] Care Team Providers Care Manager Packaging Name Role Phone Rachelle Olson Primary Care Provider [phone] Encounter Details Date Type Department Care Team (Late st Contact Info) Description 05/12/2025 Orders Only [facility] MED [facility] PEDS [address] [place], [place] [phone] Provider, MD Anthony Social History Tobacco Use [...] as of this encounter Care Teams Manager Packaging Relationship Specialty Start Date End Date Rachelle Olson ANP [address] [place] [address] PCP - General Family Medicine 07/17/20 documented as of this encounter
--- OUTSIDE RECORDS SUMMARY | 2025-05-25 17:51 | XMS_ITS | Clinical Summary ---
Author Organization [employer] Address [address] [facility] [address] [place] [address] Care Team Providers Care Wrist Hemmer Name Role Phone Lissett Bunn Primary Care Provider [phone] Allergies Active Allergy Reactions Criticality Noted Date [...] EC. 91 tablet 3 04/11/20 25 Active omeprazole (PriLOSEC) [address] capsule Take 1 capsule (20 mg) by mouth before breakfast. Do not crush or chew. 90 capsule 05/25/20 25 Active omeprazole (PriLOSEC) [address] capsule Take 1 capsule (20 mg) by mouth before breakfast. Do not crush or chew. 60 capsule 05/24/20 25 025 Discontinued Active Problems Problem Noted Date Diagnosed Date [...] Encounters Date Type Department Care Team Description 05/25/[address] [address] Sera Alexis, RN NTTS 05/25/2025 Results Follow-Up [address] Abdomen Pelvis w/ Contrast 05/25/2025 Refill [facility] [address] [place], [place] [phone] Lissett Bunn ANP 05/24/[address] [phone] Lissett Bunn ANP 05/12/2025 Results Follow-Up [address] [address] Priscila Reyes CNM Colposcopy 05/12/2025 Orders Only [facility] [address] [place], [place] [phone] Anthony Rodriguez MD 05/09/2025 Orders Only GENERIC EXTERNAL DATA DEPARTMENT Provider, Generic External Data 05/05/2025 Results Follow-Up [facility] [address] [place] [address] Lissett Bunn ANP Helicobacter pylori Antigen, EIA, Stool 04/28/2025 Orders Only [address] [address] Lissett Bunn ANP 04/27/2025 Orders Only [address] [address] Lissett Bunn ANP LLQ pain (Primary Dx); Abnormal x-ray of abdomen 04/26/2025 Telephone [facility] [address] [place] [address] ABD ORDER 04/26/[address] [address] Lissett Bunn ANP 04/25/2025 9:30 AM EDT Office Visit [address] [address] Lissett Bunn ANP LLQ pain (Primary Dx); Abnormal x-ray of abdomen; Varicose veins of right lower extremity with inflammation; Healthcare maintenance; History of Helicobacter pylori infection 04/25/2025 Travel 04/24/[address] [address] Lissett Bunn ANP chart prep 04/21/2025 Orders Only GENERIC EXTERNAL DATA DEPARTMENT Provider, Generic External Data 04/20/2025 Orders Only [facility] External Provider, [facility] 04/18/2025 Patient Outreach [facility] [address] [place] [address] Lissett Bunn ANP Pre-visit Planning (SDOH was already completed) 04/11/[address] [address] Lissett Bunn ANP 03/20/2025 Results Follow-Up [address] [address] Priscila Reyes CNM US Pelvis Transvaginal 03/17/2025 Telephone [facility] [address] [place] [address] Lissett Bunn ANP Ultrasound order 03/09/2025 Orders Only [address] [address] Priscila Reyes CNM Abnormal uterine bleeding (Primary Dx) 03/08/2025 Orders Only [address] [address] Priscila Reyes CNM 03/08/2025 Orders Only [address] [address] Priscila Reyes CNM Atypical squamous cells cannot exclude high grade squamous intraepithelial lesion on cytologic smear of cervix (ASC-H) (Primary Dx); Atypical glandular cells of undetermined significance (SULEMA) on cervical Pap smear; Cervical high risk HPV (human papillomavirus) test positive 03/08/[address] [address] Lissett Bunn ANP Nurse Triage 03/06/2025 Results Follow-Up [address] [address] Priscila Reyes CNM HPV DNA, Low/High Risk 02/28/2025 9:30 AM EDT Procedure Visit [address] [address] Priscila Reyes CNM Cervical cancer screening (Primary Dx); Screening examination for venereal disease; Abnormal uterine bleeding 02/28/2025 Orders Only [address] [address] Priscila Reyes CNM 02/28/2025 Travel from Last [...] 3-dose series) 12/21/2006 COVID-19 Vaccine ( - 2024-2 6 season) 2025 04/02/2021, 03/12/2021 [...] Procedure Name Priority Date/Time Associated Diagnosis Comments CT ABDOMEN PELVIS W CONTRAST STAT 05/23/2025 10:18 AM EDT LLQ pain Abnormal x-ray of abdomen HEMATOXYLIN AND EOSIN STAIN Routine 05/09/2025 1:30 [...] Recently Relevant to Health Maintenance Results * CT Abdomen Pelvis w/ Contrast (05/23/2025 10:18 AM EDT) Anatomical Region Laterality Modality Body, Pelvis, Abdomen Computed T omography 05/23/2025 10:1 8 AM EDT Narrative 05/23/2025 10:49 AM EDT [place] [address] CT Scan Report Signed Patient: Neli Esteban MR#: [id number] : 1990 Acct:[id number] Age/Sex: 34 / F ADM Date: 05/23/25 Loc: HO.CT Attending Dr: Lissett Bunn NP Ordering Physician: LISSETT BUNN NP Date of Service: 05/23/25 Procedure(s): CT abdomen pelvis w IV con Accession Number(s): [id number] cc: LISSETT BUNN NP Report Number: [id number]: Total DLP = 349.00 mGy-cm Reason for Exam: Abd XR suggestive of ileus 04/21/25 EXAMINATION: CT ABDOMEN AND PELVIS WITH CONTRAST CLINICAL INFORMATION: Abdominal x-ray suggestive of ileus COMPARISON: Abdominal x-ray 04/21/2025. TECHNIQUE: Multidetector volumetric images were obtained from the superior aspect of the liver through the pubic symphysis following administration 85 mL of Omnipaque 350 intravenous contrast. Sagittal and coronal reformatted images were obtained on the technologist's workstation. Oral contrast: Yes This CT examination was performed using dose optimization techniques as appropriate, variously including the following: *Automated exposure control *Adjustment of mA and/or kV according to patient size (this includes techniques or standardized protocols for targeted exams where dose is matched to indication/reason for exam; i.e. extremities or head) *Use of iterative reconstruction technique FINDINGS: LUNG BASES: The visualized lung bases are unremarkable. LIVER, GALLBLADDER, AND BILIARY TREE: The liver is normal in size, shape, and attenuation. No focal hepatic lesion or biliary ductal dilatation is present. The gallbladder is unremarkable with no evidence of radiopaque gallstones, gallbladder wall thickening, or obvious pericholecystic inflammatory changes. PANCREAS: Unremarkable. SPLEEN: Unremarkable. ADRENAL GLANDS: Unremarkable. KIDNEYS AND URETERS: The kidneys are in expiratory phase. They are normal in size, shape, and attenuation. No hydronephrosis, hydroureter, or calculi seen. No perinephric stranding. BLADDER: Normal in appearance. GASTROINTESTINAL TRACT: The stomach, duodenum, and small bowel are normal in appearance. No wall thickening or inflammation evident. A normal appendix is visualized. The colon is normal in caliber, course, and appearance without wall thickening or inflammation. The majority is opacified with oral contrast. There is no rectal abnormality. ABDOMINAL WALL: No significant hernia is appreciated. LYMPH NODES: Normal. VASCULAR: Unremarkable. PELVIC VISCERA: The uterus and adnexa are unremarkable. OSSEOUS STRUCTURES: No suspicious lytic or blastic bone lesion. Normal appearance. CT/CT abdomen pelvis w IV con IMPRESSION: 1. No acute findings in the abdomen or pelvis. Normal examination. Electronically signed by: Lamont Carrera MD 05/23/2025 10:46 AM EDT Dictated By: Lamont Carrera MD Signed By: <Electronically signed by Lamont Carrera MD in OV> 05/23/25 1046 DD/ 1018 TD/TT: 05/23/25 1034 Petrol Tanker Driver: Procedure Note Donotuseinterpreter, Image - 05/23/[address] [address] [address] Scan Report Signed Patient: Neli Esteban [facility]#: [id number] : 1990Acct:[id number] Age/Sex: 34 / FADM Date: 05/23/25 Loc: HO.CT Attending Dr: Lissett Bunn NP Ordering Physician: LISSETT BUNN NP Date of Service: 05/23/25 Procedure(s): CT abdomen pelvis w IV con Accession Number(s): [id number] cc: LISSETT BUNN NP Report Number: [id number]: Total DLP = 349.00 mGy-cm Reason for Exam: Abd XR suggestive of ileus 04/21/25 EXAMINATION: CT ABDOMEN AND PELVIS WITH CONTRAST CLINICAL INFORMATION: Abdominal x-ray suggestive of ileus COMPARISON: Abdominal x-ray 04/21/2025. TECHNIQUE: Multidetector volumetric images were obtained from the superior aspect of the liver through the pubic symphysis following administration 85 mL of Omnipaque 350 intravenous contrast. Sagittal and coronal reformatted images were obtained on the technologist's workstation. Oral contrast: Yes This CT examination was performed using dose optimization techniques as appropriate, variously including the following: *Automated exposure control *Adjustment of mA and/or kV according to patient size (this includes techniques or standardized protocols for targeted exams where dose is matched to indication/reason for exam; i.e. extremities or head) *Use of iterative reconstruction technique FINDINGS: LUNG BASES: The visualized lung bases are unremarkable. LIVER, GALLBLADDER, AND BILIARY TREE: The liver is normal in size, shape, and attenuation. No focal hepatic lesion or biliary ductal dilatation is present. The gallbladder is unremarkable with no evidence of radiopaque gallstones, gallbladder wall thickening, or obvious pericholecystic inflammatory changes. PANCREAS: Unremarkable. SPLEEN: Unremarkable. ADRENAL GLANDS: Unremarkable. KIDNEYS AND URETERS: The kidneys are in expiratory phase. They are normal in size, shape, and attenuation. No hydronephrosis, hydroureter, or calculi seen. No perinephric stranding. BLADDER: Normal in appearance. GASTROINTESTINAL TRACT: The stomach, duodenum, and small bowel are normal in appearance. No wall thickening or inflammation evident. A normal appendix is visualized. The colon is normal in caliber, course, and appearance without wall thickening or inflammation. The majority is opacified with oral contrast. There is no rectal abnormality. ABDOMINAL WALL: No significant hernia is appreciated. LYMPH NODES: Normal. VASCULAR: Unremarkable. PELVIC VISCERA: The uterus and adnexa are unremarkable. OSSEOUS STRUCTURES: No suspicious lytic or blastic bone lesion. Normal appearance. CT/CT abdomen pelvis w IV con IMPRESSION: 1. No acute findings in the abdomen or pelvis. Normal examination. Electronically signed by: Lamont Carrera MD 05/23/2025 10:46 AM EDT Dictated By: Lamont Carrera MD Signed By: <Electronically signed by Lamont Carrera MD in OV> 05/23/25 1046 DD/ 1018 TD/TT: 05/23/25 1034 Petrol Tanker Driver: Lissett SANTIAGO [facility] CT PROCEDURES Edited Result - Final * Hematoxylin and Eosin Stain (05/09/2025 1:30 PM EDT) 05/09/2025 1:30 PM EDT 05/09/2025 3:15 PM EDT [facility] - 05/11/2025 4:53 PM EDT ----- ------- Name: Neli Esteban Age/Sex: 34/F : 1990 Unit#: [id number] Attend Dr: Juancarlos Joiner MD Re05/09/25 Status: DEP REF Location: HO.LNP Disch: ----- ------- SPEC : [id number] RECD: 05/09/25 STATUS: PATITO MASSEY NUM: [id number] AIDE: 05/09/250 [facility] DR: Juancarlos Joiner MD ENTERED: 05/09/25 SP TYPE: Surgical OT DR: LISSETT BUNN NP ORDERED: HE Stain/22, [...] cells in the patient's previous Pap test ([id number]) are similar to the high grade squamous [...] Name: Neli Esteban Age/Sex: 34/F : 1990 [id number]#: [id number] Attend Dr: Juancarlos Joiner MD Re05/09/25 Status: DEP REF Location: [facility] Disch: ----- ------- SPEC : [id number] RECD: 05/09/25 STATUS: PATITO MASSEY NUM: [id number] AIDE: 05/09/250 [facility] DR: Juancarlos Joiner MD ENTERED: 05/09/257 SP TYPE: Surgical OTHR DR: LISSETT BUNN [...] Neli Esteban Age/Sex: 34/F : 1990 Unit#: [id number] Attend Dr: Juancarlos Joiner MD Re05/09/25 Status: DEP [facility] Disch: ----- ------- SPEC : [id number] RECD: 05/09/25 STATUS: PATITO MASSEY NUM: [id number] AIDE: 05/09/250 [facility] DR: Juancarlos Joiner MD ENTERED: 05/09/25 SP [...] microscopic examination, 1 piece in cassette H. ([facility]) Special studies ordered and performed: Immunostains for p16 and Ki-67 on C1, E1 and G1. IHC S/NG Disclaimer NOTE: Unless otherwise stated, all tissue is formalin-fixed and paraffin-embedded. Some or all of the immunohistochemical tests reported herein may have been developed and their performance characteristics determined by [facility]. They have not been cleared or approved by the U.S. Food and Drug Administration (FDA). However, the FDA has determined that such clearance or approval is not necessary. This laboratory is certified under the Clinical Laboratory Improvement Amendments of 1988 (CLIA) as qualified to perform high complexity clinical laboratory testing. Copies To: LISSETT BUNN NP [address] [address] Juancarlos Joiner MD [facility] [address] [place] [address] Drive [address] [place] [address] ----- ------- Signed (signature on file) Desiree Dimock 05/11/25 1653 ----- ------- END OF REPORT Generic External Data Provider LAB BLOOD ORDERAB LES Final Result Performing Organization Address [facility] Co de Phone Number [facility] [address] [place] [address] [phone] * Colposcopy (05/09/2025 9:59 AM EDT) Historical Provider IN CLINIC/BEDSIDE ORDERAB LES Final Result * Helicobacter pylori??Antigen, EIA, Stool (05/04/2025 7:08 AM EDT) H pylori Ag Stool SEE NOTE [facility] Comment:HELICOBACTER PYLORI AG, EIA, STOOL Micro Number: [id number] Test Status: Final Specimen Source: Stool Specimen Quality: Adequate H.pylori Ag: Not Detected Antimicrobials, proton pump inhibitors, and bismuth preparations inhibit H. pylori and ingestion up to two weeks prior to testing may cause false negative results. If clinically indicated the test should be repeated on a new specimen obtained two weeks after discontinuing treatment. Reference Range: Not DetectedTHIS TEST WAS PERFORMED AT:[email or web address] [address] [phone] GONZALES MD Stool Rectal contents / Unknown 05/04/2025 7:08 AM EDT 05/04/2025 12:29 PM EDT Lissett SANTIAGO LAB BODY FLUIDS AND STOOLS ORDER DEV Final Result Performing Organization Address [facility] Co de Phone Number [facility] [address] [place] [address] [phone] * XR Abdomen 2 View minimum (04/21/2025 11:38 PM EDT) Anatomical Region Laterality Modality Abdomen Radiographic Symone ging 04/21/2025 11:3 8 PM EDT Narrative 04/21/2025 11:41 PM EDT [address] [address] XRay Report Signed Patient: Neli Esteban MR#: [id number] : 1990 Acct:[id number] Age/Sex: 34 / F ADM Date: 04/21/25 Loc: HO.ED Attending Dr: Ordering Physician: Cathy Montiel PA-C Date of Service: 04/21/25 Procedure(s): XR abdomen min 2V Accession Number(s): [id number] cc: Cathy Montiel PA-C; LISSETT BUNN NP [...] 04/21/25 2340 DD/ 2338 TD/TT: 04/21/25 2338 Petrol Tanker Driver: Procedure Note Donotuseinterpreter, Image - 04/21/[address] [address] XRay Report Signed Patient: Neli Esteban MMR#: [id number] : 1990Acct:[id number] Age/Sex: 34 / FADM Date: 04/21/25 Loc: HO.ED Attending Dr: Ordering Physician: Cathy Montiel PA-C Date of Service: 04/21/25 Procedure(s): XR abdomen min 2V Accession Number(s): [id number] cc: Cathy Montiel PA-C; LISSETT BUNN NP [...] in OV> 04/21/252339 DD/ 37 TD/TT: 04/21/252337 Petrol Tanker Driver: [facility] External Provider IMG XR PROCEDURES Edited Result - Final * HCG, Qualitative, Urine (04/21/2025 10:08 PM EDT) Urine NEGATIVE NEGATIVE [facility] Comment:This test was develo ped to detect early . Falsenegative results may occur after the 5th - 7th week ofpregnancy when using this test method. If clinicallyindicated, consider a serum hCG. 04/21/2025 10:0 8 PM EDT 04/21/2025 10:14 PM EDT Generic External Data Provider LAB URINE ORDERAB LES Final Result [facility] [address] [place] [phone] * (ABNORMAL) Urinalysis w/reflex microscopic (04/21/2025 10:08 PM EDT) Color Urine Yellow [facility] Appearance Urine Clear [facility] PH 6.5 5.0 - 9.0 [facility] Glucose Urine UA Negative Negative mg/dL [facility] Urine Blood Negative Negative [facility] Specific [place] - Urine >=1.030(H) 1.005 - 1.025 [facility] Urine Protein Negative Neg-Trace mg/dL [facility] Urine Ketones Negative Negative mg/dL [facility] Nitrite Urine Negative Negative [facility] Leukocyte Esterase Urine Negative Negative [facility] 04/21/2025 10:0 8 PM EDT 04/21/2025 10:14 PM EDT Narrative [facility] - 04/21/2025 10:21 PM EDT [id number], [employer] Generic External Data Provider LAB URINE ORDERAB LES Final Result [facility] [address] [place] [phone] * (ABNORMAL) CBC auto differential (04/21/2025 10:02 PM EDT) White Blood Count 9.4 4.8 - 10.8 X10*3/uL [facility] Red Blood Count 4.62 4.20 - 5.50 X10*6/uL [facility] Hemoglobin 13.7 12.0 - 16.0 g/dl [facility] Hematocrit 37.7 37.0 - 47.0 % [facility] Mean Corpuscular Volume 81.6 80.0 - 98.0 fL [facility] Mean Corpuscular Hemoglobin 29.7 27.0 - 33.0 pg [facility] Mean Corpuscular HGB Conc 36.3(H) 31.0 - 35.0 g/dl [facility] Red Cell Distribution Width 11.9 11.0 - 16.0 % [facility] Platelet Count 331 160 - 400 X10*3/uL [facility] Mean Platelet Volume 8.8(L) 9.4 - 12.3 fL [facility] Neutrophils Percent Auto 47.3 45 - 73 % [facility] Imm Gran Pct Auto 0.5(H) 0.0 - 0.4 % [facility] Lymphocytes Percent Auto 44.5(H) 20 - 40 % [facility] Monocytes Percent Auto 5.1 2 - 11 % [facility] Eosinophils Percent Auto 2.1 0 - 4 % [facility] Basophils Percent Auto 0.5 0 - 2 % [facility] NRBC Pct Auto 0.0 0.0 - 0.2 /100WBC [facility] Neutrophils Absolute Auto 4.4 2.0 - 8.3 x10*3/uL [facility] Imm Gran Abs Auto 0.05(H) 0.00 - 0.03 X10*3/uL [facility] Lymphocytes Absolute Auto 4.2 1.2 - 4.9 X10*3/uL [facility] Monocytes Absolute Auto 0.5 0.1 - 1.2 X10*3/uL [facility] Eosinophils Absolute Auto 0.2 0.0 - 0.4 X10*3/uL [facility] Basophils Absolute Auto 0.1 0.0 - 0.2 X10*3/uL [facility] NRBC Abs Auto 0.000 0.0 - 0.012 X10*3/uL [facility] 04/21/2025 10:0 2 PM EDT 04/21/2025 10:14 PM EDT us Generic External Data Provider LAB BLOOD ORDERAB LES Final Result Performing Organization Address City/State/[facility] Co de Phone Number [facility] [address] [place] [phone] * Lipase (04/21/2025 10:02 PM EDT) Lipase 23 8 - 78 U/L [facility] 04/21/2025 10:0 2 PM EDT 04/21/2025 10:14 PM EDT us Generic External Data Provider LAB BLOOD ORDERAB LES Final Result [facility] [address] [place], [place] [phone] * (ABNORMAL) Comprehensive Metabolic Panel (04/21/2025 10:02 PM EDT) Sodium 137 135 - 145 mmol/L [facility] Potassium 3.9 3.3 - 5.1 mmol/L [facility] Chloride 105 96 - 108 mmol/L [facility] Carbon Dioxide 27 22 - 29 mmol/L [facility] Anion Gap 9(L) 12 - 20 [facility] Urea Nitrogen (BUN) 14 9 - 16 mg/dL [facility] Creatinine, Serum 0.70 0.5 - 1.4 mg/dL [facility] Creatinine Clr Calc Pharmacy 90.4 [facility] Comment:Provided height and weight: 157.48 cm,59.4 kg.eGFR (calculated from the MDRD study equation) and eCrCl(calculated from the Cockcroft-Gault equation) are based ondifferent parameters and may not yield comparable results.If eCrCl result is absurd, please check patient'sheight/weight. Estimated Glomerular Filt Rate >60 [facility] Comment:Chronic Kidney Disea se: Estimated GFR < 60 mL/min/1.53j2Gkqksb Kidney Disease: Estimated GFR < 15 mL/min/1.73m2 Glucose 91 60 - 115 mg/dL [facility] Calcium 8.9 8.4 - 10.2 mg/dL [facility] Bilirubin, Total 0.2 0.0 - 1.0 mg/dL [facility] Aspartate Amino Transferase 26 5 - 31 U/L [facility] Alanine Aminotransferase 20 0 - 31 U/L [facility] Total Protein 7.0 6.5 - 8.0 g/dL [facility] Albumin Level 4.0 3.5 - 5.0 g/dL [facility] Alkaline Phosphatase 42 39 - 117 U/L [facility] 04/21/2025 10:0 2 PM EDT 04/21/2025 10:14 PM EDT us Generic External Data Provider LAB BLOOD ORDERAB LES Final Result [facility] [address] [place] [phone] * [facility] Lower Extremity Venous Duplex Bilateral (04/20/2025 1:34 PM EDT) 04/20/2025 1:34 PM EDT Narrative [facility] - 04/20/2025 5:27 PM EDT [place] [address] Ultrasound Report Signed Patient: Neli Esteban MR#: [id number] : 1990 Acct:[id number] Age/Sex: 34 / F ADM Date: 04/20/25 Loc: .US Attending Dr: Jerome Douglas MD Ordering Physician: Jerome Douglas MD Date of Service: 04/20/25 Procedure(s): US venous duplex LE BI Accession Number(s): [id number] cc: Jerome Douglas MD; LISSETT BUNN NP [...] 04/20/25 1724 DD/ 1334 TD/TT: 04/20/25 1409 Petrol Tanker Driver: Procedure Note Donotuseinterpreter, Image - 04/20/2025 [place] [address] Ultrasound Report Signed Patient: Neli Esteban MMR#: [id number] : 1990Acct:[id number] Age/Sex: 34 / FADM Date: 04/20/25 Loc: .US Attending Dr: Jerome Douglas MD Ordering Physician: Jerome Douglas MD Date of Service: 04/20/25 Procedure(s): US venous duplex LE BI Accession Number(s): [id number] cc: Jerome Douglas MD; LISSETT BUNN NP [...] 04/20/25 1724 DD/ 1334 TD/TT: 04/20/25 1409 Petrol Tanker Driver: us [facility] External Provider CV VASC ULAR PROCEDURES Final Result [facility] [address] [place] [phone] * US Pelvis Transvaginal (03/17/2025 9:30 AM EDT) Anatomical Region Laterality Modality Pelvis Ultrasound 03/17/2025 9:30 AM EDT Narrative 03/17/2025 10:17 AM EDT [address] [address] Ultrasound Report Signed Patient: Neli Esteban MR#: [id number] : 1990 Acct:[id number] Age/Sex: 34 / F ADM Date: 03/17/25 Loc: HO.US Attending Dr: Lissett Bunn JAVA TECH Ordering Physician: PRISCILA REYES CNM Date of Service: 03/17/25 Procedure(s): US pelvic and transvaginal Accession Number(s): [id number] cc: PRISCILA REYES CNM; LISSETT BUNN NP [...] 03/17/25 1014 DD/ 0930 TD/TT: 03/17/25 0944 Petrol Tanker Driver: Procedure Note Donotuseinterpreter, Image - 03/17/2025 [place] [address] Ultrasound Report Signed Patient: Neli Esteban [facility]#: [id number] : 1990Acct:[id number] Age/Sex: 34 / FADM Date: 03/17/25 Loc: HO.US Attending Dr: Lissett Bunn NP Ordering Physician: PRISCILA REYES CNM Date of Service: 03/17/25 Procedure(s): US pelvic and transvaginal Accession Number(s): [id number] cc: PRISCILA REYES CNM; LISSETT BUNN NP [...] 03/17/25 1014 DD/ 0930 TD/TT: 03/17/25 0944 Petrol Tanker Driver: us Priscila Reyes CNM IM US PROCEDURES Final R esult * STI testing add on (NG, CT, Trich) (02/28/2025 10:41 AM EDT) Trichomonas (NAAT) NOT DETECTED NOT DETECTED [facility] Comment:The analytical perfo rmance characteristics of thisassay have been determined by [employer]. Themodifications have not been cleared or approved bythe FDA. This assay has been validated pursuant to theCLIA regulations and is used for clinical purposes.For additional information, please refer tohttp://education.[employer]/faq/Trichomonastma(This link is being provided for information/educational purposes only.)THIS TEST WAS PERFORMED AT:[employer] [place] [phone] GONZALES MD CTNG Ref Lab NOT DETECTED NOT DETECTED [facility] NG Ref Lab NOT DETECTED NOT DETECTED [facility] ThinPrep vial Cervix uteri structure / Unknown 02/28/2025 10:41 AM EDT 03/01/2025 7:35 AM EDT Narrative [facility] - 03/02/2025 7:34 PM EDT Collection Date: [id number] by: AUGUSTINA Avelar: Cervix Priscila Reyse [facility] LAB CYTOLOGY ORDERABLES F inal Result [facility] [address] [place] [phone] * (ABNORMAL) HPV DNA, Low/High Risk (02/28/2025 10:41 AM EDT) HPV High Risk Positive(A) Negative [facility] HPV Genotype 16 Negative Negative [facility] HPV Genotype 18 Negative Negative [facility] Comment:HPV testing performe d at [facility] (CLIA#[id number]), [address] [place] [address].Testing for HPV was performed using the Mame [...] CNM LAB BLOOD ORDERABLES Jen terry Result [facility] [address] [place] [phone] * Pap Smear (02/28/2025 10:41 AM EDT) Swab Cervix uteri structure / Unknown 02/28/2025 10:41 AM EDT 03/01/2025 7:35 AM EDT Narrative [facility] - 03/08/2025 1:52 PM EDT ----- ------- Name: Neli Esteban Age/Sex: 34/F : 1990 Unit#: [id number] Attend Dr: PRISCILA REYES CNM Re02/28/25 Status: DEP REF Location: HO.LNP Disch: ----- ------- SPEC : [id number] RECD: 03/01/25 STATUS: PATITO MASSEY NUM: [id number] AIDE: 02/28/25-[address]: PRISCILA REYES CNM [...] will be performed at [facility] (CLIA #[id number]), [address] [place] [address]. Testing for HPV was performed using the [employer] system. The presence of HPV in the [...] detected. All professional services are performed by [facility] ([address] [place], [place] [id number]; ; CLIA #[id number]). The PAP Test is a screening procedure with the inherent possibility of both false negative and false positive results. Results should be interpreted in the context of historic and current clinical findings. Reliability of the PAP Test is enhanced by performing the test on a regular repetitive basis. CONTINUED ON NEXT PAGE ----- ------- Name: Neli Esteban Age/Sex: 34/F : 1990 Unit#: [id number] Attend Dr: PRISCILA REYES CNM Re02/28/25 Status: DEP REF Location: HO.LNP Disch: ----- ------- SPEC : [id number] RECD: 03/01/25 STATUS: PATITO MASSEY NUM: [id number] AIDE: 02/28/25-1041 [facility] DR: PRISCILA REYES CNM ENTERED: 03/01/25 SP TYPE: Pap Nicola LIMA DR: ORDERED: Pap Smear, PAP path review ----- ------- Signed (signature on file) Desiree Garrison 03/08/25 1352 ----- ------- END OF REPORT Priscila Reyes CNM LAB CYTOLOGY ORDERABLES F inal Result [facility] [address] [place] [phone] [phone] * HIV Ab/Ag (ASHLEIGH LILA) (05/28/2023 12:09 PM EDT) HIV AB/AG Nonreactive Nonreactive [facility] Comment:HIV-1 p24 Ag and/or HIV-1/HIV-2 Ab not detected.A test result that is nonreactive does not exclude thepossibility of exposure to or infection with HIV-1 and/orHIV-2. Nonreactive results in this assay for individualswith prior exposure to HIV-1 and/or HIV-2 may be due toantigen and antibody levels that are below the limit ofdetection of this assay.The [employer] Mast HIV Ag/Ab Combo assay result andsupplemental assay results should be interpreted inconjunction with the patient's clinical presentation,history and other laboratory results. If the results areinconsistent with clinical evidence, additional testing issuggested to confirm the result. 05/28/2023 12:0 9 PM EDT 05/28/2023 12:57 PM EDT Priscila Reyes [facility] LAB BLOOD ORDERABLES Jen l Result Performing Organization Address [facility]/ZIP Co de Phone Number [facility] [address] [place] [phone] * Hepatitis C Antibody with Reflex to HCV, RNA, Quantitative, Real-Time PCR (05/28/2023 12:09 PM EDT) Hepatitis C Antibody Nonreactive Nonreactive [facility] Comment:Antibodies to HCV no t detected; does not exclude early acuteHCV infection. Blood Venous blood specimen / Unknown 05/28/2023 12:09 PM EDT 05/28/2023 12:57 PM EDT [facility] BLOOD ORDERABLES Jen l Result Performing Organization Address City/[facility]/ZIP Co de Phone Number [facility] [address] [place] [address] [phone] from Last 3 Months or Most Recently Relevant to Health Maintenance Insurance [facility] C3 Care Teams Wrist Hemmer Relationship Specialty Start Date End Date Lissett Bunn ANP [address] [place] [address] PCP - General Family Medicine 07/17/20
--- OUTSIDE RECORDS SUMMARY | 2025-05-25 17:51 | XMS_ITS | Encounter Summary ---
Author Organization [employer] Address [address] [place] [address] Care Team Providers Care Merchandising Stock Associate Name Role Phone Rachelle Olson Primary Care Provider [phone] Encounter Details Date Type Department Care Team (Latest Contact Info) Description 03/20/2025 Results Follow-Up [facility] [address] [place], [place] [phone] Franny Galloway CNM [address] [place], [place] [phone] [place] Pelvis Transvaginal Social History Tobacco Use [...] documented as of this encounter Care Teams Merchandising Stock Associate Relationship Specialty Start Date End Date Rachelle Olson ANP [address] [place] [phone] PCP - General Family Medicine 07/17/20 documented as of this encounter
--- OUTSIDE RECORDS SUMMARY | 2025-05-25 17:51 | XMS_ITS | Encounter Summary ---
Author Organization [employer] Address [address] 7[address] [place] [address] Care Team Providers Care Composition Tile Layer Name Role Phone Rachelle Olson Primary Care Provider [phone] Encounter Details Date Type Department Care Team (Late st Contact Info) Description 05/12/2025 Results Follow-Up [facility] [address] [place], [place] [phone] Franny Galloway CNM [address] [place] [address] Colposcopy Social History Tobacco Use Types Packs/Day [...] an eye out for visit [place] [facility] Thanks! documented in this encounter Plan of Treatment Not on file documented as of this encounter Visit Diagnoses Not on filedocumented in this encounter Additional Health Concerns Assessment Noted Time PHQ-9 Depression Total Score: 0 09/01/19 25 2:43 PM EST documented as of this encounter Care Teams Composition Tile Layer Relationship Specialty Start Date End Date Rachelle Olson ANP [address] [place] [phone] PCP - General Family Medicine 07/17/20 documented as of this encounter
--- OUTSIDE RECORDS SUMMARY | 2025-05-25 17:51 | XMS_ITS | Clinical Summary ---
Author Organization [employer] [facility] ity Address [address] [place] [address] Care Team Providers Care Surgeon Partner Name Role Phone Unavailable Primary Care Provider [...]
--- OUTSIDE RECORDS SUMMARY | 2025-05-25 17:51 | XMS_ITS | Encounter Summary ---
Author Organization [employer] Address [address] [place] [address] Care Team Providers Care Principal Scientist Name Role Phone Rachelle Olson Primary Care Provider [phone] Reason for Visit * Reason Comments Med Change Request Encounter Details Date Type Department Care Team (Late st Contact Info) Description 05/25/2025 Refill [facility] [address] [place], [place] [phone] Rachelle Olson ANP [address] [place], [place] [phone] Social History Tobacco Use Types Packs/Day Years [...] documented as of this encounter Care Teams Principal Scientist Relationship Specialty Start Date End Date Rachelle Olson ANP [address] [place] [address] PCP - General Family Medicine 07/17/20 documented as of this encounter
--- OUTSIDE RECORDS SUMMARY | 2025-05-25 17:52 | XMS_ITS | Encounter Summary ---
Author Organization [employer] Address [address] [place] [address] Care Team Providers Care Image Assembler Name Role Phone Rachelle Olson Primary Care Provider Encounter Details Date Type Department Care Team (Latest Contact Info) Description 05/05/2025 Results Follow-Up [facility] [address] [place], [place] [phone] Rachelle Olson ANP [address] [place] [address] Helicobacter pylori Antigen, EIA, Stool Social History [...] documented as of this encounter Care Teams Image Assembler Relationship Specialty Start Date End Date Rachelle Olson ANP [address] [place] [phone] PCP - General Family Medicine 07/17/20 documented as of this encounter
--- OUTSIDE RECORDS SUMMARY | 2025-05-25 17:52 | XMS_ITS | Encounter Summary ---
Author Organization [employer] Address [address] 7[address] [place] [address] Care Team Providers Care Shipping Weigher Name Role Phone Rachelle Olson Primary Care Provider [phone] Encounter Details Date Type Department Care Team (Late st Contact Info) Description 07/23/2024 Orders Only [facility] [address] [place], [place] [phone] Haritha Selby MD [address] [place], [place] [phone] Hematuria, unspecified type (Primary Dx) Social History [...] (08/29/2024 11:58 AM EST) Color Urine Yellow [facility] Appearance Urine Clear [facility] PH 7.5 5.0 - 9.0 [facility] Glucose Urine UA Negative Negative mg/dL [facility] Urine Blood Small (1+)(A) Negative [facility] Specific [place] - Urine 1.020 1.005 - 1.025 [facility] Urine Protein Negative Neg-Trace mg/dL [facility] Urine Ketones Negative Negative mg/dL [facility] Nitrite Urine Negative Negative [facility] Leukocyte Esterase Urine Negative Negative [facility] RBC Urine 0-2 0 - 2 /HPF [facility] Urine WBC 0-5 0 - 5 /HPF [facility] Urine Squamous Epithelial Cell 0-2 0 - 2 /HPF [facility] Urine Bacteria None Seen None Seen [facility] Hyaline Casts, Urine 0-2 0 - 2 /LPF [facility] Urine 08/29/2024 11:5 8 AM EST 08/29/2024 1:11 PM EST Narrative [facility] - 08/29/2024 1:57 PM EST Urine, Clean Catch us Haritha Selby MD LAB URINE ORDERABLES Final Resul t [facility] [address] [place] [phone] documented in this encounter Visit Diagnoses Diagnosis Hematuria, unspecified type- Primary documented in this encounter Care Teams Shipping Weigher Relationship Specialty Start Date End Date Rachelle Olson ANP [address] [place] [phone] PCP - General Family Medicine 07/17/20 documented as of this encounter
--- OUTSIDE RECORDS SUMMARY | 2025-05-25 17:52 | XMS_ITS | Encounter Summary ---
Author Organization [employer] Address [address] [place] [address] Care Team Providers Care Auto Battery Builder Name Role Phone Rachelle Olson Primary Care Provider [phone] Encounter Details Date Type Department Care Team (Late st Contact Info) Description 05/24/2025 Telephone [facility] [address] [place], [place] [phone] Rachelle Olson ANP [address] [place], [place] [phone] Social History Tobacco Use Types Packs/Day Years [...] as of this encounter Progress Notes * JACK Bettencourt - 05/24/2025 8:57 PM EDTSpoke with patient to review CT abdomen pelvis results. I received a text from on-call service withmsg from ???[facility]?? with findings, possibly concerning for early appendicitis. In patient???s chart, there is a CT abdomen pelvis interpreted by Dr. Carrera at [facility] that is noted as normal. I spoke with Dr. Coates who interpreted the CT abdomen pelvis for ???[facility]?? and he said that there was no stranding aroun d the appendix and that it was just above normal in terms of size. I called patient for status check to see how she was feeling and she reports thatshe was feeling better. She does continue to have nausea and is having some acid reflux and heartburn, but she is eating and drinking normally. She has lower abdominal cramping, but suspect this is from her uterus and has an appointment with DUMPING MACHINE OPERATOR on Thursday for biopsy. She denies fever or chi lls or vomiting. I will order a omeprazole for acid reflux and she will follow up with DUMPING MACHINE OPERATOR as planned. I advised her to please call the office if she develops vomiting or any fever or chills or worsening symptoms. documented in this encounter Plan of Treatment Not on file documented as of this encounter Visit Diagnoses Not on filedocumented in this encounter Additional Health Concerns Assessment Noted Time PHQ-9 Depression Total Score: 0 09/01/19 25 2:43 PM EST documented as of this encounter Care Teams Auto Battery Builder Relationship Specialty Start Date End Date Rachelle Olson ANP [address] [place] [address] PCP - General Family Medicine 07/17/20 documented as of this encounter
--- OUTSIDE RECORDS SUMMARY | 2025-05-25 17:52 | XMS_ITS | Encounter Summary ---
Author Organization [employer] Address [address] 7[address] [place] [address] Care Team Providers Care Sales Promoter Name Role Phone Rachelle Olson Primary Care Provider [phone] Encounter Details Date Type Department Care Team (Late st Contact Info) Description 05/25/2025 Results Follow-Up [facility] [address] [place], [place] [phone] Rachelle Olson ANP [address] [place], [place] [phone] CT Abdomen Pelvis w/ Contrast Social History Tobacco Use Types Packs/Day Years [...] Miscellaneous Notes * Result Encounter Note - JACK Bettencourt - 05/25/2025 9:13 AM EDT Spoke w/ pt, doing well. documented in this encounter Plan of Treatment Not on file documented as of this encounter Visit Diagnoses Not on filedocumented in this encounter Additional Health Concerns Assessment Noted Time PHQ-9 Depression Total Score: 0 09/01/19 25 2:43 PM EST documented as of this encounter Care Teams Sales Promoter Relationship Specialty Start Date End Date Rachelle Olson ANP [address] [place] [address] PCP - General Family Medicine 07/17/20 documented as of this encounter
--- OUTSIDE RECORDS SUMMARY | 2025-05-25 17:52 | XMS_ITS | Clinical Summary ---
Author Organization [facility] Address [address] [place] [address] Care Team Providers Care Farm Facility Manager Name Role Phone Rachelle Olson Primary Care Provider [phone] Medications No known medications Active Problems Problem [...] patient's age to complete this topic Insurance [facility] Care Teams Farm Facility Manager Relationship Specialty Start Date End Date Rachelle Olson [address] [place] [phone] PCP - General 06/10/22
== END 2025-05-25 14:23 | disposition home or self-care (01) ==
LOC: HO.HVS 13:59
PROVIDERS: PCP Nurse Practitioner Primary Care; Visit Provider Surgery Vascular Surgery
DX: I83.11 Varicose veins of right lower extremity with inflammation (principal)
CPT/HCPCS: 99213

== ENCOUNTER → 2025-05-25 13:58 | Outpatient (BNVA) | payer MEDICAID, SELFPAY | PROVIDERS: PCP Nurse Practitioner Primary Care; Visit Provider Surgery Vascular Surgery | DX: I83.11 Varicose veins of right lower extremity with inflammation (principal) | CPT/HCPCS: 99212 ==

== ENCOUNTER 2025-05-26 13:26 | Outpatient (AMB) | payer MEDICAID, SELFPAY ==
--- NOTE | 2025-05-26 13:38 | MHC.OFFVIS ---
Vital Signs 05/26/25 13:39 Height 5 ft 2 in Weight 130 lb BMI 23.8 BP 122/74 Intake Visit Reasons: colpo results/ pre op for leep Senior Director Of [employer] Required: No Information Interpreted: non-clinical & clinical Stripper Apprentice: Stripper Apprentice Present Accompanied by: Self / Same As Patient Allergies No Known Allergies (No Known Allergies*) Allergy (Verified 05/26/25 13:39) Is last menstrual period known: No (pills) Post menopausal: No Patient : No Do you need a note to return to daycare/school/sports/work: Yes (for surgery on thursday) HPI Comments Details: Presenting post colpo for follow-up. The patient is doing well with no complaints. The pathology showed the following: A. Endocervix, curettage: Abundant mucus with scant benign endocervical glandular epithelium and rare endometrial epithelium; negative for dysplasia. B. Endometrium, biopsy: Benign endometrium with atrophic and weakly secretory glands and decidual stromal change with focal stromal collapse, consistent with progestin effect, and abundant mucus with scant endocervical glandular epithelium; no atypia or carcinoma. C. Cervix, 1:00, biopsy: Scant attenuated and atypical squamous metaplastic epithelium, suspicious for high grade squamous intraepithelial lesion, involving inflamed endocervical glandular epithelium. D. Cervix, 5:00, biopsy: Endocervical glandular mucosa; negative for dysplasia. E. Cervix, 6:00, biopsy: High grade squamous intraepithelial lesion (moderate dysplasia, JEREMY II), involving endocervical glands. F. Cervix, 7:00, biopsy: Squamous mucosa and detached endocervical glandular epithelium; negative for dysplasia. G. Cervix, 11:00, biopsy: Scant attenuated and atypical squamous metaplastic epithelium, suspicious for high grade squamous intraepithelial lesion, involving inflamed endocervical glandular epithelium. H. Cervix, 12:00, biopsy: Endocervical glandular mucosa with inflammation; negative for dysplasia; no squamous epithelium present. Comment: The atypical squamous cells in the patient's previous Pap test ([id number]) are similar to the high grade squamous intraepithelial lesion seen in the biopsy. The atypical glandular cells seen in the Pap likely represent high grade dysplasia involving endocervical glands [facility] Medical History Dyspnea Varicose veins of bilateral lower extremities with pain No known health problems Surgical History No pertinent past surgical history Family History Mother Hypertension Epilepsy Social History Alcohol intake: never Patient Tobacco Use Status: Former Tobacco user Years Smoked: On/off 5 +/- Female Reproductive History Menstrual Age of Menarche: 12 Date of last menstrual period: 05/31/20 control method: pills Total pregnancies: 2 Full term: 2 Review of Systems Card Reports as per HPI and Reports no additional complaints Resp Reports as per HPI and Reports no additional complaints GI Reports as per HPI and Reports no additional complaints Reports as per HPI Physical Exam Vital Signs: Last Vital Signs BP 122/74 05/26/25 13:39 BMI result Body Mass Index 23.8 Const General: cooperative, healthy appearing and comfortable Resp Effort & Inspection: normal respiratory effort Auscultation: clear to auscultation bilaterally Percussion: percussion normal Cardio Palpation: normal PMI Rate: regular rate Rhythm: regular rhythm Heart sounds: no murmurs and no rubs Peripheral pulses: Peripheral pulses 2+ throughout GI Inspection: Yes normal to inspection Palpation (GI): Soft to palpation, nontender, no guarding, not rigid and No hepatosplenomegaly present Percussion: Yes normal to percussion Auscultation: normal bowel sounds Rectal Exam - Female: deferred Assessment & Plan Assessment & Plan (1) High grade squamous intraepithelial cervical dysplasia: Comment: Pap ASC-H, AGC, HPV positive, HPV 16/18 negative Code(s): R87.613 - High grade squamous intraepithelial lesion on cytologic smear of cervix (HGSIL) Category: Medical Plan: Discussed with the patient the pathology results of the colposcopy biopsies & endocervical curettage ( high-grade cervical dysplasia) with negative ECC and endometrial biopsy for dysplasia hyperplasia or malignancy. Discussed with the patient the sensitivity specificity, positive and negative predictive value in detecting cervical cancer in addition discussed the regression, persistence and progression rates. Addition discussed with the patient the risk of progression to cancer and impact of excision procedure on her future . Per ASCCP guidelines, 2 options of management were discussed with the patient including either observation with HPV based screening and colposcopy biopsy at 6 months and 12 months versus a diagnostic excisional procedures, which is the preferred method of management. The patient is concerned more about the progression of high-grade dysplasia to cancer than the excisional procedure impact on her future and she decided to proceed with a LEEP, possible cone with post cone ECC, all the pros and cons and risks and benefits of the procedure were discussed with the patient, the patient verbalized understanding and agreed with the plan Coding Level of Care Code Est Pt Level 3 (69172) Diagnoses High grade squamous intraepithelial cervical dysplasia R87.613
[2025-05-26 13:39] VITALS: BP 122/74; BMI 23.8
--- OUTSIDE RECORDS SUMMARY | 2025-05-26 15:26 | XMS_ITS | Clinical Summary ---
Author Organization [employer] [facility] ity Address [address] [place] [address] Care Team Providers Care Longitudinal Float Operator Name Role Phone Unavailable Primary Care Provider [...]
--- OUTSIDE RECORDS SUMMARY | 2025-05-26 15:26 | XMS_ITS | Clinical Summary ---
Author Organization [facility] Address [address] [place] [address] Care Team Providers Care Lay Midwife Name Role Phone Rachelle Olson Primary Care Provider [phone] Medications No known medications Active Problems Problem [...] patient's age to complete this topic Insurance [facility] Care Teams Lay Midwife Relationship Specialty Start Date End Date Rachelle Olson [address] [place] [phone] PCP - General 06/10/22
== END 2025-05-26 14:03 | disposition home or self-care (01) ==
LOC: HO.HWS 13:26
PROVIDERS: PCP Nurse Practitioner Primary Care; Visit Provider Obstetrics & Gynecology
DX: R87.613 High grade squamous intraepithelial lesion on cytologic smear of cervix (HGSIL) (principal)
CPT/HCPCS: 99213

== ENCOUNTER → 2025-05-26 13:26 | Outpatient (BNVA) | payer MEDICAID, SELFPAY | PROVIDERS: PCP Nurse Practitioner Primary Care; Visit Provider Obstetrics & Gynecology | DX: R87.613 High grade squamous intraepithelial lesion on cytologic smear of cervix (HGSIL) (principal) | CPT/HCPCS: 99212 ==

== ENCOUNTER 2025-05-31 08:05 | Outpatient (RCR) | payer MEDICAID, SELFPAY | END 2025-07-04 13:24 | disposition home or self-care (01) | LOC: HO.PT 08:05 | PROVIDERS: PCP Nurse Practitioner Primary Care; Visit Provider Nurse Practitioner Primary Care | DX: M54.50 Low back pain, unspecified (principal); G89.29 Other chronic pain | CPT/HCPCS: 97110; 97112; 97140; 97161; 97530 ==

== ENCOUNTER 2025-06-09 10:01 | Day surgery (SDC) | payer MEDICAID, SELFPAY ==
--- OUTSIDE RECORDS SUMMARY | 2025-05-29 07:01 | XMS_ITS | Encounter Summary ---
Author Organization [employer] Address [address] [place] [address] Care Team Providers Care Technical Illustrator Name Role Phone Rachelle Olson Primary Care Provider [phone] Reason for Visit * Reason Comments Med Change Request Encounter Details Date Type Department Care Team (Late st Contact Info) Description 05/25/2025 Refill [facility]INE [address] [place], [place] [phone] Rachelle Olson ANP [address] [place], [place] [phone] Social History Tobacco Use Types Packs/Day Years [...] documented as of this encounter Care Teams Technical Illustrator Relationship Specialty Start Date End Date Rachelle Olson ANP [address] [place] [phone] PCP - General Family Medicine 07/17/20 documented as of this encounter
--- OUTSIDE RECORDS SUMMARY | 2025-05-29 07:01 | XMS_ITS | Clinical Summary ---
Author Organization [facility] Address [address] [place] [address] Care Team Providers Care Piece Cutter Name Role Phone Rachelle Olson Primary Care Provider [phone] Medications No known medications Active Problems Problem [...] patient's age to complete this topic Insurance [facility] Care Teams Piece Cutter Relationship Specialty Start Date End Date Rachelle Olson [address] [place] [phone] PCP - General 06/10/22
--- OUTSIDE RECORDS SUMMARY | 2025-05-29 07:01 | XMS_ITS | Clinical Summary ---
Author Organization [employer] [facility] ity Address [address] [place] [address] Care Team Providers Care Platform Material Handling Supervisor Name Role Phone Unavailable Primary Care Provider [...]
--- OUTSIDE RECORDS SUMMARY | 2025-05-29 07:01 | XMS_ITS | Encounter Summary ---
Author Organization [employer] Address [address] [facility] 7t [place] [address] Care Team Providers Care Behavioral Health Counselor Name Role Phone Rachelle Olson Primary Care Provider [phone] Reason for Visit * Reason Onset Date Comments Nurse Triage 04/16/2023 Encounter Details Date Type Department Care Team ([facility] st Contact Info) Description 04/16/[address] [facility] MEDICINE [address] [place] [address] Rachelle Olson ANP [address] [place] [address] Nurse Triage Social History Tobacco Use Types [...] stones. Pt is offered to come to [facility] but, requests to see PCP. Apt with PCP 05/04/23 at 1100am. Pt is advised to seek evaluation at either [facility] or ED if symptoms become worse [...] The caller accepted this outcome Patient speaks frisian documented in this encounter Plan of Treatment Not on file documented as of this encounter Visit Diagnoses Not on filedocumented in this encounter Care Teams Behavioral Health Counselor Relationship Specialty Start Date End Date Rachelle Olson ANP [address] [place] [id number] PCP - General Family Medicine 07/17/20 documented as of this encounter
--- OUTSIDE RECORDS SUMMARY | 2025-05-29 07:01 | XMS_ITS | Encounter Summary ---
Author Organization [employer] Address [address] [address] 7[address] [place] [address] Care Team Providers Care Database Tester Name Role Phone Rachelle Olson Primary Care Provider [phone] Encounter Details Date Type Department Care Team (Latest Contact Info) Description 05/05/2025 Results Follow-Up [facility] [address] [place], [place] [phone] Rachelle Olson ANP [address] [place] [address] Helicobacter pylori Antigen, EIA, Stool Social History [...] documented as of this encounter Care Teams Database Tester Relationship Specialty Start Date End Date Rachelle Olson ANP [address] [place] [phone] PCP - General Family Medicine 07/17/20 documented as of this encounter
--- OUTSIDE RECORDS SUMMARY | 2025-05-29 07:01 | XMS_ITS | Encounter Summary ---
Author Organization [employer] Address [address] [facility] [address] 7[address] [place] [address] Care Team Providers Care Die Maker Trim Name Role Phone Rachelle Olson Primary Care Provider [phone] Encounter Details Date Type Department Care Team (Late st Contact Info) Description 05/24/2025 Telephone [facility] MEDICINE [address] [place], [place] [phone] Rachelle Olson ANP [address] [place], [place] [phone] Social History Tobacco Use Types Packs/Day Years [...] abdomen pelvis interpreted by Dr. Carrera at [facility] that is noted as normal. I [...] her uterus and has an appointment with [facility] on Thursday for biopsy. She denies fever or chi lls or vomiting. I will order a omeprazole for acid reflux and she will follow up with [facility] as planned. I advised her to please [...] documented as of this encounter Care Teams Die Maker Trim Relationship Specialty Start Date End Date Rachelle Olson ANP [address] [place] [address] PCP - General Family Medicine 07/17/20 documented as of this encounter
--- OUTSIDE RECORDS SUMMARY | 2025-05-29 07:01 | XMS_ITS | Encounter Summary ---
Author Organization [employer] Address [address] [facility] [address] 7[address] [place] [address] Care Team Providers Care Explosive Operator Fuse Name Role Phone Rachelle Olson Primary Care Provider [phone] Encounter Details Date Type Department Care Team (Late st Contact Info) Description 05/12/2025 Orders Only [facility] P[facility] [address] [place], [place] [phone] Provider, MD Anthony Social History Tobacco Use [...] documented as of this encounter Care Teams Explosive Operator Fuse Relationship Specialty Start Date End Date Rachelle Olson ANP [address] [place] [address] PCP - General Family Medicine 07/17/20 documented as of this encounter
--- OUTSIDE RECORDS SUMMARY | 2025-05-29 07:01 | XMS_ITS | Encounter Summary ---
Author Organization [employer] Address [address] [facility] [facility] [address] 7t [place] [address] Care Team Providers Care Floor Hand Name Role Phone Rachelle Olson Primary Care Provider Encounter Details Date Type Department Care Team (Late st Contact Info) Description 07/23/2024 Orders Only [facility] MEDICINE [address] [place], [place] [phone] Haritha Selby MD 230 [place], [place] [phone] Hematuria, unspecified type (Primary Dx) Social History [...] (08/29/2024 11:58 AM EST) Color Urine Yellow [facility] Appearance Urine Clear [facility] PH 7.5 5.0 - 9.0 [facility] Glucose Urine UA Negative Negative mg/dL [facility] Urine Blood Small (1+)(A) Negative [facility] Specific [place] - Urine 1.020 1.005 - 1.025 [facility] Urine Protein Negative Neg-Trace mg/dL [facility] Urine Ketones Negative Negative mg/dL [facility] Nitrite Urine Negative Negative [facility] Leukocyte Esterase Urine Negative Negative [facility] RBC Urine 0-2 0 - 2 /HPF [facility] Urine WBC 0-5 0 - 5 /HPF [facility] Urine Squamous Epithelial Cell 0-2 0 - 2 /HPF [facility] Urine Bacteria None Seen None Seen [facility] Hyaline Casts, Urine 0-2 0 - 2 /LPF [facility] Urine 08/29/2024 11:5 8 AM EST 08/29/2024 1:11 PM EST Narrative [facility] - 08/29/2024 1:57 PM EST Urine, Clean Catch us Haritha Selby MD LAB URINE ORDERABLES Final Resul t [facility] [address] [place] [address] [phone] documented in this encounter Visit Diagnoses Diagnosis Hematuria, unspecified type- Primary documented in this encounter Care Teams Floor Hand Relationship Specialty Start Date End Date Rachelle Olson ANP [address] [place] [phone] PCP - General Family Medicine 07/17/20 documented as of this encounter
--- OUTSIDE RECORDS SUMMARY | 2025-05-29 07:01 | XMS_ITS | Encounter Summary ---
Author Organization [employer] Address [address] [facility] [address] 7[address] [place] [address] Care Team Providers Care Windlasser Name Role Phone Rachelle Olson Primary Care Provider [phone] Encounter Details Date Type Department Care Team (Late st Contact Info) Description 05/12/2025 Results Follow-Up [facility] MEDICINE [address] [place], [place] [phone] Franny Galloway CNM [address] [place] [address] Colposcopy Social History Tobacco Use Types Packs/Day [...] eye out for visit notes[place]plan [place] [facility] Thanks! documented in this encounter Plan of Treatment Not on file documented as of this encounter Visit Diagnoses Not on filedocumented in this encounter Additional Health Concerns Assessment Noted Time PHQ-9 Depression Total Score: 0 09/01/19 25 2:43 PM EST documented as of this encounter Care Teams Windlasser Relationship Specialty Start Date End Date Rachelle Olson ANP [address] [place] [phone] PCP - General Family Medicine 07/17/20 documented as of this encounter
--- OUTSIDE RECORDS SUMMARY | 2025-05-29 07:01 | XMS_ITS | Encounter Summary ---
Author Organization [employer] Address [address] [place] [address] Care Team Providers Care Cosmetic Sales Assistant Name Role Phone Rachelle Olson Primary Care Provider [phone] Encounter Details Date Type Department Care Team (Late st Contact Info) Description 05/25/2025 Results Follow-Up [facility] MEDICINE [address] [place], [place] [phone] Rachelle Olson ANP [address] [place], [place] [phone] CT Abdomen Pelvis w/ Contrast Social History [...] documented as of this encounter Care Teams Cosmetic Sales Assistant Relationship Specialty Start Date End Date Rachelle Olson ANP [address] [place] [address] PCP - General Family Medicine 07/17/20 documented as of this encounter
--- OUTSIDE RECORDS SUMMARY | 2025-05-29 07:01 | XMS_ITS | Encounter Summary ---
Author Organization [employer] Address [address] [facility] [address] [place] [address] Care Team Providers Care Hand Packager Name Role Phone Rachelle Olson Primary Care Provider [phone] Reason for Visit * Reason Onset Date Comments NTTS 05/25/2025 Encounter Details Date Type Department Care Team ([facility] st Contact Info) Description 05/25/2025 Telephone [facility] MEDICINE [address] [place] [address] Sera Alexis RN [address] [place] [address] NTTS Social History Tobacco Use Types Packs/Day [...] - 05/25/2025 1:22 PM EDT Arianne from [employer] called NTTS yesterday 05/24/2025 with critical result: [...] documented as of this encounter Care Teams Hand Packager Relationship Specialty Start Date End Date Rachelle Olson ANP [address] [place] [phone] PCP - General Family Medicine 07/17/20 documented as of this encounter
--- OUTSIDE RECORDS SUMMARY | 2025-05-29 07:01 | XMS_ITS | Clinical Summary ---
Author Organization [employer] Address [address] [facility] [address] [place] [address] Care Team Providers Care Buffing Wheel Former Automatic Name Role Phone Lissett Bunn Primary Care Provider [phone] Allergies Active Allergy Reactions Criticality Noted Date [...] Type Department Care Team Description 05/25/[address] [address] Sera Alexis, RN NTTS 05/25/2025 Results Follow-Up [address] Abdomen Pelvis w/ Contrast 05/25/2025 Refill [facility] [address] [place], [place] [phone] Lissett Bunn ANP 05/24/[address] [phone] Lissett Bunn ANP 05/12/2025 Results Follow-Up [address] [address] Priscila Reyes CNM Colposcopy 05/12/2025 Orders Only [facility] [address] [place], [place] [phone] Anthony Rodriguez MD 05/09/2025 Orders Only GENERIC EXTERNAL DATA DEPARTMENT Provider, Generic External Data 05/05/2025 Results Follow-Up [facility] [address] [place] [address] Lissett Bunn ANP Helicobacter pylori Antigen, EIA, Stool 04/28/2025 Orders Only [address] [address] Lissett Bunn ANP 04/27/2025 Orders Only [address] [address] Lissett Bunn ANP LLQ pain (Primary Dx); Abnormal x-ray of abdomen 04/26/2025 Telephone [facility] [address] [place] [address] ABD ORDER 04/26/[address] [address] Lissett Bunn ANP 04/25/2025 9:30 AM EDT Office Visit [address] [address] Lissett Bunn ANP LLQ pain (Primary Dx); Abnormal x-ray of abdomen; Varicose veins of right lower extremity with inflammation; Healthcare maintenance; History of Helicobacter pylori infection 04/25/2025 Travel 04/24/[address] [address] Lissett Bunn ANP chart prep 04/21/2025 Orders Only GENERIC EXTERNAL DATA DEPARTMENT Provider, Generic External Data 04/20/2025 Orders Only [facility] External Provider, [facility] 04/18/2025 Patient Outreach [facility] [address] [place] [address] Lissett Bunn ANP Pre-visit Planning (SDOH was already completed) 04/11/[address] [address] Lissett Bunn ANP 03/20/2025 Results Follow-Up [address] [address] Priscila Reyes CNM US Pelvis Transvaginal 03/17/2025 Telephone [facility] [address] [place] [address] Lissett Bunn ANP Ultrasound order 03/09/2025 Orders Only [address] [address] Priscila Reyes CNM Abnormal uterine bleeding (Primary Dx) 03/08/2025 Orders Only [address] [address] Priscila Reyes CNM 03/08/2025 Orders Only [address] [address] Priscila Reyes CNM Atypical squamous cells cannot exclude high grade squamous intraepithelial lesion on cytologic smear of cervix (ASC-H) (Primary Dx); Atypical glandular cells of undetermined significance (SULEMA) on cervical Pap smear; Cervical high risk HPV (human papillomavirus) test positive 03/08/[address] [address] Lissett Bunn ANP Nurse Triage 03/06/2025 Results Follow-Up [address] [address] Priscila Reyes CNM HPV DNA, Low/High Risk 02/28/2025 9:30 AM EDT Procedure Visit [address] [address] Priscila Reyes CNM Cervical cancer screening (Primary Dx); Screening examination for venereal disease; Abnormal uterine bleeding 02/28/2025 Orders Only [address] [address] Priscila Reyes CNM 02/28/2025 Travel from Last [...] AM EDT Narrative 05/23/2025 10:49 AM EDT [place] [address] CT Scan Report Signed Patient: Neli Esteban MR#: [id number] : 1990 Acct:[id number] Age/Sex: 34 / F ADM Date: 05/23/25 Loc: HO.CT Attending Dr: Lissett Bunn NP Ordering Physician: LISSETT BUNN NP Date of Service: 05/23/25 Procedure(s): CT abdomen pelvis w IV con Accession Number(s): [id number] cc: LISSETT BUNN NP Report Number: [id number]: Total DLP = 349.00 mGy-cm Reason for [...] 05/23/25 1046 DD/ 1018 TD/TT: 05/23/25 1034 Service Now Developer: Procedure Note Donotuseinterpreter, Image - 05/23/[address] [address] [address] Scan Report Signed Patient: Neli Esteban [facility]#: [id number] : 1990Acct:[id number] Age/Sex: 34 / FADM Date: 05/23/25 Loc: HO.CT Attending Dr: Lissett Bunn NP Ordering Physician: LISSETT BUNN NP Date of Service: 05/23/25 Procedure(s): CT abdomen pelvis w IV con Accession Number(s): [id number] cc: LISSETT BUNN NP Report Number: [id number]: Total DLP = 349.00 mGy-cm Reason for [...] 05/23/25 1046 DD/ 1018 TD/TT: 05/23/25 1034 Service Now Developer: Lissett SANTIAGO [facility] [place] PROCEDURES Edited Result - Final * Hematoxylin and Eosin Stain (05/09/2025 1:30 PM EDT) 05/09/2025 1:30 PM EDT 05/09/2025 3:15 PM EDT [facility] - 05/11/2025 4:53 PM EDT ----- ------- Name: Neli Esteban Age/Sex: 34/F : 1990 Unit#: [id number] Attend Dr: Juancarlos Joiner MD Re05/09/25 Status: DEP REF Location: HO.LNP Disch: ----- ------- SPEC : [id number] RECD: 05/09/25 STATUS: PATITO MASSEY NUM: [id number] AIDE: 05/09/[address] [facility] [address]: Juancarlos Joiner MD ENTERED: 05/09/25 SP [...] cells in the patient's previous Pap test ([id number]) are similar to the high grade squamous [...] Name: Neli Esteban Age/Sex: 34/F : 1990 [id number] Unit#: [id number] Attend Dr: Juancarlos oJiner MD Re05/09/25 Status: DEP REF Location: [facility] Disch: ----- ------- SPEC : [id number] RECD: 05/09/25 STATUS: PATITO MASSEY NUM: [id number] AIDE: 05/09/[address] [facility] [address]: Juancarlos Joiner MD ENTERED: 05/09/256 SP TYPE: Surgical OTHR DR: LISSETT BUNN [...] Neli Esteban Age/Sex: 34/F : 1990 Unit#: [id number] Attend Dr: Juancarlos Joiner MD Re05/09/25 Status: DEP [facility] ----- ------- SPEC : [id number] RECD: 05/09/25 STATUS: PATITO MASSEY NUM: [id number] AIDE: 05/09/[address] [facility] [address]: Juancarlos Joiner MD ENTERED: 05/09/25 SP [...] microscopic examination, 1 piece in cassette H. ([facility]) Special studies ordered and performed: Immunostains for p16 and Ki-67 on C1, E1 and G1. IHC S/NG Disclaimer NOTE: Unless otherwise stated, all tissue is formalin-fixed and paraffin-embedded. Some or all of the immunohistochemical tests reported herein may have been developed and their performance characteristics determined by [facility]. They have not been cleared or approved by the U.S. Food and Drug Administration (FDA). However, the FDA has determined that such clearance or approval is not necessary. This laboratory is certified under the Clinical Laboratory Improvement Amendments of 1988 (CLIA) as qualified to perform high complexity clinical laboratory testing. Copies To: LISSETT BUNN NP [address] [address] Junacarlos Joiner MD [facility] [address] [place] [address] Drive [address] [place] [address] ----- ------- Signed (signature on file) Desiree [place] 05/11/25 1653 ----- ------- END OF REPORT Generic External Data Provider LAB BLOOD ORDERAB LES Final Result Performing Organization Address [facility] Co de Phone Number [facility] [address] [place] [address] [phone] * Colposcopy (05/09/2025 9:59 AM EDT) Historical Provider IN CLINIC/BEDSIDE ORDERAB LES Final Result * Helicobacter pylori??Antigen, EIA, Stool (05/04/2025 7:08 AM EDT) H pylori Ag Stool SEE NOTE [facility] Comment:HELICOBACTER PYLORI AG, EIA, STOOL Micro Number: [id number] Test Status: Final Specimen Source: Stool Specimen Quality: Adequate H.pylori Ag: Not Detected Antimicrobials, proton pump inhibitors, and bismuth preparations inhibit H. pylori and ingestion up to two weeks prior to testing may cause false negative results. If clinically indicated the test should be repeated on a new specimen obtained two weeks after discontinuing treatment. Reference Range: Not DetectedTHIS TEST WAS PERFORMED AT:[employer] ([facility]) [address] [phone] GONZALES MD Stool Rectal contents / Unknown 05/04/2025 7:08 AM EDT 05/04/2025 12:29 PM EDT Lissett SANTIAGO LAB BODY FLUIDS AND STOOLS ORDER DEV Final Result Performing Organization Address [facility] Co de Phone Number [facility] [address] [place] [address] [phone] * XR Abdomen 2 View minimum (04/21/2025 11:38 PM EDT) Anatomical Region Laterality Modality Abdomen Radiographic Symone ging 04/21/2025 11:3 8 PM EDT Narrative 04/21/2025 11:41 PM EDT [address] [address] XRay Report Signed Patient: Neli Esteban MR#: [id number] : 1990 Acct:[id number] Age/Sex: 34 / F ADM Date: 04/21/25 Loc: HO.ED Attending Dr: Ordering Physician: Cathy Montiel PA-C Date of Service: 04/21/25 Procedure(s): XR abdomen min 2V Accession Number(s): [id number] cc: Cathy Montiel PA-C; LISSETT BUNN NP [...] 04/21/25 2340 DD/ 2338 TD/TT: 04/21/25 2338 Service Now Developer: Procedure Note Donotuseinterpreter, Image - 04/21/[address] [address] XRay Report Signed Patient: Neli Esteban MMR#: [id number] : 1990Acct:[id number] Age/Sex: 34 / FADM Date: 04/21/25 Loc: HO.ED Attending Dr: Ordering Physician: Cathy Montiel PA-C Date of Service: 04/21/25 Procedure(s): XR abdomen min 2V Accession Number(s): [id number] cc: Cathy Montiel PA-C; LISSETT BUNN NP [...] in OV> 04/21/252339 DD/ 37 TD/TT: 04/21/252337 Service Now Developer: [facility] External Provider IMG XR PROCEDURES Edited Result - Final * HCG, Qualitative, Urine (04/21/2025 10:08 PM EDT) Urine NEGATIVE NEGATIVE [facility] Comment:This test was develo ped to detect early . Falsenegative results may occur after the 5th - 7th week ofpregnancy when using this test method. If clinicallyindicated, consider a serum hCG. 04/21/2025 10:0 8 PM EDT 04/21/2025 10:14 PM EDT Generic External Data Provider LAB URINE ORDERAB LES Final Result [facility] [address] [place] [phone] * (ABNORMAL) Urinalysis w/reflex microscopic (04/21/2025 10:08 PM EDT) Color Urine Yellow [facility] Appearance Urine Clear [facility] PH 6.5 5.0 - 9.0 [facility] Glucose Urine UA Negative Negative mg/dL [facility] Urine Blood Negative Negative [facility] Specific [place] - Urine >=1.030(H) 1.005 - 1.025 [facility] Urine Protein Negative Neg-Trace mg/dL [facility] Urine Ketones Negative Negative mg/dL [facility] Nitrite Urine Negative Negative [facility] Leukocyte Esterase Urine Negative Negative [facility] 04/21/2025 10:0 8 PM EDT 04/21/2025 10:14 PM EDT Narrative [facility] - 04/21/2025 10:21 PM EDT [id number], [employer] us Generic External Data Provider LAB URINE ORDERAB LES Final Result [facility] [address] [place] [phone] * (ABNORMAL) CBC auto differential (04/21/2025 10:02 PM EDT) White Blood Count 9.4 4.8 - 10.8 X10*3/uL [facility] Red Blood Count 4.62 4.20 - 5.50 X10*6/uL [facility] Hemoglobin 13.7 12.0 - 16.0 g/dl [facility] Hematocrit 37.7 37.0 - 47.0 % [facility] Mean Corpuscular Volume 81.6 80.0 - 98.0 fL [facility] Mean Corpuscular Hemoglobin 29.7 27.0 - 33.0 pg [facility] Mean Corpuscular HGB Conc 36.3(H) 31.0 - 35.0 g/dl [facility] Red Cell Distribution Width 11.9 11.0 - 16.0 % [facility] Platelet Count 331 160 - 400 X10*3/uL [facility] Mean Platelet Volume 8.8(L) 9.4 - 12.3 fL [facility] Neutrophils Percent Auto 47.3 45 - 73 % [facility] Imm Gran Pct Auto 0.5(H) 0.0 - 0.4 % [facility] Lymphocytes Percent Auto 44.5(H) 20 - 40 % [facility] Monocytes Percent Auto 5.1 2 - 11 % [facility] Eosinophils Percent Auto 2.1 0 - 4 % [facility] Basophils Percent Auto 0.5 0 - 2 % [facility] NRBC Pct Auto 0.0 0.0 - 0.2 /100WBC [facility] Neutrophils Absolute Auto 4.4 2.0 - 8.3 x10*3/uL [facility] Imm Gran Abs Auto 0.05(H) 0.00 - 0.03 X10*3/uL [facility] Lymphocytes Absolute Auto 4.2 1.2 - 4.9 X10*3/uL [facility] Monocytes Absolute Auto 0.5 0.1 - 1.2 X10*3/uL [facility] Eosinophils Absolute Auto 0.2 0.0 - 0.4 X10*3/uL [facility] Basophils Absolute Auto 0.1 0.0 - 0.2 X10*3/uL [facility] NRBC Abs Auto 0.000 0.0 - 0.012 X10*3/uL [facility] 04/21/2025 10:0 2 PM EDT 04/21/2025 10:14 PM EDT us Generic External Data Provider LAB BLOOD ORDERAB LES Final Result Performing Organization Address City/State/[facility] Co de Phone Number [facility] [address] [place] [phone] * Lipase (04/21/2025 10:02 PM EDT) Lipase 23 8 - 78 U/L [facility] 04/21/2025 10:0 2 PM EDT 04/21/2025 10:14 PM EDT us Generic External Data Provider LAB BLOOD ORDERAB LES Final Result [facility] [address] [place], [place] [phone] * (ABNORMAL) Comprehensive Metabolic Panel (04/21/2025 10:02 PM EDT) Sodium 137 135 - 145 mmol/L [facility] Potassium 3.9 3.3 - 5.1 mmol/L [facility] Chloride 105 96 - 108 mmol/L [facility] Carbon Dioxide 27 22 - 29 mmol/L [facility] Anion Gap 9(L) 12 - 20 [facility] Urea Nitrogen (BUN) 14 9 - 16 mg/dL [facility] Creatinine, Serum 0.70 0.5 - 1.4 mg/dL [facility] Creatinine Clr Calc Pharmacy 90.4 [facility] Comment:Provided height and weight: 157.48 cm,59.4 kg.eGFR (calculated from the MDRD study equation) and eCrCl(calculated from the Cockcroft-Gault equation) are based ondifferent parameters and may not yield comparable results.If eCrCl result is absurd, please check patient'sheight/weight. Estimated Glomerular Filt Rate >60 [facility] Comment:Chronic Kidney Disea se: Estimated GFR < 60 mL/min/1.85p8Xtcoax Kidney Disease: Estimated GFR < 15 mL/min/1.73m2 Glucose 91 60 - 115 mg/dL [facility] Calcium 8.9 8.4 - 10.2 mg/dL [facility] Bilirubin, Total 0.2 0.0 - 1.0 mg/dL [facility] Aspartate Amino Transferase 26 5 - 31 U/L [facility] Alanine Aminotransferase 20 0 - 31 U/L [facility] Total Protein 7.0 6.5 - 8.0 g/dL [facility] Albumin Level 4.0 3.5 - 5.0 g/dL [facility] Alkaline Phosphatase 42 39 - 117 U/L [facility] 04/21/2025 10:0 2 PM EDT 04/21/2025 10:14 PM EDT us Generic External Data Provider LAB BLOOD ORDERAB LES Final Result [facility] [address] [place] [phone] * [facility] Lower Extremity Venous Duplex Bilateral (04/20/2025 1:34 PM EDT) 04/20/2025 1:34 PM EDT Narrative [facility] - 04/20/2025 5:27 PM EDT [place] [address] Ultrasound Report Signed Patient: Neli Esteban MR#: [id number] : 1990 Acct:[id number] Age/Sex: 34 / F ADM Date: 04/20/25 Loc: .US Attending Dr: Jerome Douglas MD Ordering Physician: Jerome Douglas MD Date of Service: 04/20/25 Procedure(s): US venous duplex LE BI Accession Number(s): [id number] cc: Jerome Douglas MD; LISSETT BUNN NP [...] 04/20/25 1724 DD/ 1334 TD/TT: 04/20/25 1409 Service Now Developer: Procedure Note Donotuseinterpreter, Image - 04/20/2025 [place] [address] Ultrasound Report Signed Patient: Neli Esteban MMR#: [id number] : 1990Acct:[id number] Age/Sex: 34 / FADM Date: 04/20/25 Loc: .US Attending Dr: Jerome Douglas MD Ordering Physician: Jerome Douglas MD Date of Service: 04/20/25 Procedure(s): US venous duplex LE BI Accession Number(s): [id number] cc: Jerome Douglas MD; LISSETT BUNN NP [...] 04/20/25 1724 DD/ 1334 TD/TT: 04/20/25 1409 Service Now Developer: us [facility] External Provider CV VASC ULAR PROCEDURES Final Result [facility] [address] [place] [phone] * US Pelvis Transvaginal (03/17/2025 9:30 AM EDT) Anatomical Region Laterality Modality Pelvis Ultrasound 03/17/2025 9:30 AM EDT Narrative 03/17/2025 10:17 AM EDT [address] [address] Ultrasound Report Signed Patient: Neli Esteban MR#: [id number] : 1990 Acct:[id number] Age/Sex: 34 / F ADM Date: 03/17/25 Loc: HO.US Attending Dr: Lissett Bunn GRANULATING BLENDER Ordering Physician: PRISCILA REYES CNM Date of Service: 03/17/25 Procedure(s): US pelvic and transvaginal Accession Number(s): [id number] cc: PRISCILA REYES CNM; LISSETT BUNN NP [...] 03/17/25 1014 DD/ 0930 TD/TT: 03/17/25 0944 Service Now Developer: Procedure Note Donotuseinterpreter, Image - 03/17/2025 [place] [address] Ultrasound Report Signed Patient: Neli Esteban [facility]#: [id number] : 1990Acct:[id number] Age/Sex: 34 / FADM Date: 03/17/25 Loc: HO.US Attending Dr: Lissett Bunn NP Ordering Physician: PRISCILA REYES CNM Date of Service: 03/17/25 Procedure(s): US pelvic and transvaginal Accession Number(s): [id number] cc: PRISCILA REYES CNM; LISSETT BUNN NP [...] 03/17/25 1014 DD/ 0930 TD/TT: 03/17/25 0944 Service Now Developer: us Priscila Reyes CNM IM US PROCEDURES Final R esult * STI testing add on (NG, CT, Trich) (02/28/2025 10:41 AM EDT) Trichomonas (NAAT) NOT DETECTED NOT DETECTED [facility] Comment:The analytical perfo rmance characteristics of thisassay have been determined by [employer]. Themodifications have not been cleared or approved bythe FDA. This assay has been validated pursuant to theCLIA regulations and is used for clinical purposes.For additional information, please refer tohttp://education.[employer] Combine/faq/Trichomonastma(This link is being provided for information/educational purposes only.)THIS TEST WAS PERFORMED AT:[facility] [place] [phone] GONZALES MD CTNG Ref Lab NOT DETECTED NOT DETECTED [facility] NG Ref Lab NOT DETECTED NOT DETECTED [facility] ThinPrep vial Cervix uteri structure / Unknown 02/28/2025 10:41 AM EDT 03/01/2025 7:35 AM EDT Narrative [facility] - 03/02/2025 7:34 PM EDT Collection Date: [id number] by: AUGUSTINA Avelar: Cervix Priscila Reyes [facility] CYTOLOGY ORDERABLES F inal Result [facility] [address] [place] [phone] * (ABNORMAL) HPV DNA, Low/High Risk (02/28/2025 10:41 AM EDT) HPV High Risk Positive(A) Negative [facility] HPV Genotype 16 Negative Negative [facility] HPV Genotype 18 Negative Negative [facility] Comment:HPV testing performe d at [facility] (CLIA#[id number]), [address] [place] [address].Testing for HPV was performed using the Mame [...] CNM LAB BLOOD ORDERABLES Jen terry Result [facility] [address] [place] [phone] * Pap Smear (02/28/2025 10:41 AM EDT) Swab Cervix uteri structure / Unknown 02/28/2025 10:41 AM EDT 03/01/2025 7:35 AM EDT Narrative [facility] - 03/08/2025 1:52 PM EDT ----- ------- Name: Neli Esteban Age/Sex: 34/F : 1990 Unit#: [id number] Attend Dr: PRISCILA REYES CNM Re02/28/25 Status: DEP REF Location: HO.LNP Disch: ----- ------- SPEC : [id number] RECD: 03/01/25 STATUS: PATITO MASSEY NUM: [id number] AIDE: 02/28/25-[address]: PRISCILA REYES CNM [...] HPV testing will be performed at [facility] (CLIA #[id number]), [address] [place] [address]. Testing for HPV was performed using the [employer] system. The presence of HPV in the [...] detected. All professional services are performed by [facility] ([address] [place], [place] [id number]; ; CLIA #[id number]). The PAP Test is a screening procedure with the inherent possibility of both false negative and false positive results. Results should be interpreted in the context of historic and current clinical findings. Reliability of the PAP Test is enhanced by performing the test on a regular repetitive basis. CONTINUED ON NEXT PAGE ----- ------- Name: Neli Esteban Age/Sex: 34/F : 1990 Unit#: [id number] Attend Dr: PRISCILA REYES CNM Re02/28/25 Status: DEP REF Location: HO.LNP Disch: ----- ------- SPEC : [id number] RECD: 03/01/25 STATUS: PATITO MASSEY NUM: [id number] AIDE: 02/28/25-[address] [facility] [address]: PRISCILA REYES CNM ENTERED: 03/01/25 SP TYPE: Pap Nicola LIMA DR: ORDERED: Pap Smear, PAP path review ----- ------- Signed (signature on file) Desiree Garrison 03/08/25 1352 ----- ------- END OF REPORT Priscila Reyes CNM LAB CYTOLOGY ORDERABLES F inal Result [facility] [address] [place] [phone] * HIV Ab/Ag (ASHLEIGH LILA) (05/28/2023 12:09 PM EDT) HIV AB/AG Nonreactive Nonreactive [facility] Comment:HIV-1 p24 Ag and/or HIV-1/HIV-2 Ab not detected.A test result that is nonreactive does not exclude thepossibility of exposure to or infection with HIV-1 and/orHIV-2. Nonreactive results in this assay for individualswith prior exposure to HIV-1 and/or HIV-2 may be due toantigen and antibody levels that are below the limit ofdetection of this assay.The [employer] HIV Ag/Ab Combo assay result andsupplemental assay results should be interpreted inconjunction with the patient's clinical presentation,history and other laboratory results. If the results areinconsistent with clinical evidence, additional testing issuggested to confirm the result. 05/28/2023 12:0 9 PM EDT 05/28/2023 12:57 PM EDT Priscila Reyes [facility] LAB BLOOD ORDERABLES Jen l Result Performing Organization Address [facility]/ZIP Co de Phone Number [facility] [address] [place] [phone] * Hepatitis C Antibody with Reflex to HCV, RNA, Quantitative, Real-Time PCR (05/28/2023 12:09 PM EDT) Hepatitis C Antibody Nonreactive Nonreactive [facility] Comment:Antibodies to HCV no t detected; does not exclude early acuteHCV infection. Blood Venous blood specimen / Unknown 05/28/2023 12:09 PM EDT 05/28/2023 12:57 PM EDT [facility] BLOOD ORDERABLES Jen l Result Performing Organization Address City/[facility]/ZIP Co de Phone Number [facility] [address] [place] [phone] from Last 3 Months or Most Recently Relevant to Health Maintenance Insurance [facility] C3 Care Teams Buffing Wheel Former Automatic Relationship Specialty Start Date End Date Lissett Bunn ANP [address] [place] [address] PCP - General Family Medicine 07/17/20
[2025-06-07 07:39] VITALS: BMI 23.8
--- NOTE | 2025-06-07 09:22 | HO.ANESPROP2 ---
Documented by User: Nieves Pettit NP 06/07/25 09:22 HPI - Anesthesia Eval Consult details Narrative: 34yo F for LEEP,poss loop electric excision,poss loop electrical,cone and post endocervical curettage PMFSH Active Problems Active Problems: All Active Problems High grade squamous intraepithelial cervical dysplasia (Acute) Pap smear cannot exclude high grade squamous intraepithelial lesion (ASC-H) (Acute) Chest pain (Acute) Palpitations (Acute) Varicose veins of right lower extremity with inflammation (Acute) Past Medical History Medical History (Updated 05/26/25 @ 13:48 by Juancarlos Joiner MD) Dyspnea Varicose veins of bilateral lower extremities with pain No known health problems Family History Family History Mother Hypertension Epilepsy Surgical History Surgical History (Updated 06/09/25 @ 10:35 by Padma Serra RN) H/O vein stripping Social History Social History Alcohol intake: never Patient Tobacco Use Status: Former Tobacco user Years Smoked: On/off 5 +/- Use of substances other than those prescribed or required for medical reasons: No Advance Directives: No Advance Directives Information Provided: Yes : No Meds Allergies Allergy/AdvReac Type Severity Reaction Status Date / Time No Known Allergies (No Known Allergy Verified 05/26/25 13:39 Allergies*) Home Medications ?Medication ?Instructions ?Recorded ?Confirmed ?Last Taken ?Type levonorgestrel-ethinyl estradiol 1 tab PO DAILY 05/09/25 05/09/25 Unknown History 0.1 mg-20 mcg tablet (Aviane) Exam Height,Weight and Vital Signs: Height 5 ft 2 in Weight 58.967 kg Assessment and Plan Assessment Anesthesia Assessment: Chart Reviewed Documented by User: Shayla Bradford MD 06/09/25 12:02 PMFSH Past Medical History Medical History (Updated 05/26/25 @ 13:48 by Juancarlos Joiner MD) Dyspnea Varicose veins of bilateral lower extremities with pain No known health problems Family History Family History Mother Hypertension Epilepsy Family history of problems with anesthesia: No Surgical History Surgical History (Updated 06/09/25 @ 10:35 by Padma Serra RN) H/O vein stripping History of Problems with Anesthesia: No Social History Social History Alcohol intake: never Patient Tobacco Use Status: Former Tobacco user Years Smoked: On/off 5 +/- Use of substances other than those prescribed or required for medical reasons: No Advance Directives: No Advance Directives Information Provided: Yes : No Meds Allergies Allergy/AdvReac Type Severity Reaction Status Date / Time No Known Allergies (No Known Allergy Verified 05/26/25 13:39 Allergies*) Home Medications ?Medication ?Instructions ?Recorded ?Confirmed ?Last Taken ?Type levonorgestrel-ethinyl estradiol 1 tab PO DAILY 05/09/25 05/09/25 Unknown History 0.1 mg-20 mcg tablet (Aviane) Exam Airway Mallampati Class: II (cap bottom left) TM Dist: >3cm Neck ROM: Full Heart: rrr Lungs: cta Assessment and Plan Assessment Anesthesia Assessment: Anesthesia Plan Discussed Final Anesthetic Review Family History of Problems with Anesthesia: No History of Problems with Anesthesia: No NPO: Yes ASA Class: II Final Preanesthetic Review: No Changes in Pt Med Stat, Meds/Allgs Chart Reviewed and Consent Obtained/Reviewed Patient Risk: Low Procedure Risk: Low Anesthetic Plan Anesthetic Plan: MAC: Disposition: Standard PACU
[2025-06-09 10:35] VITALS: BMI 23.6
[2025-06-09 10:41] LABS: UPreg QC Valid YES
[2025-06-09 10:42] VITALS: BP 130/74; PULSE 76; RESP 16; TEMP 36.8; O2SAT 100
--- NOTE | 2025-06-09 11:04 | PC.NURSE ---
PATIENT CRYING AND ANXIOUS REGARDING HAVING ANESTHESIA. MYSELF, MD WRIGHT AND MD ALBERTO EXPLAINED THE PLAN OF CARE REGARDING HER PROCEDURE AND ANESTHESIA. PATIENT WANTS TO THINK ABOUT IT BEFORE PROCEEDING EITHER UNDER LOCAL OR ANESTHESIA.
--- NOTE | 2025-06-09 11:11 | MHC.SHP ---
Pre-Procedural Eval Section A - 24 Hr Update-Section A only Date of Service: 06/09/25 The patient is an INPATIENT: No Changes since office visit: No Cold of Flu in the past 2 weeks, No New Medical Problems, No Changes in Medication and No Patient answered all questions The patient has been examined within 24 hours of the surgical procedure. The History & Physical has been completed within 30 days and I have reviewed it.: Yes Section B - Complete if H&P > 30 days Chief Complaint: High grade squamous intraepithelial lesion on Allergies: Allergies Allergy/AdvReac Type Severity Reaction Status Date / Time No Known Allergies (No Known Allergy Verified 05/26/25 13:39 Allergies*) Plan Diagnosis/Plan: Unchanged I have reviewed the history and physical and performed a pertinent physical examination on my patient. No changes have occurred unless specified. Time Spent With Patient Time: Total time managing care of this patient today ____ minutes.
[2025-06-09] MEDS: Lactated Ringers 1,000 ML 100 ML IVCONT (11:53)
--- NOTE | 2025-06-09 12:41 | PM.OP ---
Brief Operative Note Date of Service: 06/09/25 Pre-op diagnosis: High-grade dysplasia of the cervix Post-op diagnosis: same Procedure: LEEP CONE with post CONE ECC Surgeon: Juancarlos Joiner MD Anesthesia: GLMA and other (Paracervical block) Was an Securities Vault Supervisor used for this Procedure?: No Estimated blood loss (mL): 0 Pathology: other (Cervical cone, top-hat, Post cone ECC) Condition: stable Disposition: other (Home)
--- NOTE | 2025-06-09 12:42 | W.PM.OPN ---
Operative Note Operative Note Date of Service: 06/09/25 Narrative: Pre op diagnosis: High-grade dysplasia of the cervix Operation: Colposcopy, Loop electrical excision procedure cone, top hat endocervical excision, post cone ECC Postop diagnosis: the same Quantitative blood loss: 50 cc Surgeon: Juancarlos Joiner MD, FACOG Advanced Research Programs Director: None Pathology: Cervical cone, top-hat endo cervical excision, endo cervical curettage Complications: none Anesthesia: GLMA and Para cervical block Procedure: The patient was put in a dorsal lithotomy position, scrubbed and draped in the usual sterile fashion. A speculum was inserted inside the patient's vagina. The cervix is assessed using the colposcope with acetic acid , the lesions were seen, and at least 1 cm of the squamocolumnar junction was observed. 20 x 5 mm size loop was selected based upon the diameter of the lesion. Lugol solution was used to outline the lesions and area of the transformation zone order to be removed 10 cc of xylocaine with epinephrine were injected submucosally into the surface of the cervix (ectocervix) at the 3, 6, 9, and 12 o'clock positions. The electrosurgical generator is set at 40 reyes on blend 1. The loop is carefully passed simultaneously around and under the transformation zone, in order to ensure excising it making sure the lesion is at least 5 mm far from the specimen margins . The loop was allowed to glide through the cervix from one side to the other, allowing the cutting current to divide the tissue. Endo cervical top-hat excision was performed after we An endo cervical curettage is performed following completion of excision, and hemostasis is obtained with a Ball electrode or regular tip cautery. At the end, Monsel's solution was applied to the cone bed. The patient tolerated the procedure well and, all instruments were taken out of the patient vaginal cavity, and the patient was transferred to the PACU in stable condition.
[2025-06-09 12:45] VITALS: BP 159/64; PULSE 95; RESP 16; TEMP 36.6; O2SAT 96
[2025-06-09 12:50] VITALS: BP 119/70; PULSE 92; RESP 12; O2SAT 98
[2025-06-09 12:55] VITALS: BP 117/80; PULSE 81; RESP 12; O2SAT 99
[2025-06-09 13:00] VITALS: BP 122/90; PULSE 81; RESP 12; TEMP 36.4; O2SAT 100
[2025-06-09 13:10] VITALS: BP 116/76; PULSE 77; RESP 12; O2SAT 98
== END 2025-06-09 13:29 | disposition home or self-care (01) ==
PROVIDERS: PCP Nurse Practitioner Primary Care; Visit Provider Obstetrics & Gynecology
PROC: 0UBC7ZZ Excision of Cervix, Via Natural or Artificial Opening (ICD-10-PCS; CPT 57522; principal; 2025-06-09 12:30)
DX: N87.1 Moderate cervical dysplasia (principal); R06.00 Dyspnea, unspecified; I83.813 Varicose veins of bilateral lower extremities with pain; Z87.891 Personal history of nicotine dependence
CPT/HCPCS: 57461; 81025; 88305; 88307; 88341; 88342; J2003; J2004; J2250; J2704; J3010

== ENCOUNTER → 2025-06-09 10:01 | Outpatient (BNV) | payer MEDICAID, SELFPAY | PROVIDERS: PCP Nurse Practitioner Primary Care; Visit Provider Obstetrics & Gynecology | DX: R87.613 High grade squamous intraepithelial lesion on cytologic smear of cervix (HGSIL) (principal) | CPT/HCPCS: 57461 ==

== ENCOUNTER 2025-06-22 11:59 | Outpatient (REF) | payer MEDICAID, SELFPAY ==
[2025-06-22 16:41] LABS: Bacterial Vaginosis PCR POSITIVE (Negative); Candida Group PCR NOT DETECTED (Not Detect); Candida glab krusei PCR NOT DETECTED (Not Detect); Trichomonas vaginalis PCR NOT DETECTED (Not Detect)
[2025-06-22 17:13] LABS: CT PCR NOT DETECTED (Not Detect.); NG PCR NOT DETECTED (Not Detect.)
== END 2025-06-22 12:00 | disposition home or self-care (01) ==
LOC: HO.LNP 11:59
PROVIDERS: PCP Nurse Practitioner Primary Care; Visit Provider Obstetrics & Gynecology
DX: R87.613 High grade squamous intraepithelial lesion on cytologic smear of cervix (HGSIL) (principal); N76.0 Acute vaginitis; B96.89 Other specified bacterial agents as the cause of diseases classified elsewhere; Z20.2 Contact with and (suspected) exposure to infections with a predominantly sexual mode of transmission
CPT/HCPCS: 81515; 87491; 87591; 99212

== ENCOUNTER 2025-06-22 11:59 | Outpatient (AMB) | payer MEDICAID, SELFPAY ==
--- NOTE | 2025-06-22 12:02 | MHC.OFFVIS ---
Vital Signs 06/22/25 12:03 Height 5 ft 2 in Weight 131 lb BMI 24.0 BP 102/62 Blood Pressure Location Lt brachial Position Sitting Intake Visit Reasons: post op Intake Note: Post op , leep done 06/09/25. Patient c/o pink discharge since 06/11 and feels it has an odor. Technical Support Manager Required: No Information Interpreted: non-clinical & clinical Accompanied by: Self / Same As Patient Allergies No Known Allergies (No Known Allergies*) Allergy (Verified 06/22/25 12:08) Medication List - Last Reconciled 06/22/25 by Shayla Smith LPN levonorgestrel-ethinyl estrad 0.1-20 mg-mcg (Aviane) 1 tab PO DAILY Do you need a note to return to daycare/school/sports/work: No HPI Comments Details: The patient is presenting for follow-up post LEEP cone. The patient complaining of vaginal discharge with foul odor, no vulvovaginal itching. The pathology showed the following: A. Cervix, conization: -Focal high grade squamous intraepithelial lesion (moderate-severe dysplasia, JEREMY II-III), involving endocervical glands. -Ectocervical margin: Free of dysplasia. -Endocervical margin: Free of dysplasia. -Radial (deep stromal) margin: Free of dysplasia. -Biopsy site changes. B. Cervix, top-hat, conization: -Endocervical glandular mucosa with biopsy site changes; negative for dysplasia. C. Endocervix, post cone curettage: -Endocervical glandular epithelium; negative for dysplasia. [facility] Medical History (Updated 06/22/25 @ 12:12 by Juancarlos Joiner MD) High grade squamous intraepithelial cervical dysplasia Dyspnea Varicose veins of bilateral lower extremities with pain No known health problems Surgical History H/O LEEP H/O vein stripping Family History Mother Hypertension Epilepsy Social History Alcohol intake: never Patient Tobacco Use Status: Former Tobacco user Years Smoked: On/off 5 +/- Female Reproductive History Menstrual Age of Menarche: 12 Review of Systems Const All systems reviewed & are unremarkable except as noted in HPI and below Reports as per HPI and Reports no additional complaints GI Reports no additional complaints Reports no additional complaints Physical Exam Vital Signs: Last Vital Signs BP 102/62 06/22/25 12:03 BMI result Body Mass Index 24.0 General: Yes no CVA tenderness External Female Exam: normal external appearance and normal appearance of the urethra Speculum Exam - Vagina: normal appearance of the vagina, normal palpation, no lesions and no masses Speculum Exam - Cervix: normal appearance of the cervix, normal palpation, no lesions, no masses and nontender Bimanual exam- vagina & uterus: normal bimanual exam, normal palpation, uterine size normal, normal palpation, uterine shape normal, No Cervical tenderness present and non-tender Bimanual Exam- Adnexa, other: normal adnexae Back/Spine/Pelvis Back: no CVA tenderness Assessment & Plan Assessment & Plan (1) High grade squamous intraepithelial cervical dysplasia: Comment: 02/24 Pap ASC-H, AGC, HPV positive, HPV 16/18 negative 06/09/2025 Status post LEEP cone with post cone ECC, negative margins Code(s): R87.613 - High grade squamous intraepithelial lesion on cytologic smear of cervix (HGSIL) Category: Medical Plan: Discussed with the patient the procedure and the pathology of the LEEP. Instructions given to the patient to schedule an HPV based screening in 6 months, if normal then co testing Q year x 3 , if wnl cotest q3 x 25 years check the results and treat accordingly. All questions answered patient verbalized understanding. (2) Bacterial vaginosis: Code(s): N76.0 - Acute vaginitis; B96.89 - Other specified bacterial agents as the cause of diseases classified elsewhere Category: Medical Plan: GC and chlamydia cultures with BV panel taken. Will treat with Flagyl 500 mg p.o. b.i.d. x 7 days, Instructions given to the patient to refrain from sexual activity or to use condoms consistently and correctly during the BV treatment regimen, not to douch, it might increase the risk for relapse, and to call if symptoms persist or recur. Medications: New metronidazole 500 mg PO BID 14 tabs 0RF 7 days Coding Level of Care Code Est Pt Level 3 (45510) Diagnoses High grade squamous intraepithelial cervical dysplasia R87.613 Bacterial vaginosis N76.0; B96.89
[2025-06-22 12:03] VITALS: BP 102/62; BMI 24.0
== END 2025-06-22 12:19 | disposition home or self-care (01) ==
LOC: HO.HWS 11:59
PROVIDERS: PCP Nurse Practitioner Primary Care; Visit Provider Obstetrics & Gynecology
DX: R87.613 High grade squamous intraepithelial lesion on cytologic smear of cervix (HGSIL) (principal); N76.0 Acute vaginitis; B96.89 Other specified bacterial agents as the cause of diseases classified elsewhere
CPT/HCPCS: 99213

== ENCOUNTER 2025-06-24 16:08 | Emergency (ER) | payer MEDICAID, SELFPAY ==
--- OUTSIDE RECORDS SUMMARY | 2025-06-21 15:15 | XMS_ITS | Encounter Summary ---
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 Name Role Phone Rachelle Olson Primary Care Provider Reason for Referral * Consultation (Urgent) - Authorized Specialty Diagnoses / Procedures Referred By Malissa childress Referred To Contact Gastroenterology Diagnoses Chronic idiopathic constipation Left sided abdominal pain Ree Farley NP [address] [place] [address] Phone: tel: fax: [facility] [address] [place] [address], [address] [place] [address] Phone: tel: fax: Referral ID Status Reason Start Date Expiration Date Visits Requested Visits Authorized [id number] Authorized Specialty Services Required 5 06/22/2026 6 6 Reason for Visit * Reason Comments sick Encounter Details Date Type Department Care Team ([facility] st Contact Info) Description 06/21/2025 3:15 PM EST Office Visit [facility] [address] [place] [address] Ree Farley NP [address] [place] [address] Chronic idiopathic constipation (Primary Dx); Left sided abdominal pain Social History Tobacco Use Types Packs/Day Years Used Date Smoking Tobacco: Former Cigarettes Passive Smoke Exposure: Current Smokeless Tobacco: Former Alcohol Use Standard Drinks/Week Comments Never 0 (1 standard drink = 0.6 oz pur e alcohol) Alcohol Answer Date Recorded How often do you have a drink containing alcohol ? 0 06/21/2025 How many drinks containing a lcohol do you have on a typical day when you are drinking? 0 06/21/2025 How often do you have six or more drinks on one occasion? 0 06/21/2025 Depression Answer Date Recorded Patient Health Questionnaire-9 Score 0 09/01/2024 Patient Health Questionnaire-9 Score 0 09/01/2024 Last PHQ-9: Questionnaire Data Not on file 0 09/01/2024 Housing Stability Answer Date Recorded What is your housing situation today? I have julisa sukumar 09/01/[address] you li [...] Sign Reading Time Taken Comments Blood Pressure 120/88 06/21/2025 3:36 PM EST Pulse 84 06/21/2025 3:36 PM EST Temperature 36.9 C (98.4 F) 06/21/2025 3:36 PM EST Respiratory Rate 20 06/21/2025 3:36 PM EST Oxygen Saturation 99% 06/21/2025 3:36 PM EST Inhaled Oxygen Concentration - - Weight 60.1 kg (132 lb 6.4 oz) 06/21/2025 3:36 P M EST Height 157.5 cm (5' 2 ) 06/21/2025 3:36 PM EST Body Mass Index 24.22 06/21/2025 3:36 PM EST documented in this encounter Progress Notes * Ree Farley, CHRISTINE - 06/21/2025 3:15 PM EST Neli Galaviz is a 34 y.o. female who presents for an acute visit. Note from triage: She had CT done of her abdomen which showed mildly enlarged appendix which PCP told her is not concerning. Pt reports ongoing pelvic pain and feeling like she used to have BM constantly but nothing comes out. She reports it wakes her up at night. Pt with chronic constipation but reports PCP has not given her anything for this. She has concerns that something is wrong with her appendix and would like further evaluation. Abdominal x-ray 04/21/25: Nonobstructive bowel gas pattern. No pneumoperitoneum. Multiple air-fluid levels suggestive of ileus. No abnormal calcifications. No acute fractures. Lung bases are clear. IMPRESSION: 1. Multiple air-fluid levels may represent ileus. 2. Nonobstructive bowel gas pattern with no pneumoperitoneum. CT Pelvis/Abdomen 05/23/25: No acute findings in the abdomen or pelvis. Normal examination. Note from PCP 05/24/25: I received a text from on-call service with msg from ???[facility]?? with findings, possibly concerning for early appendicitis. In patient???s chart, there is a CT abdomen pelvis interpreted by Dr. Carrera at [facility] that is noted as normal. I spoke with Dr. Coates who interpreted the CT abdomen pelvis for ???[facility]?? and he said that there was no stranding around theappendix and that it was just above normal in terms of size. Abnormal colposcopy followed by LEEP procedure 06/09/25 HPI Neli Galaviz, 34-year-old female - Sensation of pressure and discomfort in lower abdomen, not described as pain, present for an extended period, worsens at night and disrupts sleep - Symptoms less noticeable during daytime activity - Reports frequent straining and difficulty during bowel movements, requires positioning feet for relief - Bowel movements occur daily, sometimes two to three times per day, with large volume, but stool is hard and requires effort to pass - History of vaginal deliveries for two children - Uses dietary measures and supplements (rhoda seed, pomegranate, oatmeal, wheat bread, water) to alleviate symptoms, with only temporary improvement - Visited emergency room due to severity of symptoms and sleep disruption; waited several hours, left without being seen by physician - Subsequent evaluation by Rachelle, who noted possible ileus/obstruction on X-ray; emergency CT scan performed one month later, reported as normal except for mildly enlarged appendix - Symptoms described as intermittent, with recent episodes lasting longer than previous ones - Reports frequent urination, up to three times per hour, without burning or pain; recent urine test reported as normal - Occasional blood in stool, attributed to hemorrhoids - History of nausea, denies vomiting except after eating avocado two years ago, which led to immediate vomiting; now avoids avocado - Reports persistent burping, sometimes with regurgitation of undigested food (e.g., burger) - Has not started omeprazole previously prescribed - Menstrual cycle irregular due to control pills; currently experiencing mild bleeding and discharge following a procedure on June 09, 2025 - History of lower back pain and pelvic bone displacement, previously treated with physical therapy - Reports mood disturbance and difficulty functioning due to poor sleep and ongoing symptoms Problem List[1] Allergies[2] Review of Systems Constitutional: Negative for fever. Gastrointestinal: Positive for abdominal pain and constipation. Negative for blood in stool, diarrhea, nausea, rectal pain and vomiting. Genitourinary: Positive for frequency. Negative for difficulty urinating, dysuria, hematuria, menstrual problem and urgency. Vitals: 06/21/25 1536 BP: 120/88 BP Location: Left arm Patient Position: Sitting BP Cuff Size: Adult Pulse: 84 Resp: 20 Temp: 98.4 ??F (36.9 ??C) TempSrc: Oral SpO2: 99% Weight: 132 lb 6.4 oz (60.1 kg) Height: 5' 2 (1.575 m) Physical Exam Abdominal: General: Abdomen is flat. Bowel sounds are normal. There is no distension. Palpations: Abdomen is soft. There is no mass. Tenderness: There is abdominal tenderness. There is no right CVA tenderness, left CVA tenderness orguarding. Hernia: No hernia is present. Assessment & Plan Chronic idiopathic constipation Diagnosis based on difficulty with defecation, although patient reports daily stools of sufficient volume. Differentials include decreased bowel motility, IBS, functional disorder. GI referral placed. In the meantime, recommended daily psyllium fiber supplement. Recommended initial cleanout with 2-3 capfuls of MiraLax to clear any retained stool, followed by 1/2 cap daily for bowel regularity. May titrate up or down to achieve ideal consistency. Orders: polyethylene glycol, PEG, 3350 (MiraLax) 17 GM/SCOOP powder; Take 2-3 capfuls for 2 days, then 1/2 capful everyday after. psyllium (Metamucil Smooth Texture) 58.6 % powder; Take 5.12 g (3 g of fiber) by mouth 2 times daily. Referral to Gastroenterology; Future Left sided abdominal pain Ovarian etiology less likely based on patient report of recent pelvic ultrasound. No acute findingson prior imaging. Current differentials include decreased bowel motility, IBS, functional disorder.GI referral placed. Orders: Referral to Gastroenterology; Future Current Medications[3] No follow-ups on file. [facility] LAN SPECIALIST Attestation LAN SPECIALIST Resident Attestation: Patient was seen and evaluated by Ree ROBIN , in collaboration with Shilo Montana MD who has reviewed my assessment and plan. I, Shilo Montana MD , have reviewed the resident's note and agree with the assessment & plan of care as documented above. This note was drafted using Ambient (AI) technology. The patient/patient's guardian has been informed and has consented to the use of this technology: Yes [1] Patient Active Problem List Diagnosis Glossodynia Palpitations with regular cardiac rhythm Pelvic pain Psoriasis Other fatigue Nonintractable episodic headache [2] Allergies Allergen Reactions Avocado Vomiting Kiwi Extract Unknown Throat itching [3] Current Outpatient Medications: betamethasone valerate (Valisone) 0.1 % ointment, Apply topically 2 times daily., Disp: 45 g, Rfl: 1 ibuprofen 600 MG tablet, 1 tablet every 8 hours with food x 7 days, Disp: 21 tablet, Rfl: 0 Levonorgest-Eth Estrad 91-Day (LoSeasonique) 0.1-0.02 & 0.01 MG tablet, TAKE 1 TABLET BY MOUTH EVERY DAY. START DAY AFTER TAKING EC., Disp: 91 tablet, Rfl: 3 lidocaine (Lidoderm) 5 % patch, Apply 1 patch topically Once per day. Remove & discard patch within 12 hours or as directed by MD., Disp: 30 patch, Rfl: 2 omeprazole (PriLOSEC) [address] capsule, Take 1 capsule (20 mg) by mouth before breakfast. Do not crush or chew., Disp: 90 capsule, Rfl: 0 polyethylene glycol, PEG, 3350 (MiraLax) 17 GM/SCOOP powder, Take 2-3 capfuls for 2 days, then 1/2 capful everyday after., Disp: 510 g, Rfl: 0 psyllium (Metamucil Smooth Texture) 58.6 % powder, Take 5.12 g (3 g of fiber) by mouth 2 times daily., Disp: 283 g, Rfl: 11 documented in this encounter Plan of Treatment Scheduled Referrals Name Type Priority Associated Diagnoses Order Schedule Referral to Gastroenterology Outpatient Referral Urgent Chronic idiopathic constipation Left sided abdominal pain Expected: 06/21/2025 (Approximate), Expires: 06/21/2026 documented as of this encounter Visit Diagnoses Diagnosis Chronic idiopathic constipation- Primary Unspecified constipation Left sided abdominal pain Abdominal pain, unspecified site documented in this encounter Additional Health Concerns Assessment Noted Time PHQ-9 Depression Total Score: 0 09/01/19 25 2:43 PM EST documented as of this encounter Care Teams Continuous Mining Operator Relationship Specialty Start Date End Date Rachelle Olson ANP [address] [place] [id number] PCP - General Family Medicine 07/17/20 documented as of this encounter
[2025-06-24 16:12] VITALS: BP 155/78; PULSE 89; RESP 18; TEMP 37.1; O2SAT 98; BMI 24.0
--- NOTE | 2025-06-24 16:12 | ED.GENADULT ---
HPI - General Adult General Chief complaint: Abdominal Pain Stated complaint: General Medical Time Seen by Provider: 06/24/25 18:22 Source: patient Mode of arrival: ambulatory Limitations: no limitations History of Present Illness ED Provider: DR. Doherty HPI narrative: [age] year old female history of chronic abdominal pain x2 years, patient has been complaining of left side chronic abdominal pain to her primary doctor and patient was seen in the emergency department 2 times in the last 2 months for evaluation of the abdominal pain that feel like gas and cramps., had a normal CT abdomen and pelvis showed normal intra-abdominal structure, patient has no nausea, no vomiting, no diarrhea, last bowel movement was this morning and was normal formed stool with no blood, no dysuria, no frequency urination, no hematuria. no weight loss, no recent use of antibiotic. Patient is seeking referral to a GI for further evaluation. No drug use, no smoking marijuana, no alcohol use. Related Data Home Medications ?Medication ?Instructions ?Recorded ?Confirmed levonorgestrel-ethinyl estradiol 1 tab PO DAILY 05/09/25 06/22/25 0.1 mg-20 mcg tablet (Aviane) Previous Rx's ?Medication ?Instructions ?Recorded metronidazole 500 mg tablet 500 mg PO BID 7 days #14 tabs 06/22/25 sucralfate 100 mg/mL oral 10 ml PO BID #1,000 mL 06/24/25 suspension (Carafate) Allergies Allergy/AdvReac Type Severity Reaction Status Date / Time No Known Allergies (No Known Allergy Verified 06/24/25 16:18 Allergies*) Review of Systems Review of Systems: All other systems are reviewed and are negative Constitutional: Reports as per HPI and Reports no additional constitutional complaints Eyes: Reports as per HPI and Reports no additional eye complaints Reports system reviewed and no additional complaints, except as documented Cardiovascular: Reports as per HPI and Reports no additional cardiovascular complaints Respiratory: Reports as per HPI and Reports no additional respiratory complaints Gastrointestinal: Reports as per HPI and Reports no additional gastrointestinal complaints Genitourinary: Reports no additional female genitourinary complaints Musculoskeletal: Reports no additional musculoskeletal complaints Skin/Breast: Reports system reviewed and no additional complaints, except as docu Psychiatric: Reports no additional psychiatric complaints Endocrine: Reports no additional endocrine complaints Hematologic/Lymphatic: Reports no additional hematologic/lymphatic complaints Allergic/Immunologic: Reports no additional allergic/immunologic complaints Reports system reviewed and no additional complaints, except as documented and Reports Abnormal speech present [facility] Past Medical History Medical History High grade squamous intraepithelial cervical dysplasia Dyspnea Varicose veins of bilateral lower extremities with pain No known health problems Surgical History H/O LEEP H/O vein stripping Family History Family History Mother Hypertension Epilepsy Social History Social History Alcohol intake: never Patient Tobacco Use Status: Former Tobacco user Years Smoked: On/off 5 +/- Advance Directives: No Advance Directives Information Provided: No Do you have a plan to hurt others: No Plan Patient : No Physical Exam ED Vital Signs: Vital Signs - 24 hr 06/24/25 16:12 Temperature 98.8 F Pulse Rate 89 Respiratory Rate 18 Blood Pressure 155/78 H Pulse Oximetry 98 Oxygen Delivery Method Room Air BMI result Body Mass Index 24.0 Vital signs have been reviewed and appear to be correct. Blood pressure elevated. Heart rate normal. Respiratory rate normal. Temperature normal. Oxygen saturation normal. Appearance: Alert. Oriented X3. No acute distress. Head: Normal external exam. Normocephalic. Atraumatic. No Schmitz signs noted. No raccoon eyes noted Eyes: PERRLA. EOMI. Conjunctiva and sclera normal. Eyelids normal. ENT: TM's Normal. Pharynx normal. Uvula midline. Moist mucous membranes. No trismus noted. No drooling noted. No muffled voice noted. Neck: Normal inspection. Neck supple. FROM. No adenopathy. Thyroid Normal. No meningeal signs. No neck mass noted. CVS: Normal heart rate and rhythm. Heart sound normal. No murmurs noted. Pulses normal throughout. Respiratory: No respiratory distress. Painless inspiration. Breath sounds normal. No wheezes/rales/rhonchi noted. Chest nontender. No accessory muscle usage noted or decreased air movement noted. Abdomen: Soft and nontender. Bowel sounds normal in all 4 quadrants. No distention noted. No organomegaly noted. No visible injury noted. Back: No CVA tenderness. Full range of motion noted. Skin: Skin warm and dry. Normal skin color. Normal skin turgor. No rashes/lesions/lacerations noted. Extremities: No lower extremity edema. Extremities exhibit normal range of motion. Extremities nontender. Neuro: Oriented X 3. Cranial nerve exam: II-XII are grossly intact No motor deficit. No sensory deficit. Reflexes normal. Course Course Course Narrative: RME, this is a rapid medical exam performed by Prosper Strickland please refer to primary provider for complete H&P- 34-year-old female presents for evaluation of left-sided abdominal pain. the patient appears to around this time of the month every month for the last 5 months. She has had multiple workups including CT imaging, ultrasounds. Plan for labs, urinalysis. Will defer advanced imaging. The patient reports that she does not have regular menstrual cycles Reevaluation(s) Reevaluation #1: 34-year-old female with chronic abdominal pain for 2 years on and off , patient had multiple ED visits for evaluation of the same pain, patient's labs are unremarkable with no acute findings, will start the patient on PPI and referred to GI for further evaluation. Time: 18:41 Medical Decision Making Differential Diagnosis Differential Diagnoses: The differential diagnosis associated with the presentation includes ( Gastritis, pancreatitis, gastroenteritis, colitis, diverticulitis, UTI, pyelonephritis , ureteric stone , .) Admission/Observation Consideration of admission/observation: Escalation of care including admission/observation considered Lab Data MDM Lab Attestation statement: I reviewed the patient's lab results. 06/24/25 16:32 06/24/25 16:32 Labs: Lab Results 06/24/25 06/24/25 Range/Units 16:32 16:37 WBC 8.2 (4.8-10.8) X10*3/uL RBC 5.34 (4.20-5.50) X10*6/uL Hgb 15.7 (12.0-16.0) g/dl Hct 45.1 (37.0-47.0) % MCV 84.5 (80.0-98.0) fL MCH 29.4 (27.0-33.0) pg MCHC 34.8 (31.0-35.0) g/dl RDW 12.0 (11.0-16.0) % Plt Count 364 (160-400) X10*3/uL MPV 8.7 L (9.4-12.3) fL Immature Gran % (Auto) 0.5 H (0.0-0.4) % Neut % (Auto) 62.8 (45-73) % Lymph % (Auto) 29.6 (20-40) % [place] % (Auto) 5.4 (2-11) % Eos % (Auto) 1.0 (0-4) % Baso % (Auto) 0.7 (0-2) % Lymph # (Auto) 2.4 (1.2-4.9) X10*3/uL [place] # (Auto) 0.4 (0.1-1.2) X10*3/uL Eos # (Auto) 0.1 (0.0-0.4) X10*3/uL Baso # (Auto) 0.1 (0.0-0.2) X10*3/uL Abs Immat Gran (auto) 0.04 H (0.00-0.03) X10*3/uL Absolute Neuts (auto) 5.1 (2.0-8.3) x10*3/uL Absolute Nucleated RBC 0.000 (0.0-0.012) X10*3/uL Nucleated RBC % (auto) 0.0 (0.0-0.2) /100WBC Sodium 139 (135-145) mmol/L Potassium 4.3 (3.3-5.1) mmol/L Chloride 104 (96-108) mmol/L Carbon Dioxide 25 (22-29) mmol/L Anion Gap 14 (12-20) BUN 9 (9-16) mg/dL Creatinine 0.76 (0.5-1.4) mg/dL Estim Creat Clear Calc 83.2 Estimated GFR > 60 Random Glucose 90 (60-115) mg/dL Calcium 9.8 D (8.4-10.2) mg/dL Total Bilirubin 0.3 (0.0-1.0) mg/dL AST 35 H (5-31) U/L ALT 19 (0-31) U/L Alkaline Phosphatase 52 (39-117) U/L Total Protein 7.9 (6.5-8.0) g/dL Albumin 4.5 (3.5-5.0) g/dL Lipase 19 (8-78) U/L Beta HCG, Quant < 2 mIU/mL Urine Color Yellow Urine Appearance Clear Urine pH 6.5 (5.0-9.0) Ur Specific [place] 1.025 (1.005-1.025) Urine Protein Negative (Neg-Trace) mg/dL Urine Glucose (UA) Negative (Negative) mg/dL Urine Ketones Trace (Negative) mg/dL Urine Blood Negative (Negative) Urine Nitrite Negative (Negative) Ur Leukocyte Esterase Trace H (Negative) Urine RBC 0-2 (0-2) /HPF Urine WBC 0-5 (0-5) /HPF Ur Squamous Epith Cells 0-2 (0-2) /HPF Urine Bacteria None Seen (None Seen) Hyaline Casts 0-2 (0-2) /LPF Discharge Plan Discharge Clinical Impression: Chronic abdominal pain Patient Disposition: Home, Self-Care Instructions: Chronic Abdominal Pain (DC) Prescriptions: New sucralfate [Carafate] 100 mg/mL suspension 10 ml PO BID Qty: 1000 0RF No Action levonorgestrel-ethinyl estrad [Aviane] 0.1-20 mg-mcg tablet 1 tab PO DAILY metronidazole 500 mg tablet 500 mg PO BID 7 Days Qty: 14 0RF Referrals: Becca Robbins, [facility] [Nurse Practitioner, Gastroenterology] Print Language: Tajik
[2025-06-24 16:36] LABS: MANUAL DIFF FLAG NO
[2025-06-24 16:53] LABS: Hematocrit 45.1 % (37.0-47.0); Hemoglobin 15.7 g/dl (12.0-16.0); Imm Gran Abs Auto 0.04 X10*3/uL (0.00-0.03); Imm Gran Pct Auto 0.5 % (0.0-0.4); Lymphocytes Absolute Auto 2.4 X10*3/uL (1.2-4.9); Mean Corpuscular HGB Conc 34.8 g/dl (31.0-35.0); Mean Corpuscular Hemoglobin 29.4 pg (27.0-33.0); Mean Corpuscular Volume 84.5 fL (80.0-98.0); NRBC Abs Auto 0.000 X10*3/uL (0.0-0.012); NRBC Pct Auto 0.0 /100WBC (0.0-0.2); Platelet Count 364 X10*3/uL (160-400); Red Blood Count 5.34 X10*6/uL (4.20-5.50); White Blood Count 8.2 X10*3/uL (4.8-10.8)
[2025-06-24 16:57] LABS: Appearance Urine Clear; Glucose Urine UA Negative (Negative); PH 6.5 (5.0-9.0); Specific Gravity - Urine 1.025 (1.005-1.025); UMIC TRIGGER UACC YES
[2025-06-24 17:02] LABS: Alanine Aminotransferase 19 U/L (0-31); Albumin Level 4.5 g/dL (3.5-5.0); Alkaline Phosphatase 52 U/L (39-117); Anion Gap 14 (12-20); Aspartate Amino Transferase 35 U/L (5-31); Blood Urea Nitrogen 9 mg/dL (9-16); Calcium 9.8 mg/dL (8.4-10.2); Carbon Dioxide 25 mmol/L (22-29); Chloride 104 mmol/L (96-108); Creatinine Clr Calc Pharmacy 83.2; Estimated Glomerular Filt Rate > 60; Lipase 19 U/L (8-78); Potassium 4.3 mmol/L (3.3-5.1); Sodium 139 mmol/L (135-145); Total Protein 7.9 g/dL (6.5-8.0)
--- OUTSIDE RECORDS SUMMARY | 2025-06-24 17:55 | XMS_ITS | Encounter Summary ---
Author Organization [employer] Address [address] [place] [address] Care Team Providers Care Tow Car Driver Name Role Phone Rachelle Olson Primary Care Provider [phone] Reason for Visit * Reason Onset Date Comments Medication Question 06/21/2025 Pt clifford shook medication fiber pills doctor prescribed to be sent to [facility]. [facility] stated they don't have the pills. Encounter Details Date Type Department Care Team ([facility] Contact Info) Description 06/21/2025 Refill [facility] [address] [place], [place] [id number] Rachelle Olson ANP [address] [place] [address] Chronic idiopathic constipation Social History Tobacco Use Types Packs/Day Years [...] encounter Miscellaneous Notes * Telephone Encounter - Ree Farley NP - 06/23/2025 8:21 AM EST Approving, but needs appt for additional refills. * Telephone Encounter - Mayi Shah - 06/22/2025 10:51 AM EST Pt requesting medication fiber pills doctor prescribed to be sent to [facility]. [facility] stated they don't have the pills. documented in this encounter Plan of Treatment Not on file documented as of this encounter Visit Diagnoses Diagnosis Chronic idiopathic constipation Unspecified constipation documented in this encounter Additional Health Concerns Assessment Noted Time PHQ-9 Depression Total Score: 0 09/01/19 25 2:43 PM EST documented as of this encounter Care Teams Tow Car Driver Relationship Specialty Start Date End Date Rachelle Olson ANP [address] [place] [id number] PCP - General Family Medicine 07/17/20 documented as of this encounter
--- OUTSIDE RECORDS SUMMARY | 2025-06-24 17:55 | XMS_ITS | Clinical Summary ---
Author Organization [employer] Address [address] [facility] [address] [place] [address] Care Team Providers Care Package Checker Name Role Phone Lissett Bunn Primary Care Provider [phone] Allergies Active Allergy Reactions Criticality Noted Date Comments Avocado Vomiting 01/24/2025 Kiwi Extract Unknown 01/24/2025 Throat itching Medications betamethasone valerate (Valisone) 0.1 % ointmentIndicat ions:Psoriasis Apply topically 2 times daily. 45 g 1 09/01/19 25 Active lidocaine (Lidoderm) 5 % patchIndication s:Chronic midline low back pain without sciatica Apply 1 patch topically Once per day. Remove & discard patch within 12 hours or as directed by MD. 30 patch 2 01/25/20 25 Active ibuprofen 600 MG tablet 1 tablet every 8 hours with food x 7 days 21 tablet 03/08/20 25 Active Levonorgest-Eth Estrad -Day (LoSeasonique) 0.1-0.02 & 0.01 MG tablet TAKE 1 TABLET BY MOUTH EVERY DAY. START DAY AFTER TAKING EC. 91 tablet 3 04/11/20 25 Active omeprazole (PriLOSEC) [address] capsule Take 1 capsule (20 mg) by mouth before breakfast. Do not crush or chew. 90 capsule 05/25/20 25 Active polyethylene glycol, PEG, 3350 (MiraLax) 17 GM/SCOOP powderIndicatio ns:Chronic idiopathic constipation Take 2-3 capfuls for 2 days, then 1/2 capful everyday after. 510 g 06/21/20 25 Active psyllium (Metamucil Smooth Texture) 58.6 % powderIndicatio ns:Chronic idiopathic constipation Take 5.12 g (3 g of fiber) by mouth 2 times daily for 28 days. 283 g 06/23/20 25 025 Active psyllium (Metamucil Smooth Texture) 58.6 % powderIndicatio ns:Chronic idiopathic constipation Take 5.12 g (3 g of fiber) by mouth 2 times daily. 283 g 11 06/21/20 025 Discontinued(Re order (will not trigger notification [...] Encounters Date Type Department Care Team Description 06/22/2025 Orders Only GENERIC EXTERNAL DATA DEPARTMENT Provider, Generic External Data 06/21/2025 3:15 PM EST Office Visit [facility] [address] [place] [address] Ree Farley NP Chronic idiopathic constipation (Primary Dx); Left sided abdominal pain 06/21/2025 Travel 06/21/[address] [address] Lissett Bunn ANP Chronic idiopathic constipation 06/16/[address] [address] Lissett Bunn ANP chartprep 06/14/[address] [address] Lissett Bunn ANP Telephone Call 06/09/2025 Orders Only GENERIC EXTERNAL DATA DEPARTMENT Provider, Generic External Data 05/25/[address] [address] Sera Alexis, RN NTTS 05/25/2025 Results Follow-Up [address] Abdomen Pelvis w/ Contrast 05/25/[address] [address] Lissett Bunn ANP 05/24/[address] [address] Lissett Bunn ANP 05/12/2025 Results Follow-Up [address] [address] Priscila Reyes CNM Colposcopy 05/12/2025 Orders Only [facility] [address] [place] [address] Provider, MD Anthony 05/09/2025 Orders Only GENERIC EXTERNAL DATA DEPARTMENT Provider, Generic External Data 05/05/2025 Results Follow-Up [facility] [address] [place] [phone] Lissett Bunn ANP Helicobacter pylori Antigen, EIA, Stool 04/28/2025 Orders Only [address] [address] Lissett Bunn ANP 04/27/2025 Orders Only [address] [address] Lissett Bunn ANP LLQ pain (Primary Dx); Abnormal x-ray of abdomen 04/26/2025 Telephone [facility] [address] [place] [phone] ABD ORDER 04/26/2025 Telephone [facility] [address] [place] [address] [phone] Lissett Bunn ANP 04/25/2025 9:30 AM EDT Office Visit [address] [address] Lissett Bunn ANP LLQ pain (Primary Dx); Abnormal x-ray of abdomen; Varicose veins of right lower extremity with inflammation; Healthcare maintenance; History of Helicobacter pylori infection 04/25/2025 Travel 04/24/2025 Telephone [facility] [address] [place] [address] Lissett Bunn ANP chart prep 04/21/2025 Orders Only GENERIC EXTERNAL DATA DEPARTMENT Provider, Generic External Data 04/20/2025 Orders Only [facility] External Provider, [facility] 04/18/2025 Patient Outreach [facility] [address] [place] [address] Lissett Bunn ANP Pre-visit Planning (SDOH was already completed) 04/11/2025 Refill [facility] [address] [place] [phone] Lissett Bunn ANP from Last 3 Months Immunizations Immunization Administration Dates Next Due Influenza injectable quadrivalent preservative f ree 07/16/2021,07/24/2020 Pfizer Covid-19 Vaccine 12+ 04/02/2021, 1 Tdap 07/24/2020 Varicella 03/14/2024 Family History Medical [...] Mass Index 24.22 06/21/2025 3:36 PM EST Plan of Treatment Health Maintenance Due Date Last Done Comments HPV Vaccines (1 - 3-dose series) 12/21/2006 COVID-19 Vaccine (3 - 2024-2 6 season) 2025 04/02/2021, 03/12/2021 Influenza Vaccine (#1) 2025 , 07/24/2020 Depression Screening 09/01/2025 09/01/2024, 09/01/2024 SDOH Screening 01/16/2026 01/16/2025 Family Planning (PISQ) 02/28/2026 02/28/2025 Disability Screening 04/25/2026 04/25/2025 Tobacco Screening 04/25/2026 04/25/2025 Alcohol/Substance Use Screening 06/21/2026 06/21/2025 Cervical Cancer Screening 02/29/2028 HPV/Cotest 02/29/2028 02/28/2025 Pap Smear 02/29/2028 02/28/2025, 06/26/2021, 06/26/2021 DTaP/Tdap/Td Vaccines (2 - T d or Tdap) 07/24/2030 07/24/2020 Zoster Vaccines (1 of 2) 12/21/2041 RSV Patients and Patients Aged 60 years or older (1 - 1-dose 75+ series) 12/21/2066 HIV Screening Completed 05/28/2023 Hepatitis C Screening Completed 05/28/2023 Colposcopy Discontinued 06/09/2025, 05/09/2025 HIB Vaccines Aged Out No longer [...] Priority Date/Time Associated Diagnosis Comments CHLAMYDIA/N. GONORRHOEAE RNA, TMA, UROGENITAL Routine 06/22/2025 11:59 AM EST BACTERIAL VAGINOSIS PANEL Routine 06/22/2025 11:59 AM EST HEMATOXYLIN AND EOSIN STAIN Routine 06/09/2025 12:50 PM EST HCG, QL, URINE Routine 06/09/2025 10:29 AM EST BIOPSY CERVIX Routine 06/09/2025 CT ABDOMEN PELVIS W CONTRAST STAT 05/23/2025 [...] DUPLEX BILATERAL Routine 04/20/2025 1:34 PM EDT HPV DNA, LOW/HIGH RISK Routine 02/28/2025 10:41 AM EDT PAP SMEAR Routine 02/28/2025 10:41 AM EDT Screening examination for venereal disease HEPATITIS C AB W/REFL TO HCV RNA, QN, PCR Routine 05/28/2023 12:09 PM EDT Encntr screen for infections w sexl mode of transmiss HIV ANTIBODY/ANTIGEN ([place] DPH) Routine 05/28/2023 12:09 PM EDT from Last 3 Months or Most Recently Relevant to Health Maintenance Results * (ABNORMAL) Bacterial Vaginosis (06/22/2025 11:59 AM EST) TRICHOMONAS VAGINALIS DETECTION BY PCR NOT DETECTED Not Detect [facility] BACTERIAL VAGINOSIS DETECTION BY PCR POSITIVE(A) Negative [facility] Comment:The BV organism targ ets of the Xpert Xpress MVP test can becommensal in women; Xpert Xpress MVP positive results forbacterial vaginosis should be considered in conjunction withother clinical and patient information to determine thedisease status. Organisms that are not detected by the XpertXpress MVP test have also been reported to be associatedwith BV and aerobic vaginitis.The Xpert Xpress MVP test performance has not been evaluatedin patients under the age of 14. CLEMENCIA GROUP DETECTION BY PCR NOT DETECTED Not Detect [facility] Clemencia glab krusei PCR NOT DETECTED Not Detect [facility] 06/22/2025 11:5 9 AM EST 06/22/2025 3:38 PM EST us Generic External Data Provider LAB MICROBIOLOGY - GENERAL ORDERABLES Final Result [facility] [address] [place] [phone] * Chlamydia/N. Gonorrhoeae RNA, TMA, Urogenitial (06/22/2025 11:59 AM EST) CT PCR NOT DETECTED Not Detect. [facility] Comment:A not detected test result does not exclude the possibilityof infection because test results can be affected byimproper specimen collection, concurrent antibiotic therapy,or the number of organisms in the specimen which may bebelow the sensitivity of the test. As with many diagnostictests, results from the Xpert CT/NG assay should beinterpreted in conjunction with other laboratory andclinical data available to the clinician.Xpert CT/NG performance has not been evaluated in patientsless than 14 years of age. The assay should not be used forthe evaluationof suspected sexual abuse or for other medico-legalindications. Additional testing is recommended in anycircumstance when false positive or false negative resultscould lead to adverse medical, social or psychologicalconsequences. NG PCR NOT DETECTED Not Detect. [facility] Comment:A not detected test result does not exclude the possibilityof infection because test results can be affected byimproper specimen collection, concurrent antibiotic therapy,or the number of organisms in the specimen which may bebelow the sensitivity of the test. As with many diagnostictests, results from the Xpert CT/NG assay should beinterpreted in conjunction with other laboratory andclinical data available to the clinician.Xpert CT/NG performance has not been evaluated in patientsless than 14 years of age. The assay should not be used forthe evaluationof suspected sexual abuse or for other medico-legalindications. Additional testing is recommended in anycircumstance when false positive or false negative resultscould lead to adverse medical, social or psychologicalconsequences. 06/22/2025 11:5 9 AM EST 06/22/2025 3:38 PM EST us Generic External Data Provider LAB MICROBIOLOGY - GENERAL ORDERABLES Final Result [facility] [address] [place] [phone] * Hematoxylin and Eosin Stain (06/09/2025 12:50 PM EST) Only the most recent of2 resultswithin the time period is included. 06/09/2025 12:5 0 PM EST 06/09/2025 1:20 PM EST [facility] - 06/13/2025 11:44 AM EST ----- ------- Name: Neli Esteban Age/Sex: 34/F : 1990 Unit#: [id number] Attend Dr: Juancarlos Joiner MD Re06/09/25 Status: [facility] Location: [facility] Disch: ----- ------- SPEC : [id number] RECD: 06/09/25-1319 STATUS: PATITO MASSEY NUM: [id number] AIDE: 06/09/25-1250 [facility] DR: Juancarlos Joiner MD ENTERED: 06/09/25-1332 SP TYPE: Surgical OTHR DR: LISSETT BUNN NP ORDERED: HE Stain/2, Gross Micro L4, Gross Micro L5/2, IHC, Add. immunos, Ki-67, p16 Diagnosis A. Cervix, conization: -Focal high grade squamous intraepithelial lesion (moderate-severe dysplasia, JEREMY II-III) , involving endocervical glands. -Ectocervical margin: Free of dysplasia. -Endocervical margin: Free of dysplasia. -Radial (deep stromal) margin: Free of dysplasia. -Biopsy site changes. B. Cervix, top-hat, conization: -Endocervical glandular mucosa with biopsy site changes; negative for dysplasia. C. Endocervix, post cone curettage: -Endocervical glandular epithelium; negative for dysplasia. Clinical History High grade squamous intraepithelial lesion Microscopic Description Microscopic sections reviewed. Immunostains on A show an area of interest near a margin is negative for p16 and has a normal Ki-67 staining pattern. Controls stain appropriately. Material Received A. Cervical cone stitch at 12 o'clock B. Top hat excision C. Post cone ECC Gross Description A. Received in formalin is a 2.2 x 1.5 x 0.3 cm portion of cervix with a 1.4 cm central os and a suture designating 12 o'clock. The ectocervical mucosa is pink and smooth and the endocervical mucosa is red and congested. The nonmucosal surfaces are inked. The specimen is sectioned and entirely submitted clockwise from 12 o'clock in cassettes 1-4. Also received is a 2.2 x 0.5 x 0.3 cm portion of cervical tissue partially surfaced by pink ectocervical mucosa without identifiable endocervical mucosa. The nonmucosal surfaces are inked and the specimen is sectioned and entirely submitted in cassettes 5-6. B. Received in formalin is a 2.0 x 1.6 x 0.3 cm portion of ramírez focally cauterized cervical tissue, partially surfaced by congested, red endocervical mucosa. Ectocervical mucosa is not appreciated. The nonmucosal surfaces are inked. The specimen is sectioned and entirely submitted in cassettes B1-2. CONTINUED ON NEXT PAGE ----- ------- Name: Neli Esteban Age/Sex: 34/F : 1990 Unit#: [id number] Attend Dr: Juancarlos Joiner MD Re06/09/25 Status: [facility] Location: [place] Disch: ----- ------- SPEC : [id number] RECD: 06/09/25 STATUS: PATITO MASSEY NUM: [id number] AIDE: 06/09/25 [facility] DR: Juancarlos Joiner MD ENTERED: 06/09/25 SP TYPE: Surgical OTHR DR: LISSETT BUNN NP ORDERED: HE Stain/2, Gross Micro L4, Gross Micro L5/2, IHC, Add. immunos, Ki-67, p16 Gross Description (Continued) C. Received in formalin is a 1.0 x 0.5 x 0.2 cm aggregate of ramírez-red soft tissue and mucus, totally submitted in C1. (RJD) Special studies ordered and performed: Immunostains for p16 and Ki-67 on A5. IHC S/NG Disclaimer NOTE: Unless otherwise stated, all tissue is formalin-fixed and paraffin-embedded. Some or all of the immunohistochemical tests reported herein may have been developed and their performance characteristics determined by [facility]. They have not been cleared or approved by the U.S. Food and Drug Administration (FDA). However, the FDA has determined that such clearance or approval is not necessary. This laboratory is certified under the Clinical Laboratory Improvement Amendments of 1988 (CLIA) as qualified to perform high complexity clinical laboratory testing. Copies To: LISSETT BUNN NP [address] [id number] Juancarlos Joiner MD [facility] [address] [place] [address] Drive [address] [place] [address] ----- ------- Signed (signature on file) Desiree Garrison 06/13/25 1144 ----- ------- END OF REPORT Generic External Data Provider LAB BLOOD ORDERAB LES Final Result Performing Organization Address [facility] Co de Phone Number [facility] [address] [place] [phone] * HCG, Qualitative, Urine (06/09/2025 10:29 AM EST) Only the most recent of2 resultswithin the time period is included. Urine NEGATIVE NEGATIVE [facility] Comment:This test was develo ped to detect early . Falsenegative results may occur after the 5th - 7th week ofpregnancy when using this test method. If clinicallyindicated, consider a serum hCG. 06/09/2025 10:2 9 AM EST 06/09/2025 10:34 AM EST Generic External Data Provider LAB URINE ORDERAB LES Final Result Performing Organization Address [facility] Co de Phone Number [facility] [address] [place] [address] [phone] * Biopsy cervix (06/09/2025) Historical Provider MD IN CLINIC/BEDSIDE ORDERAB LES Final Result * CT Abdomen Pelvis w/ Contrast (05/23/2025 10:18 AM EDT) Anatomical Region Laterality Modality Body, Pelvis, Abdomen Computed T omography 05/23/2025 10:1 8 AM EDT Narrative 05/23/2025 10:49 AM EDT [address] [address] [address] Scan Report Signed Patient: Neli Esteban MR#: [id number] : 1990 Acct:[id number] Age/Sex: 34 / F ADM Date: 05/23/25 Loc: HO.CT Attending Dr: Lissett Bunn NP Ordering Physician: LISSETT BUNN NP Date of Service: 05/23/25 Procedure(s): CT abdomen pelvis w IV con Accession Number(s): [id number] cc: LISSETT BUNN NP Report Number: [id number]: Total DLP = 349.00 mGy-cm Reason for [...] 05/23/25 1046 DD/ 1018 TD/TT: 05/23/25 1034 Nail Expert: Procedure Note Donotuseinterpreter, Image - 05/23/[address] [place] [address] [address] Scan Report Signed Patient: Neli Esteban [facility]#: [id number] : 1990Acct:[id number] Age/Sex: 34 / FADM Date: 05/23/25 Loc: HO.CT Attending Dr: Lissett Bunn NP Ordering Physician: LISSETT BUNN NP Date of Service: 05/23/25 Procedure(s): CT abdomen pelvis w IV con Accession Number(s): [id number] cc: LISSETT BUNN NP Report Number: [id number]: Total DLP = 349.00 mGy-cm Reason for [...] 05/23/25 1046 DD/ 1018 TD/TT: 05/23/25 1034 Nail Expert: Lissett FRYE CT PROCEDURES Edited Result - Final * Colposcopy (05/09/2025 9:59 AM EDT) us Historical Provider IN CLINIC/BEDSIDE ORDERAB LES Final Result * Helicobacter pylori??Antigen, EIA, Stool (05/04/2025 7:08 AM EDT) H pylori Ag Stool SEE NOTE [facility] Comment:HELICOBACTER PYLORI AG, EIA, STOOL Micro Number: [id number] Test Status: Final Specimen Source: Stool Specimen Quality: Adequate H.pylori Ag: Not Detected Antimicrobials, proton pump inhibitors, and bismuth preparations inhibit H. pylori and ingestion up to two weeks prior to testing may cause false negative results. If clinically indicated the test should be repeated on a new specimen obtained two weeks after discontinuing treatment. Reference Range: Not DetectedTHIS TEST WAS PERFORMED AT:[facility] [place] [phone] GONZALES MD Stool Rectal contents / Unknown 05/04/2025 7:08 AM EDT 05/04/2025 12:29 PM EDT us Lissett Bunn ANP LAB BODY FLUIDS AND STOOLS ORDER DEV Final Result [facility] [address] [place] [address] [phone] * XR Abdomen 2 View minimum (04/21/2025 11:38 PM EDT) Anatomical Region Laterality Modality Abdomen Radiographic Symone ging 04/21/2025 11:3 8 PM EDT Narrative 04/21/2025 11:41 PM EDT [address] [address] XRay Report Signed Patient: Neli Esteban MR#: [id number] : 1990 Acct:[id number] Age/Sex: 34 / F ADM Date: 04/21/25 [facility]: Ordering Physician: Cathy Montiel PA-C Date of Service: 04/21/25 Procedure(s): XR abdomen min 2V Accession Number(s): [id number] cc: Cathy Montiel PA-C; LISSETT BUNN NP [...] OV> 04/21/25 2340 DD/ 37 TD/TT: 04/21/252337 Nail Expert: Procedure Note Donotuseinterpreter, Image - 04/21/2025 [place] [address] XRay Report Signed Patient: Neli Esteban MMR#: [id number] : 1990Acct:[id number] Age/Sex: 34 / FADM Date: 04/21/25 Loc: .ED Attending Dr: Ordering Physician: Cathy Montiel PA-C Date of Service: 04/21/25 Procedure(s): XR abdomen min 2V Accession Number(s): [id number] cc: Ctahy Montiel PA-C; LISSETT BUNN NP Reason for [...] OV> 04/21/25 2340 DD/ 37 TD/TT: 04/21/252337 Nail Expert: [facility] External Provider IMG XR PROCEDURES Edited Result - Final * (ABNORMAL) Urinalysis w/reflex microscopic (04/21/2025 10:08 PM EDT) Color Urine Yellow [facility] Appearance Urine Clear [facility] PH 6.5 5.0 - 9.0 [facility] Glucose Urine UA Negative Negative mg/dL [facility] Urine Blood Negative Negative [facility] Specific [place] - Urine >=1.030(H) 1.005 - 1.025 [facility] Urine Protein Negative Neg-Trace mg/dL [facility] Urine Ketones Negative Negative mg/dL [facility] Nitrite Urine Negative Negative [facility] Leukocyte Esterase Urine Negative Negative [facility] 04/21/2025 10:0 8 PM EDT 04/21/2025 10:14 PM EDT Narrative [facility] - 04/21/2025 10:21 PM EDT [id number], Clean Catch Generic External Data Provider LAB URINE ORDERAB LES Final Result [facility] [address] [place] [phone] * (ABNORMAL) CBC auto differential (04/21/2025 10:02 PM EDT) White Blood Count 9.4 4.8 - 10.8 X10*3/uL [facility] Red Blood Count 4.62 4.20 - 5.50 X10*6/uL [facility] Hemoglobin 13.7 12.0 - 16.0 g/dl [facility] Hematocrit 37.7 37.0 - 47.0 % [facility] Mean Corpuscular Volume 81.6 80.0 - 98.0 fL [facility] Mean Corpuscular Hemoglobin 29.7 27.0 - 33.0 pg [facility] Mean Corpuscular HGB Conc 36.3(H) 31.0 - 35.0 g/dl [facility] Red Cell Distribution Width 11.9 11.0 - 16.0 % [facility] Platelet Count 331 160 - 400 X10*3/uL [facility] Mean Platelet Volume 8.8(L) 9.4 - 12.3 fL [facility] Neutrophils Percent Auto 47.3 45 - 73 % [facility] Imm Gran Pct Auto 0.5(H) 0.0 - 0.4 % [facility] Lymphocytes Percent Auto 44.5(H) 20 - 40 % [facility] Monocytes Percent Auto 5.1 2 - 11 % [facility] Eosinophils Percent Auto 2.1 0 - 4 % [facility] Basophils Percent Auto 0.5 0 - 2 % [facility] NRBC Pct Auto 0.0 0.0 - 0.2 /100WBC [facility] Neutrophils Absolute Auto 4.4 2.0 - 8.3 x10*3/uL [facility] Imm Gran Abs Auto 0.05(H) 0.00 - 0.03 X10*3/uL [facility] Lymphocytes Absolute Auto 4.2 1.2 - 4.9 X10*3/uL [facility] Monocytes Absolute Auto 0.5 0.1 - 1.2 X10*3/uL [facility] Eosinophils Absolute Auto 0.2 0.0 - 0.4 X10*3/uL [facility] Basophils Absolute Auto 0.1 0.0 - 0.2 X10*3/uL [facility] NRBC Abs Auto 0.000 0.0 - 0.012 X10*3/uL [facility] 04/21/2025 10:0 2 PM EDT 04/21/2025 10:14 PM EDT us Generic External Data Provider LAB BLOOD ORDERAB LES Final Result [facility] [address] [place] [phone] * Lipase (04/21/2025 10:02 PM EDT) Lipase 23 8 - 78 U/L [facility] 04/21/2025 10:0 2 PM EDT 04/21/2025 10:14 PM EDT us Generic External Data Provider LAB BLOOD ORDERAB LES Final Result [facility] [address] [place] [phone] [phone] * (ABNORMAL) Comprehensive Metabolic Panel (04/21/2025 10:02 PM EDT) Sodium 137 135 - 145 mmol/L [facility] Potassium 3.9 3.3 - 5.1 mmol/L [facility] Chloride 105 96 - 108 mmol/L [facility] Carbon Dioxide 27 22 - 29 mmol/L [facility] Anion Gap 9(L) 12 - 20 [facility] Urea Nitrogen (BUN) 14 9 - 16 mg/dL [facility] Creatinine, Serum 0.70 0.5 - 1.4 mg/dL [facility] Creatinine Clr Calc Pharmacy 90.4 [facility] Comment:Provided height and weight: 157.48 cm,59.4 kg.eGFR (calculated from the MDRD study equation) and eCrCl(calculated from the Cockcroft-Gault equation) are based ondifferent parameters and may not yield comparable results.If eCrCl result is absurd, please check patient'sheight/weight. Estimated Glomerular Filt Rate >60 [facility] Comment:Chronic Kidney Disea se: Estimated GFR < 60 mL/min/1.74k0Gtbplu Kidney Disease: Estimated GFR < 15 mL/min/1.73m2 Glucose 91 60 - 115 mg/dL [facility] Calcium 8.9 8.4 - 10.2 mg/dL [facility] Bilirubin, Total 0.2 0.0 - 1.0 mg/dL [facility] Aspartate Amino Transferase 26 5 - 31 U/L [facility] Alanine Aminotransferase 20 0 - 31 U/L [facility] Total Protein 7.0 6.5 - 8.0 g/dL [facility] Albumin Level 4.0 3.5 - 5.0 g/dL [facility] Alkaline Phosphatase 42 39 - 117 U/L [facility] 04/21/2025 10:0 2 PM EDT 04/21/2025 10:14 PM EDT us Generic External Data Provider LAB BLOOD ORDERAB LES Final Result Performing Organization Address City/State/[facility] Co de Phone Number [facility] [address] [place] [phone] * [facility] US Lower Extremity Venous Duplex Bilateral (04/20/2025 1:34 PM EDT) 04/20/2025 1:34 PM EDT Narrative [facility] - 04/20/2025 5:27 PM EDT [address] [address] Ultrasound Report Signed Patient: Neli Esteban MR#: [id number] : 1990 Acct:[id number] Age/Sex: 34 / F ADM Date: 04/20/25 Loc: . Attending Dr: Jerome Douglas MD Ordering Physician: Jerome Douglas MD Date of Service: 04/20/25 Procedure(s): US venous duplex LE BI Accession Number(s): [id number] cc: Jerome Douglas MD; LISSETT BUNN NP [...] 04/20/25 1724 DD/ 1334 TD/TT: 04/20/25 1409 Nail Expert: Procedure Note Donotuseinterpreter, Image - 04/20/2025 [place] [address] Ultrasound Report Signed Patient: Neli Esteban MMR#: [id number] : 1990Acct:[id number] Age/Sex: 34 / FADM Date: 04/20/25 Loc: .US Attending Dr: Jerome Douglas MD Ordering Physician: Jerome Douglas MD Date of Service: 04/20/25 Procedure(s): US venous duplex LE BI Accession Number(s): [id number] cc: Jerome Douglas MD; LISSETT BUNN NP [...] 04/20/25 1724 DD/ 1334 TD/TT: 04/20/25 1409 Nail Expert: us [facility] External Provider CV VASC ULAR PROCEDURES Final Result [facility] [address] [place] [phone] * (ABNORMAL) HPV DNA, Low/High Risk (02/28/2025 10:41 AM EDT) HPV High Risk Positive(A) Negative [facility] HPV Genotype 16 Negative Negative [facility] HPV Genotype 18 Negative Negative [facility] Comment:HPV testing performe d at [facility] (CLIA#[id number]), [address] [place] [address].Testing for HPV was performed using the Mame [...] 03/01/2025 7:35 AM EDT us Priscila Reyes [facility] BLOOD ORDERABLES Jen l Result [facility] [address] [place] [phone] * Pap Smear (02/28/2025 10:41 AM EDT) Swab Cervix uteri structure / Unknown 02/28/2025 10:41 AM EDT 03/01/2025 7:35 AM EDT Katherine [facility] - 03/08/2025 1:52 PM EDT ----- ------- Name: Neli Esteban Age/Sex: 34/F [facility] 1990 [id number]#: [id number] Attend Dr: PRISCILA REYES CNM Re02/28/25 Status: [facility] REF Location: [facility] Disch: ----- ------- SPEC : [id number] RECD: 03/01/25 STATUS: PATITO MASSEY NUM: [id number] AIDE: 02/28/25-1041 [facility] DR: PRISCILA REYES CNM ENTERED: 03/01/25 SP [...] and HPV testing will be performed at [facility] (IA #[id number]), [address] [place] [address]. Testing for HPV was performed using the [...] All professional services are performed by [facility] ([address] [place] [phone]; ; CLIA #[id number]). The PAP Test is a screening procedure with the inherent possibility of both false negative and false positive results. Results should be interpreted in the context of historic and current clinical findings. Reliability of the PAP Test is enhanced by performing the test on a regular repetitive basis. CONTINUED ON NEXT PAGE ----- ------- Name: Neli Esteban Age/Sex: 34/F : 1990 Unit#: [id number] Attend Dr: PRISCILA REYES CNM Re02/28/25 Status: DEP REF Location: [facility] Disch: ----- ------- SPEC : [id number] RECD: 03/01/25 STATUS: PATITO MASSEY NUM: [id number] AIDE: 02/28/25-1041 [facility] [place] DR: PRISCILA REYES CNM ENTERED: 03/01/25 SP TYPE: Pap Nicola LIMA DR: ORDERED: Pap Smear, PAP path review ----- ------- Signed (signature on file) Desiree Garrison 03/08/25 1352 ----- ------- END OF REPORT Priscila Reyes [facility] CYTOLOGY ORDERABLES F inal Result [facility] [address] [place] [phone] * HIV Ab/Ag ([facility]) (05/28/2023 12:09 PM EDT) [facility] HIV AB/AG Nonreactive Nonreactive [facility] Comment:HIV-1 p24 Ag and/or HIV-1/HIV-2 Ab not detected.A test result that is nonreactive does not exclude thepossibility of exposure to or infection with HIV-1 and/orHIV-2. Nonreactive results in this assay for individualswith prior exposure to HIV-1 and/or HIV-2 may be due toantigen and antibody levels that are below the limit ofdetection of this assay.The [employer] HIV Ag/Ab Combo assay result andsupplemental assay results should be interpreted inconjunction with the patient's clinical presentation,history and other laboratory results. If the results areinconsistent with clinical evidence, additional testing issuggested to confirm the result. 05/28/2023 12:0 9 PM EDT 05/28/2023 12:57 PM EDT Priscila Reyes [facility] BLOOD ORDERABLES Jen l Result Performing Organization Address City/[facility]/ZIP Co de Phone Number [facility] [address] [place] [address] [phone] * Hepatitis C Antibody with Reflex to HCV, RNA, Quantitative, Real-Time PCR (05/28/2023 12:09 PM EDT) Hepatitis C Antibody Nonreactive Nonreactive [facility] Comment:Antibodies to HCV no t detected; does not exclude early acuteHCV infection. Blood Venous blood specimen / Unknown 05/28/2023 12:09 PM EDT 05/28/2023 12:57 PM EDT Priscila Reyes [facility] BLOOD ORDERABLES Jen l Result Performing Organization Address City/[facility] Co de Phone Number [facility] [address] [place] [address] [phone] from Last 3 Months or Most Recently Relevant to Health Maintenance Insurance [facility] C3 Care Teams Package Checker Relationship Specialty Start Date End Date Lissett Bunn ANP [address] [place] [phone] PCP - General Family Medicine 07/17/20
--- OUTSIDE RECORDS SUMMARY | 2025-06-24 17:55 | XMS_ITS | Clinical Summary ---
Author Organization [facility] Address [address] [place] [address] Care Team Providers Care Materials Specialist Name Role Phone Rachelle Olson Primary Care Provider [phone] Medications No known medications Active Problems Problem [...] 3-dose series) 12/21/2010 Alcohol/Substance Use Screening 08/03/2024 Influenza Vaccine (#1) 2025 , 07/24/2020 COVID-19 Vaccine (3 - 2024-2 6 season) 2025 04/02/2021, 03/12/2021 DTaP,Tdap,and Td Vaccines (2 - Td or Tdap) 07/24/2030 07/24/2020 Pneumococcal Vaccine: Pediatric (0-5 Years) and At-Risk Patients (6-50 Years) Aged Out No longer eligible based on patient's age to complete this topic Insurance [employer] Care Teams Materials Specialist Relationship Specialty Start Date End Date Rachelle Olson [address] [place] [phone] PCP - General 06/10/22
--- OUTSIDE RECORDS SUMMARY | 2025-06-24 17:55 | XMS_ITS | Encounter Summary ---
Author Organization [employer] Address [address] [place] [address] Care Team Providers Care Sourcing Engineer Name Role Phone Rachelle Olson Primary Care Provider [phone] Encounter Details Date Type Department Care Team (Late st Contact Info) Description 05/12/2025 Results Follow-Up [facility] [address] [place], [place] [phone] Franny Galloway CNM [address] [place] [address] Colposcopy Social History Tobacco Use Types Packs/Day [...] an eye out for visit notes/plan from [facility]. Thanks! documented in this encounter Plan of Treatment Not on file documented as of this encounter Visit Diagnoses Not on filedocumented in this encounter Additional Health Concerns Assessment Noted Time PHQ-9 Depression Total Score: 0 09/01/19 25 2:43 PM EST documented as of this encounter Care Teams Sourcing Engineer Relationship Specialty Start Date End Date Rachelle Olson ANP [address] [place] [phone] PCP - General Family Medicine 07/17/20 documented as of this encounter
--- OUTSIDE RECORDS SUMMARY | 2025-06-24 17:55 | XMS_ITS | Encounter Summary ---
Author Organization [employer] Address [address] [facility] [facility] [address] [place] [address] Care Team Providers Care Resident Care Director Name Role Phone Rachelle Olson Primary Care Provider [phone] Encounter Details Date Type Department Care Team (Late st Contact Info) Description 05/12/2025 Orders Only [facility] [address] [place], [place] [phone] Provider, MD Anthony Social History Tobacco Use [...] documented as of this encounter Care Teams Resident Care Director Relationship Specialty Start Date End Date Rachelle Olson ANP [address] [place] [address] PCP - General Family Medicine 07/17/20 documented as of this encounter
--- OUTSIDE RECORDS SUMMARY | 2025-06-24 17:55 | XMS_ITS | Encounter Summary ---
Author Organization [employer] Address [address] [facility] [address] [facility] [address] [place] [address] Care Team Providers Care Hot Roller Name Role Phone Rachelle Olson Primary Care Provider [phone] Encounter Details Date Type Department Care Team (Latest Contact Info) Description 06/21/2025 Travel Social History Tobacco Use Types Packs/Day Years [...] housing situation today? I have julisavan patino 09/01/[address] you [...] documented as of this encounter Care Teams Hot Roller Relationship Specialty Start Date End Date Rachelle Olson ANP [address] [place] [phone] PCP - General Family Medicine 07/17/20 documented as of this encounter
--- OUTSIDE RECORDS SUMMARY | 2025-06-24 17:55 | XMS_ITS | Encounter Summary ---
Author Organization [employer] Address [address] [facility] 7t [place] [address] Care Team Providers Care Registered Nurse Cardiac Name Role Phone Rachelle Olson Primary Care Provider [phone] Reason for Visit * Reason Onset Date Comments Nurse Triage 04/16/2023 Encounter Details Date Type Department Care Team ([facility] st Contact Info) Description 04/16/[address] [facility] MEDICINE [address] [place] [address] Rachelle Olson ANP [address] [place] [address] Nurse Triage Social History Tobacco Use Types [...] stones. Pt is offered to come to [facility] but, requests to see PCP. Apt with PCP 05/04/23 at 1100am. Pt is advised to seek evaluation at either [facility] or ED if symptoms become [...] The caller accepted this outcome Patient speaks wallisian documented in this encounter Plan of Treatment Not on file documented as of this encounter Visit Diagnoses Not on filedocumented in this encounter Care Teams Registered Nurse Cardiac Relationship Specialty Start Date End Date Rachelle Olson ANP [address] [place] [phone] PCP - General Family Medicine 07/17/20 documented as of this encounter
--- OUTSIDE RECORDS SUMMARY | 2025-06-24 17:55 | XMS_ITS | Encounter Summary ---
Author Organization [employer] Address [address] [facility] [address] [place] [address] Care Team Providers Care Building Superintendent Name Role Phone Rachelle Olson Primary Care Provider [phone] Encounter Details Date Type Department Care Team (Latest Contact Info) Description 05/05/2025 Results Follow-Up [facility] [address] [place], [place] [phone] Rachelle Olson ANP [address] [place] [address] Helicobacter pylori Antigen, EIA, Stool Social History [...] documented as of this encounter Care Teams Building Superintendent Relationship Specialty Start Date End Date Rachelle Olson ANP [address] [place] [phone] PCP - General Family Medicine 07/17/20 documented as of this encounter
--- OUTSIDE RECORDS SUMMARY | 2025-06-24 17:55 | XMS_ITS | Encounter Summary ---
Author Organization [employer] Address [address] [facility] 7t [place] [address] Care Team Providers Care Liability Claims Examiner Name Role Phone Rachelle Olson Primary Care Provider [phone] Encounter Details Date Type Department Care Team (Late st Contact Info) Description 06/22/2025 Orders Only GENERIC EXTERNAL DATA DEPARTMENT Provider, Generic External Data Social History Tobacco Use Types Packs/Day Years [...] Procedure Name Priority Date/Time Associated Diagnosis Comments BACTERIAL VAGINOSIS PANEL Routine 06/22/2025 11:59 AM EST CHLAMYDIA/N. GONORRHOEAE RNA, TMA, UROGENITAL Routine 06/22/2025 11:59 AM EST documented in this encounter Results * Chlamydia/N. Gonorrhoeae RNA, TMA, Urogenitial (06/22/2025 11:59 AM EST) CT PCR NOT DETECTED Not Detect. [facility] Comment:A not detected test result does [...] psychologicalconsequences. NG PCR NOT DETECTED Not Detect. [facility] Comment:A not detected test result does [...] 9 AM EST 06/22/2025 3:38 PM EST [employer] External Data Provider LAB MICROBIOLOGY - GENERAL ORDERABLES Final Result [facility] [address] [place] [phone] * (ABNORMAL) Bacterial Vaginosis (06/22/2025 11:59 AM EST) TRICHOMONAS VAGINALIS DETECTION BY PCR NOT DETECTED Not Detect [facility] BACTERIAL VAGINOSIS DETECTION BY PCR POSITIVE(A) Negative [facility] Comment:The BV organism targ ets of [...] DETECTION BY PCR NOT DETECTED Not Detect [facility] Clemencia glab krusei PCR NOT DETECTED Not Detect [facility] 06/22/2025 11:5 9 AM EST 06/22/2025 3:38 PM EST us Generic External Data Provider LAB MICROBIOLOGY - GENERAL ORDERABLES Final Result [facility] [address] [place] [phone] documented in this encounter Visit Diagnoses Not on filedocumented in this encounter Additional Health Concerns Assessment Noted Time PHQ-9 Depression Total Score: 0 09/01/19 25 2:43 PM EST documented as of this encounter Care Teams Liability Claims Examiner Relationship Specialty Start Date End Date Rachelle Olson, JACK [address] [place] [phone] PCP - General Family Medicine 07/17/20 documented as of this encounter
--- OUTSIDE RECORDS SUMMARY | 2025-06-24 17:55 | XMS_ITS | Encounter Summary ---
Author Organization [employer] Address [address] [facility] [address] [place] [address] Care Team Providers Care Buffet Runner Name Role Phone Rachelle Olson Primary Care Provider [phone] Encounter Details Date Type Department Care Team (Late st Contact Info) Description 05/25/2025 Results Follow-Up [facility] MEDICINE [address] [place], [place] [phone] Rachelle Olson ANP [address] [place], [place] [phone] CT Abdomen Pelvis w/ Contrast Social History [...] documented as of this encounter Care Teams Buffet Runner Relationship Specialty Start Date End Date Rachelle Olson ANP [address] [place] [address] PCP - General Family Medicine 07/17/20 documented as of this encounter
--- OUTSIDE RECORDS SUMMARY | 2025-06-24 17:55 | XMS_ITS | Encounter Summary ---
Author Organization [employer] Address [address] [facility] [address] [place] [address] Care Team Providers Care Computer System Validation Specialist Name Role Phone Rachelle Olson Primary Care Provider [phone] Encounter Details Date Type Department Care Team (Late st Contact Info) Description 07/23/[address] [facility] [address] [place], [place] [phone] Haritha Selby MD [address] [place], [place] [phone] Hematuria, unspecified type (Primary Dx) Social History [...] (08/29/2024 11:58 AM EST) Color Urine Yellow [facility] Appearance Urine Clear [facility] PH 7.5 5.0 - 9.0 [facility] Glucose Urine UA Negative Negative mg/dL [facility] Urine Blood Small (1+)(A) Negative [facility] Specific [place] - Urine 1.020 1.005 - 1.025 [facility] Urine Protein Negative Neg-Trace mg/dL [facility] Urine Ketones Negative Negative mg/dL [facility] Nitrite Urine Negative Negative [facility] Leukocyte Esterase Urine Negative Negative [facility] RBC Urine 0-2 0 - 2 /HPF [facility] Urine WBC 0-5 0 - 5 /HPF [facility] Urine Squamous Epithelial Cell 0-2 0 - 2 /HPF [facility] Urine Bacteria None Seen None Seen [facility] Hyaline Casts, Urine 0-2 0 - 2 /LPF [facility] Urine 08/29/2024 11:5 8 AM EST 08/29/2024 1:11 PM EST Narrative [facility] - 08/29/2024 1:57 PM EST Urine, Clean Catch us Haritha Selby MD LAB URINE ORDERABLES Final Resul t [facility] [address] [place] [phone] [phone] documented in this encounter Visit Diagnoses Diagnosis Hematuria, unspecified type- Primary documented in this encounter Care Teams Computer System Validation Specialist Relationship Specialty Start Date End Date Rachelle Olson ANP [address] [place] [phone] PCP - General Family Medicine 07/17/20 documented as of this encounter
--- OUTSIDE RECORDS SUMMARY | 2025-06-24 17:55 | XMS_ITS | Clinical Summary ---
Author Organization [facility] [facility] Address [address] [place] [address] Care Team Providers Care Resident Care Assistant Name Role Phone Unavailable Primary Care Provider [...] Depression Screening 08/03/2024 COVID-19 Vaccine (1 - 2024-2 6 season) 2025 Influenza Vaccine (#1) 2025 RSV [...]
[2025-06-24] MEDS: Sucralfate Oral Suspension 1 GM/10 ML ORAL.SUSP PO (19:04)
[2025-06-24 19:07] VITALS: BP 155/78; PULSE 89; RESP 18; TEMP 37.1; O2SAT 98
== END 2025-06-24 19:08 | disposition home or self-care (01) ==
PROVIDERS: Physician Assistant; Emergency Provider Emergency Medicine
DX: R10.22 Pelvic and perineal pain left side (principal); Z79.899 Other long term (current) drug therapy; Z87.891 Personal history of nicotine dependence
CPT/HCPCS: 36415; 80053; 81001; 83690; 84702; 85025; 99283; 99284

== ENCOUNTER 2025-07-10 07:59 | Outpatient (REF) | payer MEDICAID, SELFPAY ==
[2025-07-10 10:01] LABS: Lipase 17 U/L (8-78)
[2025-07-10 10:29] LABS: Folate 10.2 ng/mL (> or = 4.0); Vitamin B12 433 pg/mL (200-900)
[2025-07-14 06:28] LABS: Vitamin D 25-OH, D2 <4 ng/mL; Vitamin D 25-OH, D3 24 ng/mL; Vitamin D 25-OH, Total 24 ng/mL (30-100)
== END 2025-07-10 08:00 | disposition home or self-care (01) ==
LOC: HO.LAB 07:59
PROVIDERS: PCP Nurse Practitioner Primary Care; Visit Provider Nurse Practitioner Family
DX: K21.9 Gastro-esophageal reflux disease without esophagitis (principal); K59.00 Constipation, unspecified; R19.7 Diarrhea, unspecified; E55.9 Vitamin D deficiency, unspecified; R10.13 Epigastric pain; R14.0 Abdominal distension (gaseous); Z01.84 Encounter for antibody response examination
CPT/HCPCS: 36415; 82306; 82607; 82746; 83690; 84443; 86364; 99212

== ENCOUNTER 2025-07-10 07:59 | Outpatient (AMB) | payer MEDICAID, SELFPAY ==
--- OUTSIDE RECORDS SUMMARY | 2025-07-10 08:06 | XMS_ITS | Clinical Summary ---
Author Organization [employer] Address [address] [facility] 7[address] [place] [address] Care Team Providers Care Power Hair Clipper Name Role Phone Lissett Bunn Primary Care Provider [phone] Allergies Active Allergy Reactions Criticality Noted Date [...] Data 06/21/2025 3:15 PM EST Office Visit [facility] [address] [place] [address] Ree Farley NP Chronic idiopathic constipation (Primary Dx); Left sided abdominal pain 06/21/2025 Travel 06/21/[address] [address] Lissett Bunn ANP Chronic idiopathic constipation 06/16/[address] [address] Lissett Bunn ANP chartprep 06/14/[address] [address] Lissett Bunn ANP Telephone Call 06/09/2025 Orders Only GENERIC EXTERNAL DATA DEPARTMENT Provider, Generic External Data 05/25/[address] [address] Sera Alexis, RN NTTS 05/25/2025 Results Follow-Up [address] Abdomen Pelvis w/ Contrast 05/25/[address] [address] Lissett Bunn ANP 05/24/[address] [address] Lissett Bunn ANP 05/12/2025 Results Follow-Up [address] [address] Priscila Reyes CNM Colposcopy 05/12/2025 Orders Only [facility] [address] [place] [address] Provider, MD Anthony 05/09/2025 Orders Only GENERIC EXTERNAL DATA DEPARTMENT Provider, Generic External Data 05/05/2025 Results Follow-Up [facility] [address] [place] [address] Lissett Bunn ANP Helicobacter pylori Antigen, EIA, Stool 04/28/2025 Orders Only [address] [address] Lissett Bunn ANP 04/27/2025 Orders Only [address] [address] Lissett Bunn ANP LLQ pain (Primary Dx); Abnormal x-ray of abdomen 04/26/2025 Telephone [facility] [address] [place] [address] ABD ORDER 04/26/2025 Telephone [facility] [address] [place] [address] [phone] Lissett Bunn ANP 04/25/2025 9:30 AM EDT Office Visit [address] [address] Lissett Bunn ANP LLQ pain (Primary Dx); Abnormal x-ray of abdomen; Varicose veins of right lower extremity with inflammation; Healthcare maintenance; History of Helicobacter pylori infection 04/25/2025 Travel 04/24/2025 Telephone [facility] [address] [place] [address] Lissett Bunn ANP chart prep 04/21/2025 Orders Only GENERIC EXTERNAL DATA DEPARTMENT Provider, Generic External Data 04/20/2025 Orders Only [facility] External Provider, [facility] 04/18/2025 Patient Outreach [facility] [address] [place] [address] Lissett Bunn ANP Pre-visit Planning (SDOH was already completed) 04/11/2025 Refill [facility] [address] [place] [address] Lissett Bunn ANP from Last 3 Months [...] , 07/24/2020 Depression Screening 09/01/2025 09/01/2024, 09/01/2024 Cervical Cancer Screening 12/07/2025 HPV/Cotest 12/07/2025 02/28/2025 Pap Smear 12/07/2025 02/28/2025, 06/26/2021, 06/26/2021 SDOH Screening 01/16/2026 01/16/2025 Family Planning (PISQ) 02/28/2026 02/28/2025 Disability Screening 04/25/2026 04/25/2025 Tobacco Screening 04/25/2026 04/25/2025 Alcohol/Substance Use Screening 06/21/2026 06/21/2025 DTaP/Tdap/Td Vaccines (2 - T d or [...] DETECTION BY PCR NOT DETECTED Not Detect [facility] BACTERIAL VAGINOSIS DETECTION BY PCR POSITIVE(A) Negative [facility] Comment:The BV organism targ ets [...] DETECTION BY PCR NOT DETECTED Not Detect [facility] Clemencia glab krusei PCR NOT DETECTED Not Detect [facility] 06/22/2025 11:5 9 AM EST 06/22/2025 3:38 PM EST us Generic External Data Provider LAB MICROBIOLOGY - GENERAL ORDERABLES Final Result [facility] [address] [place] [phone] * Chlamydia/N. Gonorrhoeae RNA, TMA, Urogenitial (06/22/2025 11:59 AM EST) CT PCR NOT DETECTED Not Detect. [facility] Comment:A not detected test result [...] psychologicalconsequences. NG PCR NOT DETECTED Not Detect. [facility] Comment:A not detected test result [...] LAB MICROBIOLOGY - GENERAL ORDERABLES Final Result [facility] [address] [place] [phone] * Hematoxylin and Eosin Stain (06/09/2025 12:50 PM EST) Only the most recent of2 resultswithin the time period is included. 06/09/2025 12:5 0 PM EST 06/09/2025 1:20 PM EST [facility] - 06/13/2025 11:44 AM EST ----- ------- Name: Neli Esteban Age/Sex: 34/F : 1990 Unit#: [id number] Attend Dr: Juancarlos Joiner MD Re06/09/25 Status: [facility] Location: [facility] Disch: ----- ------- SPEC : [id number] RECD: 06/09/25-1319 STATUS: PATITO MASSEY NUM: [id number] AIDE: 06/09/25-[address] [facility] [address]: Juancarlos Joiner MD ENTERED: 06/09/25-1332 SP [...] Neli Esteban Age/Sex: 34/F : 1990 Unit#: [id number] Attend Dr: Juancarlos Joiner MD Re06/09/25 Status: [facility] Location: [place] Disch: ----- ------- SPEC : [id number] RECD: 06/09/25 STATUS: PATITO MASSEY NUM: [id number] AIDE: 06/09/[address] [facility] [address]: Juancarlos Joiner MD ENTERED: 06/09/25 SP [...] developed and their performance characteristics determined by [facility]. They have not been cleared or approved by the U.S. Food and Drug Administration (FDA). However, the FDA has determined that such clearance or approval is not necessary. This laboratory is certified under the Clinical Laboratory Improvement Amendments of 1988 (CLIA) as qualified to perform high complexity clinical laboratory testing. Copies To: LISSETT BUNN NP [address] [phone] Juancarlos Joiner MD [facility] [address] [place] [address] Drive [address] [place] [address] ----- ------- Signed (signature on file) Desiree Garrison 06/13/25 1144 ----- ------- END OF REPORT Generic External Data Provider LAB BLOOD ORDERAB LES Final Result Performing Organization Address [facility] Co de Phone Number [facility] [address] [place] [phone] * HCG, Qualitative, Urine (06/09/2025 10:29 AM EST) Only the most recent of2 resultswithin the time period is included. Urine NEGATIVE NEGATIVE [facility] Comment:This test was develo ped to detect early . Falsenegative results may occur after the 5th - 7th week ofpregnancy when using this test method. If clinicallyindicated, consider a serum hCG. 06/09/2025 10:2 9 AM EST 06/09/2025 10:34 AM EST Generic External Data Provider LAB URINE ORDERAB LES Final Result Performing Organization Address [facility] Co de Phone Number [facility] [address] [place] [address] [phone] * Biopsy cervix (06/09/2025) Historical Provider MD IN CLINIC/BEDSIDE ORDERAB LES Final Result * CT Abdomen Pelvis w/ Contrast (05/23/2025 10:18 AM EDT) Anatomical Region Laterality Modality Body, Pelvis, Abdomen Computed T omography 05/23/2025 10:1 8 AM EDT Narrative 05/23/2025 10:49 AM EDT [address] [address] [address] Scan Report Signed Patient: Neli Esteban MR#: [id number] : 1990 Acct:[id number] Age/Sex: 34 / F ADM Date: 05/23/25 Loc: HO.CT Attending Dr: Lissett Bunn NP Ordering Physician: LISSETT BUNN NP Date of Service: 05/23/25 Procedure(s): CT abdomen pelvis w IV con Accession Number(s): [id number] cc: LISSETT BUNN NP Report Number: [id number]: Total DLP = 349.00 mGy-cm Reason for [...] 05/23/25 1046 DD/ 1018 TD/TT: 05/23/25 1034 Patch Setter: Procedure Note Donotuseinterpreter, Image - 05/23/[address] [place] [address] [address] Scan Report Signed Patient: Neli Esteban [facility]#: [id number] : 1990Acct:[id number] Age/Sex: 34 / FADM Date: 05/23/25 Loc: HO.CT Attending Dr: Lissett Bunn NP Ordering Physician: LISSETT BUNN NP Date of Service: 05/23/25 Procedure(s): CT abdomen pelvis w IV con Accession Number(s): [id number] cc: LISSETT BUNN NP Report Number: [id number]: Total DLP = 349.00 mGy-cm Reason for [...] 05/23/25 1046 DD/ 1018 TD/TT: 05/23/25 1034 Patch Setter: Lissett FRYE CT PROCEDURES Edited Result - Final * Colposcopy (05/09/2025 9:59 AM EDT) us Historical Provider IN CLINIC/BEDSIDE ORDERAB LES Final Result * Helicobacter pylori??Antigen, EIA, Stool (05/04/2025 7:08 AM EDT) H pylori Ag Stool SEE NOTE [facility] Comment:HELICOBACTER PYLORI AG, EIA, STOOL Micro Number: [id number] Test Status: Final Specimen Source: Stool Specimen Quality: Adequate H.pylori Ag: Not Detected Antimicrobials, proton pump inhibitors, and bismuth preparations inhibit H. pylori and ingestion up to two weeks prior to testing may cause false negative results. If clinically indicated the test should be repeated on a new specimen obtained two weeks after discontinuing treatment. Reference Range: Not DetectedTHIS TEST WAS PERFORMED AT:[facility] [place] [phone] GONZALES MD Stool Rectal contents / Unknown 05/04/2025 7:08 AM EDT 05/04/2025 12:29 PM EDT us Lissett Bunn ANP LAB BODY FLUIDS AND STOOLS ORDER DEV Final Result [facility] [address] [place] [address] [phone] * XR Abdomen 2 View minimum (04/21/2025 11:38 PM EDT) Anatomical Region Laterality Modality Abdomen Radiographic Symone ging 04/21/2025 11:3 8 PM EDT Narrative 04/21/2025 11:41 PM EDT [address] [address] XRay Report Signed Patient: Neli Esteban MR#: [id number] : 1990 Acct:[id number] Age/Sex: 34 / F ADM Date: 04/21/25 [facility]: Ordering Physician: Cathy Montiel PA-C Date of Service: 04/21/25 Procedure(s): XR abdomen min 2V Accession Number(s): [id number] cc: Cathy Montiel PA-C; LISSETT BUNN NP [...] OV> 04/21/25 2340 DD/ 37 TD/TT: 04/21/252337 Patch Setter: Procedure Note Donotuseinterpreter, Image - 04/21/2025 [place] [address] XRay Report Signed Patient: Neli Esteban MMR#: [id number] : 1990Acct:[id number] Age/Sex: 34 / FADM Date: 04/21/25 Loc: .ED Attending Dr: Ordering Physician: Cathy Montiel PA-C Date of Service: 04/21/25 Procedure(s): XR abdomen min 2V Accession Number(s): [id number] cc: Cathy Montiel PA-C; LISSETT BUNN NP [...] OV> 04/21/25 2340 DD/ 37 TD/TT: 04/21/252337 Patch Setter: [facility] External Provider IMG XR PROCEDURES Edited Result - Final * (ABNORMAL) Urinalysis w/reflex microscopic (04/21/2025 10:08 PM EDT) Color Urine Yellow [facility] Appearance Urine Clear [facility] PH 6.5 5.0 - 9.0 [facility] Glucose Urine UA Negative Negative mg/dL [facility] Urine Blood Negative Negative [facility] Specific Oden - Urine >=1.030(H) 1.005 - 1.025 [facility] Urine Protein Negative Neg-Trace mg/dL [facility] Urine Ketones Negative Negative mg/dL [facility] Nitrite Urine Negative Negative [facility] Leukocyte Esterase Urine Negative Negative [facility] 04/21/2025 10:0 8 PM EDT 04/21/2025 10:14 PM EDT Narrative [facility] - 04/21/2025 10:21 PM EDT [id number], Clean [employer] Generic External Data Provider LAB URINE ORDERAB LES Final Result [facility] [address] [place] [phone] * (ABNORMAL) CBC auto differential (04/21/2025 10:02 PM EDT) White Blood Count 9.4 4.8 - 10.8 X10*3/uL [facility] Red Blood Count 4.62 4.20 - 5.50 X10*6/uL [facility] Hemoglobin 13.7 12.0 - 16.0 g/dl [facility] Hematocrit 37.7 37.0 - 47.0 % [facility] Mean Corpuscular Volume 81.6 80.0 - 98.0 fL [facility] Mean Corpuscular Hemoglobin 29.7 27.0 - 33.0 pg [facility] Mean Corpuscular HGB Conc 36.3(H) 31.0 - 35.0 g/dl [facility] Red Cell Distribution Width 11.9 11.0 - 16.0 % [facility] Platelet Count 331 160 - 400 X10*3/uL [facility] Mean Platelet Volume 8.8(L) 9.4 - 12.3 fL [facility] Neutrophils Percent Auto 47.3 45 - 73 % [facility] Imm Gran Pct Auto 0.5(H) 0.0 - 0.4 % [facility] Lymphocytes Percent Auto 44.5(H) 20 - 40 % [facility] Monocytes Percent Auto 5.1 2 - 11 % [facility] Eosinophils Percent Auto 2.1 0 - 4 % [facility] Basophils Percent Auto 0.5 0 - 2 % [facility] NRBC Pct Auto 0.0 0.0 - 0.2 /100WBC [facility] Neutrophils Absolute Auto 4.4 2.0 - 8.3 x10*3/uL [facility] Imm Gran Abs Auto 0.05(H) 0.00 - 0.03 X10*3/uL [facility] Lymphocytes Absolute Auto 4.2 1.2 - 4.9 X10*3/uL [facility] Monocytes Absolute Auto 0.5 0.1 - 1.2 X10*3/uL [facility] Eosinophils Absolute Auto 0.2 0.0 - 0.4 X10*3/uL [facility] Basophils Absolute Auto 0.1 0.0 - 0.2 X10*3/uL [facility] NRBC Abs Auto 0.000 0.0 - 0.012 X10*3/uL [facility] 04/21/2025 10:0 2 PM EDT 04/21/2025 10:14 PM EDT us Generic External Data Provider LAB BLOOD ORDERAB LES Final Result [facility] [address] [place] [phone] * Lipase (04/21/2025 10:02 PM EDT) Lipase 23 8 - 78 U/L [facility] 04/21/2025 10:0 2 PM EDT 04/21/2025 10:14 PM EDT us Generic External Data Provider LAB BLOOD ORDERAB LES Final Result [facility] [address] [place] [address] [phone] * (ABNORMAL) Comprehensive Metabolic Panel (04/21/2025 10:02 PM EDT) Sodium 137 135 - 145 mmol/L [facility] Potassium 3.9 3.3 - 5.1 mmol/L [facility] Chloride 105 96 - 108 mmol/L [facility] Carbon Dioxide 27 22 - 29 mmol/L [facility] Anion Gap 9(L) 12 - 20 [facility] Urea Nitrogen (BUN) 14 9 - 16 mg/dL [facility] Creatinine, Serum 0.70 0.5 - 1.4 mg/dL [facility] Creatinine Clr Calc Pharmacy 90.4 [facility] Comment:Provided height and weight: 157.48 cm,59.4 kg.eGFR (calculated from the MDRD study equation) and eCrCl(calculated from the Cockcroft-Gault equation) are based ondifferent parameters and may not yield comparable results.If eCrCl result is absurd, please check patient'sheight/weight. Estimated Glomerular Filt Rate >60 [facility] Comment:Chronic Kidney Disea se: Estimated GFR < 60 mL/min/1.64a7Emfwvq Kidney Disease: Estimated GFR < 15 mL/min/1.73m2 Glucose 91 60 - 115 mg/dL [facility] Calcium 8.9 8.4 - 10.2 mg/dL [facility] Bilirubin, Total 0.2 0.0 - 1.0 mg/dL [facility] Aspartate Amino Transferase 26 5 - 31 U/L [facility] Alanine Aminotransferase 20 0 - 31 U/L [facility] Total Protein 7.0 6.5 - 8.0 g/dL [facility] Albumin Level 4.0 3.5 - 5.0 g/dL [facility] Alkaline Phosphatase 42 39 - 117 U/L [facility] 04/21/2025 10:0 2 PM EDT 04/21/2025 10:14 PM EDT us Generic External Data Provider LAB BLOOD ORDERAB LES Final Result Performing Organization Address City/State/[facility] Co de Phone Number [facility] [address] [place] [phone] * [facility] US Lower Extremity Venous Duplex Bilateral (04/20/2025 1:34 PM EDT) 04/20/2025 1:34 PM EDT Narrative [facility] - 04/20/2025 5:27 PM EDT [address] [address] Ultrasound Report Signed Patient: Neli Esteban MR#: [id number] : 1990 Acct:[id number] Age/Sex: 34 / F ADM Date: 04/20/25 Loc: . Attending Dr: Jerome Douglas MD Ordering Physician: Jerome Douglas MD Date of Service: 04/20/25 Procedure(s): US venous duplex LE BI Accession Number(s): [id number] cc: Jerome Douglas MD; LISSETT BUNN NP [...] 04/20/25 1724 DD/ 1334 TD/TT: 04/20/25 1409 Patch Setter: Procedure Note Donotuseinterpreter, Image - 04/20/2025 [place] [address] Ultrasound Report Signed Patient: Neli Esteban MMR#: [id number] : 1990Acct:[id number] Age/Sex: 34 / FADM Date: 04/20/25 Loc: .US Attending Dr: Jerome Douglas MD Ordering Physician: Jerome Douglas MD Date of Service: 04/20/25 Procedure(s): US venous duplex LE BI Accession Number(s): [id number] cc: Jerome Douglas MD; LISSETT BUNN NP [...] 04/20/25 1724 DD/ 1334 TD/TT: 04/20/25 1409 Patch Setter: us [facility] External Provider CV VASC ULAR PROCEDURES Final Result [facility] [address] [place] [phone] * (ABNORMAL) HPV DNA, Low/High Risk (02/28/2025 10:41 AM EDT) HPV High Risk Positive(A) Negative [facility] HPV Genotype 16 Negative Negative [facility] HPV Genotype 18 Negative Negative [facility] Comment:HPV testing performe d at [facility] (CLIA#[id number]), [address] [place] [phone].Testing for HPV was performed using the Mame [...] 03/01/2025 7:35 AM EDT us Priscila Reyes [facility] LAB BLOOD ORDERABLES Ejn l Result [facility] [address] [place] [phone] * Pap Smear (02/28/2025 10:41 AM EDT) Swab Cervix uteri structure / Unknown 02/28/2025 10:41 AM EDT 03/01/2025 7:35 AM EDT Katherine [facility] - 03/08/2025 1:52 PM EDT ----- ------- Name: Neli Esteban Age/Sex: 34/F [facility] 1990 [id number]#: [id number] Attend Dr: PRISCILA REYES CNM Re02/28/25 Status: [facility] REF Location: [facility] Disch: ----- ------- SPEC : [id number] RECD: 03/01/25 STATUS: PATITO MASSEY NUM: [id number] AIDE: 02/28/25-[address] [facility] [address]: PRISCILA REYES CNM ENTERED: 03/01/25 [...] and HPV testing will be performed at [facility] (IA #[id number]), [address] [place] [address]. Testing for HPV was performed using the [...] detected. All professional services are performed by [facility] ([address] [place] [phone]; ; CLIA #[id number]). The PAP Test is a screening procedure with the inherent possibility of both false negative and false positive results. Results should be interpreted in the context of historic and current clinical findings. Reliability of the PAP Test is enhanced by performing the test on a regular repetitive basis. CONTINUED ON NEXT PAGE ----- ------- Name: Neli Esteban Age/Sex: 34/F : 1990 Unit#: [id number] Attend Dr: PRISCILA REYES CNM Re02/28/25 Status: DEP REF Location: [facility] Disch: ----- ------- SPEC : [id number] RECD: 03/01/25 STATUS: PATITO MASSEY NUM: [id number] AIDE: 02/28/25-[address] [facility] [address]: PRISCILA REYES CNM ENTERED: 03/01/25 SP TYPE: Pap Nicola LIMA DR: ORDERED: Pap Smear, PAP path review ----- ------- Signed (signature on file) Desiree Garrison 03/08/25 1352 ----- ------- END OF REPORT Priscila Reyes [facility] CYTOLOGY ORDERABLES F inal Result [facility] [address] [place] [phone] * HIV Ab/Ag ([facility]) (05/28/2023 12:09 PM EDT) [facility] HIV AB/AG Nonreactive Nonreactive [facility] Comment:HIV-1 p24 Ag and/or HIV-1/HIV-2 Ab not detected.A test result that is nonreactive does not exclude thepossibility of exposure to or infection with HIV-1 and/orHIV-2. Nonreactive results in this assay for individualswith prior exposure to HIV-1 and/or HIV-2 may be due toantigen and antibody levels that are below the limit ofdetection of this assay.The [employer] HIV Ag/Ab Combo assay result andsupplemental assay results should be interpreted inconjunction with the patient's clinical presentation,history and other laboratory results. If the results areinconsistent with clinical evidence, additional testing issuggested to confirm the result. 05/28/2023 12:0 9 PM EDT 05/28/2023 12:57 PM EDT Priscila Reyes [facility] LAB BLOOD ORDERABLES Jen l Result Performing Organization Address City/[facility]/ZIP Co de Phone Number [facility] [address] [place] [phone] * Hepatitis C Antibody with Reflex to HCV, RNA, Quantitative, Real-Time PCR (05/28/2023 12:09 PM EDT) Hepatitis C Antibody Nonreactive Nonreactive [facility] Comment:Antibodies to HCV no t detected; does not exclude early acuteHCV infection. Blood Venous blood specimen / Unknown 05/28/2023 12:09 PM EDT 05/28/2023 12:57 PM EDT Priscila Reyes [facility] LAB BLOOD ORDERABLES Jen l Result Performing Organization Address City/[facility] Co de Phone Number [facility] [address] [place] [address] [phone] from Last 3 Months or Most Recently Relevant to Health Maintenance Insurance [facility] C3 Care Teams Power Hair Clipper Relationship Specialty Start Date End Date Lissett Bunn ANP [address] [place] [phone] PCP - General Family Medicine 07/17/20
--- OUTSIDE RECORDS SUMMARY | 2025-07-10 08:06 | XMS_ITS | Encounter Summary ---
Author Organization [employer] Address [address] [facility] [address] [place] [address] Care Team Providers Care Loss Prevention Guard Name Role Phone Rachelle Olson Primary Care Provider [phone] Encounter Details Date Type Department Care Team (Late st Contact Info) Description 05/12/2025 Results Follow-Up [facility] [address] [place], [place] [phone] Franny Galloway CNM [address] [place] [address] Colposcopy Social History Tobacco Use Types Packs/Day [...] an eye out for visit notes/plan from [facility]. Thanks! documented in this encounter Plan of Treatment Not on file documented as of this encounter Visit Diagnoses Not on filedocumented in this encounter Additional Health Concerns Assessment Noted Time PHQ-9 Depression Total Score: 0 09/01/19 25 2:43 PM EST documented as of this encounter Care Teams Loss Prevention Guard Relationship Specialty Start Date End Date Rachelle Olson ANP [address] [place] [phone] PCP - General Family Medicine 07/17/20 documented as of this encounter
--- OUTSIDE RECORDS SUMMARY | 2025-07-10 08:06 | XMS_ITS | Clinical Summary ---
Author Organization [facility] Address [address] [place] [address] Care Team Providers Care Bulwark Carpenter Name Role Phone Rachelle Olson Primary Care [...] patient's age to complete this topic Insurance [employer] Care Teams Bulwark Carpenter Relationship Specialty Start Date End Date Rachelle Olson [address] [place] [phone] PCP - General 06/10/22
--- OUTSIDE RECORDS SUMMARY | 2025-07-10 08:06 | XMS_ITS | Encounter Summary ---
Author Organization [employer] Address [address] [facility] [address] [place] [address] Care Team Providers Care Merchandise Associate Name Role Phone Rachelle Olson Primary Care Provider [phone] Encounter Details Date Type Department Care Team (Late st Contact Info) Description 05/12/2025 Orders Only [facility] [address] [place], [place] [phone] Provider, MD Anthony Social History Tobacco Use [...] documented as of this encounter Care Teams Merchandise Associate Relationship Specialty Start Date End Date Rachelle Olson ANP [address] [place] [address] PCP - General Family Medicine 07/17/20 documented as of this encounter
--- OUTSIDE RECORDS SUMMARY | 2025-07-10 08:06 | XMS_ITS | Encounter Summary ---
Author Organization [employer] Address [address] [facility] [facility] [address] [facility] [address] 7[address] [place] [address] Care Team Providers Care Purchaser Name Role Phone Rachelle Olson Primary Care Provider [phone] Encounter Details Date Type Department Care Team (Latest Contact Info) Description 05/05/2025 Results Follow-Up [facility] [address] [place], [place] [phone] Rachelle Olson ANP [address] [place] [address] Helicobacter pylori Antigen, EIA, Stool Social History [...] documented as of this encounter Care Teams Purchaser Relationship Specialty Start Date End Date Rachelle Olson ANP [address] [place] [address] PCP - General Family Medicine 07/17/20 documented as of this encounter
--- OUTSIDE RECORDS SUMMARY | 2025-07-10 08:06 | XMS_ITS | Encounter Summary ---
Author Organization [employer] Address [address] [facility] [address] [facility] [address] 7[address] [place] [address] Care Team Providers Care Sales Assistant Name Role Phone Rachelle Olson Primary Care Provider [phone] Encounter Details Date Type Department Care Team (Late st Contact Info) Description 05/25/2025 Results Follow-Up [facility] [address] [place], [place] [phone] Rachelle Olson ANP [address] [place], [place] [phone] CT Abdomen Pelvis w/ Contrast Social History [...] as of this encounter Care Teams Sales Assistant Relationship Specialty Start Date End Date Rachelle Olson ANP [address] [place] [address] PCP - General Family Medicine 07/17/20 documented as of this encounter
--- OUTSIDE RECORDS SUMMARY | 2025-07-10 08:06 | XMS_ITS | Encounter Summary ---
Author Organization [employer] Address [address] [facility] 7t [place] [address] Care Team Providers Care Melter Loader Name Role Phone Rachelle Olson Primary Care Provider [phone] Reason for Visit * Reason Onset Date Comments Nurse Triage 04/16/2023 Encounter Details Date Type Department Care Team ([facility] st Contact Info) Description 04/16/2023 Telephone [facility] [address] [place] [address] Rachelle Olson ANP [address] [place] [address] Nurse Triage Social History Tobacco Use Types [...] stones. Pt is offered to come to [facility] but, requests to see PCP. Apt with PCP 05/04/23 at 1100am. Pt is advised to seek evaluation at either [facility] or ED if symptoms become worse [...] The caller accepted this outcome Patient speaks divehi documented in this encounter Plan of Treatment Not on file documented as of this encounter Visit Diagnoses Not on filedocumented in this encounter Care Teams Melter Loader Relationship Specialty Start Date End Date Rachelle Olson ANP [address] [place] [id number] PCP - General Family Medicine 07/17/20 documented as of this encounter
--- OUTSIDE RECORDS SUMMARY | 2025-07-10 08:06 | XMS_ITS | Encounter Summary ---
Author Organization [employer] Address [address] [facility] [address] 7[address] [place] [address] Care Team Providers Care Equipment Sterilizer Name Role Phone Rachelle Olson Primary Care Provider [phone] Encounter Details Date Type Department Care Team (Late st Contact Info) Description 07/23/2024 Orders Only [facility] [address] [place], [place] [phone] Haritha Selby MD [address] [place], [place] [phone] Hematuria, unspecified type (Primary Dx) Social History [...] (08/29/2024 11:58 AM EST) Color Urine Yellow [facility] Appearance Urine Clear [facility] PH 7.5 5.0 - 9.0 [facility] Glucose Urine UA Negative Negative mg/dL [facility] Urine Blood Small (1+)(A) Negative [facility] Specific [place] - Urine 1.020 1.005 - 1.025 [facility] Urine Protein Negative Neg-Trace mg/dL [facility] Urine Ketones Negative Negative mg/dL [facility] Nitrite Urine Negative Negative [facility] Leukocyte Esterase Urine Negative Negative [facility] RBC Urine 0-2 0 - 2 /HPF [facility] Urine WBC 0-5 0 - 5 /HPF [facility] Urine Squamous Epithelial Cell 0-2 0 - 2 /HPF [facility] Urine Bacteria None Seen None Seen [facility] Hyaline Casts, Urine 0-2 0 - 2 /LPF [facility] Urine 08/29/2024 11:5 8 AM EST 08/29/2024 1:11 PM EST Narrative [facility] - 08/29/2024 1:57 PM EST Urine, Clean Catch us Haritha Selby MD LAB URINE ORDERABLES Final Resul t [facility] [address] [place] [address] [phone] documented in this encounter Visit Diagnoses Diagnosis Hematuria, unspecified type- Primary documented in this encounter Care Teams Equipment Sterilizer Relationship Specialty Start Date End Date Rachelle Olson ANP [address] [place] [address] PCP - General Family Medicine 07/17/20 documented as of this encounter
--- OUTSIDE RECORDS SUMMARY | 2025-07-10 08:06 | XMS_ITS | Encounter Summary ---
Author Organization [email or web address] Address [address] [facility] [address] [address] 7t [place] [address] Care Team Providers Care Street Light Wirer Name Role Phone Rachelle Olson Primary Care Provider [phone] Reason for Visit * Reason Onset Date Comments Medication Question 06/21/2025 Pt clifford shook medication fiber pills doctor prescribed to be sent to [facility]. [facility]. Encounter Details Date Type Department Care Team ([facility] Contact Info) Description 06/21/2025 Refill [facility] [address] [place], [place] [phone] Rachelle Olson ANP [address] [place] [address] Chronic idiopathic constipation Social History Tobacco Use [...] pills doctor prescribed to be sent to [facility]. [facility]. documented in this encounter Plan of Treatment Not on file documented as of this encounter Visit Diagnoses Diagnosis Chronic idiopathic constipation Unspecified constipation documented in this encounter Additional Health Concerns Assessment Noted Time PHQ-9 Depression Total Score: 0 09/01/19 25 2:43 PM EST documented as of this encounter Care Teams Street Light Wirer Relationship Specialty Start Date End Date Rachelle Olson ANP [address] [place] [address] PCP - General Family Medicine 07/17/20 documented as of this encounter
--- NOTE | 2025-07-10 08:07 | A.OFFVIS_ITS ---
Vital Signs 07/10/25 08:09 Height 5 ft 2 in Weight 130 lb BMI 23.8 BP 116/72 Blood Pressure Location Rt brachial Position Sitting Pulse 76 Pulse Source Pulse Oximeter Pulse Oximetry (%) 100 Oxygen Delivery Method Room Air Intake Visit Reasons: CIC Intake Note: New pt for initial eval of possible IBS / Gastroparesis? CC; C/O excessive gas, mild + intermittent reflux, LLQ + LUQ pain. Pt denies any difficulty with BMs at this time. She does confirm having hemorrhoids which produce intermittent rectal bleeding. Metal Drawer Required: No Accompanied by: Self / Same As Patient Allergies No Known Allergies (No Known Allergies*) Allergy (Verified 07/10/25 08:09) HPI HPI CIC: Details: 34-year-old female with past medical history of palpitation, varicose veins, constipation is here today for initial consultation. Patient reports that for the past 2 years she has been having left upper and lower quadrant pain. Patient reports that she is also having acid reflux. Diagnosed with H pylori ba ck in January of this year, treated and retested. Patient retested negative. Currently patient is not on any PPI. Patient was seen in the ED last month and then in May for abdominal pain. Seen in the ED also for chest pain. CT scan done and was negative for any acute processes. Patient reports that when she eats avocado, apple or watermelon she is burping a lot. Patient changed to fairlife milk as she was having same issues when she was drinking regular milk. Patient reports frequent nausea. Severe burping even if she is not eating anything. Patient is having bowel movements, however reports that she has to strain. Does not feel like she empties her bowels completely. Denies melena, hematochezia. Patient reports dyspepsia without dysphagia or odynophagia. Patient is trying to eat healthy. Not eating fried foods. She roasts her chicken, eats vegetables. [facility] Medical History High grade squamous intraepithelial cervical dysplasia Dyspnea Varicose veins of bilateral lower extremities with pain No known health problems Surgical History H/O LEEP H/O vein stripping Family History Mother Hypertension Epilepsy Social History Alcohol intake: never Patient Tobacco Use Status: Former Tobacco user Years Smoked: On/off 5 +/- Female Reproductive History Menstrual Age of Menarche: 12 Review of Systems Const Denies weight gain and Denies weight loss ENT Reports no additional complaints, Denies dysphagia and Denies odynophagia Card Reports no additional complaints Resp Reports no additional complaints GI Reports abdominal pain (LLQ, LUQ), Denies belching, Denies melena, Reports bloating, Denies change in bowel habits, Reports constipation, Denies dysphagia, Denies excessive flatus, Reports dyspepsia, Reports heartburn, Denies diarrhea, Denies loose stools, Denies nausea, Denies odynophagia and Denies vomiting Reports no additional complaints Musc Reports no additional complaints Neuro Reports no additional complaints Psych Reports no additional complaints Endo Reports no additional complaints Physical Exam Vital Signs: Last Vital Signs Pulse 76 07/10/25 08:09 BP 116/72 07/10/25 08:09 Pulse Ox 100 07/10/25 08:09 Oxygen Delivery Method Room Air 07/10/25 08:09 BMI result Body Mass Index 23.8 Const General: healthy appearing, no acute distress and well developed Nutritional Appearance: well nourished Orientation/consciousness: patient oriented x3 Resp Effort & Inspection: normal respiratory effort, able to speak in complete sentences, no tracheal deviation and symmetric chest movement Auscultation: clear to auscultation bilaterally Cardio Rate: regular rate GI Inspection: Yes normal to inspection and No distended Palpation (GI): Soft to palpation, not firm, nontender and No hepatosplenomegaly present Auscultation: normal bowel sounds General: Yes no CVA tenderness Back/Spine/Pelvis Back: no CVA tenderness Skin General skin exam: elasticity normal, turgor normal and dry skin Neuro General: patient oriented x3 Psych Appearance: grossly normal Mental Status: mental status grossly normal Assessment & Plan Assessment & Plan (1) Dyspepsia: Code(s): R10.13 - Epigastric pain (2) Postprandial epigastric pain: Code(s): R10.13 - Epigastric pain (3) GERD (gastroesophageal reflux disease): Code(s): K21.9 - Gastro-esophageal reflux disease without esophagitis (4) Constipation: Code(s): K59.00 - Constipation, unspecified (5) Abdominal bloating: Code(s): R14.0 - Abdominal distension (gaseous) (6) Hemorrhoids without complication: Code(s): K64.9 - Unspecified hemorrhoids Plan History of H pylori in the past. Currently patient is not on any PPI. Will start her on pantoprazole. Avoid dietary triggers and late night snacking. Staying upright for minimum 3 hours after meals discussed with patient. Will order labs, lipase, vitamin B12, folate, vitamin-D, transglutaminase and thyroid study. Patient will be sent for barium swallow. Increase fluid intake and activity to promote better bowel motility. Patient will take Senokot to help her empty her bowels better. Use Proctosol as needed, Sitz baths with Epsom salts. Discussed with patient low FODMAP diet. List of food recommended as well as risk of food to avoid given to patient. Patient follow-up in our office in 2 months, sooner on as needed basis. Patient is agreeable to this plan and verbalizes understanding of instructions. She was given the opportunity to ask questions and all questions answered. Thank you for allowing me to participate in her care Orders: Orders Lipase Today R10.9 - Unspecified abdominal pain Vitamin B12 and Folate Today R19.7 - Diarrhea, unspecified Vitamin D 25-OH (D2 and D3) Today E55.9 - Vitamin D deficiency, unspecified Transglutaminase IgA Today R10.9 - Unspecified abdominal pain TSH reflex Free T4 Today K59.00 - Constipation, unspecified FL barium swallow Today R13.10 - Dysphagia, unspecified Medications: New sennosides (Natural Senna Laxative) 17.2 mg (2 x 8.6 mg) PO BEDTIME 60 tabs 3RF constipation K59.00 - Constipation, unspecified hydrocortisone 2.5% (Proctosol HC) 1 appl KS BID-QID PRN 30 grams 2RF hemorrhoids K64.9 - Unspecified hemorrhoids pantoprazole take one tablet half an hour before breakfast 40 mg PO DAILY 30 tabs 2RF K21.9 - Gastro-esophageal reflux disease without esophagitis Coding Level of Care Code New Pt Level 4 (48297) Diagnoses Dyspepsia R10.13 Postprandial epigastric pain R10.13 GERD (gastroesophageal reflux disease) K21.9 Constipation K59.00 Abdominal bloating R14.0 Hemorrhoids without complication K64.9 Time Spent (min) 50 Comment 35 minutes spent with patient and additional 15 minutes spent reviewing her records
[2025-07-10 08:09] VITALS: BP 116/72; PULSE 76; O2SAT 100; BMI 23.8
== END 2025-07-10 08:39 | disposition home or self-care (01) ==
LOC: HO.HGI 08:00
PROVIDERS: Visit Provider Nurse Practitioner Family
DX: R10.13 Epigastric pain (principal); K21.9 Gastro-esophageal reflux disease without esophagitis; K59.00 Constipation, unspecified; R14.0 Abdominal distension (gaseous); K64.9 Unspecified hemorrhoids
CPT/HCPCS: 99204

== ENCOUNTER 2025-07-25 08:47 | Outpatient (REF) | payer MEDICAID, SELFPAY ==
--- OUTSIDE RECORDS SUMMARY | 2025-07-20 13:45 | XMS_ITS | Encounter Summary ---
Author Organization [employer] Address [address] 7[address] [place] [address] Care Team Providers Care Production Cook Name Role Phone Rachelle Olson Primary Care Provider [phone] Reason for Visit * Reason Comments CHW - Office Visit Encounter Details Date Type Department Care Team ([facility] st Contact Info) Description 07/20/2025 1:45 PM EST Office Visit [facility] [address] [place], [place] [phone] Franny Galloway CNM [address] [place] [address] Breast tenderness (Primary Dx) Social History Tobacco Use Types [...] Date Recorded No desire to become (finding) 1 09/20/2024 Sex and Gender Information Value Date Recorded Sex Assigned at Female 06/02/2022 10:37 AM EDT Legal Sex Female 10:37 AM EDT Gender Identity Female 06/02/2022 10:37 AM EDT Sexual Orientation Straight 06/02/2022 10 :37 AM EDT documented as of this encounter Last Filed Vital Signs Vital Sign Reading Time Taken Comments Blood Pressure 120/70 07/20/2025 1:58 PM EST Pulse 70 07/20/2025 1:58 PM EST Temperature 37.3 C (99.1 F) 07/20/2025 1:58 PM EST Respiratory Rate 16 07/20/2025 1:58 PM EST Oxygen Saturation 98% 07/20/2025 1:58 PM EST Inhaled Oxygen Concentration - - Weight 58.4 kg (128 lb 12.8 oz) 07/20/2025 1:58 PM EST Height - - Body Mass Index 23.56 06/21/2025 3:36 PM EST documented in this encounter Progress Notes * Franny Galloway CNM - 07/20/2025 1:45 PM EST Subjective Patient ID: Neli Galaviz is a 34 y.o. female who presents for breast symptoms New onset breast symptoms for past 4-5 days. Both nipples feel more sensitive, started with left side, but now notes bilaterally. Denies lumps, skin changes or nipple discharge. No triggering events or injury. Denies family history of breast cancer. LMP 06/17/2025. Stopped oral contraceptive pill about a month ago. Last sexually active without a condom 3 weeks ago. Not planning , declines control method. Here with daughter. 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 Co-test due 12/2025. Review of Systems Objective BP 120/70 (BP Location: Left arm, Patient Position: Sitting, BP Cuff Size: Adult) Pulse 70 Temp99.1 ??F (37.3 ??C) (Oral) Resp 16 Wt 128 lb 12.8 oz (58.4 kg) LMP 06/17/2025 SpO2 98% BMI 23.56 kg/m?? Physical Exam Sealant Mixer present: declines loop machine operator. Constitutional: Appearance: Normal appearance. Chest: Breasts: Right: Normal. No swelling, bleeding, inverted nipple, mass, nipple discharge, skin change or tenderness. Left: Normal. No swelling, bleeding, inverted nipple, mass, nipple discharge, skin change or tenderness. Lymphadenopathy: Upper Body: Right upper body: No supraclavicular or axillary adenopathy. Left upper body: No supraclavicular or axillary adenopathy. Neurological: Mental Status: She is alert. Psychiatric: Mood and Affect: Mood normal. Behavior: Behavior normal. Assessment/Plan Diagnoses and all orders for this visit: Breast tenderness - POCT , urine manually resulted Normal breast exam. May be premenstrual. test negative today. Let's observe. If no mensesby end of the month and/or symptoms persist, please let me know. Will repeat hcg as precaution and consider breast ultrasound. Does not want to resume oral contraceptive pill or start another method. May return any time if shewould like to discuss further. documented in this encounter Plan of Treatment Not on file documented as of this encounter Procedures Procedure Name Priority Date/Time Associated Diagnosis Comments POCT , URINE Routine 07/20/2025 2:20 PM EST Breast tenderness documented in this encounter Results * POCT , urine manually resulted (07/20/2025 2:20 PM EST) Preg Test, Ur Negative Negative, Indeterminate, None Detected, Trace, 3+, Specimen unsatisfactory for evaluation, Weakly Positive, 1+, 2+ QC Media Lot # [id number] Lot# Expiration Date [id number] Urine 07/20/2025 2:20 PM EST Franny ROCHA POINT OF CARE TEST ENTER/ EDIT ORDERABLES Final Result documented in this encounter Visit Diagnoses Diagnosis Breast tenderness- Primary Mastodynia documented in this encounter Additional Health Concerns Assessment Noted Time PHQ-9 Depression Total Score: 0 09/01/19 25 2:43 PM EST documented as of this encounter Care Teams Production Cook Relationship Specialty Start Date End Date Rachelle Olson ANP [address] [place] [address] PCP - General Family Medicine 07/17/20 documented as of this encounter
--- NOTE | ~2025-07-25 | FL_ITS ---
EXAMINATION: FL ESOPHAGRAM CLINICAL INFORMATION: Dysphagia COMPARISON: None. TECHNIQUE: Under fluoroscopy, EZ-Paque, EZ-Gas, EZ-HD, and a barium pill were administered orally and transit through the esophagus was observed. Additional radiographic images were obtained. FLUOROSCOPY TIME: 44 seconds DOSE AREA PRODUCT: 38 uGy-m2 (microgray-meters squared) FINDINGS Normal swallowing reflex. No evidence penetration or aspiration events occurred throughout the duration of the study. Esophagus demonstrates normal distention and motility. No mass or mucosal lesion is seen. No fixed stricture is identified. No evidence of reflux during the procedure. No evidence of hiatal hernia. There is normal passage of the barium pill to the stomach. FL/FL barium swallow with air IMPRESSION: Unremarkable barium swallow study. Electronically signed by: Juan Beckham MD 07/25/2025 03:50 PM JHONATAN
--- OUTSIDE RECORDS SUMMARY | 2025-07-25 09:05 | XMS_ITS | Encounter Summary ---
Author Organization [employer] Address [address] [place] [address] Care Team Providers Care Supervisor In Charge Name Role Phone Rachelle Olson Primary Care Provider [phone] Encounter Details Date Type Department Care Team (Latest Contact Info) Description 07/20/2025 Travel Social History Tobacco Use Types Packs/Day [...] documented as of this encounter Care Teams Supervisor In Charge Relationship Specialty Start Date End Date Rachelle Olson ANP [address] [place] [id number] PCP - General Family Medicine 07/17/20 documented as of this encounter
--- OUTSIDE RECORDS SUMMARY | 2025-07-25 09:05 | XMS_ITS | Encounter Summary ---
Author Organization [employer] Address [address] [facility] 7t [place] [address] Care Team Providers Care Decorating And Assembly Supervisor Name Role Phone Rachelle Olson Primary Care Provider [phone] Reason for Visit * Reason Onset Date Comments Medication Question 06/21/2025 Pt clifford shook medication fiber pills doctor prescribed to be sent to [facility]. [facility]. Encounter Details Date Type Department Care Team ([facility] Contact Info) Description 06/21/2025 Refill [facility] [address] [place], [place] [phone] Rachelle Olson ANP [address] [place] [address] Chronic idiopathic constipation Social History Tobacco Use [...] pills doctor prescribed to be sent to [facility]. [facility]. documented in this encounter Plan of Treatment Not on file documented as of this encounter Visit Diagnoses Diagnosis Chronic idiopathic constipation Unspecified constipation documented in this encounter Additional Health Concerns Assessment Noted Time PHQ-9 Depression Total Score: 0 09/01/19 25 2:43 PM EST documented as of this encounter Care Teams Decorating And Assembly Supervisor Relationship Specialty Start Date End Date Rachelle Olson ANP [address] [place] [phone] PCP - General Family Medicine 07/17/20 documented as of this encounter
--- OUTSIDE RECORDS SUMMARY | 2025-07-25 09:05 | XMS_ITS | Encounter Summary ---
Author Organization [employer] Address [address] 7t [place] [address] Care Team Providers Care Bit Sander Name Role Phone Rachelle Olson Primary Care Provider [phone] Encounter Details Date Type Department Care Team (Late st Contact Info) Description 05/12/2025 Orders Only [facility] [address] [place], [place] [phone] Provider, MD Anthony Social History Tobacco Use [...] documented as of this encounter Care Teams Bit Sander Relationship Specialty Start Date End Date Rachelle Olson ANP [address] [place] [address] PCP - General Family Medicine 07/17/20 documented as of this encounter
--- OUTSIDE RECORDS SUMMARY | 2025-07-25 09:05 | XMS_ITS | Encounter Summary ---
Author Organization [employer] Address [address] [facility] 7t [place] [address] Care Team Providers Care Gauntlet Pairer Name Role Phone Rachelle Olson Primary Care Provider [phone] Reason for Visit * Reason Onset Date Comments Nurse Triage 04/16/2023 Encounter Details Date Type Department Care Team ([facility] st Contact Info) Description 04/16/2023 Telephone [facility] [address] [place] [address] Rachelle Olson ANP [address] [place] [address] Nurse Triage Social History Tobacco Use Types [...] stones. Pt is offered to come to [facility] but, requests to see PCP. Apt with PCP 05/04/23 at 1100am. Pt is advised to seek evaluation at either [facility] or ED if symptoms become worse before [...] The caller accepted this outcome Patient speaks namibian documented in this encounter Plan of Treatment Not on file documented as of this encounter Visit Diagnoses Not on filedocumented in this encounter Care Teams Gauntlet Pairer Relationship Specialty Start Date End Date Rachelle Olson ANP [address] [place] [id number] PCP - General Family Medicine 07/17/20 documented as of this encounter
--- OUTSIDE RECORDS SUMMARY | 2025-07-25 09:05 | XMS_ITS | Clinical Summary ---
Author Organization [employer] Address [address] [facility] 7[address] [place] [address] Care Team Providers Care Metal Burnisher Name Role Phone Lissett Bunn Primary Care Provider [phone] Allergies Active Allergy Reactions Criticality Noted Date Comments Avocado Vomiting 01/24/2025 Kiwi Extract Unknown 01/24/2025 Throat itching Medications betamethasone valerate (Valisone) 0.1 % ointmentIndicatio ns:Psoriasis Apply topically 2 times daily. 45 g 1 5 Active lidocaine (Lidoderm) 5 % patchIndications: Chronic midline low back pain without sciatica Apply 1 patch topically Once per day. Remove & discard patch within 12 hours or as directed by MD. 30 patch 2 5 Active ibuprofen 600 MG tablet 1 tablet every 8 hours with food x 7 days 21 tablet 5 Active Levonorgest-Eth Estrad -Day (LoSeasonique) 0.1-0.02 & 0.01 MG tablet TAKE 1 TABLET BY MOUTH EVERY DAY. START DAY AFTER TAKING EC. 91 tablet 3 5 Active omeprazole (PriLOSEC) [address] capsule Take 1 capsule (20 mg) by mouth before breakfast. Do not crush or chew. 90 capsule 5 Active polyethylene glycol, PEG, 3350 (MiraLax) 17 GM/SCOOP powderIndications :Chronic idiopathic constipation Take 2-3 capfuls for 2 days, then 1/2 capful everyday after. 510 g 5 Active psyllium (Metamucil Smooth Texture) 58.6 % powderIndications :Chronic idiopathic constipation Take 5.12 g (3 g of fiber) by mouth 2 times daily for 28 days. 283 g 07/21/20 25 Active Problems Problem Noted Date Diagnosed Date [...] Encounters Date Type Department Care Team Description 07/20/2025 1:45 PM EST Office Visit [address] [address] Priscila Reyes CNM Breast tenderness (Primary Dx) 07/20/2025 Travel 07/19/2025 Telephone [facility] [address] [place], [place] [phone] Priscila Reyes CNM chart prep 07/18/2025 Telephone [facility] [address] [place], [place] [phone] Lissett Bunn ANP Nurse Triage 07/18/[address] [phone] Reuben, Sera, GUIDE DOG MOBILITY INSTRUCTOR Follow-up 07/10/2025 Orders Only GENERIC EXTERNAL DATA DEPARTMENT Provider, Generic External Data 06/22/2025 Orders Only GENERIC EXTERNAL DATA DEPARTMENT Provider, Generic External Data 06/21/2025 3:15 PM EST Office Visit [address] [address] Ree Farley, CHRISTINE Chronic idiopathic constipation (Primary Dx); Left sided abdominal pain 06/21/2025 Travel 06/21/[address] [address] Lissett Bunn ANP Chronic idiopathic constipation 06/16/[address] [address] Lissett Bunn ANP chartprep 06/14/[address] [phone] Lissett Bunn ANP Telephone Call 06/09/2025 Orders Only GENERIC EXTERNAL DATA DEPARTMENT Provider, Generic External Data 05/25/[address] [address] Sera Alexis, RN NTTS 05/25/2025 Results Follow-Up [address] [address] Abdomen Pelvis w/ Contrast 05/25/[address] [address] Lissett Bunn ANP 05/24/[address] [address] Lissett Bunn ANP 05/12/2025 Results Follow-Up [address] [address] Priscila Reyes CNM Colposcopy 05/12/2025 Orders Only [facility] [address] [place], [place] [phone] Anthony Rodriguez MD 05/09/2025 Orders Only GENERIC EXTERNAL DATA DEPARTMENT Provider, Generic External Data 05/05/2025 Results Follow-Up [facility] [address] [place] [address] Lissett Bunn ANP Helicobacter pylori Antigen, EIA, Stool 04/28/2025 Orders Only [facility] [address] [place] [address] Lissett Bunn ANP 04/27/2025 Orders Only [address] [address] Lissett Bunn ANP LLQ pain (Primary Dx); Abnormal x-ray of abdomen 04/26/2025 Telephone [facility] [address] [place] [address] ABD ORDER 04/26/[address] [address] Lissett Bunn ANP 04/25/2025 9:30 AM EDT Office Visit [address] [address] Lissett Bunn ANP LLQ pain (Primary Dx); Abnormal x-ray of abdomen; Varicose veins of right lower extremity with inflammation; Healthcare maintenance; History of Helicobacter pylori infection 04/25/2025 Travel from Last 3 Months Immunizations Immunization [...] 12.8 oz) 07/20/2025 1:58 PM EST Height 157.5 cm (5' 2 ) 06/21/2025 3:36 PM EST Body Mass Index 23.56 06/21/2025 3:36 PM EST Plan of Treatment Health Maintenance Due Date Last Done Comments HPV Vaccines (1 - 3-dose series) 12/21/2006 COVID-19 Vaccine (3 - 2024-2 6 season) 2025 04/02/2021, 03/12/2021 Influenza Vaccine (#1) 2025 , 07/24/2020 Depression Screening 09/01/2025 09/01/2024, 09/01/2024 Cervical Cancer Screening 12/07/2025 HPV/Cotest 12/07/2025 02/28/2025 Pap Smear 12/07/2025 02/28/2025, 06/26/2021, 06/26/2021 SDOH Screening 01/16/2026 01/16/2025 Disability Screening 04/25/2026 04/25/2025 Tobacco Screening 04/25/2026 04/25/2025 Alcohol/Substance Use Screening 06/21/2026 06/21/2025 Family Planning (PISQ) 07/20/2026 07/20/2025 DTaP/Tdap/Td Vaccines (2 - T d or [...] Routine 07/20/2025 2:20 PM EST Breast tenderness VITAMIN D 25-OH (D2 AND D3) Routine 07/10/2025 8:57 AM EST TISSUE TRANSGLUTAMINASE AB, IGA Routine 07/10/2025 8:57 AM EST VITAMIN B12/FOLATE, SERUM PANEL Routine 07/10/2025 8:57 AM EST TSH W/REFLEX TO FT4 Routine 07/10/2025 8 :57 AM EST LIPASE Routine 07/10/2025 8:57 AM EST CHLAMYDIA/N. GONORRHOEAE RNA, TMA, UROGENITAL [...] AM EDT History of Helicobacter pylori infection HPV DNA, LOW/HIGH RISK Routine 10:41 AM EDT PAP SMEAR Routine 02/28/2025 10:41 AM EDT Screening examination for venereal disease HEPATITIS C AB W/REFL TO HCV RNA, QN, PCR Routine 05/28/2023 12:09 PM EDT Encntr screen for infections w sexl mode of transmiss HIV ANTIBODY/ANTIGEN ([place] DPH) Routine 05/28/2023 12:09 PM EDT from Last 3 Months or Most Recently Relevant to Health Maintenance Results * POCT , urine manually resulted (07/20/2025 2:20 PM EST) Preg Test, Ur Negative Negative, Indeterminate, None Detected, Trace, 3+, Specimen unsatisfactory for evaluation, Weakly Positive, 1+, 2+ QC Media Lot # [id number] Lot# Expiration Date [id number] Urine 07/20/2025 2:20 PM EST Priscila Reyes CNM POINT OF CARE TEST ENTER/ EDIT ORDERABLES Final Result * (ABNORMAL) VITAMIN D 25-OH (D2 AND D3) (07/10/2025 8:57 AM EST) Vitamin D, 25-OH, D2 <4 ng/mL [facility] Comment:This test was develo ped and its analytical performancecharacteristics have been determined by [employer] [place], [place]. It hasnot been cleared or approved by the U.S. Food and DrugAdministration. This assay has been validated pursuantto the CLIA regulations and is used for clinicalpurposes.THIS TEST WAS PERFORMED AT:[employer] [id number] [place] [address]EGETHIGELVIS RAE MD,PHD Vitamin D, 25-OH, D3 24 ng/mL [facility] Comment:This test was develo ped and its analytical performancecharacteristics have been determined by [employer] [place], [place]. It hasnot been cleared or approved by the U.S. Food and DrugAdministration. This assay has been validated pursuantto the CLIA regulations and is used for clinicalpurposes. Vitamin D, 25-OH, Total 24(A) 30 - 100 ng/mL [facility] Comment:Vitamin D, 25-Hydrox y reports concentrations of twocommon forms, 25-OHD2 and 25-OHD3. 25-OHD3 indicatesboth endogenous production and supplementation.25-OHD2 is an indicator of exogenous sources such asdiet or supplementation. Therapy is based onmeasurement of Total 25-OHD, with levels <20 ng/mLindicative of Vitamin D deficiency, while levelsbetween 20 ng/mL and 30 ng/mL suggest insufficiency.Optimal levels are > or = 30 ng/mL.For additional information, please refer [email or web address](This link is being provided for informational/educational purposes only.) 07/10/2025 8:57 AM EST 07/10/2025 9:01 AM EST us Generic External Data Provider LAB BLOOD ORDERAB LES Final Result [facility] [address] [place] [phone] * Vitamin B12 (Cobalamin) and Folate Panel, Serum (07/10/2025 8:57 AM EST) Vitamin B12 433 200 - 900 pg/mL [facility] Comment:NORMAL 200-900 PG/ML INDETERMINATE 160-199 PG/ML DEFICIENT < 160 PG/ML Folate 10.2 > or = 4.0 ng/mL [facility] Comment:Reference Values:> o r = 4.0 ng/mL< 4.0 ng/mL suggests folate deficiency Methotrexate, aminopterin and folinic acid(leucovorin) are chemotherapeutic agents whose molecularstructures are similar to folate; therefore, the Architectfolate assay cannot be used for patients using these drugs. 07/10/2025 8:57 AM EST 07/10/2025 9:01 AM EST us Generic External Data Provider LAB BLOOD ORDERAB LES Final Result Performing Organization Address [facility] Co de Phone Number [facility] [address] [place] [phone] * TSH with Reflex to Free T4 (07/10/2025 8:57 AM EST) TSH reflex Free T4 1.20 0.32 - 4.0 uIU/mL [facility] 07/10/2025 8:57 AM EST 07/10/2025 9:01 AM EST Generic External Data Provider LAB BLOOD ORDERAB LES Final Result Performing Organization Address [facility] Phone Number [facility] [address] [place] [phone] * Tissue Transglutaminase Antibody, IgA (07/10/2025 8:57 AM EST) Transglutaminase IgA <1.0 U/mL [facility] Comment:Value Interpretatio n----- <15.0 Antibody not detected> or = 15.0 Antibody detectedTHIS TEST WAS PERFORMED AT:[employer] [address] [id number] GONZALES MD 07/10/2025 8:57 AM EST 07/10/2025 9:01 AM EST Generic External Data Provider LAB BLOOD ORDERAB LES Final Result Performing Organization Address [facility] Co de Phone Number [facility] [address] [place] [phone] * Lipase (07/10/2025 8:57 AM EST) Lipase 17 8 - 78 U/L [facility] 07/10/2025 8:57 AM EST 07/10/2025 9:01 AM EST Generic External Data Provider LAB BLOOD ORDERAB LES Final Result Performing Organization Address [facility] de Phone Number [facility] [address] [place] [address] [phone] * (ABNORMAL) Bacterial Vaginosis (06/22/2025 11:59 AM EST) Pathologist [facility] TRICHOMONAS VAGINALIS DETECTION BY PCR NOT DETECTED Not Detect [facility] BACTERIAL VAGINOSIS DETECTION BY PCR POSITIVE(A) Negative [facility] Comment:The BV organism targ ets of [...] DETECTION BY PCR NOT DETECTED Not Detect [facility] Clemencia glab krusei PCR NOT DETECTED Not Detect [facility] 06/22/2025 11:5 9 AM EST 06/22/2025 3:38 PM EST Generic External Data Provider LAB MICROBIOLOGY - GENERAL ORDERABLES Final Result Performing Organization Address [facility] de Phone Number [facility] [address] [place] [phone] * Chlamydia/N. Gonorrhoeae RNA, TMA, Urogenitial (06/22/2025 11:59 AM EST) [facility] CT PCR NOT DETECTED Not Detect. [facility] Comment:A not detected test result does [...] psychologicalconsequences. NG PCR NOT DETECTED Not Detect. [facility] Comment:A not detected test result does [...] GENERAL ORDERABLES Final Result Performing Organization Address City/State/[facility] Co de Phone Number [facility] [address] [place] [phone] * Hematoxylin and Eosin Stain (06/09/2025 12:50 PM EST) Only the most recent of2 resultswithin the time period is included. 06/09/2025 12:5 0 PM EST 06/09/2025 1:20 PM EST Narrative [facility] - 06/13/2025 11:44 AM EST ----- ------- Name: Neli Esteban Age/Sex: 34/F : 1990 Unit#: [id number] Attend Dr: Juancarlos Joiner MD Re06/09/25 Status: [facility] Location: [facility] Disch: ----- ------- SPEC : [id number] RECD: 06/09/25 STATUS: SARAHMaya BRYSON NUM: [id number] AIDE: 06/09/25-[address] [facility] DR: Juancarlos Joiner MD ENTERED: 06/09/25 [...] Shital GalavizNeli Age/Sex: 34/F : 1990 Unit#: [id number] Attend Dr: Juancarlos Joiner MD Re06/09/25 Status: [facility] Location: [facility] Disch: ----- ------- SPEC : [id number] RECD: 06/09/25 STATUS: PATITO MASSEY NUM: [id number] AIDE: 06/09/[address] [facility] DR: Juancarlos Joiner MD ENTERED: 06/09/25 [...] developed and their performance characteristics determined by [facility]. They have not been cleared or approved by the U.S. Food and Drug Administration (FDA). However, the FDA has determined that such clearance or approval is not necessary. This laboratory is certified under the Clinical Laboratory Improvement Amendments of 1988 (CLIA) as qualified to perform high complexity clinical laboratory testing. Copies To: LISSETT BUNN NP [address] [address] Juancarlos Joiner MD [facility] [address] [place] [address] Drive [address] [place] [address] ----- ------- Signed (signature on file) Desiree Garrison 06/13/25 1144 ----- ------- END OF REPORT Generic External Data Provider LAB BLOOD ORDERAB LES Final Result Performing Organization Address [facility] Co de Phone Number [facility] [address] [place] [phone] * HCG, Qualitative, Urine (06/09/2025 10:29 AM EST) Urine NEGATIVE NEGATIVE [facility] Comment:This test was develo ped to detect early . Falsenegative results may occur after the 5th - 7th week ofpregnancy when using this test method. If clinicallyindicated, consider a serum hCG. 06/09/2025 10:2 9 AM EST 06/09/2025 10:34 AM EST Generic External Data Provider LAB URINE ORDERAB LES Final Result Performing Organization Address [facility] Co de Phone Number [facility] [address] [place] [phone] * Biopsy cervix (06/09/2025) Historical Provider MD IN CLINIC/BEDSIDE ORDERAB LES Final Result * CT Abdomen Pelvis w/ Contrast (05/23/2025 10:18 AM EDT) Anatomical Region Laterality Modality Body, Pelvis, Abdomen Computed T omography 05/23/2025 10:1 8 AM EDT Narrative 05/23/2025 10:49 AM EDT [address] [address] [address] Scan Report Signed Patient: Neli Esteban MR#: [id number] : 1990 Acct:[id number] Age/Sex: 34 / F ADM Date: 05/23/25 Loc: HO.CT Attending Dr: Lissett Bunn NP Ordering Physician: LISSETT BUNN NP Date of Service: 05/23/25 Procedure(s): CT abdomen pelvis w IV con Accession Number(s): [id number] cc: LISSETT BUNN NP Report Number: [id number]: Total DLP = 349.00 mGy-cm Reason for [...] 05/23/25 1046 DD/ 1018 TD/TT: 05/23/25 1034 Pan Greaser: Procedure Note Donotuseinterpreter, Image - 05/23/[address] [address] [address] Scan Report Signed Patient: Neli Esteban MMR#: [id number] : 1990Acct:[id number] Age/Sex: 34 / FADM Date: 05/23/25 Loc: HO.CT Attending Dr: Lissett Bunn NP Ordering Physician: LISSETT BUNN NP Date of Service: 05/23/25 Procedure(s): CT abdomen pelvis w IV con Accession Number(s): [id number] cc: LISSETT BUNN NP Report Number: [id number]: Total DLP = 349.00 mGy-cm Reason for [...] 05/23/25 1046 DD/ 1018 TD/TT: 05/23/25 1034 Pan Greaser: [facility] CT PROCEDURES Edited Result - Final * Colposcopy (05/09/2025 9:59 AM EDT) Historical Provider IN CLINIC/BEDSIDE ORDERAB LES Final Result * Helicobacter pylori??Antigen, EIA, Stool (05/04/2025 7:08 AM EDT) H pylori Ag Stool SEE NOTE [facility] Comment:HELICOBACTER PYLORI AG, EIA, STOOL Micro Number: [id number] Test Status: Final Specimen Source: Stool Specimen Quality: Adequate H.pylori Ag: Not Detected Antimicrobials, proton pump inhibitors, and bismuth preparations inhibit H. pylori and ingestion up to two weeks prior to testing may cause false negative results. If clinically indicated the test should be repeated on a new specimen obtained two weeks after discontinuing treatment. Reference Range: Not DetectedTHIS TEST WAS PERFORMED AT:[employer] [place] [id number] GONZALES MD Stool Rectal contents / Unknown 05/04/2025 7:08 AM EDT 05/04/2025 12:29 PM EDT Lissett [facility] BODY FLUIDS AND STOOLS ORDER DEV Final Result Performing Organization Address [facility] Co de Phone Number [facility] [address] [place] [phone] * (ABNORMAL) HPV DNA, Low/High Risk (02/28/2025 10:41 AM EDT) HPV High Risk Positive(A) Negative [facility] HPV Genotype 16 Negative Negative [facility] HPV Genotype 18 Negative Negative [facility] Comment:HPV testing performe d at [facility] (CLIA#[id number]), [address] [place] [address].Testing for HPV was performed using the Mame [...] AM EDT 03/01/2025 7:35 AM EDT Priscila ROCHA LAB BLOOD ORDERABLES Jen l Result Performing Organization Address [facility]/ZIP Co de Phone Number [facility] [address] [place] [address] [phone] * Pap Smear (02/28/2025 10:41 AM EDT) Swab Cervix uteri structure / Unknown 02/28/2025 10:41 AM EDT 03/01/2025 7:35 AM EDT [facility] - 03/08/2025 1:52 PM EDT ----- ------- Name: ShitalNeli Borden Age/Sex: 34/F : 1990 Unit#: [id number] Attend Dr: PRISCILA REYES CNM Re02/28/25 Status: [facility]: ----- ------- SPEC : [id number] RECD: 03/01/25 STATUS: PATITO MASSEY NUM: [id number] AIDE: 02/28/25-[address] [facility] DR: PRISCILA REYES CNM ENTERED: 03/01/25 SP TYPE: Pap [facility] : ORDERED: Pap Smear, PAP path review [...] and HPV testing will be performed at [facility] (CLIA #[id number]), [address] [place] [address]. Testing for HPV was performed using the [employer] YES.TAP0 system. The presence of HPV in the [...] detected. All professional services are performed by [facility] ([address] [place] [address]; ; CLIA #[id number]). The PAP Test is a screening procedure with the inherent possibility of both false negative and false positive results. Results should be interpreted in the context of historic and current clinical findings. Reliability of the PAP Test is enhanced by performing the test on a regular repetitive basis. CONTINUED ON NEXT PAGE ----- ------- Name: Neli Esteban Age/Sex: 34/F : 1990 Unit#: [id number] Attend Dr: PRSICILA REYES CNM Re02/28/25 Status: DEP REF Location: [facility] Disch: ----- ------- SPEC : [id number] RECD: 03/01/25 STATUS: PATITO MASSEY NUM: [id number] AIDE: 02/28/25-[address] [facility] DR: PRISCILA REYES CNM ENTERED: 03/01/25 SP TYPE: Pap Smr [facility] DR: ORDERED: Pap Smear, PAP path review ----- ------- Signed (signature on file) Desiree [place] 03/08/25 1352 ----- ------- END OF REPORT us Priscila Reyes [facility] CYTOLOGY ORDERABLES F inal Result [facility] [address] [place] [address] [phone] * HIV Ab/Ag (ASHLEIGH [facility]) (05/28/2023 12:09 PM EDT) HIV AB/AG Nonreactive Nonreactive [facility] Comment:HIV-1 p24 Ag and/or HIV-1/HIV-2 Ab not detected.A test result that is nonreactive does not exclude thepossibility of exposure to or infection with HIV-1 and/orHIV-2. Nonreactive results in this assay for individualswith prior exposure to HIV-1 and/or HIV-2 may be due toantigen and antibody levels that are below the limit ofdetection of this assay.The [employer] HIV Ag/Ab Combo assay result andsupplemental assay results should be interpreted inconjunction with the patient's clinical presentation,history and other laboratory results. If the results areinconsistent with clinical evidence, additional testing issuggested to confirm the result. 05/28/2023 12:0 9 PM EDT 05/28/2023 12:57 PM EDT Priscila Reyes [facility] BLOOD ORDERABLES Jen l Result Performing Organization Address [facility] Co de Phone Number [facility] [address] [place] [phone] * Hepatitis C Antibody with Reflex to HCV, RNA, Quantitative, Real-Time PCR (05/28/2023 12:09 PM EDT) Hepatitis C Antibody Nonreactive Nonreactive [facility] Comment:Antibodies to HCV no t detected; does not exclude early acuteHCV infection. Blood Venous blood specimen / Unknown 05/28/2023 12:09 PM EDT 05/28/2023 12:57 PM EDT [facility] BLOOD ORDERABLES Jen l Result Performing Organization Address [facility] Co de Phone Number [facility] [address] [place] [phone] from Last 3 Months or Most Recently Relevant to Health Maintenance Insurance [facility] C3 Care Teams Metal Burnisher Relationship Specialty Start Date End Date Lissett Bunn ANP [address] [place] [phone] PCP - General Family Medicine 07/17/20
--- OUTSIDE RECORDS SUMMARY | 2025-07-25 09:05 | XMS_ITS | Encounter Summary ---
Author Organization [id number] Address [address] [facility] [address] [address] [place] [address] Care Team Providers Care [employer] Capture Power Plant Manager Name Role Phone Rachelle Olson Primary Care Provider [phone] Encounter Details Date Type Department Care Team (Late st Contact Info) Description 05/25/2025 Results Follow-Up [facility] [address] [place], [place] [phone] Rachelle Olson ANP [address] [place], [place] [phone] CT Abdomen Pelvis w/ Contrast Social History [...] documented as of this encounter Care Teams [employer] Power Plant Manager Relationship Specialty Start Date End Date Rachelle Olson ANP [address] [place] [address] PCP - General Family Medicine 07/17/20 documented as of this encounter
--- OUTSIDE RECORDS SUMMARY | 2025-07-25 09:05 | XMS_ITS | Clinical Summary ---
Author Organization [facility] Address [address] [place] [address] Phone Care Team Providers Care Accelerator Operator Name Role Phone Rachelle Olson NP Primary Care Provider [phone] Allergies Active Allergy Reactions Criticality Noted Date Comments Avocado Nausea And Vomiting 01/24/2025 Kiwi (Actinidia Chinensis) Unknown 01/24/2025 Throat itching Encounters Date Type Department Care Team Description 07/15/2025 12:06 PM EST - 07/15/2025 5:28 PM EST Emergency [facility] Emergency [address] [place] [phone] Larry Avila MD Encounter for medical screening examination (Primary Dx); Left upper quadrant abdominal pain Discharge Disposition: Home or Self Care 07/14/2025 10:04 AM EST - 07/14/2025 12:54 PM EST [facility] Emergency [address] [place] [phone] Discharge Disposition: Left Against Medical Advice from Last 3 Months Social History Tobacco Use Types Packs/Day Years Used Date Smoking Tobacco: Never Assessed Comments Unknown Sex and Gender Information Value Date Recorded Sex Assigned at Not on file Legal Sex Female 3:44 PM EDT Gender Identity Not on file Sexual Orientation Not on file Last Filed Vital Signs Vital Sign Reading Time Taken Comments Blood Pressure 120/89 07/15/2025 2:55 PM EST Pulse 70 07/15/2025 2:55 PM EST Temperature 37 C (98.6 F) 07/15/2025 11:10 AM EST Respiratory Rate 14 07/15/2025 2:55 PM EST Oxygen Saturation 100% 07/15/2025 2:55 PM EST Inhaled Oxygen Concentration - - Weight 59 kg (130 lb) 07/15/2025 11:10 AM EST Height 157.5 cm (5' 2 ) 07/15/2025 11:10 AM EST Body Mass Index 23.78 07/15/2025 11:10 AM EST Plan of Treatment Health Maintenance Due Date Last Done Comments Hepatitis B Vaccines (1 of 3 - 19+ 3-dose series) 12/21/2010 HPV Vaccines (1 - 3-dose SCD M series) 12/21/2018 HIV Screening 05/12/2024 Social Influencers of Health Screening 05/12/2024 Depression Screening 08/03/2024 COVID-19 Vaccine (3 - 2024-2 6 season) 2025 04/02/2021, 03/12/2021 Influenza Vaccine (#1) 2025 , 07/24/2020 Cervical Cancer Screening: P ap Smear 02/29/2028 02/28/2025 DTaP,Tdap,and Td Vaccines (2 - Td or Tdap) 07/24/2030 07/24/2020 RSV Immunization Adult Patients (1 - 1-dose 75+ series) 12/21/2066 Hepatitis C Screening Completed 05/28/2023 Varicella Vaccines Aged Out 03/14/2024 No longer eligible based on patient's age to complete this topic HIB Vaccines Aged Out No longer eligi [...] to complete this topic RSV Immunization Patients Under 20 months Aged Out No longer eligible b ased on patient's age to complete this topic Procedures Procedure Name Priority Date/Time Associated Diagnosis Comments CT ABDOMEN PELVIS W CONTRAST STAT 07/15/2025 3:36 PM EST US ABDOMEN LIMITED STAT 07/15/2025 1: 39 PM EST POC , URINE DIAGNOSTIC STAT 07/15/2025 1:17 PM EST PROTHROMBIN TIME WITH INR STAT 07/15/2025 1:01 PM EST DRUG ABUSE SCREEN 8A PANEL, URINE STAT 07/15/2025 12:50 PM EST GARCIA URINE CULTURE TUBE STAT 07/15/2025 12:50 PM EST URINALYSIS WITH REFLEX MICROSCOPIC AND CULTURE STAT 07/15/2025 12:50 PM EST URINALYSIS WITH REFLEX MICROSCOPIC AND CULTURE STAT 07/15/2025 12:50 PM EST MAGNESIUM STAT Add-on 07/15/2025 12:26 PM EST CBC WITH AUTO DIFFERENTIAL STAT 07/15/2025 12:26 PM EST LIPASE STAT 07/15/2025 12:26 PM EST COMPREHENSIVE METABOLIC PANEL STAT 07/15/2025 12:26 PM EST CBC AND DIFFERENTIAL STAT 07/15/2025 12:26 PM EST from Last 3 Months Results * CT Abdomen Pelvis w Contrast (07/15/2025 3:36 PM EST) Anatomical Region Laterality Modality Body Computed Tomogra phy 07/15/2025 3:56 PM EST Impressions 07/15/2025 4:14 PM EST There is no suspicious mass or collection. Contrast has traversed the small bowel. No definite acute abnormality which might account for left upper quadrant pain -------- FINAL REPORT -------- Dictated By: Adrian Spears Dictated Date: 07/15/2025 15:56 ET Assigned Physician: Adrian Spears Reviewed and Electronically Signed By: Adrian Spears Signed Date: 07/15/2025 16:14 ET Workstation ID: [id number] Transcribed By: Self Edit Transcribed Date: 07/15/2025 15:57 ET Narrative 07/15/2025 4:14 PM EST EXAMINATION: CT ABDOMEN/PELVIS WITH IV CONTRAST CLINICAL INFORMATION: 2 years of left upper quadrant pain. More severe symptoms recently. Pinching sensation COMPARISON: None TECHNIQUE: Multidetector CT. Helical examination of the abdomen and pelvis. Imaging performed after the IV administration of contrast. Reformatting in the coronal and sagittal planes. DLP: 407 mGy-cm Dose optimization was performed including the use of low-dose iterative reconstruction technique with automatic exposure control based on patient size. Type of contrast: ISOVUE 370 Volume of IV contrast: 90 mL Volume of contrast discarded: 0 mL FINDINGS: LIVER: The liver is normal in size, shape, and attenuation. No focal hepatic lesion or biliary ductal dilatation is present. No additional liver findings. BILIARY TRACT: No opaque gallstone. No biliary dilation. SPLEEN: The spleen measures 10.3 cm which is close to the mean expected. No focal abnormality. No fluid around the spleen. No localized perisplenic fat stranding. PANCREAS: No suspicious abnormality. ADRENAL GLANDS: No suspicious abnormality. KIDNEYS: No dilation of the intrarenal collecting system. The nephrograms are symmetric. No suspicious renal mass. No opaque renal calculus. URINARY BLADDER: The bladder is essentially empty. No suspicious abnormality. PELVIC VISCERA: No suspicious abnormality. Small likely physiologic ovarian cysts. GASTROINTESTINAL TRACT: No localized colonic tic containing. There is some oral contrast present in the region of the cecum. The small bowel is not uniformly opacified. Some of the segments the left midabdomen are not fully distended. No suspicious omental or mesenteric mass. No definite swirling in the mesentery or localized stranding in the mesentery. ABDOMINAL WALL: No significant hernia is appreciated. LYMPHOVASCULAR STRUCTURES AND FLUID: There is no abdominal aortic aneurysm. There are no enlarged lymph nodes. There is minimal nonspecific free pelvic fluid. VISUALIZED LOWER CHEST: No suspicious abnormality. MUSCULOSKELETAL: No acute or suspicious osseous abnormality. Procedure Note Adrian Spears MD - 07/15/2025 EXAMINATION: CT ABDOMEN/PELVIS WITH IV CONTRAST CLINICAL INFORMATION: 2 years of left upper quadrant pain. More severe symptoms recently.Pinching sensation COMPARISON: None TECHNIQUE: Multidetector CT. Helical examination of the abdomen and pelvis. Imaging performed after the IV administration of contrast. Reformatting in the coronal and sagittal planes. DLP: 407 mGy-cm Dose optimization was performed including the use of low-dose iterativereconstruction technique with automatic exposure control based on patientsize. Type of contrast: ISOVUE 370 Volume of IV contrast: 90 mL Volume of contrast discarded: 0 mL FINDINGS: LIVER: The liver is normal in size, shape, and attenuation. No focalhepatic lesion or biliary ductal dilatation is present. No additionalliver findings. BILIARY TRACT: No opaque gallstone. No biliary dilation. SPLEEN: The spleen measures 10.3 cm which is close to the mean expected.No focal abnormality. No fluid around the spleen. No localizedperisplenic fat stranding. PANCREAS: No suspicious abnormality. ADRENAL GLANDS: No suspicious abnormality. KIDNEYS: No dilation of the intrarenal collecting system. The nephrogramsare symmetric. No suspicious renal mass. No opaque renal calculus. URINARY BLADDER: The bladder is essentially empty. No suspiciousabnormality. PELVIC VISCERA: No suspicious abnormality. Small likely physiologicovarian cysts. GASTROINTESTINAL TRACT: No localized colonic tic containing. There issome oral contrast present in the region of the cecum. The small bowel isnot uniformly opacified. Some of the segments the left midabdomen are notfully distended. No suspicious omental or mesenteric mass. No definite swirling in themesentery or localized stranding in the mesentery. ABDOMINAL WALL: No significant hernia is appreciated. LYMPHOVASCULAR STRUCTURES AND FLUID: There is no abdominal aorticaneurysm. There are no enlarged lymph nodes. There is minimal nonspecific free pelvic fluid. VISUALIZED LOWER CHEST: No suspicious abnormality. MUSCULOSKELETAL: No acute or suspicious osseous abnormality. IMPRESSION: There is no suspicious mass or collection. Contrast has traversed the small bowel. No definite acute abnormality which might account for left upper quadrantpain -------- FINAL REPORT -------- Dictated By: Adrian Spears Dictated Date: 07/15/2025 15:56 ET Assigned Physician: Adrian Spears Reviewed and Electronically Signed By: Adrian Spears Signed Date: 07/15/2025 16:14 ET Workstation ID: [id number] Transcribed By: Self Edit Transcribed Date: 07/15/2025 15:57 ET us Larry Avila MD IMG CT PROCEDURES Final Result * US Abdomen Limited (07/15/2025 1:39 PM EST) Anatomical Region Laterality Modality Body Ultrasound 07/15/2025 2:00 PM EST Impressions 07/15/2025 2:02 PM EST No suspicious findings in the left upper quadrant. -------- FINAL REPORT -------- Dictated By: Adrian Spears Dictated Date: 07/15/2025 14:00 ET Assigned Physician: Adrian Spears Reviewed and Electronically Signed By: Adrian Spears Signed Date: 07/15/2025 14:02 ET Workstation ID: [id number] Transcribed By: Self Edit Transcribed Date: 07/15/2025 14:00 ET Narrative 07/15/2025 2:02 PM EST EXAMINATION: ABDOMEN ULTRASOUND, LIMITED CLINICAL INFORMATION: Left upper quadrant pain. COMPARISON: None. TECHNIQUE: Ultrasound of the abdomen, limited FINDINGS: QUALITY: Adequate KIDNEYS: Right renal length: Not examined Left renal length: 10.0 cm in greatest length There is no dilation of the intrarenal collecting system in the left kidney. There is no suspicious focal lesion demonstrated in the left kidney. There is no shadowing calculus demonstrated in the left kidney. SPLEEN: The spleen measures 9.9 x 7.9 x 3.9 cm. No focal abnormality. FLUID: No intraperitoneal fluid demonstrated in the left upper abdomen Procedure Note Adrian Spears MD - 07/15/2025 EXAMINATION: ABDOMEN ULTRASOUND, LIMITED CLINICAL INFORMATION: Left upper quadrant pain. COMPARISON: None. TECHNIQUE: Ultrasound of the abdomen, limited FINDINGS: QUALITY: Adequate KIDNEYS: Right renal length: Not examined Left renal length: 10.0 cm in greatest length There is no dilation of the intrarenal collecting system in the leftkidney. There is no suspicious focal lesion demonstrated in the left kidney. There is no shadowing calculus demonstrated in the left kidney. SPLEEN: The spleen measures 9.9 x 7.9 x 3.9 cm. No focal abnormality. FLUID: No intraperitoneal fluid demonstrated in the left upper abdomen IMPRESSION: No suspicious findings in the left upper quadrant. -------- FINAL REPORT -------- Dictated By: Adrian Spears Dictated Date: 07/15/2025 14:00 ET Assigned Physician: Adrian Spears Reviewed and Electronically Signed By: Adrian Spears Signed Date: 07/15/2025 14:02 ET Workstation ID: [id number] Transcribed By: Self Edit Transcribed Date: 07/15/2025 14:00 ET Larry Avila MD IMG US PROCEDURES Final Result * POC , urine manually resulted (07/15/2025 1:17 PM EST) HCG, Ur POC Negative Negative POC hCG Int QC Pass? Yes Yes Urine Urine specimen obtained by clean catch procedure / Unknown 07/15/2025 1:17 PM EST Codi Morales NP POINT OF CARE TEST ENTER/ EDIT ORDERABLES Final Result * Prothrombin time with INR (07/15/2025 1:01 PM EST) Protime 12.5 10.6 - 13.9 sec LAB COAGULATION METHOD 07/15/2025 1:31 PM EST [facility] INR 1.0 LAB COAGULATION METHOD 07/15/2025 1:31 PM EST [facility] Blood Venous blood specimen / Unknown Venipuncture / Unknown 07/15/2025 1:01 PM EST 07/15/2025 1:09 PM EST Larry Avila MD LAB BLOOD ORDERABLES Final Res ult [facility] [address] [place] [address], [place] [phone] * Urinalysis with reflex microscopic and culture (07/15/2025 12:50 PM EST) Specific [place] Urine 1.025 1.003 - 1.030 LAB URINALYSIS - AUTOMATED METHOD 07/15/2025 1:14 PM [facility] pH, Urine 6.0 5.0 - 8.0 pH LAB URINALYSIS - AUTOMATED METHOD 07/15/2025 1:14 PM [facility] Leukocytes, Urine Negative Negative LAB URINALYSIS - AUTOMATED METHOD 07/15/2025 1:14 PM [facility] Nitrite, Urine Negative Negative LAB URINALYSIS - AUTOMATED METHOD 07/15/2025 1:14 PM [facility] Protein, Urine Negative <=Trace mg/dL LAB URINALYSIS - AUTOMATED METHOD 07/15/2025 1:14 PM [facility] Glucose, Urine Negative Negative mg/dL LAB URINALYSIS - AUTOMATED METHOD 07/15/2025 1:14 PM [facility] Ketones, Urine Negative Negative mg/dL LAB URINALYSIS - AUTOMATED METHOD 07/15/2025 1:14 PM [facility] Urobilinogen, Urine 0.2 0.2 - 1.0 mg/dL LAB URINALYSIS - AUTOMATED METHOD 07/15/2025 1:14 PM [facility] Bilirubin, Urine Negative Negative LAB URINALYSIS - AUTOMATED METHOD 07/15/2025 1:14 PM [facility] Blood, Urine Negative Negative LAB URINALYSIS - AUTOMATED METHOD 07/15/2025 1:14 PM [facility] Urine Urine specimen obtained by clean catch procedure / Unknown Non-blood Collection / Unknown 07/15/2025 12:50 PM EST 07/15/2025 1:09 PM EST us Larry Avila MD LAB URINE ORDERABLES Final Res ult [facility] [address] [place] [address], [place] [phone] * Garcia urine culture tube (07/15/2025 12:50 PM EST) Extra Tube Hold for add-ons. 07/15/2025 3:01 PM EST [facility] Comment:Auto resulted. Urine Urine specimen obtained by clean catch procedure / Unknown Non-blood Collection / Unknown 07/15/2025 12:50 PM EST 07/15/2025 1:09 PM EST Larry Avila MD LAB URINE ORDERABLES Final Res ult [facility] [address] [place] [address], [place] [phone] * Drug abuse screen 8a panel, urine (07/15/2025 12:50 PM EST) Pathologist [facility] Amphetamine Screen, Ur Negative Negative 1:37 PM EST [facility] Comment:Certain OTC medicati ons containing ephedrine, phenylephrine, pseudoephedrine and phenylpropanolamine can cause false positive results. Barbiturate Screen, Ur Negative Negative 1:37 PM EST [facility] Benzodiazepine Screen, Ur Negative Negative 07/15/2025 1:37 PM [facility] Cocaine Screen, Ur Negative Negative 2024 1:37 PM [facility] Opiate Screen, Ur Negative Negative 025 1:37 PM [facility] Cannabinoid (THC) Screen, Ur Negative Negative 07/15/2025 1:37 PM [facility] Comment:Specimens from patie nts taking pantoprazole sodium (Protonix) have been shown to produce false positive results. Oxycodone Screen, Ur Negative Negative 07/03 1:37 PM EST [facility] Fentanyl, Ur Negative Negative 07/15/2025 1:37 PM [facility] Urine Urine specimen obtained by clean catch procedure / Unknown Non-blood Collection / Unknown 07/15/2025 12:50 PM EST 07/15/2025 1:09 PM EST Narrative [facility] - 07/15/2025 1:37 PM EST Assay cutoffs: Amphetamines 1000 ng/mL Barbiturates 200 ng/mL Benzodiazepines 200 ng/mL Cocaine 300 ng/mL Fentanyl 1 ng/mL Opiates 300 ng/mL Oxycodone 100 ng/mL THC 50 ng/mL Semi-quantitative assay for screening purposes only. Unconfirmed screening result should not be used for non-medical purposes. *ALTERNATE METHOD CONFIRMATION DONE UPON REQUEST ONLY* Larry Avila MD LAB URINE ORDERABLES Final Res ult [facility] [address] [place] [address], * (ABNORMAL) CBC auto differential (07/15/2025 12:26 PM EST) WBC 7.2 4.8 - 10.8 K/mcL LAB HEMETOLOGY METHOD 07/15/2025 12:46 PM [facility] RBC 5.20(H) 3.80 - 4.80 M/mcL LAB HEMETOLOGY METHOD 07/15/2025 12:46 PM [facility] Hemoglobin 14.9 11.5 - 16.0 g/dL LAB HEMETOLOGY METHOD 07/15/2025 12:46 PM [facility] Hematocrit 43.9 35.0 - 47.0 % LAB HEMETOLOGY METHOD 07/15/2025 12:46 PM [facility] MCV 85.2 79.0 - 98.0 FL LAB HEMETOLOGY METHOD 07/15/2025 12:46 PM [facility] MCH 28.9 27.0 - 32.0 pcg LAB HEMETOLOGY METHOD 07/15/2025 12:46 PM [facility] MCHC 33.9 32.0 - 37.0 g/dL LAB HEMETOLOGY METHOD 07/15/2025 12:46 PM [facility] RDW 12.0 11.0 - 15.0 % LAB HEMETOLOGY METHOD 07/15/2025 12:46 PM [facility] Platelets 299 130 - 400 K/mcL LAB HEMETOLOGY METHOD 07/15/2025 12:46 PM [facility] MPV 8.7 7.0 - 11.0 FL LAB HEMETOLOGY METHOD 07/15/2025 12:46 PM [facility] NRBC 0.0 <1.0 % LAB HEMETOLOGY METHOD 07/15/2025 12:46 PM [facility] NRBC Absolute 0.00 <0.10 K/mcL LAB HEMETOLOGY METHOD 07/15/2025 12:46 PM [facility] Neutrophils Relative 55.9 % LAB HEMETOLOGY METHOD 07/15/2025 12:46 PM [facility] Lymphocytes Relative 34.9 % LAB HEMETOLOGY METHOD 07/15/2025 12:46 PM [facility] Monocytes Relative 6.8 % LAB HEMETOLOGY METHOD 07/15/2025 12:46 PM [facility] Eosinophils Relative 1.5 % LAB HEMETOLOGY METHOD 07/15/2025 12:46 PM [facility] Basophils Relative 0.6 % LAB HEMETOLOGY METHOD 07/15/2025 12:46 PM [facility] Immature Granulocytes Relative 0.3 % LAB HEMETOLOGY METHOD 07/15/2025 12:46 PM [facility] Neutrophils Absolute 4.00 1.50 - 7.00 K/mcL LAB HEMETOLOGY METHOD 07/15/2025 12:46 PM EST [facility] Lymphocytes Absolute 2.50 1.00 - 5.00 K/mcL LAB HEMETOLOGY METHOD 07/15/2025 12:46 PM EST [facility] Monocytes Absolute 0.49 0.20 - 1.00 K/mcL LAB HEMETOLOGY METHOD 07/15/2025 12:46 PM EST [facility] Eosinophils Absolute 0.11 0.00 - 0.50 K/[facility] LAB HEMETOLOGY METHOD 07/15/2025 12:46 PM EST [facility] Basophils Absolute 0.04 0.00 - 0.20 K/[facility] LAB HEMETOLOGY METHOD 07/15/2025 12:46 PM [facility] Immature Granulocytes Absolute 0.02 0.00 - 0.03 K/[facility] HEMETOLOGY METHOD 07/15/2025 12:46 PM EST [facility] Blood Venous blood specimen / Unknown Venipuncture / Unknown 07/15/2025 12:26 PM EST 07/15/2025 12:32 PM EST us Larry Avila MD LAB BLOOD ORDERABLES Final Res ult Performing Organization Address City/[facility]/ZIP Co de Phone Number [facility] [address] [place] [address], * Magnesium (07/15/2025 12:26 PM EST) Magnesium 1.9 1.9 - 2.6 mg/dL 07/15/2025 1:06 PM EST [facility] Blood Venous blood specimen / Unknown Venipuncture / Unknown 07/15/2025 12:26 PM EST 07/15/2025 12:32 PM EST us Larry Avila MD LAB BLOOD ORDERABLES Final Res ult [facility] [address] [place] [address], * Lipase (07/15/2025 12:26 PM EST) Lipase 27 12 - 53 unit/L 07/15/2025 1:06 PM [facility] Blood Venous blood specimen / Unknown Venipuncture / Unknown 07/15/2025 12:26 PM EST 07/15/2025 12:32 PM EST Larry Avila MD LAB BLOOD ORDERABLES Final Res ult Performing Organization Address [facility]/ZIP Co de Phone Number [facility] [address] [place] [address], [place] [phone] * Comprehensive metabolic panel (07/15/2025 12:26 PM EST) [facility] Sodium 140 133 - 145 mmol/L 07/15/2025 1:06 PM [facility] Potassium 4.4 3.5 - 5.5 mmol/L 07/15/2025 1:06 PM [facility] Chloride 104 96 - 110 mmol/L 07/15/2025 1:06 PM [facility] CO2 27 21 - 32 mmol/L 07/15/2025 1:06 PM [facility] Anion Gap 9 3 - 11 07/15/2025 1:06 PM [facility] Glucose 75 70 - 100 mg/dL 07/15/2025 1:06 PM [facility] BUN 10 5 - 25 mg/dL 07/15/2025 1:06 PM [facility] Creatinine 0.69 0.50 - 1.10 mg/dL 07/15/2025 1:06 PM [facility] eGFR 118 >=60 mL/min/1. 73m2 07/15/2025 1:06 PM [facility] Comment:Calculation based on the Chronic Kidney Disease Epidemiology Collaboration (CKD-EPI) equation refit without adjustment for race. BUN/Creatinine Ratio 14.5 07/15/2025 1:06 PM [facility] Calcium 9.3 8.5 - 10.5 mg/dL 07/15/2025 1:06 PM [facility] AST (SGOT) 26 10 - 42 unit/L 07/15/2025 1:06 PM [facility] ALT (SGPT) 24 10 - 60 unit/L 07/15/2025 1:06 PM [facility] Alkaline Phosphatase 52 42 - 121 unit/L 07/15/2025 1:06 PM [facility] Total Protein 7.5 6.0 - 8.0 g/dL 07/15/2025 1:06 PM [facility] Albumin 4.4 3.2 - 5.0 g/dL 07/15/2025 1:06 PM [facility] Total Bilirubin 0.3 0.0 - 1.4 mg/dL 07/15/2025 1:06 PM [facility] Blood Venous blood specimen / Unknown Venipuncture / Unknown 07/15/2025 12:26 PM EST 07/15/2025 12:32 PM EST us Larry Avila MD LAB BLOOD ORDERABLES Final Res ult [facility] [address] [place] [address], from Last 3 Months Insurance MEDICAID - [place] Care Teams Accelerator Operator Relationship Specialty Start Date End Date Rachelle Olson NP [address] [place] [phone] PCP - General 07/15/25
--- OUTSIDE RECORDS SUMMARY | 2025-07-25 09:05 | XMS_ITS | Clinical Summary ---
Author Organization [facility] Address [address] [place] [address] Care Team Providers Care Industrial Furnace Fabricator Name Role Phone Rachelle Olson Primary Care Provider [phone] Medications No known medications Active Problems Problem [...] patient's age to complete this topic Insurance [employer] Care Teams Industrial Furnace Fabricator Relationship Specialty Start Date End Date Rachelle Olson [address] [place] [phone] PCP - General 06/10/22
--- OUTSIDE RECORDS SUMMARY | 2025-07-25 09:05 | XMS_ITS | Encounter Summary ---
Author Organization [employer] Address [address] [place] [address] Care Team Providers Care Plastic Injection Mold Maker Name Role Phone Rachelle Olson Primary Care Provider [phone] Encounter Details Date Type Department Care Team (Late st Contact Info) Description 07/23/2024 Orders Only [facility] [address], [place] [phone] Haritha Selby MD [address] [place], [place] [phone] Hematuria, unspecified type (Primary Dx) Social History [...] (08/29/2024 11:58 AM EST) Color Urine Yellow [facility] Appearance Urine Clear [facility] PH 7.5 5.0 - 9.0 [facility] Glucose Urine UA Negative Negative mg/dL [facility] Urine Blood Small (1+)(A) Negative [facility] Specific [place] - Urine 1.020 1.005 - 1.025 [facility] Urine Protein Negative Neg-Trace mg/dL [facility] Urine Ketones Negative Negative mg/dL [facility] Nitrite Urine Negative Negative [facility] Leukocyte Esterase Urine Negative Negative [facility] RBC Urine 0-2 0 - 2 /HPF [facility] Urine WBC 0-5 0 - 5 /HPF [facility] Urine Squamous Epithelial Cell 0-2 0 - 2 /HPF [facility] Urine Bacteria None Seen None Seen [facility] Hyaline Casts, Urine 0-2 0 - 2 /LPF [facility] Urine 08/29/2024 11:5 8 AM EST 08/29/2024 1:11 PM EST Narrative [facility] - 08/29/2024 1:57 PM EST Urine, Clean Catch us Haritha Selby MD LAB URINE ORDERABLES Final Resul t [facility] [address] [place] [address] [phone] documented in this encounter Visit Diagnoses Diagnosis Hematuria, unspecified type- Primary documented in this encounter Care Teams Plastic Injection Mold Maker Relationship Specialty Start Date End Date Rachelle Olson ANP [address] [place] [phone] PCP - General Family Medicine 07/17/20 documented as of this encounter
== END 2025-07-25 08:48 | disposition home or self-care (01) ==
LOC: HO.XRAY 08:47
PROVIDERS: PCP Nurse Practitioner Primary Care; Visit Provider Nurse Practitioner Family
DX: R13.10 Dysphagia, unspecified (principal)
CPT/HCPCS: 74221

== ENCOUNTER → 2025-07-25 08:48 | Outpatient (BNV) | payer MEDICAID, SELFPAY | PROVIDERS: PCP Nurse Practitioner Primary Care; Visit Provider Radiology Diagnostic Ultrasound | DX: R13.10 Dysphagia, unspecified (principal) | CPT/HCPCS: 74221 ==

== ENCOUNTER 2025-07-31 11:07 | Outpatient (AMB) | payer MEDICAID, SELFPAY ==
--- NOTE | 2025-07-31 11:08 | MHC.OFFVIS ---
Vital Signs 07/31/25 11:13 Height 5 ft 2 in Weight 127 lb BMI 23.2 BP 110/70 Blood Pressure Location Rt brachial Position Sitting Pulse 94 Pulse Source Pulse Oximeter Pulse Oximetry (%) 97 Oxygen Delivery Method Room Air Intake Visit Reasons: Rectal Bleeding Intake Note: Est pt for mgmt of GERD + IBS. CC; C/O chronic GERD + IBS exacerbation and persistence of BRB per rectum despite current therapies. Pt also reports being seen at [facility] ED (records obtained) recently for similar sx / episode. Oil And Gas Field Technician Required: No Accompanied by: Child Allergies No Known Allergies (No Known Allergies*) Allergy (Verified 07/31/25 11:08) HPI HPI Rectal Bleeding: Details: LAST VISIT: Dyspepsia Postprandial epigastric pain GERD (gastroesophageal reflux disease) Constipation Abdominal bloating Hemorrhoids without complication Plan History of H pylori in the past. Currently patient is not on any PPI. Will start her on pantoprazole. Avoid dietary triggers and late night snacking. Staying upright for minimum 3 hours after meals discussed with patient. Will order labs, lipase, vitamin B12, folate, vitamin-D, transglutaminase and thyroid study. Patient will be sent for barium swallow. Increase fluid intake and activity to promote better bowel motility. Patient will take Senokot to help her empty her bowels better. Use Proctosol as needed, Sitz baths with Epsom salts. Discussed with patient low FODMAP diet. List of food recommended as well as risk of food to avoid given to patient. Patient follow-up in our office in 2 months, sooner on as needed basis. Patient is agreeable to this plan and verbalizes understanding of instructions. She was given the opportunity to ask questions and all questions answered. ? Thank you for allowing me to participate in her care Orders Lipase Today R10.9 Vitamin B12 and Folate Today R19.7 Vitamin D 25-OH (D2 and D3) Today E55.9 Transglutaminase IgA Today R10.9 TSH reflex Free T4 Today K59.00 FL barium swallow Today R13.10 New sennosides (Natural Senna Laxative) 17.2 mg (2 x 8.6 mg) PO BEDTIME 60 tabs 3RF constipation K59.00 hydrocortisone 2.5% (Proctosol HC) 1 appl NE BID-QID PRN 30 grams 2RF hemorrhoids K64.9 pantoprazole take one tablet half an hour before breakfast 40 mg PO DAILY 30 tabs 2RF K21.9 TODAY'S VISIT Patient is here today for request visit. Patient called this morning and stated that she continues to have severe upper abdominal pain. Pain is mostly in her left upper quadrant. Patient was seen in the ED at [facility] few days after she was seen in the office. No acute findings during visit. CT scan and abdominal ultrasound did not show any after an processes. No leukocytosis. Lab results done after last visit discussed with patient. Barium swallow was normal. Reflux was not seen on this study. Patient's main concern is abdominal pain and severe bloating as well as change in bowel pattern. Patient uses senna only as needed. Patient admits to having more frequent diarrhea and blood in the stool. Patient took a picture and very tiny amount of blood was in the toilet bowl without clots. Patient states that she is using the spleen, however feels like it is not helping. Patient feels rectal area painful and sometimes feels like it is pulsating. [facility] Medical History High grade squamous intraepithelial cervical dysplasia Dyspnea Varicose veins of bilateral lower extremities with pain No known health problems Surgical History H/O LEEP H/O vein stripping Family History Mother Hypertension Epilepsy Social History Alcohol intake: never Patient Tobacco Use Status: Former Tobacco user Years Smoked: On/off 5 +/- Female Reproductive History Menstrual Age of Menarche: 12 Review of Systems Const Denies weight gain and Denies weight loss ENT Reports no additional complaints, Denies dysphagia and Denies odynophagia Card Reports no additional complaints Resp Reports no additional complaints GI Reports abdominal pain (LLQ, LUQ), Denies belching, Denies melena, Reports bloating, Denies change in bowel habits, Reports constipation, Denies dysphagia, Denies excessive flatus, Reports dyspepsia, Reports heartburn, Denies diarrhea, Denies loose stools, Denies nausea, Denies odynophagia and Denies vomiting Reports no additional complaints Musc Reports no additional complaints Neuro Reports no additional complaints Psych Reports no additional complaints Endo Reports no additional complaints Physical Exam Vital Signs: Last Vital Signs Pulse 94 07/31/25 11:13 BP 110/70 07/31/25 11:13 Pulse Ox 97 07/31/25 11:13 Oxygen Delivery Method Room Air 07/31/25 11:13 BMI result Body Mass Index 23.2 Const General: healthy appearing, no acute distress and well developed Nutritional Appearance: well nourished Orientation/consciousness: patient oriented x3 Resp Effort & Inspection: normal respiratory effort, able to speak in complete sentences, no tracheal deviation and symmetric chest movement Auscultation: clear to auscultation bilaterally Cardio Rate: regular rate GI Inspection: Yes normal to inspection and No distended Palpation (GI): Soft to palpation, not firm, nontender and No hepatosplenomegaly present Auscultation: normal bowel sounds Rectal Exam - Female: normal sphincter tone and hemorrhoids General: Yes no CVA tenderness Back/Spine/Pelvis Back: no CVA tenderness Skin General skin exam: elasticity normal, turgor normal and dry skin Neuro General: patient oriented x3 Psych Appearance: grossly normal Mental Status: mental status grossly normal Results Reviewed Results Reviewed: BARIUM SWALLOW X-RAY 07/25/2025 FINDINGS Normal swallowing reflex. No evidence penetration or aspiration events occurred throughout the duration of the study. Esophagus demonstrates normal distention and motility. No mass or mucosal lesion is seen. No fixed stricture is identified. No evidence of reflux during the procedure. No evidence of hiatal hernia. There is normal passage of the barium pill to the stomach. FL/FL barium swallow with air IMPRESSION: Unremarkable barium swallow study. Laboratory Tests 01/31/25 05/04/25 07/10/25 10:30 07:08 08:57 Lipase 17 Vitamin B12 433 25-OH Vitamin D Total 24 L Folate 10.2 TSH 1.20 Stool H. pylori Ag SEE NOTE A SEE NOTE Tiss Transglutamin IgA <1.0 Assessment & Plan Assessment & Plan (1) Dyspepsia: Code(s): R10.13 - Epigastric pain (2) Postprandial epigastric pain: Code(s): R10.13 - Epigastric pain (3) Gastroesophageal reflux disease: Code(s): K21.9 - Gastro-esophageal reflux disease without esophagitis Qualifiers: Esophagitis presence: esophagitis presence not specified Qualified Code(s): K21.9 - Gastro-esophageal reflux disease without esophagitis (4) Constipation: Code(s): K59.00 - Constipation, unspecified Qualifiers: Constipation type: slow transit constipation Qualified Code(s): K59.01 - Slow transit constipation (5) Abdominal bloating: Code(s): R14.0 - Abdominal distension (gaseous) (6) Hemorrhoids without complication: Code(s): K64.9 - Unspecified hemorrhoids (7) External hemorrhoids without complication: Code(s): K64.4 - Residual hemorrhoidal skin tags Plan Patient continues to have rectal bleeding and change in bowel pattern. Patient reports increased loose stools. Only uses Senokot as needed in frequently. Pain in the left upper quadrant nontender on exam. Digital exam while female aircraft engine mechanic in the room performed and external hemorrhoids as well as internal hemorrhoids noted. Patient will be sent for colonoscopy to evaluate her colon. What to expect before during and after procedure discussed with patient. Stressed the importance of good bowel prep and clear liquid diet day before procedure. Patient is an appointment in September for follow-up. We will call her with results. Patient was able to be scheduled for August 10. Patient will call us if she will have any GI concerning symptoms. She is agreeable to this plan and verbalizes understanding of instructions. She was given the opportunity to ask questions and all questions answered. Thank you for allowing me to participate in her care Orders: Referrals GI Procedure Notification K62.5 - Hemorrhage of anus and rectum, Z12.11 - Encounter for screening for malignant neoplasm of colon Medications: New bisacodyl (Dulcolax (bisacodyl)) take 4 tabs at noon the day before your colonoscopy 20 mg (4 x 5 mg) PO ONCE 4 tabs 0RF constipation 1 day Z12.11 - Encounter for screening for malignant neoplasm of colon polyethylene glycol 3350 (Miralax) As directed by gastroenterology department at [facility] 238 grams PO ONCE 238 grams 0RF Z12.11 - Encounter for screening for malignant neoplasm of colon Coding Level of Care Code Est Pt Level 4 (84125) Add On Problem Visit Only Diagnoses Dyspepsia R10.13 Postprandial epigastric pain R10.13 Gastroesophageal reflux disease, unspecified whether esophagitis present K21.9 Esophagitis presence: esophagitis presence not specified Slow transit constipation K59.01 Constipation type: slow transit constipation Abdominal bloating R14.0 Hemorrhoids without complication K64.9 External hemorrhoids without complication K64.4 Time Spent (min) 40 Comment 25 minutes spent with patient and additional 15 minutes spent reviewing her records
[2025-07-31 11:13] VITALS: BP 110/70; PULSE 94; O2SAT 97; BMI 23.2
--- OUTSIDE RECORDS SUMMARY | 2025-07-31 12:58 | XMS_ITS | Clinical Summary ---
Author Organization [facility] Address [address] [place] [address] Phone Care Team Providers Care Trolley Worker Name Role Phone Rachelle Olson NP Primary Care Provider Allergies Active Allergy Reactions Criticality Noted Date Comments Avocado Nausea And Vomiting 01/24/2025 Kiwi (Actinidia Chinensis) Unknown 01/24/2025 Throat itching Encounters Date Type Department Care Team Description 07/15/2025 12:06 PM EST - 07/15/2025 5:28 PM EST Emergency [facility] Emergency [address] [place] [phone] Larry Avila MD Encounter for medical screening examination (Primary Dx); Left upper quadrant abdominal pain Discharge Disposition: Home or Self Care 07/14/2025 10:04 AM EST - 07/14/2025 12:54 PM EST Emergency [facility] Emergency [address] [place] [phone] Discharge Disposition: Left Against Medical Advice from [...] Signed Date: 07/15/2025 16:14 ET Workstation ID: [id number] Transcribed By: Self Edit Transcribed Date: 07/15/2025 [...] Signed Date: 07/15/2025 16:14 ET Workstation ID: [id number] Transcribed By: Self Edit Transcribed Date: 07/15/2025 [...] Signed Date: 07/15/2025 14:02 ET Workstation ID: [id number] Transcribed By: Self Edit Transcribed Date: 07/15/2025 [...] Signed Date: 07/15/2025 14:02 ET Workstation ID: [id number] Transcribed By: Self Edit Transcribed Date: 07/15/2025 [...] LAB COAGULATION METHOD 07/15/2025 1:31 PM EST [facility] INR 1.0 LAB COAGULATION METHOD 07/15/2025 1:31 PM EST [facility] Blood Venous blood specimen / Unknown Venipuncture / Unknown 07/15/2025 1:01 PM EST 07/15/2025 1:09 PM EST Larry Avila MD LAB BLOOD ORDERABLES Final Res ult [facility] [address] [place] [address], [place] [phone] * Urinalysis with reflex microscopic and culture (07/15/2025 12:50 PM EST) Specific [place] Urine 1.025 1.003 - 1.030 LAB URINALYSIS - AUTOMATED METHOD 07/15/2025 1:14 PM [facility] pH, Urine 6.0 5.0 - 8.0 pH LAB URINALYSIS - AUTOMATED METHOD 07/15/2025 1:14 PM [facility] Leukocytes, Urine Negative Negative LAB URINALYSIS - AUTOMATED METHOD 07/15/2025 1:14 PM [facility] Nitrite, Urine Negative Negative LAB URINALYSIS - AUTOMATED METHOD 07/15/2025 1:14 PM [facility] Protein, Urine Negative <=Trace mg/dL LAB URINALYSIS - AUTOMATED METHOD 07/15/2025 1:14 PM [facility] Glucose, Urine Negative Negative mg/dL LAB URINALYSIS - AUTOMATED METHOD 07/15/2025 1:14 PM [facility] Ketones, Urine Negative Negative mg/dL LAB URINALYSIS - AUTOMATED METHOD 07/15/2025 1:14 PM [facility] Urobilinogen, Urine 0.2 0.2 - 1.0 mg/dL LAB URINALYSIS - AUTOMATED METHOD 07/15/2025 1:14 PM [facility] Bilirubin, Urine Negative Negative LAB URINALYSIS - AUTOMATED METHOD 07/15/2025 1:14 PM [facility] Blood, Urine Negative Negative LAB URINALYSIS - AUTOMATED METHOD 07/15/2025 1:14 PM [facility] Urine Urine specimen obtained by clean catch procedure / Unknown Non-blood Collection / Unknown 07/15/2025 12:50 PM EST 07/15/2025 1:09 PM EST us Larry Avila MD LAB URINE ORDERABLES Final Res ult [facility] [address] [place] [address], [place] [phone] * Garcia urine culture tube (07/15/2025 12:50 PM EST) Extra Tube Hold for add-ons. 07/15/2025 3:01 PM EST [facility] Comment:Auto resulted. Urine Urine specimen obtained by clean catch procedure / Unknown Non-blood Collection / Unknown 07/15/2025 12:50 PM EST 07/15/2025 1:09 PM EST Larry Avila MD LAB URINE ORDERABLES Final Res ult [facility] [address] [place] [address], [place] [phone] * Drug abuse screen 8a panel, urine (07/15/2025 12:50 PM EST) Pathologist [facility] Amphetamine Screen, Ur Negative Negative 1:37 PM EST [facility] Comment:Certain OTC medicati ons containing ephedrine, phenylephrine, pseudoephedrine and phenylpropanolamine can cause false positive results. Barbiturate Screen, Ur Negative Negative 1:37 PM EST [facility] Benzodiazepine Screen, Ur Negative Negative 07/15/2025 1:37 PM [facility] Cocaine Screen, Ur Negative Negative 2024 1:37 PM [facility] Opiate Screen, Ur Negative Negative 025 1:37 PM [facility] Cannabinoid (THC) Screen, Ur Negative Negative 07/15/2025 1:37 PM [facility] Comment:Specimens from patie nts taking pantoprazole sodium (Protonix) have been shown to produce false positive results. Oxycodone Screen, Ur Negative Negative 07/03 1:37 PM EST [facility] Fentanyl, Ur Negative Negative 07/15/2025 1:37 PM [facility] Urine Urine specimen obtained by clean catch procedure / Unknown Non-blood Collection / Unknown 07/15/2025 12:50 PM EST 07/15/2025 1:09 PM EST Narrative [facility] - 07/15/2025 1:37 PM EST Assay [...] MD LAB URINE ORDERABLES Final Res ult [facility] [address] [place] [address], * (ABNORMAL) CBC auto differential (07/15/2025 12:26 PM EST) WBC 7.2 4.8 - 10.8 K/mcL LAB HEMETOLOGY METHOD 07/15/2025 12:46 PM [facility] RBC 5.20(H) 3.80 - 4.80 M/mcL LAB HEMETOLOGY METHOD 07/15/2025 12:46 PM [facility] Hemoglobin 14.9 11.5 - 16.0 g/dL LAB HEMETOLOGY METHOD 07/15/2025 12:46 PM [facility] Hematocrit 43.9 35.0 - 47.0 % LAB HEMETOLOGY METHOD 07/15/2025 12:46 PM [facility] MCV 85.2 79.0 - 98.0 FL LAB HEMETOLOGY METHOD 07/15/2025 12:46 PM [facility] MCH 28.9 27.0 - 32.0 pcg LAB HEMETOLOGY METHOD 07/15/2025 12:46 PM [facility] MCHC 33.9 32.0 - 37.0 g/dL LAB HEMETOLOGY METHOD 07/15/2025 12:46 PM [facility] RDW 12.0 11.0 - 15.0 % LAB HEMETOLOGY METHOD 07/15/2025 12:46 PM [facility] Platelets 299 130 - 400 K/mcL LAB HEMETOLOGY METHOD 07/15/2025 12:46 PM [facility] MPV 8.7 7.0 - 11.0 FL LAB HEMETOLOGY METHOD 07/15/2025 12:46 PM [facility] NRBC 0.0 <1.0 % LAB HEMETOLOGY METHOD 07/15/2025 12:46 PM [facility] NRBC Absolute 0.00 <0.10 K/mcL LAB HEMETOLOGY METHOD 07/15/2025 12:46 PM [facility] Neutrophils Relative 55.9 % LAB HEMETOLOGY METHOD 07/15/2025 12:46 PM [facility] Lymphocytes Relative 34.9 % LAB HEMETOLOGY METHOD 07/15/2025 12:46 PM [facility] Monocytes Relative 6.8 % LAB HEMETOLOGY METHOD 07/15/2025 12:46 PM [facility] Eosinophils Relative 1.5 % LAB HEMETOLOGY METHOD 07/15/2025 12:46 PM [facility] Basophils Relative 0.6 % LAB HEMETOLOGY METHOD 07/15/2025 12:46 PM [facility] Immature Granulocytes Relative 0.3 % LAB HEMETOLOGY METHOD 07/15/2025 12:46 PM [facility] Neutrophils Absolute 4.00 1.50 - 7.00 K/mcL LAB HEMETOLOGY METHOD 07/15/2025 12:46 PM EST [facility] Lymphocytes Absolute 2.50 1.00 - 5.00 K/mcL LAB HEMETOLOGY METHOD 07/15/2025 12:46 PM EST [facility] Monocytes Absolute 0.49 0.20 - 1.00 K/mcL LAB HEMETOLOGY METHOD 07/15/2025 12:46 PM EST [facility] Eosinophils Absolute 0.11 0.00 - 0.50 [facility] HEMETOLOGY METHOD 07/15/2025 12:46 PM EST [facility] Basophils Absolute 0.04 0.00 - 0.20 [facility] HEMETOLOGY METHOD 07/15/2025 12:46 PM [facility] Immature Granulocytes Absolute 0.02 0.00 - 0.03 [facility] HEMETOLOGY METHOD 07/15/2025 12:46 PM EST [facility] Blood Venous blood specimen / Unknown Venipuncture / Unknown 07/15/2025 12:26 PM EST 07/15/2025 12:32 PM EST us Larry Avila MD LAB BLOOD ORDERABLES Final Res ult Performing Organization Address City/[facility]/ZIP Co de Phone Number [facility] [address] [place] [address], * Magnesium (07/15/2025 12:26 PM EST) Magnesium 1.9 1.9 - 2.6 mg/dL 07/15/2025 1:06 PM EST [facility] Blood Venous blood specimen / Unknown Venipuncture / Unknown 07/15/2025 12:26 PM EST 07/15/2025 12:32 PM EST us Larry Avila MD LAB BLOOD ORDERABLES Final Res ult [facility] [address] [place] [address], * Lipase (07/15/2025 12:26 PM EST) Lipase 27 12 - 53 unit/L 07/15/2025 1:06 PM [facility] Blood Venous blood specimen / Unknown Venipuncture / Unknown 07/15/2025 12:26 PM EST 07/15/2025 12:32 PM EST Larry Avila MD LAB BLOOD ORDERABLES Final Res ult Performing Organization Address [facility]/ZIP Co de Phone Number [facility] [address] [place] [address], [place] [phone] * Comprehensive metabolic panel (07/15/2025 12:26 PM EST) [facility] [address] Sodium 140 133 - 145 mmol/L 07/15/2025 1:06 PM [facility] Potassium 4.4 3.5 - 5.5 mmol/L 07/15/2025 1:06 PM [facility] Chloride 104 96 - 110 mmol/L 07/15/2025 1:06 PM [facility] CO2 27 21 - 32 mmol/L 07/15/2025 1:06 PM [facility] Anion Gap 9 3 - 11 07/15/2025 1:06 PM [facility] Glucose 75 70 - 100 mg/dL 07/15/2025 1:06 PM [facility] BUN 10 5 - 25 mg/dL 07/15/2025 1:06 PM [facility] Creatinine 0.69 0.50 - 1.10 mg/dL 07/15/2025 1:06 PM [facility] eGFR 118 >=60 mL/min/1. 73m2 07/15/2025 1:06 PM [facility] Comment:Calculation based on the Chronic Kidney Disease Epidemiology Collaboration (CKD-EPI) equation refit without adjustment for race. BUN/Creatinine Ratio 14.5 07/15/2025 1:06 PM [facility] Calcium 9.3 8.5 - 10.5 mg/dL 07/15/2025 1:06 PM [facility] AST (SGOT) 26 10 - 42 unit/L 07/15/2025 1:06 PM [facility] ALT (SGPT) 24 10 - 60 unit/L 07/15/2025 1:06 PM [facility] Alkaline Phosphatase 52 42 - 121 unit/L 07/15/2025 1:06 PM [facility] Total Protein 7.5 6.0 - 8.0 g/dL 07/15/2025 1:06 PM [facility] Albumin 4.4 3.2 - 5.0 g/dL 07/15/2025 1:06 PM [facility] Total Bilirubin 0.3 0.0 - 1.4 mg/dL 07/15/2025 1:06 PM [facility] Blood Venous blood specimen / Unknown Venipuncture / Unknown 07/15/2025 12:26 PM EST 07/15/2025 12:32 PM EST us Larry Avila MD LAB BLOOD ORDERABLES Final Res ult [facility] [address] [place] [address], from Last 3 Months Insurance MEDICAID - [place] Care Teams Trolley Worker Relationship Specialty Start Date End Date Rachelle Olson NP [address] [place] [phone] PCP - General 07/15/25
--- OUTSIDE RECORDS SUMMARY | 2025-07-31 12:58 | XMS_ITS | Encounter Summary ---
Author Organization [employer] Address [address] [place] [address] Care Team Providers Care Erection Shop Supervisor Name Role Phone Rachelle Olson Primary Care Provider [phone] Encounter Details Date Type Department Care Team (Late st Contact Info) Description 07/23/2024 Orders Only [facility] MED[facility]INE [address] [place], [place] [phone] Haritha Selby MD [address] [place], [place] [phone] Hematuria, unspecified type (Primary Dx) Social History [...] (08/29/2024 11:58 AM EST) Color Urine Yellow [facility] Appearance Urine Clear [facility] PH 7.5 5.0 - 9.0 [facility] Glucose Urine UA Negative Negative mg/dL [facility] Urine Blood Small (1+)(A) Negative [facility] Specific [place] - Urine 1.020 1.005 - 1.025 [facility] Urine Protein Negative Neg-Trace mg/dL [facility] Urine Ketones Negative Negative mg/dL [facility] Nitrite Urine Negative Negative [facility] Leukocyte Esterase Urine Negative Negative [facility] RBC Urine 0-2 0 - 2 /HPF [facility] Urine WBC 0-5 0 - 5 /HPF [facility] Urine Squamous Epithelial Cell 0-2 0 - 2 /HPF [facility] Urine Bacteria None Seen None Seen [facility] Hyaline Casts, Urine 0-2 0 - 2 /LPF [facility] Urine 08/29/2024 11:5 8 AM EST 08/29/2024 1:11 PM EST Narrative [facility] - 08/29/2024 1:57 PM EST Urine, Clean Catch us Haritha Selby MD LAB URINE ORDERABLES Final Resul t [facility] [address] [place] [phone] documented in this encounter Visit Diagnoses Diagnosis Hematuria, unspecified type- Primary documented in this encounter Care Teams Erection Shop Supervisor Relationship Specialty Start Date End Date Rachelle Olson ANP [address] [place] [phone] PCP - General Family Medicine 07/17/20 documented as of this encounter
--- OUTSIDE RECORDS SUMMARY | 2025-07-31 12:58 | XMS_ITS | Encounter Summary ---
Author Organization [employer] Address [address] [facility] [address] [place] [address] Care Team Providers Care Scrubbing Machine Operator Name Role Phone Rachelle Olson Primary Care Provider [phone] Reason for Visit * Reason Onset Date Comments Medication Question 06/21/2025 Pt clifford shook medication fiber pills doctor prescribed to be sent to [facility]. [facility] stated they don't have the pills. Encounter Details Date Type Department Care Team ([facility] Contact Info) Description 06/21/2025 Refill [facility]INE [address] [place], [place] [phone] Rachelle Olson ANP [address] [place] [address] Chronic idiopathic constipation Social History Tobacco Use [...] pills doctor prescribed to be sent to [facility]. [facility] stated they don't have the pills. documented in this encounter Plan of Treatment Not on file documented as of this encounter Visit Diagnoses Diagnosis Chronic idiopathic constipation Unspecified constipation documented in this encounter Additional Health Concerns Assessment Noted Time PHQ-9 Depression Total Score: 0 09/01/19 25 2:43 PM EST documented as of this encounter Care Teams Scrubbing Machine Operator Relationship Specialty Start Date End Date Rachelle Olson ANP [address] [place] [phone] PCP - General Family Medicine 07/17/20 documented as of this encounter
--- OUTSIDE RECORDS SUMMARY | 2025-07-31 12:58 | XMS_ITS | Encounter Summary ---
Author Organization [employer] Address [address] [facility] 7t [place] [address] Care Team Providers Care Electroneurodiagnostic Technician Name Role Phone Rachelle Olson Primary Care Provider [phone] Reason for Visit * Reason Onset Date Comments Nurse Triage 04/16/2023 Encounter Details Date Type Department Care Team ([facility] st Contact Info) Description 04/16/2023 Telephone [facility] MEDICINE [address] [place] [address] Rachelle Olson ANP [address] [place] [address] Nurse Triage Social History Tobacco Use Types [...] stones. Pt is offered to come to [facility] but, requests to see PCP. Apt with PCP 05/04/23 at 1100am. Pt is advised to seek evaluation at either [facility] or ED if symptoms become worse before [...] The caller accepted this outcome Patient speaks malian documented in this encounter Plan of Treatment Not on file documented as of this encounter Visit Diagnoses Not on filedocumented in this encounter Care Teams Electroneurodiagnostic Technician Relationship Specialty Start Date End Date Rachelle Olson ANP [address] [place] [phone] PCP - General Family Medicine 07/17/20 documented as of this encounter
--- OUTSIDE RECORDS SUMMARY | 2025-07-31 12:58 | XMS_ITS | Encounter Summary ---
Author Organization [employer] Address [address] [address] [place] [address] Care Team Providers Care Pre Parole Counseling Aide Name Role Phone Rachelle Olson Primary Care Provider [phone] Encounter Details Date Type Department Care Team (Late st Contact Info) Description 05/12/2025 Orders Only [facility] [address] [place], [place] [phone] Provider, MD Anthony Social History Tobacco Use [...] documented as of this encounter Care Teams Pre Parole Counseling Aide Relationship Specialty Start Date End Date Rachelle Olson ANP [address] [place] [address] PCP - General Family Medicine 07/17/20 documented as of this encounter
--- OUTSIDE RECORDS SUMMARY | 2025-07-31 12:58 | XMS_ITS | Encounter Summary ---
Author Organization [employer] Address [address] [address] [facility] [address] [place] [address] Care Team Providers Care Cafe Worker Name Role Phone Rachelle Olson Primary Care Provider [phone] Encounter Details Date Type Department Care Team (Late st Contact Info) Description 05/25/2025 Results Follow-Up [facility] MEDICINE [address] [place], [place] [phone] Rachelle Olson ANP [address] [place], [place] [phone] CT Abdomen Pelvis w/ Contrast Social History [...] documented as of this encounter Care Teams Cafe Worker Relationship Specialty Start Date End Date Rachelle Olson ANP [address] [place] [phone] PCP - General Family Medicine 07/17/20 documented as of this encounter
--- OUTSIDE RECORDS SUMMARY | 2025-07-31 12:58 | XMS_ITS | Clinical Summary ---
Author Organization [facility] Address [address] [place] [address] Care Team Providers Care Stitching Machine Setter Name Role Phone Rachelle Olson Primary Care Provider [phone] Medications No known medications Active Problems Problem [...] patient's age to complete this topic Insurance [employer] Care Teams Stitching Machine Setter Relationship Specialty Start Date End Date Rachelle Olson [address] [place] [phone] PCP - General 06/10/22
--- OUTSIDE RECORDS SUMMARY | 2025-07-31 12:58 | XMS_ITS | Clinical Summary ---
Author Organization [employer] Address [address] [place] [address] Care Team Providers Care Collar Runner Name Role Phone Lissett Bunn Primary Care Provider [phone] Allergies Active Allergy Reactions Criticality Noted Date [...] Description 07/20/2025 1:45 PM EST Office Visit [address] [address] Priscila Reyes CNM Breast tenderness (Primary Dx) 07/20/2025 Travel 07/19/2025 Telephone [facility] [address] [place], [place] [phone] Priscila Reyes CNM chart prep 07/18/2025 Telephone [facility] [address] [place], [place] [phone] Lissett Bnun ANP Nurse Triage 07/18/[address] [phone] Reuben, Sera, A CLASS LINEMAN Follow-up 07/10/2025 Orders Only GENERIC EXTERNAL DATA DEPARTMENT Provider, Generic External Data 06/22/2025 Orders Only GENERIC EXTERNAL DATA DEPARTMENT Provider, Generic External Data 06/21/2025 3:15 PM EST Office Visit [address] [address] Ree Farley, CHRISTINE Chronic idiopathic constipation (Primary Dx); Left sided abdominal pain 06/21/2025 Travel 06/21/[address] [address] Lissett Bunn ANP Chronic idiopathic constipation 06/16/[address] [address] Lissett Bunn ANP chartprep 06/14/[address] [phone] Lissett Bunn ANP Telephone Call 06/09/2025 Orders Only GENERIC EXTERNAL DATA DEPARTMENT Provider, Generic External Data 05/25/[address] [address] Sera Alexis, RN NTTS 05/25/2025 Results Follow-Up [address] [address] Abdomen Pelvis w/ Contrast 05/25/[address] [address] Lissett Bunn ANP 05/24/[address] [address] Lissett Bunn ANP 05/12/2025 Results Follow-Up [address] [address] Priscila Reyes CNM Colposcopy 05/12/2025 Orders Only [facility] [address] [place], [place] [phone] Anthony Rodriguez MD 05/09/2025 Orders Only GENERIC EXTERNAL DATA DEPARTMENT Provider, Generic External Data 05/05/2025 Results Follow-Up [facility] [address] [place] [phone] Lissett Bunn ANP Helicobacter pylori Antigen, EIA, Stool from Last 3 Months Immunizations Immunization Administration [...] Procedure Name Priority Date/Time Associated Diagnosis Comments FL ESOPHAGUS BARIUM SWALLOW WITH AIR Routine 07/25/2025 9:57 AM EST POCT , URINE Routine 07/20/2025 2:20 PM [...] Recently Relevant to Health Maintenance Results * FL Esophagus Barium Swallow w/Air (07/25/2025 9:57 AM EST) Anatomical Region Laterality Modality Head, Neck Radiographic Symone ging 07/25/2025 9:57 AM EST Narrative 07/25/2025 3:53 PM EST [address] [address] Fluoroscopy Report Signed Patient: Neli Esteban MR#: [id number] : 1990 Acct:[id number] Age/Sex: 34 / F ADM Date: 07/25/25 Loc: HO.XRAY Attending Dr: Becca Robbins [employer]- Ordering Physician: Becca Robbins Date of Service: 07/25/25 Procedure(s): FL barium swallow with air Accession Number(s): [id number] cc: Becca Robbins; LISSETT BUNN NP Reason for Exam: R13.10 - Dysphagia, unspecified EXAMINATION: FL ESOPHAGRAM CLINICAL INFORMATION: Dysphagia COMPARISON: None. TECHNIQUE: Under fluoroscopy, EZ-Paque, EZ-Gas, EZ-HD, and a barium pill were administered orally and transit through the esophagus was observed. Additional radiographic images were obtained. FLUOROSCOPY TIME: 44 seconds DOSE AREA PRODUCT: 38 uGy-m2 (microgray-meters squared) FINDINGS Normal swallowing reflex. No evidence penetration or aspiration events occurred throughout the duration of the study. Esophagus demonstrates normal distention and motility. No mass or mucosal lesion is seen. No fixed stricture is identified. No evidence of reflux during the procedure. No evidence of hiatal hernia. There is normal passage of the barium pill to the stomach. FL/FL barium swallow with air IMPRESSION: Unremarkable barium swallow study. Electronically signed by: Juan Beckham MD 07/25/2025 03:50 PM [facility] Dictated By: Juan Beckham MD Signed By: <Electronically signed by Juan Beckham MD in OV> 07/25/25 1550 DD/ 0957 TD/TT: 07/25/25 1003 Label Printing Machinist: ZACH Procedure Note Donotuseinterpreter, Image - 07/25/[address] [address] Fluoroscopy Report Signed Patient: Neli Esteban MMR#: [id number] : 1990Acct:[id number] Age/Sex: 34 / FADM Date: 07/25/25 Loc: [facility] Attending Dr: Becca Robbins [employer]- Ordering Physician: Becca Robbins Date of Service: 07/25/25 Procedure(s): FL barium swallow with air Accession Number(s): [id number] cc: Becca Robbins; LISSETT BUNN NP Reason for Exam: R13.10 - Dysphagia, unspecified EXAMINATION: FL ESOPHAGRAM CLINICAL INFORMATION: Dysphagia COMPARISON: None. TECHNIQUE: Under fluoroscopy, EZ-Paque, EZ-Gas, EZ-HD, and a barium pill were administered orally and transit through the esophagus was observed. Additional radiographic images were obtained. FLUOROSCOPY TIME: 44 seconds DOSE AREA PRODUCT: 38 uGy-m2 (microgray-meters squared) FINDINGS Normal swallowing reflex. No evidence penetration or aspiration events occurred throughout the duration of the study. Esophagus demonstrates normal distention and motility. No mass or mucosal lesion is seen. No fixed stricture is identified. No evidence of reflux during the procedure. No evidence of hiatal hernia. There is normal passage of the barium pill to the stomach. FL/FL barium swallow with air IMPRESSION: Unremarkable barium swallow study. Electronically signed by: Juan Beckham MD 07/25/2025 03:50 PM EST Dictated By: Juan Beckham MD Signed By: <Electronically signed by Juan Beckham MD in OV> 07/25/25 1550 DD/ 0957 TD/TT: 07/25/25 1003 Label Printing Machinist: ZACH [facility] Exter nal Provider IMG FLUOROSCOPY PROCEDURES Edited Result - Final * POCT , urine manually resulted (07/20/2025 2:20 PM EST) Preg Test, Ur Negative Negative, Indeterminate, None Detected, Trace, 3+, Specimen unsatisfactory for evaluation, Weakly Positive, 1+, 2+ QC Media Lot # [id number] Lot# Expiration Date [id number] Urine 07/20/2025 2:20 PM EST Priscila Reyes [facility] POINT OF CARE TEST ENTER/ EDIT ORDERABLES Final Result * (ABNORMAL) VITAMIN D 25-OH (D2 AND D3) (07/10/2025 8:57 AM EST) Vitamin D, 25-OH, D2 <4 ng/mL [facility] Comment:This test was develo ped and its analytical performancecharacteristics have been determined by [employer] [place], [place]. It hasnot been cleared or approved by the U.S. Food and DrugAdministration. This assay has been validated pursuantto the CLIA regulations and is used for clinicalpurposes.THIS TEST WAS PERFORMED AT:[facility] [id number] [place] [address]EVOMNXW W. MASON,MD,PHD Vitamin D, 25-OH, D3 24 ng/mL [facility] Comment:This test was develo ped and its analytical performancecharacteristics have been determined by [employer] [place], [place]. It hasnot been cleared or approved by the U.S. Food and DrugAdministration. This assay has been validated pursuantto the CLIA regulations and is used for clinicalpurposes. Vitamin D, 25-OH, Total 24(A) 30 - 100 ng/mL [facility] Comment:Vitamin D, 25-Hydrox y reports concentrations [...] = 30 ng/mL.For additional information, please refer tohttp://education.Blurb/faq/YYP835(This link is being provided for informational/educational purposes only.) 07/10/2025 8:57 AM EST 07/10/2025 9:01 AM EST us Generic External Data Provider LAB BLOOD ORDERAB LES Final Result Performing Organization Address [facility]/ZIP Co de Phone Number [facility] [address] [place] [phone] * Vitamin B12 (Cobalamin) and Folate Panel, Serum (07/10/2025 8:57 AM EST) Vitamin B12 433 200 - 900 pg/mL [facility] Comment:NORMAL 200-900 PG/ML INDETERMINATE 160-199 PG/ML DEFICIENT < 160 PG/ML Folate 10.2 > or = 4.0 ng/mL [facility] Comment:Reference Values:> o r = 4.0 ng/mL< 4.0 ng/mL suggests folate deficiency Methotrexate, aminopterin and folinic acid(leucovorin) are chemotherapeutic agents whose molecularstructures are similar to folate; therefore, the Architectfolate assay cannot be used for patients using these drugs. 07/10/2025 8:57 AM EST 07/10/2025 9:01 AM EST us Generic External Data Provider LAB BLOOD ORDERAB LES Final Result Performing Organization Address [facility] Co de Phone Number [facility] [address] [place] [phone] * TSH with Reflex to Free T4 (07/10/2025 8:57 AM EST) TSH reflex Free T4 1.20 0.32 - 4.0 uIU/mL [facility] 07/10/2025 8:57 AM EST 07/10/2025 9:01 AM EST us Generic External Data Provider LAB BLOOD ORDERAB LES Final Result Performing Organization Address [facility] Co de Phone Number [facility] [address] [place] [phone] * Tissue Transglutaminase Antibody, IgA (07/10/2025 8:57 AM EST) Pathologist [facility] Transglutaminase IgA <1.0 U/mL [facility] Comment:Value Interpretation ----- <15.0 Antibody not detected> or = 15.0 Antibody detectedTHIS TEST WAS PERFORMED AT:[facility] [place] [id number] GONZALES MD 07/10/2025 8:57 AM EST 07/10/2025 9:01 AM EST Generic External Data Provider LAB BLOOD ORDERAB LES Final Result Performing Organization Address [facility] Co de Phone Number [facility] [address] [place] [phone] * Lipase (07/10/2025 8:57 AM EST) Pathologist [facility] Lipase 17 8 - 78 U/L [facility] 07/10/2025 8:57 AM EST 07/10/2025 9:01 AM EST [employer] External Data Provider LAB BLOOD ORDERAB LES Final Result Performing Organization Address [facility] de Phone Number [facility] [address] [place] [phone] * (ABNORMAL) Bacterial Vaginosis (06/22/2025 11:59 AM EST) Pathologist [facility] TRICHOMONAS VAGINALIS DETECTION BY PCR NOT DETECTED Not Detect [facility] BACTERIAL VAGINOSIS DETECTION BY PCR POSITIVE(A) Negative [facility] Comment:The BV organism targ ets [...] DETECTION BY PCR NOT DETECTED Not Detect [facility] Clemencia glab krusei PCR NOT DETECTED Not Detect [facility] 06/22/2025 11:5 9 AM EST 06/22/2025 3:38 PM EST us Generic External Data Provider LAB MICROBIOLOGY - GENERAL ORDERABLES Final Result [facility] [address] [place] [phone] * Chlamydia/N. Gonorrhoeae RNA, TMA, Urogenitial (06/22/2025 11:59 AM EST) CT PCR NOT DETECTED Not Detect. [facility] Comment:A not detected test result [...] psychologicalconsequences. NG PCR NOT DETECTED Not Detect. [facility] Comment:A not detected test result [...] LAB MICROBIOLOGY - GENERAL ORDERABLES Final Result [facility] [address] [place] [phone] * Hematoxylin and Eosin Stain (06/09/2025 12:50 PM EST) Only the most recent of2 resultswithin the time period is included. 06/09/2025 12:5 0 PM EST 06/09/2025 1:20 PM EST Narrative [facility] - 06/13/2025 11:44 AM EST ----- ------- Name: Neli Esteban Age/Sex: 34/F : 1990 Unit#: [id number] Attend Dr: Juancarlos Joiner MD Re06/09/25 Status: [facility] Location: [facility] Disch: ----- ------- SPEC : [id number] RECD: 06/09/25 STATUS: PATITO MASSEY NUM: [id number] AIDE: 06/09/[address] [facility] [address]: Juancarlos Joiner MD ENTERED: 06/09/25 SP [...] Neli Esteban Age/Sex: 34/F : 1990 Unit#: [id number] Attend Dr: Juancarlos Joiner MD Re06/09/25 Status: [facility] Location: [facility] Disch: ----- ------- SPEC : [id number] RECD: 06/09/25-1320 STATUS: PATITO MASSEY NUM: [id number] AIDE: 06/09/25-[address] [facility] [address]: Juancarlos Joiner MD ENTERED: 06/09/25-1333 SP TYPE: Surgical OTHR DR: LISSETT BUNN [...] and their performance characteristics determined by [facility]. They have not been cleared or approved by the U.S. Food and Drug Administration (FDA). However, the FDA has determined that such clearance or approval is not necessary. This laboratory is certified under the Clinical Laboratory Improvement Amendments of 1988 (CLIA) as qualified to perform high complexity clinical laboratory testing. Copies To: LISSETT BUNN NP [facility] [address] [place] [address] Juancarlos Joiner MD [facility] [address] [place] [address] ----- ------- Signed (signature on file) Desiree [place] 06/13/25 1144 ----- ------- END OF REPORT us Generic External Data Provider LAB BLOOD ORDERAB LES Final Result [facility] [address] [place] [phone] [phone] * HCG, Qualitative, Urine (06/09/2025 10:29 AM EST) Urine NEGATIVE NEGATIVE [facility] Comment:This test was develo ped to detect early . Falsenegative results may occur after the 5th - 7th week ofpregnancy when using this test method. If clinicallyindicated, consider a serum hCG. 06/09/2025 10:2 9 AM EST 06/09/2025 10:34 AM EST us Generic External Data Provider LAB URINE ORDERAB LES Final Result [facility] [address] [place] [phone] * Biopsy cervix (06/09/2025) us Historical Provider MD IN CLINIC/BEDSIDE ORDERAB LES Final Result * CT Abdomen Pelvis w/ Contrast (05/23/2025 10:18 AM EDT) Anatomical Region Laterality Modality Body, Pelvis, Abdomen Computed T omography 05/23/2025 10:1 8 AM EDT Narrative 05/23/2025 10:49 AM EDT [address] [address] [address] Scan Report Signed Patient: Neli Esteban MR#: [id number] : 1990 Acct:[id number] Age/Sex: 34 / F ADM Date: 05/23/25 Loc: HO.CT Attending Dr: Lissett Bunn NP Ordering Physician: LISSETT BUNN NP Date of Service: 05/23/25 Procedure(s): CT abdomen pelvis w IV con Accession Number(s): [id number] cc: LISSETT BUNN NP Report Number: [id number]: Total DLP = 349.00 mGy-cm Reason for [...] 05/23/25 1046 DD/ 1018 TD/TT: 05/23/25 1034 Label Printing Machinist: Procedure Note Donotuseinterpreter, Image - 05/23/[address] [address] [address] Scan Report Signed Patient: Neli Esteban [facility]#: [id number] : 1990Acct:[id number] Age/Sex: 34 / FADM Date: 05/23/25 Loc: HO.CT Attending Dr: Lissett Bunn LINING STAMPER Ordering Physician: LISSETT BUNN NP Date of Service: 05/23/25 Procedure(s): CT abdomen pelvis w IV con Accession Number(s): [id number] cc: LISSETT BUNN NP Report Number: [id number]: Total DLP = 349.00 mGy-cm Reason for [...] Lamont Carrera MD 05/23/2025 10:46 AM EDT RP Dictated By: Lamont Carrera MD Signed By: <Electronically signed by Lamont Carrera MD in OV> 05/23/25 1046 DD/ 1018 TD/TT: 05/23/25 1034 Label Printing Machinist: Lissett Bunn ANP IMG CT PROCEDURES Edited Result - Final * Colposcopy (05/09/2025 9:59 AM EDT) Historical Provider IN CLINIC/BEDSIDE ORDERAB LES Final Result * Helicobacter pylori??Antigen, EIA, Stool (05/04/2025 7:08 AM EDT) H pylori Ag Stool SEE NOTE [facility] Comment:HELICOBACTER PYLORI AG, EIA, STOOL Micro Number: [id number] Test Status: Final Specimen Source: Stool Specimen Quality: Adequate H.pylori Ag: Not Detected Antimicrobials, proton pump inhibitors, and bismuth preparations inhibit H. pylori and ingestion up to two weeks prior to testing may cause false negative results. If clinically indicated the test should be repeated on a new specimen obtained two weeks after discontinuing treatment. Reference Range: Not DetectedTHIS TEST WAS PERFORMED AT:[facility] [place] [phone] GONZALES MD Stool Rectal contents / Unknown 05/04/2025 7:08 AM EDT 05/04/2025 12:29 PM EDT us Lissett SANTIAGO LAB BODY FLUIDS AND STOOLS ORDER DEV Final Result [facility] [address] [place] [phone] * (ABNORMAL) HPV DNA, Low/High Risk (02/28/2025 10:41 AM EDT) HPV High Risk Positive(A) Negative [facility] HPV Genotype 16 Negative Negative [facility] HPV Genotype 18 Negative Negative [facility] Comment:HPV testing performe d at [facility] (CLIA#[id number]), [address] [place] [phone].Testing for HPV was performed using the Mame [...] [facility] LAB BLOOD ORDERABLES Jen l Result [facility] [address] [place] [phone] * Pap Smear (02/28/2025 10:41 AM EDT) Swab Cervix uteri structure / Unknown 02/28/2025 10:41 AM EDT 03/01/2025 7:35 AM EDT Narrative [facility] - 03/08/2025 1:52 PM EDT ----- ------- Name: Neli Esteban Age/Sex: 34/F : 1990 Unit#: [id number] Attend Dr: PRISCILA REYES CNM Re02/28/25 Status: [facility] REF Location: [facility] Disch: ----- ------- SPEC : [id number] RECD: 03/01/25 STATUS: PATITO MASSEY NUM: [id number] AIDE: 02/28/[address] [facility] [address]: PRISCILA REYES ENTERED: 03/01/25 SP TYPE: Pap Smr OTHR [...] performed at [facility] ([facility] #[id number]), [address] [place] [address]. Testing for HPV was performed using the [...] All professional services are performed by [facility] ([address] [place] [address]; ; [place] #[id number]). The PAP Test is a screening procedure with the inherent possibility of both false negative and false positive results. Results should be interpreted in the context of historic and current clinical findings. Reliability of the PAP Test is enhanced by performing the test on a regular repetitive basis. CONTINUED ON NEXT PAGE ----- ------- Name: Neli Esteban Age/Sex: 34/F : 1990 Unit#: [id number] Attend Dr: PRISCILA REYES CNM Re02/28/25 Status: DEP REF Location: HO.LNP Disch: ----- ------- SPEC : [id number] RECD: 03/01/25 STATUS: PATITO MASSEY NUM: [id number] AIDE: 02/28/25-[address] [facility] [address]: PRISCILA REYES CNM ENTERED: 03/01/25 EMANUEL TYPE: Pap Nicola LIMA DR: ORDERED: Pap Smear, PAP path review ----- ------- Signed (signature on file) Desiree Garrison 03/08/25 1352 ----- ------- END OF REPORT Priscila Reyes [facility] CYTOLOGY ORDERABLES F inal Result Performing Organization Address [facility] Co de Phone Number [facility] [address] [place] [phone] * HIV Ab/Ag ([facility]) (05/28/2023 12:09 PM EDT) [facility] HIV AB/AG Nonreactive Nonreactive [facility] Comment:HIV-1 p24 Ag and/or HIV-1/HIV-2 Ab not detected.A test result that is nonreactive does not exclude thepossibility of exposure to or infection with HIV-1 and/orHIV-2. Nonreactive results in this assay for individualswith prior exposure to HIV-1 and/or HIV-2 may be due toantigen and antibody levels that are below the limit ofdetection of this assay.The New.[employer] HIV Ag/Ab Combo assay result andsupplemental assay results should be interpreted inconjunction with the patient's clinical presentation,history and other laboratory results. If the results areinconsistent with clinical evidence, additional testing issuggested to confirm the result. 05/28/2023 12:0 9 PM EDT 05/28/2023 12:57 PM EDT Priscila Reyes [facility] BLOOD ORDERABLES Jen l Result [facility] [address] [place] [phone] * Hepatitis C Antibody with Reflex to HCV, RNA, Quantitative, Real-Time PCR (05/28/2023 12:09 PM EDT) Hepatitis C Antibody Nonreactive Nonreactive [facility] Comment:Antibodies to HCV no t detected; does not exclude early acuteHCV infection. Blood Venous blood specimen / Unknown 05/28/2023 12:09 PM EDT 05/28/2023 12:57 PM EDT Priscila Reyes [facility] BLOOD ORDERABLES Jen terry Result [facility] [address] [place] [phone] from Last 3 Months or Most Recently Relevant to Health Maintenance Insurance [facility] C3 Care Teams Collar Runner Relationship Specialty Start Date End Date Lissett Bunn ANP [address] [place] [address] [place] [address] PCP - General Family Medicine 07/17/20
== END 2025-07-31 11:58 | disposition home or self-care (01) ==
LOC: HO.HGI 11:07
PROVIDERS: PCP Nurse Practitioner Primary Care; Visit Provider Nurse Practitioner Family
DX: R10.13 Epigastric pain (principal); K21.9 Gastro-esophageal reflux disease without esophagitis; K59.01 Slow transit constipation; R14.0 Abdominal distension (gaseous); K64.9 Unspecified hemorrhoids; K64.4 Residual hemorrhoidal skin tags
CPT/HCPCS: 99214

== ENCOUNTER → 2025-07-31 11:07 | Outpatient (BNVA) | payer MEDICAID, SELFPAY | PROVIDERS: PCP Nurse Practitioner Primary Care; Visit Provider Nurse Practitioner Family | DX: K64.4 Residual hemorrhoidal skin tags (principal); R10.13 Epigastric pain; K21.9 Gastro-esophageal reflux disease without esophagitis; K59.01 Slow transit constipation; R14.0 Abdominal distension (gaseous); R10.12 Left upper quadrant pain; K64.8 Other hemorrhoids | CPT/HCPCS: 99212 ==